=== PATIENT | female | born 1995 | race Caucasian/White ===

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

== ENCOUNTER → 2017-09-26 | Outpatient (CLI) | payer MEDICAID, OTHER ==
[~2017-09-26] MED LIST changes: +ACET-77 PO; +ACHD5005 PO; -FERR-74 PO; +FERR325T18 PO; -HYDR-3812 PO
--- NOTE | 2017-09-26 15:07 | Diagnostic Imaging Report ---
PROCEDURE: US OB SINGLE FETUS <14 WKS. TECHNIQUE: Multiple real-time grayscale images were obtained over the gravid uterus in various projections. INDICATION: evaluation. FINDINGS: Nuñez intrauterine gestational sac is identified. pole is present with crown-rump length of 3.4 cm. Embryonic cardiac activity is present with a rate of 163 beats per minute. There is no evidence of placental abnormality. No maternal adnexal abnormality is seen. Gestational sac demonstrates normal morphology. IMPRESSION: Unremarkable early intrauterine gestation with estimated age of 10 weeks and 3 days. Sonographic EDC is 04/21/2018. Dictated by: Dictated on workstation # [id number]
== END ==
LOC: RAD 11:00
PROVIDERS: ATTEND Family Medicine
DX: Z34.81 Encounter for supervision of other normal pregnancy, first trimester (principal); Z3A.10 10 weeks gestation of pregnancy
CPT/HCPCS: 76801

== ENCOUNTER 2017-10-20 12:17 | Emergency (ER) | payer OTHER, MEDICAID ==
[~2017-10-20] VITALS: Ht 167.6 cm; Wt 68.0 kg
--- OUTSIDE RECORDS SUMMARY | 2017-10-20 12:23 | XMS REPORT ---
Author Author ANDREW REGIS Organization [facility] Address [address] [place] [address] Care Team Providers Care Product Safety Technical Assistant Name Role Phone REGIS MORALES Unavailable PROBLEMS Type Condition ICD9-CM Code [id number] Code Onset Dates Condition Status SNOMED Code Problem Bipolar disorder with moderate depression F31.32 Active 912275608 Problem Social phobia, generalized F40.11 Active 02557046 Problem Attention-deficit hyperactivity disorder, combined type F90.2 Active 14132564 Problem Bipolar disorder, current episode hypomanic F31.0 Active 57427615 Problem Bipolar disorder, in partial remission, most recent episode depressed F31.75 Active 74286402 ALLERGIES No Information SOCIAL HISTORY Never Assessed PLAN OF CARE Activity Details Follow Up 1W, 1 Week Reason: VITAL SIGNS Height 64.3 in 2016-09-20 Weight 222 lbs 2016-09-20 Temperature 97.9 degrees Fahrenheit 2016-09-20 Heart Rate 90 bpm 2016-09-20 Respiratory Rate 20 2016-09-20 BMI 37.751 kg/m2 2016-09-20 Blood pressure systolic 122 mmHg 2016-09-20 Blood pressure diastolic 70 mmHg 2016-09-20 MEDICATIONS Medication Instructions Dosage Frequency Start Date End Date Duration Status Latuda 20 mg Orally Once with evening meal 1 tablets with 350 calories Apr, Active Active RESULTS Name Result Date Reference Range UA OB DIP (IN HOUSE) 2016-09-20 Glucose negative Protein negative PROCEDURES Procedure Date Ordered Result Body Site LAB NOT BILLED BY [facility] Sep 20, 2016 URINE-NO MICRO Sep 20, 2016 IMMUNIZATIONS No Known Immunizations MEDICAL (GENERAL) HISTORY Type Description Date Medical History 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 Has had consisten NEUROLOGY care. Diagnosed with Focal Seizures with EEG Medical History ADHD Medical History Bipolar disorder Medical History Social anxiety disorder Surgical History [place] teeth removed 09/06/15 Hospitalization History psych; anger/aggression 2008
--- OUTSIDE RECORDS SUMMARY | 2017-10-20 12:23 | XMS REPORT ---
Author Author ANDREW REGIS Organization [facility] Address [address] [place] [address] Care Team Providers Care Nuclear Physician Name Role Phone REGIS MORALES Unavailable PROBLEMS Type Condition ICD9-CM Code ABR59-OA Code Onset Dates Condition Status SNOMED Code Problem Bipolar disorder with moderate depression F31.32 Active 827791266 Problem Social phobia, generalized F40.11 Active 09902985 Problem Attention-deficit hyperactivity disorder, combined type F90.2 Active 82613606 Problem Bipolar disorder, current episode hypomanic F31.0 Active 14373815 Problem Bipolar disorder, in partial remission, most recent episode depressed F31.75 Active 15327208 ALLERGIES No Information SOCIAL HISTORY Never Assessed PLAN OF CARE Activity Details Follow Up 1 Week Reason: VITAL SIGNS Height 64.3 in 2016-09-11 Weight 219.0 lbs 2016-09-11 Temperature 98.4 degrees Fahrenheit 2016-09-11 BMI 37.241 kg/m2 2016-09-11 Blood pressure systolic 110 mmHg 2016-09-11 Blood pressure diastolic 68 mmHg 2016-09-11 MEDICATIONS Medication Instructions Dosage Frequency Start Date End Date Duration Status Latuda 20 mg Orally Once with evening meal 1 tablets with 350 calories Apr, Active Active RESULTS Name Result Date Reference Range UA OB DIP (IN HOUSE) 2016-09-11 Glucose negative Protein negative PROCEDURES Procedure Date Ordered Result Body Site URINE-NO MICRO Sep 11, 2016 IMMUNIZATIONS No Known Immunizations MEDICAL (GENERAL) HISTORY Type Description Date Medical History 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 Has had consisten NEUROLOGY care. Diagnosed with Focal Seizures with EEG Medical History ADHD Medical History Bipolar disorder Medical History Social anxiety disorder Surgical History [place] teeth removed 09/06/15 Hospitalization History psych; anger/aggression 2008
--- OUTSIDE RECORDS SUMMARY | 2017-10-20 12:23 | XMS REPORT ---
Author Author ANDREWREIGS KELLER Organization [facility] Address [address] [place] [address] Care Team Providers Care Gasket Supervisor Name Role Phone REGIS MORALES Unavailable PROBLEMS Type Condition ICD9-CM Code [id number] Code Onset Dates Condition Status SNOMED Code Problem Social phobia, generalized F40.11 Active 66745221 Problem Bipolar disorder, current episode hypomanic F31.0 Active 73119208 Problem Bipolar disorder, in partial remission, most recent episode depressed F31.75 Active 57237749 Problem Attention-deficit hyperactivity disorder, combined type F90.2 Active 66992733 ALLERGIES Substance Reaction Event Type Date Status N.K.D.A. Unknown Non Drug Allergy Jul, Unknown SOCIAL HISTORY No smoking Hx information available PLAN OF CARE Activity Details Follow Up 2W, 2 Weeks, 2 Weeks, 2 Weeks Reason: VITAL SIGNS Height 64.3 in 2016-07-31 Weight 198 lbs 2016-07-31 Temperature 98.4 degrees Fahrenheit 2016-07-31 Heart Rate 90 bpm 2016-07-31 Respiratory Rate 20 2016-07-31 BMI 33.67 kg/m2 2016-07-31 Blood pressure systolic 98 mmHg 2016-07-31 Blood pressure diastolic 62 mmHg 2016-07-31 MEDICATIONS Medication Instructions Dosage Frequency Start Date End Date Duration Status Active Latuda 20 mg Orally Once with evening meal 1 tablets with 350 calories Apr, Active RESULTS Name Result Date Reference Range UA OB DIP (IN HOUSE) 2016-07-31 Glucose negative Protein 1+ GLUCOSE BARBARA 1 HOUR 2016-07-31 Gestational Diabetes Screen 84 65-139 CBC 2016-07-31 WBC 12.3 3.4-10.8 RBC 3.55 3.77-5.28 Hemoglobin 11.2 11.1-15.9 Hematocrit 32.7 34.0-46.6 MCV 92 79-97 MCH 31.5 26.6-33.0 MCHC 34.3 31.5-35.7 RDW 13.6 12.3-15.4 Platelets 298 150-379 Neutrophils 68 Lymphs 21 Monocytes 10 Eos 1 Basos 0 Neutrophils (Absolute) 8.2 1.4-7.0 Lymphs (Absolute) 2.6 0.7-3.1 Monocytes(Absolute) 1.3 0.1-0.9 Eos (Absolute) 0.2 0.0-0.4 Baso (Absolute) 0.0 0.0-0.2 Immature Granulocytes 0 Immature Grans (Abs) 0.0 0.0-0.1 CULTURE, GENITAL 2016-07-31 Genital Culture, Routine Final report Result 1 Ultrasound : OB, Limited 2016-07-31 PROCEDURES Procedure Date Ordered Related Diagnosis Body Site COMPLETE CBC W/AUTO DIFF WBC Jul 31, 2016 GLUCOSE TEST Jul 31, 2016 VENIPUNCT, ROUTINE* Jul 31, 2016 Office Visit, Est Pt., Level 3 Jul 31, 2016 CULTURE, BACTERIA, OTHER Jul 31, 2016 URINE-NO MICRO Jul 31, 2016 THER/PROPH/DIAG INJ, SC/IM Jul 31, 2016 RHOGAM 300 MCG Jul 31, 2016 IMMUNIZATIONS Vaccine Route Administration Date Status RHOGAM 300 MCG IM Intramuscular Jul 31, 2016 Administered
--- OUTSIDE RECORDS SUMMARY | 2017-10-20 12:24 | XMS REPORT ---
Author Author ANDREW REGIS Jacky [facility] Address [address] [place] [address] Care Team Providers Care Valve Pipe Irrigator Name Role Phone REGIS MORALES Unavailable PROBLEMS Type Condition ICD9-CM Code [id number] Code Onset Dates Condition Status SNOMED Code Problem Bipolar disorder with moderate depression F31.32 Active 474496089 Problem Social phobia, generalized F40.11 Active 24475032 Problem Attention-deficit hyperactivity disorder, combined type F90.2 Active 48826060 Problem Bipolar disorder, current episode hypomanic F31.0 Active 02617920 Problem Bipolar disorder, in partial remission, most recent episode depressed F31.75 Active 72092601 ALLERGIES No Known Allergies SOCIAL HISTORY Never Assessed PLAN OF CARE Activity Details Follow Up 6wk post Reason: VITAL SIGNS Height 64.3 in 2016-10-12 Weight 200.9 lbs 2016-10-12 Temperature 97.0 degrees Fahrenheit 2016-10-12 Heart Rate 80 bpm 2016-10-12 Respiratory Rate 18 2016-10-12 BMI 34.16 kg/m2 2016-10-12 Blood pressure systolic 120 mmHg 2016-10-12 Blood pressure diastolic 78 mmHg 2016-10-12 MEDICATIONS Medication Instructions Dosage Frequency Start Date End Date Duration Status Ferrous Sulfate 325 (65 Fe) MG Orally Once a day 1 tablet 24h Active Active RESULTS Name Result Date Reference Range TRICHOMONAS (IN HOUSE) 2016-10-12 TRICHOMONAS Negative Control + Lot # [id number] Exp date 09/2017 BACTERIAL VAGINOSIS (IN HOUSE) 2016-10-12 RESULTS negative Control + Lot # [id number] Exp date 04/2017 CULTURE, VIRAL (HSV W/ TYPING) 2016-10-12 HSV Culture/Type CULTURE, GENITAL 2016-10-12 Genital Culture, Routine Final report Result 1 GC/CHLAM PROBE (STATE) 2016-10-12 CHLAMYDIA Pos GC Neg SYPHILIS (STATE) 2016-10-12 HIV (STATE) 2016-10-12 PROCEDURES Procedure Date Ordered Result Body Site No Charge October 12, 2016 TRICHOMONAS ASSAY W/OPTIC October 12, 2016 CULTURE, BACTERIA, OTHER October 12, 2016 GALLOWAY VAG, DNA, DIR PROBE October 12, 2016 VANESSA VIRUS ISOLATE, HSV October 12, 2016 VENIPUNCT, ROUTINE* October 12, 2016 IMMUNIZATIONS No Known Immunizations MEDICAL (GENERAL) HISTORY Type Description Date Medical History 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 Has had consisten NEUROLOGY care. Diagnosed with Focal Seizures with EEG Medical History ADHD Medical History Bipolar disorder Medical History Social anxiety disorder Surgical History [place] teeth removed 09/06/15 Hospitalization History psych; anger/aggression 2008
--- OUTSIDE RECORDS SUMMARY | 2017-10-20 12:24 | XMS REPORT ---
Author Author GLENYS ROBB Organization [facility] Address [address] [place] [address] Care Team Providers Care Air Dispatcher Name Role Phone GLENYS ROBB Unavailable PROBLEMS Type Condition ICD9-CM Code [id number] Code Onset Dates Condition Status SNOMED Code Problem Bipolar disorder with moderate depression F31.32 Active 946803219 Problem Social phobia, generalized F40.11 Active 96869022 Problem Attention-deficit hyperactivity disorder, combined type F90.2 Active 19022519 Problem Bipolar disorder, current episode hypomanic F31.0 Active 39550853 Problem Bipolar disorder, in partial remission, most recent episode depressed F31.75 Active 87993213 ALLERGIES Substance Reaction Event Type Date Status N.K.D.A. Unknown Non Drug Allergy Sep, Unknown SOCIAL HISTORY No smoking Hx information available PLAN OF CARE Activity Details Follow Up 2 weeks after delivery Reason: VITAL SIGNS Height 64.3 in 2016-09-06 Weight 215.5 lbs 2016-09-06 Heart Rate 76 bpm 2016-09-06 Respiratory Rate 20 2016-09-06 BMI 36.64 kg/m2 2016-09-06 Blood pressure systolic 105 mmHg 2016-09-06 Blood pressure diastolic 67 mmHg 2016-09-06 MEDICATIONS Medication Instructions Dosage Frequency Start Date End Date Duration Status Latuda 20 mg Orally Once with evening meal 1 tablets with 350 calories Apr, Active Active RESULTS No Results PROCEDURES Procedure Date Ordered Related Diagnosis Body Site MH Office Visit, Est Pt., Level 4 Sep 06, 2016 IMMUNIZATIONS No Known Immunizations
--- OUTSIDE RECORDS SUMMARY | 2017-10-20 12:24 | XMS REPORT ---
Author Author REGIS MORALES [facility] Address [address] [place] [address] Care Team Providers Care Religious Assistant Name Role Phone REGIS MORALES Unavailable PROBLEMS Type Condition ICD9-CM Code [id number] Code Onset Dates Condition Status SNOMED Code Problem Bipolar disorder with moderate depression F31.32 Active 005151298 Problem Social phobia, generalized F40.11 Active 69459766 Problem Attention-deficit hyperactivity disorder, combined type F90.2 Active 25795113 Problem Bipolar disorder, current episode hypomanic F31.0 Active 14430028 Problem Bipolar disorder, in partial remission, most recent episode depressed F31.75 Active 44536133 ALLERGIES Unknown Allergies SOCIAL HISTORY No smoking Hx information available PLAN OF CARE VITAL SIGNS MEDICATIONS Unknown Medications RESULTS No Results PROCEDURES No Known procedures IMMUNIZATIONS No Known Immunizations
--- OUTSIDE RECORDS SUMMARY | 2017-10-20 12:24 | XMS REPORT ---
Author Author REGIS MORALES Organization [facility] Address [address] [place] [address] Care Team Providers Care Installment Dealer Name Role Phone REGIS MORALES Unavailable PROBLEMS Type Condition ICD9-CM Code [id number]-DT Code Onset Dates Condition Status SNOMED Code Problem Bipolar disorder with moderate depression F31.32 Active 030736720 Problem Social phobia, generalized F40.11 Active 64391444 Problem Attention-deficit hyperactivity disorder, combined type F90.2 Active 51622420 Problem Bipolar disorder, current episode hypomanic F31.0 Active 51095713 Problem Bipolar disorder, in partial remission, most recent episode depressed F31.75 Active 54124153 ALLERGIES No Information SOCIAL HISTORY Never Assessed PLAN OF CARE VITAL SIGNS MEDICATIONS Unknown Medications RESULTS No Results PROCEDURES No Known procedures IMMUNIZATIONS No Known Immunizations MEDICAL (GENERAL) HISTORY Type Description Date Medical History 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 Has had consisten NEUROLOGY care. Diagnosed with Focal Seizures with EEG Medical History ADHD Medical History Bipolar disorder Medical History Social anxiety disorder Surgical History [place] teeth removed 09/06/15 Hospitalization History psych; anger/aggression 2008
--- OUTSIDE RECORDS SUMMARY | 2017-10-20 12:24 | XMS REPORT ---
Author MARIPOSA Salcido Organization [facility] Address [address] [place] [address] Care Team Providers Care Rn Vascular Name Role Phone MARIPOSA BERNARDO Unavailable PROBLEMS Type Condition ICD9-CM Code [id number] Code Onset Dates Condition Status SNOMED Code Problem Bipolar disorder with moderate depression F31.32 Active 715131483 Problem Social phobia, generalized F40.11 Active 68924942 Problem Attention-deficit hyperactivity disorder, combined type F90.2 Active 37974784 Problem Bipolar disorder, current episode hypomanic F31.0 Active 52762171 Problem Bipolar disorder, in partial remission, most recent episode depressed F31.75 Active 74352907 ALLERGIES No Information SOCIAL HISTORY Never Assessed PLAN OF CARE Activity Details Follow Up prn Reason:Depression VITAL SIGNS MEDICATIONS Unknown Medications RESULTS No Results PROCEDURES Procedure Date Ordered Result Body Site Psych diagnostic evaluation, new patient October 11, 2016 IMMUNIZATIONS No Known Immunizations MEDICAL (GENERAL) HISTORY Type Description Date Medical History 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 Has had consisten NEUROLOGY care. Diagnosed with Focal Seizures with EEG Medical History ADHD Medical History Bipolar disorder Medical History Social anxiety disorder Surgical History [place] teeth removed 09/06/15 Hospitalization History psych; anger/aggression 2008
--- OUTSIDE RECORDS SUMMARY | 2017-10-20 12:25 | XMS REPORT ---
Author Author ANDREWREGIS KELLER Organization [facility] Address [address] [place] [address] Care Team Providers Care Millwright Instructor Name Role Phone REGIS MORALES Unavailable PROBLEMS Type Condition ICD9-CM Code RLF40-ES Code Onset Dates Condition Status SNOMED Code Problem Social phobia, generalized F40.11 Active 75379963 Problem Bipolar disorder, current episode hypomanic F31.0 Active 16899175 Problem Bipolar disorder, in partial remission, most recent episode depressed F31.75 Active 05010019 Problem Attention-deficit hyperactivity disorder, combined type F90.2 Active 59103309 ALLERGIES Substance Reaction Event Type Date Status N.K.D.A. Unknown Non Drug Allergy Aug, Unknown SOCIAL HISTORY No smoking Hx information available PLAN OF CARE Activity Details Follow Up 2 Weeks, 2 Weeks Reason: VITAL SIGNS Height 64.3 in 2016-08-29 Weight 213 lbs 2016-08-29 Temperature 97.6 degrees Fahrenheit 2016-08-29 Heart Rate 90 bpm 2016-08-29 Respiratory Rate 20 2016-08-29 BMI 36.221 kg/m2 2016-08-29 Blood pressure systolic 106 mmHg 2016-08-29 Blood pressure diastolic 60 mmHg 2016-08-29 MEDICATIONS Medication Instructions Dosage Frequency Start Date End Date Duration Status Latuda 20 mg Orally Once with evening meal 1 tablets with 350 calories Apr, Active Active RESULTS Name Result Date Reference Range UA OB DIP (IN HOUSE) 2016-08-29 Glucose negative Protein negative PROCEDURES Procedure Date Ordered Related Diagnosis Body Site URINE-NO MICRO Aug 29, 2016 TDAP (BOOSTRIX) Aug 29, 2016 Office Visit, Est Pt., Level 2 Aug 29, 2016 SINGLE IMMUNIZATION ADMIN Aug 29, 2016 IMMUNIZATIONS Vaccine Route Administration Date Status TDAP (BOOSTRIX) IM Intramuscular Aug 29, 2016 Administered
--- OUTSIDE RECORDS SUMMARY | 2017-10-20 12:25 | XMS REPORT ---
Author Author REGIS MORALES [facility] Address [address] [place] [address] Care Team Providers Care Sawyer Cork Slabs Name Role Phone REGIS MORALES Unavailable PROBLEMS Type Condition ICD9-CM Code [id number] Code Onset Dates Condition Status SNOMED Code Problem Bipolar disorder with moderate depression F31.32 Active 312868385 Problem Social phobia, generalized F40.11 Active 52834949 Problem Attention-deficit hyperactivity disorder, combined type F90.2 Active 36770156 Problem Bipolar disorder, current episode hypomanic F31.0 Active 11571723 Problem Bipolar disorder, in partial remission, most recent episode depressed F31.75 Active 14727608 ALLERGIES Unknown Allergies SOCIAL HISTORY No smoking Hx information available PLAN OF CARE VITAL SIGNS MEDICATIONS Unknown Medications RESULTS No Results PROCEDURES No Known procedures IMMUNIZATIONS No Known Immunizations
--- OUTSIDE RECORDS SUMMARY | 2017-10-20 12:25 | XMS REPORT ---
Author Author REGIS MORALES Organization [facility] Address [address] [place] [address] Care Team Providers Care Gas Or Water Meter Installer Name Role Phone REGIS MORALES Unavailable PROBLEMS Type Condition ICD9-CM Code [id number]-HR Code Onset Dates Condition Status SNOMED Code Problem Bipolar disorder with moderate depression F31.32 Active 420898805 Problem Social phobia, generalized F40.11 Active 84788522 Problem Attention-deficit hyperactivity disorder, combined type F90.2 Active 97853800 Problem Bipolar disorder, current episode hypomanic F31.0 Active 84678597 Problem Bipolar disorder, in partial remission, most recent episode depressed F31.75 Active 75762887 ALLERGIES No Information SOCIAL HISTORY Never Assessed [...] Medical History Social anxiety disorder Surgical History [place] teeth removed 09/06/15 Hospitalization History psych; anger/aggression 2008
--- OUTSIDE RECORDS SUMMARY | 2017-10-20 12:25 | XMS REPORT ---
Author Author REGIS MORALES Organization [facility] Address [address] [place] [address] Care Team Providers Care High School English Teacher Name Role Phone REGIS MORALES Unavailable PROBLEMS Type Condition ICD9-CM Code [id number] Code Onset Dates Condition Status SNOMED Code Problem Bipolar disorder with moderate depression F31.32 Active 643976171 Problem Social phobia, generalized F40.11 Active 67305247 Problem Attention-deficit hyperactivity disorder, combined type F90.2 Active 52439109 Problem Bipolar disorder, current episode hypomanic F31.0 Active 16210551 Problem Bipolar disorder, in partial remission, most recent episode depressed F31.75 Active 12685701 ALLERGIES No Information SOCIAL HISTORY Never Assessed PLAN OF CARE VITAL SIGNS MEDICATIONS No Known Medications RESULTS No Results PROCEDURES No Known procedures IMMUNIZATIONS No Known Immunizations MEDICAL (GENERAL) HISTORY Type Description Date Medical History 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 Has had consisten NEUROLOGY care. Diagnosed with Focal Seizures with EEG Medical History ADHD Medical History Bipolar disorder Medical History Social anxiety disorder Surgical History [place] teeth removed 09/06/15 Hospitalization History psych; anger/aggression 2008
--- OUTSIDE RECORDS SUMMARY | 2017-10-20 12:25 | XMS REPORT ---
Author Author REGIS MORALES [facility] Address [address] [place] [address] Care Team Providers Care Dry House Tender Name Role Phone REGIS MORALES Unavailable PROBLEMS Type Condition ICD9-CM Code [id number] Code Onset Dates Condition Status SNOMED Code Problem Social phobia, generalized F40.11 Active 99240026 Problem Bipolar disorder, current episode hypomanic F31.0 Active 54445869 Problem Bipolar disorder, in partial remission, most recent episode depressed F31.75 Active 05499900 Problem Attention-deficit hyperactivity disorder, combined type F90.2 Active 03127366 ALLERGIES Unknown Allergies SOCIAL HISTORY No smoking Hx information available PLAN OF CARE VITAL SIGNS MEDICATIONS Unknown Medications RESULTS No Results PROCEDURES No Known procedures IMMUNIZATIONS No Known Immunizations
--- OUTSIDE RECORDS SUMMARY | 2017-10-20 12:26 | XMS REPORT ---
Author Author GLENYS ROBB Organization [facility] Address [address] [place] [address] Care Team Providers Care Dinkey Operator Name Role Phone GLENYS ROBB Unavailable PROBLEMS Type Condition ICD9-CM Code [id number] Code Onset Dates Condition Status SNOMED Code Problem Bipolar disorder with moderate depression F31.32 Active 141476537 Problem Social phobia, generalized F40.11 Active 79869670 Problem Attention-deficit hyperactivity disorder, combined type F90.2 Active 08537519 Problem Bipolar disorder, current episode hypomanic F31.0 Active 01589100 Problem Bipolar disorder, in partial remission, most recent episode depressed F31.75 Active 24867499 ALLERGIES No Known Allergies SOCIAL HISTORY Never Assessed PLAN OF CARE Activity Details Follow Up 4 Weeks Reason: VITAL SIGNS Height 64.3 in 2016-10-11 Weight 197.0 lbs 2016-10-11 BMI 33.50 kg/m2 2016-10-11 MEDICATIONS Medication Instructions Dosage Frequency Start Date End Date Duration Status Active RESULTS No Results PROCEDURES No Known procedures IMMUNIZATIONS No Known Immunizations MEDICAL (GENERAL) HISTORY Type Description Date Medical History 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 Has had consisten NEUROLOGY care. Diagnosed with Focal Seizures with EEG Medical History ADHD Medical History Bipolar disorder Medical History Social anxiety disorder Surgical History [place] teeth removed 09/06/15 Hospitalization History psych; anger/aggression 2008
--- OUTSIDE RECORDS SUMMARY | 2017-10-20 12:26 | XMS REPORT ---
Author Author REGIS MORALES Organization [facility] Address [address] [place] [address] Care Team Providers Care Electronics Engineer Name Role Phone REGIS MORALES Unavailable PROBLEMS Type Condition ICD9-CM Code [id number]-PP Code Onset Dates Condition Status SNOMED Code Problem Bipolar disorder with moderate depression F31.32 Active 236045147 Problem Social phobia, generalized F40.11 Active 89218451 Problem Attention-deficit hyperactivity disorder, combined type F90.2 Active 51892252 Problem Bipolar disorder, current episode hypomanic F31.0 Active 85669534 Problem Bipolar disorder, in partial remission, most recent episode depressed F31.75 Active 75338915 ALLERGIES No Information SOCIAL HISTORY Never Assessed [...] Medical History Social anxiety disorder Surgical History [place] teeth removed 09/06/15 Hospitalization History psych; anger/aggression 2008
--- OUTSIDE RECORDS SUMMARY | 2017-10-20 12:27 | XMS REPORT | Continuity of Care Document ---
Demographics Preferred Language Unknown Marital Status Unknown Sabianism Affiliation Unknown Race Unknown Ethnic Group Unknown Author Author [facility] Address Unknown Phone Unavailable Allergies There is no data. Medications There is no data. Problems Date Dx Coded Attending Type Code Diagnosis Diagnosed By 12/12/2009 296.80 MO BIPOLAR NOS 12/12/2009 314.01 CD ADHD COMBINED Procedures There is no data. Results There is no data. Encounters ACCT No. Visit Date/Time Discharge Status Pt. Type Provider Facility Loc./Unit Complaint [id number] 01/16/2012 14:40:00 01/16/2012 23:59:59 CLS Outpatient
[2017-10-20 12:54] LABS: BASOPHILS % (AUTO) 0 % (0-10); EOSINOPHILS # (AUTO) 0.1 10^3/uL (0.0-0.3); EOSINOPHILS % (AUTO) 2 % (0-10); HEMATOCRIT 32 % (35-52); HEMOGLOBIN 11.8 G/DL (11.5-16.0); LYMPHOCYTES # (AUTO) 2.1 X 10^3 (1.0-4.0); LYMPHOCYTES % (AUTO) 36 % (12-44); MEAN CORPUSCULAR HEMOGLOBIN 32 PG (25-34); MEAN CORPUSCULAR HGB CONC 37 G/DL (32-36); MEAN CORPUSCULAR VOLUME 87 FL (80-99); MEAN PLATELET VOLUME 9.9 FL (7.4-10.4); MONOCYTES # (AUTO) 0.4 X 10^3 (0.0-1.0); MONOCYTES % (AUTO) 7 % (0-12); NEUTROPHILS # (AUTO) 3.2 X 10^3 (1.8-7.8); NEUTROPHILS % (AUTO) 54 % (42-75); PLATELET COUNT 197 10^3/uL (130-400); RED BLOOD COUNT 3.69 10^6/uL (4.35-5.85); RED CELL DISTRIBUTION WIDTH 12.9 % (10.0-14.5)
[2017-10-20 13:43] LABS: BILIRUBIN,URINE NEGATIVE (NEGATIVE); CLARITY,URINE CLEAR; COLOR,URINE YELLOW; GLUCOSE, URINE (UA) NEGATIVE (NEGATIVE); KETONES,URINE NEGATIVE (NEGATIVE); LEUKOCYTE ESTERASE ,URINE 3+ (NEGATIVE); NITRITE,URINE NEGATIVE (NEGATIVE); PH,URINE 6 (5-9); PROTEIN,URINE 1+ (NEGATIVE); UROBILINOGEN,URINE 1 MG/DL (NORMAL)
[2017-10-20 13:50] LABS: WBC,URINE 25-50 /HPF
[2017-10-20 13:51] LABS: BACTERIA,URINE LARGE /HPF
[2017-10-20] MEDS ORDERED: cefTRIAXone 1 GM (ROCEPHIN) VIAL IM ONE (14:15)
[2017-10-20] MEDS ORDERED: LIDOCAINE 1% INJ 20 ML (XYLOCAINE) VIAL INJ ONE (14:15)
--- NOTE | 2017-10-20 14:21 | Diagnostic Imaging Report ---
INDICATION: Bleeding. TECHNIQUE: Multiple real-time grayscale images were obtained over the gravid uterus. COMPARISON: 09/26/2017. FINDINGS: There is a single live intrauterine gestation measuring 14 weeks 3 days by today's sonogram. This is a limited evaluation with no gross abnormalities of the fetus appreciated on the images provided. However, along the anteriorly located placenta, there is an area of uncertain heterogeneity measuring 3.2 x 2.2 x 4 cm in size. This persists throughout the examination, therefore likely not a focal Cheikh Kinsey contraction. A focal hematoma or hemorrhage is possible. A mass lesion felt to be less likely but short-term interval followup is recommended for reevaluation of this finding. The amniotic fluid index is grossly unremarkable in appearance. There is question placenta previa which could be reevaluated at the time of followup. The heart rate is approximately 146 beats per minute. IMPRESSION: 1. Single live intrauterine gestation as noted above measuring 14 weeks 3 days by today's sonogram. A short-term interval followup is recommended for reevaluation, as noted above. 2. Nonspecific heterogeneous area adjacent to the placenta. See above description. Short-term interval followup for reevaluation of this finding also recommended. Suggested previa could be reevaluated at that time as well. Biometrical measurements are as follows: Biparietal 2.6 cm, age 14 weeks 4 days. Head circumference 10.17 cm, age 14 weeks 6 days. Abdominal circumference 7.76 cm, age 14 weeks 2 days. Femur length 1.31 cm, age 14 weeks 0 days. Sonographic estimate age: 14 weeks 3 days. Sonographic estimated date of delivery: 04/17/2018. Estimated Weight: 90 gm (+/- 13 gm). LMP percentile: 51%. heart rate: 146 beats per minute. number: 1 of 1. Dictated by: Dictated on workstation # [id number]
--- NOTE | 2017-10-20 14:39 | ED GU-Female ---
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 patient states she is approximately 1400. Denies similar symptoms during this . Denies abdominal pain, fever, nausea, vomiting, dysuria, frequency. Denies intercourse last night. Patient was seen by Dr. Morales on Saturday for regular appointment. 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) Severity/Quality: moderate Location: vaginal Activities at Onset: none Prior Genitourinary Problems: none Sexual [place] History: less than 2 months ago, single partner Allergies and Home Medications Allergies Coded Allergies: No Known Drug Allergies (Verified , 04/15/08) Home Medications Nitrofurantoin Monohyd/M-Cryst 100 Mg Capsule, 1 CAP PO BID Prescribed by: LUIS HARRELL on 10/20/17 1502 Patient Home Medication List Home Medication List Reviewed: Yes Constitutional: No chills, No diaphoresis, No dizziness, No fever, No malaise EENTM: no symptoms reported Respiratory: No cough, No dyspnea on exertion, No orthopnea, No short of breath Cardiovascular: No chest pain, No edema, No palpitations Gastrointestinal: No abdominal pain, No constipation, No diarrhea, No loss of appetite, No melena, No nausea, No vomiting Genitourinary: see HPI, denies burning, denies dysuria, denies frequency, denies flank pain, denies pain, other (vaginal bleeding) : Yes Musculoskeletal: No back pain Skin: no symptoms reported Psychiatric/Neurological: No Symptoms Reported All Other Systemes Reviewed Negative Unless Noted: Yes (Negative excepted noted.) Past Nfqctcm-Ojlhso-Ajjkgw Hx Patient Social History Type Used: Cigarettes Former Smoker, Quit: Mar 04, 2016 Recent Foreign Travel: No Contact w/Someone Who Travel: No Recent Hopitalizations: Yes (CHILDBIRTH) Immunizations Up To Date Tetanus Booster (TDap): Less than 5yrs PED Vaccines UTD: Yes Date of Influenza Vaccine: May 03, 2016 Seasonal Allergies Seasonal Allergies: Yes Surgeries History of Surgeries: Yes (wisdom teeth) Respiratory History of Respiratory Disorde: Yes Respiratory Disorders: Asthma, Pneumonia Currently Using CPAP: No Currently Using BIPAP: No Cardiovascular History of Cardiac Disorders: No Neurological History of Neurological Disord: No Reproductive System : Yes Hx : 2 Hx Para: 1 Hx Total # of Abortions (Spona: 0 Hx Reproductive Disorders: No Sexually Transmitted Disease: No HIV/AIDS: No Female Reproductive Disorders: Denies Genitourinary History of Genitourinary Disor: No Gastrointestinal History of Gastrointestinal Di: No Musculoskeletal History of Musculoskeletal Dis: Yes Musculoskeletal Disorders: Scoliosis Endocrine History of Endocrine Disorders: No HEENT History of HEENT Disorders: No Cancer History of Cancer: No Psychosocial History of Psychiatric Problem: No (pt denies) Integumentary History of Skin or Integumenta: No Blood Transfusions History of Blood Disorders: No Adverse Reaction to a Blood Tr: No Reviewed Nursing Assessment Reviewed/Agree w Nursing PMH: Yes Family Medical History Significant Family History: No Pertinent Family Hx Family Medial History: Hypertension 19 FATHER Physical Exam Vital Signs Vital Signs - First Documented 10/20/17 10/20/17 12:20 16:31 Pulse 76 Resp 16 B/P (MAP) 128/70 (89) Pulse Ox 98 O2 Delivery Room Air Capillary Refill : General Appearance: WD/WN, no apparent distress HEENT: PERRL/EOMI, pharynx normal Neck: non-tender, supple, normal inspection Cardiovascular: normal peripheral pulses, regular rate, rhythm, no edema, no murmur Respiratory: lungs clear, normal breath sounds, no respiratory distress, no accessory muscle use Gastrointestinal: normal bowel sounds, non tender, soft, No distended, other ( uterine fundus palpable and consistent with a 14 wk uterus.) Back: normal inspection, no CVA tenderness Extremities: no pedal edema, no calf tenderness, normal capillary refill Neurologic/Psychiatric: alert, normal mood/affect, oriented x 3 Skin: normal color, warm/dry Progress/Results/Core Measures Suspected Sepsis SIRS Temperature: Pulse: Respiratory Rate: Laboratory Tests 10/20/17 12:42: White Blood Count 6.0 Blood Pressure / Mean: Laboratory Tests 10/20/17 12:42: Platelet Count 197 Results/Orders Lab Results Laboratory Tests Test 10/20/17 12:42 10/20/17 13:30 Range/Units White Blood Count 6.0 4.3-11.0 10^3/uL Red Blood Count 3.69 L 4.35-5.85 10^6/uL Hemoglobin 11.8 11.5-16.0 G/DL Hematocrit 32 L 35-52 % Mean Corpuscular Volume 87 80-99 FL Mean Corpuscular Hemoglobin 32 25-34 PG Mean Corpuscular Hemoglobin Concent 37 H 32-36 G/DL Red Cell Distribution Width 12.9 10.0-14.5 % Platelet Count 197 130-400 10^3/uL Mean Platelet Volume 9.9 7.4-10.4 FL Neutrophils (%) (Auto) 54 42-75 % Lymphocytes (%) (Auto) 36 12-44 % Monocytes (%) (Auto) 7 0-12 % Eosinophils (%) (Auto) 2 0-10 % Basophils (%) (Auto) 0 0-10 % Neutrophils # (Auto) 3.2 1.8-7.8 X 10^3 Lymphocytes # (Auto) 2.1 1.0-4.0 X 10^3 Monocytes # (Auto) 0.4 0.0-1.0 X 10^3 Eosinophils # (Auto) 0.1 0.0-0.3 10^3/uL Basophils # (Auto) 0.0 0.0-0.1 10^3/uL Urine Color YELLOW Urine Clarity CLEAR Urine pH 6 5-9 Urine Specific [place] 1.015 L 1.016-1.022 Urine Protein 1+ H NEGATIVE Urine Glucose (UA) NEGATIVE NEGATIVE Urine Ketones NEGATIVE NEGATIVE Urine Nitrite NEGATIVE NEGATIVE Urine Bilirubin NEGATIVE NEGATIVE Urine Urobilinogen 1 NORMAL MG/DL Urine Leukocyte Esterase 3+ H NEGATIVE Urine RBC (Auto) 5+ H NEGATIVE Urine RBC NONE /HPF Urine WBC 25-50 H /HPF Urine Squamous Epithelial Cells 5-10 /HPF Urine Crystals NONE /LPF Urine Bacteria LARGE H /HPF Urine Casts NONE /LPF Urine Mucus LARGE H /LPF Urine Culture Indicated YES My Orders Orders - LUIS HARRELL Us Ob Preg Late(14-40wks)19540 (10/20/17 12:21) Cbc With Automated Diff (10/20/17 12:21) Ua Culture If Indicated (10/20/17 12:21) Urine Culture (10/20/17 13:30) Ceftriaxone Injection (Rocephin Injectio (3/18/18 14:15) Lidocaine 1% Injection (Xylocaine 1% Inj (10/20/17 14:15) Rhogam Administration (10/20/17 15:00) Rh Immune Globulin Rhophylac (10/20/17 15:14) Lidocaine 1% (Xylocaine 1%) (10/20/17 15:17) Medications Given in ED Current Medications Medications Dose Ordered Sig/Minnie Route Start Time Stop Time Status Last Admin Dose Admin Ceftriaxone Sodium 1,000 mg ONCE ONCE IM 10/20/17 14:15 10/20/17 14:16 DC 10/20/17 16:02 1,000 MG Lidocaine HCl 50 ml STK-MED ONCE .ROUTE 10/20/17 15:17 10/20/17 15:20 DC 10/20/17 16:03 50 ML Vital Signs/I&O Vital Sign - Last 12Hours 10/20/17 10/20/17 12:20 16:31 Pulse 76 76 Resp 16 16 B/P (MAP) 128/70 (89) 128/70 (89) Pulse Ox 98 O2 Delivery Room Air Capillary Refill : Diagnostic Imaging Diagonstic Imaging: Ultrasound Plain Films/CT/US/NM/MRI: pelvis Comments FINDINGS: There is a single live intrauterine gestation measuring 14 weeks 3 days by today's sonogram. This is a limited evaluation with no gross abnormalities of the fetus appreciated on the images provided. However, along the anteriorly located placenta, there is an area of uncertain heterogeneity measuring 3.2 x 2.2 x 4 cm in size. This persists throughout the examination, therefore likely not a focal Cheikh Kinsey contraction. A focal hematoma or hemorrhage is possible. A mass lesion felt to be less likely but short-term interval followup is recommended for reevaluation of this finding. The amniotic fluid index is grossly unremarkable in appearance. There is question placenta previa which could be reevaluated at the time of followup. The heart rate is approximately 146 beats per minute. IMPRESSION: 1. Single live intrauterine gestation as noted above measuring 14 weeks 3 days by today's sonogram. A short- term interval followup is recommended for reevaluation, as noted above. 2. Nonspecific heterogeneous area adjacent to the placenta. See above description. Short-term interval followup for reevaluation of this finding also recommended. Suggested previa could be reevaluated at that time as well. Biometrical measurements are as follows: Biparietal 2.6 cm, age 14 weeks 4 days. Head circumference 10.17 cm, age 14 weeks 6 days. Abdominal circumference 7.76 cm, age 14 weeks 2 days. Femur length 1.31 cm, age 14 weeks 0 days. Sonographic estimate age: 14 weeks 3 days. Sonographic estimated date of delivery: 2017. Estimated Weight: 90 gm (+/- 13 gm). LMP percentile: 51%. heart rate: 146 beats per minute. number: 1 of 1. Dictated by: Dictated on workstation # [id number] Reviewed: Reviewed by Me (radiology report reviewed by me) Departure Communication (Admissions) Progress Notes 1440 patient case discussed with Dr. Morales including history, exam findings, laboratory findings, and diagnostic study findings. Dr. Morales recommends discharge to home with modified bedrest and pelvic rest. Request patient follow up in her office this week for recheck. Request patient to contact their office Saturday for appointment time. 1450 all laboratory findings and diagnostic study findings, and recommendations by Dr. Morales discussed with the patient and family. Proceed with discharge to home. Patient is O negative per EMR from her previous ; therefore, patient was given rhogam in the ED. Patient given 1 g Rocephin IM prior to discharge. Patient to call Saturday for scheduling an appointment time with Dr. Morales this week. Return precautions were discussed with the patient as described in the discharge instructions of this report. Patient verbalizes understanding and agrees with the treatment plan. Patient noted to only have a small amount of vaginal spotting discharge to home. Patient case discussed with Dr. Goff, he agrees with the plan of care. Impression Impression: Primary Impression: Threatened miscarriage Additional Impression: Urinary tract infection Qualified Codes: N30.00 - Acute cystitis without hematuria Disposition: HOME, SELF-CARE Condition: Improved Departure-Patient Inst. Decision time for Depature: 14:48 Referrals: REGIS MORALES MD (PCP/Family) Primary Care Physician Patient Instructions: Threatened Miscarriage (DC), Placenta Previa Add. Discharge Instructions: All discharge instructions reviewed with patient and/or family. Voiced understanding. Medications as instructed. Tylenol [id number]-[id number] as directed by the heading and priming operator for pain if needed. Drink plenty of fluids. No intercourse, tampons use, or douching. You need to be on modified bedrest until seen by Dr. Morales this week. This means you may do light activity, but when you are at home you need to have your feet elevated and rest. No laundry, vacuuming, dishes, walking the dog, yard work, etc... Follow-up with Dr. Morales this week for recheck. Call Saturday for appointment time. Return to the emergency department for worsened symptoms, vaginal bleeding with greater than 2 pads (saturated pads) per hour for greater than 2 hours, vaginal discharge, fever, inability to urinate, shortness of air, chest pain, or any other concerns. Scripts Nitrofurantoin Monohyd/M-Cryst (Macrobid 100 mg Capsule) 100 Mg Capsule 1 CAP PO BID, #14 CAP 0 Refills Prov: LUIS HARRELL 10/20/17 LUIS HARRELL Oct 20, 2017 14:39
[2017-10-20] MEDS ORDERED: NITR-65 PO (15:02)
[2017-10-20] MEDS ORDERED: LIDOCAINE 1% INJ 50 ML (XYLOCAINE) VIAL ONE (15:17)
[2017-10-20 16:31] VITALS: BP 128/70
== END 2017-10-20 16:31 | disposition home or self-care (01) ==
LOC: EDUNIT# 12:17 → ER 12:18
DX: O20.0 Threatened abortion (principal); O23.42 Unspecified infection of urinary tract in pregnancy, second trimester; O99.512 Diseases of the respiratory system complicating pregnancy, second trimester; J45.909 Unspecified asthma, uncomplicated; Z87.01 Personal history of pneumonia (recurrent); Z87.891 Personal history of nicotine dependence; Z87.39 Personal history of other diseases of the musculoskeletal system and connective tissue
CPT/HCPCS: 36415; 76805; 81000; 85025; 87088; 96372

== ENCOUNTER → 2017-10-29 | Outpatient (CLI) | payer OTHER, MEDICAID ==
[~2017-10-29] MED LIST changes: +NITR-65 PO
--- NOTE | 2017-10-29 13:33 | Diagnostic Imaging Report ---
INDICATION: Threatened . FINDINGS: A limited obstetrical ultrasound was performed. There is a single live fetus in a variable presentation. The placenta is anterior. The amniotic fluid volume is normal. cardiac activity was measured at 135 beats per minute. There is a probable small subchorionic hemorrhage present in the lower uterine segment measuring 5.8 x 1.5 x 3.3 cm. IMPRESSION: Single live IUP. There is a probable small subchronic hemorrhage. Followup could be performed. Dictated by: Dictated on workstation # [id number]
== END ==
LOC: RAD 12:41
PROVIDERS: ATTEND Family Medicine
DX: O20.0 Threatened abortion (principal); Z3A.14 14 weeks gestation of pregnancy
CPT/HCPCS: 76815

== ENCOUNTER 2018-02-19 13:09 | Outpatient (CLI) | payer OTHER, MEDICAID ==
[~2018-02-19] VITALS: Ht 160 cm; Wt 81.7 kg
[2018-02-19 13:30] VITALS: BP 120/68
[2018-02-19 14:02] LABS: BILIRUBIN,URINE NEGATIVE (NEGATIVE); CLARITY,URINE CLEAR; COLOR,URINE YELLOW; GLUCOSE, URINE (UA) NEGATIVE (NEGATIVE); KETONES,URINE NEGATIVE (NEGATIVE); LEUKOCYTE ESTERASE ,URINE 2+ (NEGATIVE); NITRITE,URINE NEGATIVE (NEGATIVE); PH,URINE 6.5 (5-9); PROTEIN,URINE 1+ (NEGATIVE); UROBILINOGEN,URINE 1 MG/DL (NORMAL)
[2018-02-19 14:42] LABS: BACTERIA,URINE TRACE /HPF; RBC,URINE RARE /HPF
[2018-02-19] MEDS ORDERED: LACTATED RINGERS 1,000 ML IV ONE (16:08)
[2018-02-19] MEDS: LACTATED RINGERS 1,000 ML IV SCH ×2 (16:16→17:30)
--- NOTE | 2018-02-19 16:49 | Diagnostic Imaging Report ---
INDICATION: Pre-term contractions. FINDINGS: Limited OB sonogram performed for cervical length with transabdominal and transvaginal images. Fetus is in vertex presentation. Cervical length is 3.3 cm. IMPRESSION: Limited OB sonogram demonstrates cervical length of 3.3 cm with vertex presentation. Dictated by: Dictated on workstation # [id number]
[2018-02-19] MEDS ORDERED: BETAMETHASONE ACE/NA PHOS 6 MG/ML (CELESTONE SOLUSPAN) ONE (17:42)
[2018-02-19] MEDS ORDERED: NS (IVPB) 50 ML ONE (17:43)
[2018-02-19] MEDS ORDERED: AMPICILLIN 2000 MG INJECTION (IM/IV) ONE (17:43)
[2018-02-19] MEDS ORDERED: AMPICILLIN INJECTION 2,000 MG in NS (IVPB) 50 ML IV ONE (17:45)
[2018-02-19] MEDS ORDERED: INDOMETHACIN 25 MG (INDOCIN) CAP PO ONE ×2 (17:45→17:49)
[2018-02-19] MEDS: BETAMETHASONE ACE/NA PHOS 6 MG/ML (CELESTONE SOLUSPAN) IM SCH (17:48)
[2018-02-19 18:00] VITALS: BP 115/59
[2018-02-19 21:20] VITALS: BP 113/55
[2018-02-19] MEDS ORDERED: INDOMETHACIN 25 MG (INDOCIN) CAP PO SCH (22:00)
[2018-02-19] MEDS: INDOMETHACIN 25 MG (INDOCIN) CAP PO SCH (22:01)
[2018-02-19] MEDS: AMPICILLIN INJECTION 1,000 MG in NS (IVPB) 50 ML IV SCH (22:02)
[2018-02-20] MEDS: LACTATED RINGERS 1,000 ML IV SCH ×2 (00:52→08:52)
[2018-02-20 01:00] VITALS: BP 102/55
[2018-02-20] MEDS: AMPICILLIN INJECTION 1,000 MG in NS (IVPB) 50 ML IV SCH ×4 (02:09→14:18)
[2018-02-20] MEDS: INDOMETHACIN 25 MG (INDOCIN) CAP PO SCH ×4 (02:10→14:17)
[2018-02-20 07:25] VITALS: BP 89/51
--- NOTE | 2018-02-20 12:24 | Discharge Summary ---
Diagnosis/Chief Complaint Date of Admission 02/19/2018 Date of Discharge Admission Diagnosis Admission Diagnosis Pre term contractions 31 weeks gestation Discharge Diagnosis See Above Chief Complaint/HPI Chief Complaint/HPI See Short stay summary Discharge Summary-Simple/Stand Discharge Physical Examination Allergies: Coded Allergies: No Known Drug Allergies (Verified , 04/15/08) Vitals & I&Os Vital Sign - Last 12Hours Date Time Temp Pulse Resp B/P (MAP) Pulse Ox O2 Delivery O2 Flow Rate FiO2 02/20/18 07:25 97.7 70 18 89/51 (64) Room Air Intake and Output 02/20/18 00:00 Intake Total 100 ml Balance 100 ml Hospital Course See final discharge diagnosis. Discharge Instructions to patient/family Please see electronic discharge instructions given to patient. Discharge Medications Reviewed and agree with Discharge Medication list on patient's Discharge Instruction sheet TOÑO ANNE MD Feb 20, 2018 12:24
[2018-02-20 12:25] VITALS: BP 127/53
--- NOTE | 2018-02-20 12:28 | Short Stay Summary ---
History of Present Illness History of Present Illness Reason for visit/HPI contractions that started this afternoon. Denies any LOF or vaginal bleeding. Date of Admission 02/19/2018 Date of Discharge 02/20/2018 Time Seen by Provider: 09:45 Attending Physician Monique Thompson MD Admitting Physician Regis Bustos MD Consult Allergies and Home Medications Allergies Coded Allergies: No Known Drug Allergies (Verified , 04/15/08) Home Medications Nitrofurantoin Monohyd/M-Cryst 100 Mg Capsule, 1 CAP PO BID Prescribed by: LUIS HARRELL on 10/20/17 1502 Patient Home Medication List Home Medication List Reviewed: Yes Past Yxvxfef-Dorggv-Mwkxoc Hx Patient Social History Smoking Status: Current Everyday Smoker Former Smoker, Quit: Mar 04, 2016 Type Used: Cigarettes Physical Abuse Screen: No Sexual Abuse: No Recent Foreign Travel: No Contact w/other who traveled: No Recent Hopitalizations: Yes (CHILDBIRTH) Recent Infectious Disease Expo: No Immunizations Up To Date Tetanus Booster (TDap): Less than 5yrs Pediatric: Yes Date of Influenza Vaccine: May 03, 2016 Seasonal Allergies Seasonal Allergies: Yes Surgeries Yes (wisdom teeth) Respiratory Yes Currently Using CPAP: No Currently Using BIPAP: No Cardiovascular No Neurological No Reproductive System Expected Date of Delivery: Apr 21, 2018 Hx : 2 Hx Para: 1 Hx Reproductive Disorders: No Sexually Transmitted Disease: No HIV/AIDS: No Female Reproductive Disorders: Denies Genitourinary No Gastrointestinal No Musculoskeletal Yes Scoliosis Endocrine History of Endocrine Disorders: No HEENT History of HEENT Disorders: No Cancer No Psychosocial History of Psychiatric Problem: No (pt denies) Integumentary History of Skin or Integumenta: No Blood Transfusions History of Blood Disorders: No Adverse Reaction to a Blood Tr: No Family Medical History Significant Family History: No Pertinent Family Hx Family Hx: Hypertension 19 FATHER Constitutional: no symptoms reported; No chills, No fever, No malaise, No weakness EENTM: no symptoms reported Respiratory: no symptoms reported; No cough, No short of breath Cardiovascular: No chest pain, No edema, No palpitations Gastrointestinal: abdominal pain (contractions); No heartburn Genitourinary: No dysuria; frequency; No hematuria : Yes Musculoskeletal: back pain; No joint pain, No muscle pain Skin: no symptoms reported Psychiatric/Neurological: No Symptoms Reported Physical Exam Vital Signs Vital Signs - First Documented 02/19/18 13:30 Temp 96.3 Pulse 78 Resp 18 B/P (MAP) 120/68 (85) O2 Delivery Room Air Capillary Refill : Height, Weight, BMI Height: 5'3.00" Weight: 180lbs. 0.2oz. 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 Norm as Tested Skin: Normal Color, Warm/Dry Lymphatic: No Adenopathy Short Stay Diagnosis Discharge Diagnosis-Short Stay Admission Diagnosis: contractions Final Discharge Diagnosis: contractions Conclusion Labs Laboratory Tests 02/19/18 13:40: Urine Color YELLOW, Urine Clarity CLEAR, Urine pH 6.5, Urine Specific [place] 1.020, Urine Protein 1+H, Urine Glucose (UA) NEGATIVE, Urine Ketones NEGATIVE, Urine Nitrite NEGATIVE, Urine Bilirubin NEGATIVE, Urine Urobilinogen 1, Urine Leukocyte Esterase 2+H, Urine RBC (Auto) NEGATIVE, Urine RBC RARE, Urine WBC 5- 10H, Urine Squamous Epithelial Cells 2-5, Urine Renal Epithelial Cells NONE, Urine Crystals NONE, Urine Bacteria TRACE, Urine Casts NONE, Urine Mucus SMALLH , Urine Culture Indicated YES Microbiology 02/19/18 Urine Culture - Final, Complete See Comments Conclusion/Plan 23 yo @ 31 weeks gestation Plan - Admitted for observation for contractions - Patient was given terbutaline and Vistaril with cessation of contractions and no cervical change - Patient was sent home with close follow up with Dr Bustos Copy Copies To 1: REGIS BUSTOS MD, HOLLY R MD Feb 20, 2018 12:28
[2018-02-20] MEDS: BETAMETHASONE ACE/NA PHOS 6 MG/ML (CELESTONE SOLUSPAN) IM SCH (15:05)
== END 2018-02-20 15:25 | disposition home or self-care (01) ==
LOC: WSo 13:09 → LDRP 13:09 → WSo 02-20 15:25
PROVIDERS: ATTEND Family Medicine
DX: O60.03 Preterm labor without delivery, third trimester (principal); O99.333 Smoking (tobacco) complicating pregnancy, third trimester; Z3A.31 31 weeks gestation of pregnancy; F17.210 Nicotine dependence, cigarettes, uncomplicated
CPT/HCPCS: 76815; 81000; 87088; 96361; 96372; 96374; 96376

== ENCOUNTER → 2018-03-18 | Outpatient (CLI) | payer MEDICAID, OTHER ==
--- NOTE | 2018-03-18 16:51 | Diagnostic Imaging Report ---
INDICATION: Decreased movement. Biophysical profile was performed. FINDINGS: There is a single live fetus in a cephalic presentation. heart rate was recorded at 134 beats per minute. Placenta is anterior. Amniotic fluid index is 8.0 cm. Overall biophysical profile score is normal at 8/8. IMPRESSION: 03/12 biophysical profile. Dictated by: Dictated on workstation # [id number]
== END ==
LOC: RAD 16:21
PROVIDERS: ATTEND Family Medicine
DX: O36.8130 Decreased fetal movements, third trimester, not applicable or unspecified (principal); Z3A.00 Weeks of gestation of pregnancy not specified
CPT/HCPCS: 76819

== ENCOUNTER 2018-04-03 12:18 | Outpatient (RCR) | payer OTHER, MEDICAID ==
[2018-04-03 14:00] VITALS: BP 110/58
--- NOTE | 2018-04-03 19:10 | Diagnostic Imaging Report ---
INDICATION: bradycardia for the onset of labor. TECHNIQUE: Limited real-time grayscale images were obtained over the gravid uterus in various projections. FINDINGS: There is a single living intrauterine in a cephalic presentation. Amniotic fluid index is 11.2. Heart rate is 136 beats per minute. Placenta is grade 2 and anterior. biophysical profile score 2 out of 8. IMPRESSION: Normal biophysical profile score of 2 out of 8. Dictated by: Dictated on workstation # [id number]
[2018-04-04] MEDS ORDERED: PNV1TABL81 PO (14:20)
[2018-04-04] MEDS ORDERED: FERR325T18 PO (14:20)
[2018-04-05] MEDS ORDERED: IBUP-844 PO (11:31)
== END 2018-04-04 | disposition home or self-care (01) ==
LOC: RAD 12:18
PROVIDERS: ATTEND Family Medicine
DX: O76 Abnormality in fetal heart rate and rhythm complicating labor and delivery (principal); O28.8 Other abnormal findings on antenatal screening of mother; Z3A.00 Weeks of gestation of pregnancy not specified
CPT/HCPCS: 76819

== ENCOUNTER 2018-04-04 10:40 | Inpatient (IN) | payer OTHER, MEDICAID ==
[~2018-04-04] VITALS: Ht 160 cm; Wt 88.0 kg
[2018-04-04] VITALS (37 sets, daily range): BP systolic 84–111; BP diastolic 46–68
--- OUTSIDE RECORDS SUMMARY | 2018-04-04 10:50 | XMS REPORT ---
Author Author ANDREW REGIS [facility] Address [address] [place] [address] Care Team Providers Care Front Desk Agent Name Role Phone ANDREW REGIS Unavailable PROBLEMS Type Condition ICD9-CM Code XTO87-VG Code Onset Dates Condition Status SNOMED Code Problem Bipolar disorder, current episode hypomanic F31.0 Active 83301247 Problem Bipolar disorder with moderate depression F31.32 Active 909890453 Problem Social phobia, generalized F40.11 Active 84037278 Problem Attention-deficit hyperactivity disorder, combined type F90.2 Active 11788962 Problem Bipolar disorder, in partial remission, most recent episode depressed F31.75 Active 83050892 Problem Third trimester Z33.1 Active 78031085 Problem Low lying placenta with hemorrhage, first trimester O44.51 Active 218821719 Problem Supervision of other high risk pregnancies, first trimester O09.891 Active 995355970 Problem Unspecified blood type, Rh negative Z67.91 Active 050756906 Problem History of delivery, currently O09.219 Active 774586921 Problem Abnormal ultrasound R93.8 Active 434918898 ALLERGIES No Information ENCOUNTERS Encounter Location Date Diagnosis [facility] [address], [place] [address] Apr, [facility] [address], [place] [address] 2569 Apr, [facility] [address], [place] [address] 0[address] Apr, [facility] [id number] [place] [address] 63100- 0877 Mar, [facility] [address], [place] [address] 2667 Mar, [facility] [id number] [address] 9056 Mar, [facility] [id number] [place] [address] 34291- 8287 Mar, History of delivery, currently O09.219 [facility] [id number] [place] [address] 96859- 1029 Mar, [facility] [id number] [place] [address] 74454- 8190 Mar, Third trimester Z33.1 ; History of delivery, currently O09.219 ; 35 weeks gestation of Z3A.35 and Decreased movements in third trimester, single or unspecified fetus O36.8130 [facility] [id number] [place] [address] 31102- 8098 Mar, History of delivery, currently O09.219 [facility] [id number] [place] [address] 99590- 1691 Feb, History of delivery, currently O09.219 [facility] [id number] [place] [address] 28681- 0844 Feb, Third trimester Z34.93 ; 32 weeks gestation of Z3A.32 and Encounter for immunization Z23 [facility] [address], [place] [address] 6[address] Feb, History of delivery, currently O09.219 [facility] [id number] [place] [address] 20784- 5313 Feb, [facility] [id number] [place] [address] 27470- 4621 Feb, [facility] [id number] [place] [address] 68095- 5822 Feb, [facility] [address], [place] [address]- 9466 Feb, Third trimester Z34.93 and Unspecified blood type , Rh negative Z67.91 [facility] [address], [place] [address]- 0155 Feb, [facility] [id number] [address]- 5429 Feb, History of delivery, currently O09.219 [facility] [address], [place] [address] 0967 Jan, Unspecified blood type, Rh negative Z67.91 and History of delivery, currently O09.219 [facility] [address], [place] [address] Jan, History of delivery, currently O09.219 [facility] [id number] [place] [address] 14547- 9034 Jan, [facility] [id number] [place] [address] 34496- 2476 Jan, [facility] [address], [place] [address] 2781 Jan, care, subsequent in second trimester Z34.82 ; Diabetes mellitus screening Z13.1 ; Local reaction to immunization, initial encounter T88.1XXA and 26 weeks gestation of Z3A.26 [facility] [address], [place] [address]- 8370 Jan, [facility] [id number] [address]- 5886 Jan, [facility] [address], [place] [address]- 2951 Jan, [facility] [id number] [place] [address] 11011- 0862 Jan, History of delivery, currently O09.219 [facility] [address], [place] [address]- 6236 December, History of delivery, currently O09.219 [facility] [address], [place] [address]- 9190 December, History of delivery, currently O09.219 [facility] [address], [place] [address]- 2561 December, [facility] [address], [place] [address]- 8153 December, [facility] [id number] [place] [address] 19605- 9779 December, Second trimester Z34.92 and 22 weeks gestation of Z3A.22 [facility] [id number], [place] [address]- 5023 December, [facility] [address] [place] [address] 26670- 8263 December, History of delivery, currently O09.219 [facility] [address], [place] [address]- 0689 December, History of delivery, currently O09.219 [facility] [address], [place] [address]- 6954 December, [facility] [address], [place] [address]- 0045 December, History of delivery, currently O09.219 [facility] [address], [place] [address]- 1166 Nov, [facility] [address], [place] [address]- 3287 Nov, History of delivery, currently O09.219 [facility] [address], [place] [address]- 7786 Nov, care, subsequent in second trimester Z34.82 and 18 weeks gestation of Z3A.18 [facility] [address], [place] [address]- 1724 Nov, [facility] [id number] [place] [address] 50984- 6183 Oct, [facility] [id number] [place] [address] 65586- 2317 Oct, Threatened miscarriage O20.0 [facility] [id number] [place] [address] 06503- 7605 Oct, 14 weeks gestation of Z3A.14 ; Threatened miscarriage O20.0 ; Other specified noninflammatory disorders of vagina N89.8 ; Other specified related conditions, second trimester O26.892 ; Vaginal candidiasis B37.3 ; Low lying placenta with hemorrhage, first trimester O44.51 ; Abnormal ultrasound R93.8 ; Second trimester Z34.92 and History of delivery, currently O09.219 [facility] [id number] [place] [address] 00282- 1205 Oct, [facility] [id number] [place] [address] 21633- 3125 16 Oct, 2017 care, subsequent in second trimester Z34.82 and 13 weeks gestation of Z3A.13 [facility] [id number] [place] [address] 53301- 0989 22 Sep, 2017 [facility] [id number] [place] [address] 50231- 5015 14 Sep, 2017 care, subsequent in first trimester Z34.81 and 9 weeks gestation of Z3A.09 [facility] [id number] [place] [address] 87086- 3091 Sep, [facility] [id number] [place] [address] 79570- 0176 Aug, [facility] [id number] [place] [address] 93297- 9837 Aug, [facility] [id number] [place] [address] 72972- 0815 Aug, [facility] [address], [place] [address]- 3412 Aug, Encounter for test Z32.00 [facility] [address] [place] [address] 89937- 3920 Jul, [facility] [id number] [place] [address] 72408- 5836 Jul, [facility] [id number] [place] [address] 67763 -8964 Jun, [facility] [id number] [place] [address] 62485- 7780 Apr, [facility] [id number] [place] [address] 01477- 5242 Apr, Bipolar disorder with moderate depression F31.32 and Attention-deficit hyperactivity disorder, combined type F90.2 [facility] [id number] [place] [address] 67748- 9294 Feb, [facility] [id number] [place] [address] 90208- 0574 Feb, [facility] [id number] [place] [address] 86649- 6454 Jan, [facility] [address], [place] [address] Jan, Vaginal discharge N89.8 and Acute vaginitis N76.0 [facility] [address], [place] [address]- 6404 Nov, [facility] [id number] [place] [address] 01185- 9632 Nov, Encounter for visit Z39.2 ; Tobacco abuse counseling Z71.6 and Drug or alcohol risk assessment or counseling Z71.89 [facility] [id number] [place] [address] 01459- 4391 Nov, [facility] [address], [place] [address]- 6177 Oct, [facility] [address], [place] [address]- 2961 Oct, [facility] [address], [place] [address]- 1010 Oct, [facility] [address] [place] [address] 53467- 8964 Oct, STD exposure Z20.2 [facility] [address] [place] [address] 68731- 2930 Oct, Bipolar disorder, in partial remission, most recent episode depressed F31.75 ; Attention-deficit hyperactivity disorder, combined type F90.2 and Social phobia, generalized F40.11 [facility] [address], [place] [address]- 0908 Oct, Bipolar disorder, in partial remission, most recent episode depressed F31.75 ; Attention-deficit hyperactivity disorder, combined type F90.2 and Social phobia, generalized F40.11 [facility] [address] [place] [address] 58198- 0563 Oct, [facility] [address], [place] [address]- 5420 Sep, [facility] [address], [place] [address]- 1556 Sep, [facility] [address], [place] [address]- 6575 Sep, screening for streptococcus B Z36 ; care , first in third trimester Z34.03 and 35 weeks gestation of Z3A.35 [facility] [address] [place] [address] 15979- 9295 07 Sep, 2016 care, first in third trimester Z34.03 and 34 weeks gestation of Z3A.34 [facility] [address], [place] [address]- 6805 07 Sep, 2016 [facility] [address] [place] [address] 00737- 9243 Sep, [facility] [id number] [place] [address] 67557- 4669 Sep, Bipolar disorder, in partial remission, most recent episode depressed F31.75 ; Attention-deficit hyperactivity disorder, combined type F90.2 and Social phobia, generalized F40.11 [facility] [address], [place] [address]- 7359 Aug, Normal , first Z34.00 ; Encounter for immunization Z23 and 32 weeks gestation of Z3A.32 [facility] [id number] [place] [address] 95698- 5454 Aug, [facility] [id number] [place] [address] 67860- 8100 Aug, Other specified related conditions, third trimester O26.893 and 30 weeks gestation of Z3A.30 [facility] [id number] [place] [address] 10670- 6934 Aug, [facility] [id number] [place] [address] 17355- 1249 27 Jul, 2016 Diabetes mellitus screening Z13.1 ; , first, first trimester Z34.01 ; Other specified noninflammatory disorders of vagina N89.8 ; Other specified related conditions, third trimester O26.893 and 28 weeks gestation of Z3A.28 [facility] [address], [place] [address]- 8573 Jul, [facility] [id number], [place] [address]- 7233 Jun, [facility] [address] [id number] [place] [address] Jun [facility] [id number] [place] [address] 74679- 3763 Jun, Normal , first Z34.00 ; Evaluate anatomy not seen on prior sonogram Z36 and 23 weeks gestation of Z3A.23 [facility] [id number] [place] [address] 49964- 3057 Jun, [facility] [id number] [place] [address] 55394- 0482 Jun, Bipolar disorder, in partial remission, most recent episode depressed F31.75 ; Attention-deficit hyperactivity disorder, combined type F90.2 and Social phobia, generalized F40.11 [facility] [id number] [place] [address] 61105- 4147 May, [facility] [id number] [place] [address] 56427- 1796 May, Normal , first Z34.00 and 19 weeks gestation of Z3A.19 [facility] [id number] [place] [address] 29082 -3697 May, Dysuria R30.0 and Acute cystitis during , second trimester O23.12 [facility] [id number] [place] [address] 87005- 9418 Apr, [facility] [id number] [place] [address] 11365- 2380 Apr, care, first in second trimester Z34.02 [facility] [id number] [place] [address] 10197- 8819 Apr, [facility] [id number] [place] [address] 45552- 6699 Apr, [facility] [id number] [place] [address] 02091- 2862 Apr, [facility] [id number] [place] [address] 15521- 1075 Apr, care, first in second trimester Z34.02 ; Dehydration E86.0 and 14 weeks gestation of Z3A.14 [facility] [id number], [place] [address]- 6295 Apr, Bipolar disorder, in partial remission, most recent episode depressed F31.75 ; Attention-deficit hyperactivity disorder, combined type F90.2 ; Social anxiety disorder F40.10 and 15 weeks gestation of Z3A.15 [facility] [address], [place] [address]- 9711 Mar, [facility] [address], [place] [address]- 7595 Mar, , first, first trimester Z34.01 and 10 weeks gestation of Z3A.10 [facility] [address], [place] [address]- 6738 Mar, [facility] [address], [place] [address]- 1034 Mar, [facility] [address], [place] [address]- 0806 Feb, Normal , first Z34.00 and 6 weeks gestation of Z3A.01 [facility] [address], [place] [address]- 6339 Feb, [facility] [id number], [place] [address]- 2435 Feb, [facility] [place] [address] [place] [id number] [address] Feb [facility] [address] [facility] [id number] [address]- 4085 Feb, [facility] [id number], [place] [address]- 1969 Feb, [facility] [id number], [place] [address]- 1045 Feb, Bipolar disorder, in partial remission, most recent episode depressed F31.75 ; Attention-deficit hyperactivity disorder, combined type F90.2 and Social anxiety disorder F40.10 [facility] [address], [place] [address]- 5484 12 Feb, 2016 Routine adult health maintenance Z00.00 [facility] [id number] [place] [address] 71626- 4966 Feb, [facility] [id number] [place] [address] 30898- 4348 Feb, confirmed by positive urine test Z32.01 [facility] [id number] [place] [address] 00341- 0175 Feb, [facility] [id number] [place] [address] 88522- 2643 Jan, [facility] [id number] [place] [address] 26220- 4559 Jan, Bipolar disorder, in partial remission, most recent episode depressed F31.75 ; Attention-deficit hyperactivity disorder, combined type F90.2 and Social anxiety disorder F40.10 [facility] [address] [place] [address] 80427- 7660 Jan, Seizure disorder G40.909 [facility] [id number] [place] [address] 90455- 5034 Jan, [facility] [id number] [place] [address] 39730- 4581 December, Bipolar disorder, current episode hypomanic F31.0 ; Attention-deficit hyperactivity disorder, combined type F90.2 and Social anxiety disorder F40.10 [facility] [address], [place] [address]- 0689 December, Screening for STD sexually transmitted disease Z11.3 [facility] [address] [place] [address] 07407- 4371 27 Nov, 2015 [facility] [id number] [place] [address] 12167- 7615 Nov, [facility] [address], [place] [address]- 5466 Nov, Screening for STD sexually transmitted disease Z11.3 and Attention-deficit hyperactivity disorder, combined type F90.2 [facility] [address], [place] [address]- 2407 Nov, Attention-deficit hyperactivity disorder, combined type F90.2 ; Social anxiety disorder F40.10 and Bipolar disorder, current episode hypomanic F31.0 [facility] [id number] [place] [address] 00045- 9906 30 Oct, 2015 [facility] [id number] [place] [address] 14714- 3956 Oct, [facility] [id number] [place] [address] 86942- 2085 Sep, [facility] [id number] [place] [address] 50536- 4519 Sep, Bipolar disorder, in partial remission, most recent episode depressed F31.75 ; Attention-deficit hyperactivity disorder, combined type F90.2 and Social anxiety disorder F40.10 [facility] [id number] [place] [address] 17366- 9761 Sep, [facility] [address], [place] [address]- 3935 Aug, [facility] [address], [place] [address]- 1067 Jul, [facility] [address], [place] [address]- 3432 Jul, [facility] [id number] [place] [address] 97099- 9484 Jul, Bipolar disorder, in partial remission, most recent episode depressed F31.75 ; Attention-deficit hyperactivity disorder, combined type F90.2 and Social anxiety disorder F40.10 [facility] [address] [place] [address] 06893- 0252 Jun, [facility] [address], [place] [address]- 4649 Jun, [facility] [id number] [place] [address] 70665- 1606 Jun, [facility] [id number] [place] [address] 15497- 2312 May, [facility] [id number] [place] [address] 55112- 0001 May, [facility] [address] [place] [address] 241629- 1194 May, [facility] [id number] [place] [address] 106763- 6044 May, Bipolar disorder, in partial remission, most recent episode depressed F31.75 ; Attention-deficit hyperactivity disorder, combined type F90.2 and Social anxiety disorder F40.10 [facility] [address] [place] [address] 92255- 1807 Mar, Bipolar I disorder, moderate, current or most recent episode depressed, in partial remission, with mixed features 296.55 ; ADHD ( attention deficit hyperactivity disorder), combined type 314.01 and Social anxiety disorder 300.23 [facility] [address], [place] [address]- 4547 Aug, [facility] [address], [place] [address]- 5316 Aug, [facility] [address], [place] [address]- 0021 Jun, [facility] [id number] [place] [address] 751973- 7731 Jun, [facility] [id number] 5316 Jan, [facility] [id number] [place] [address] 119304- 2674 December, [facility] [address] [facility] [id number] [place] [address]- 2546 Oct, [facility] [address] [facility] [id number] [address]- 2546 Sep, [facility] [address] [facility] [id number] [place] [address]- 2546 Jun, IMMUNIZATIONS No Known Immunizations SOCIAL HISTORY Never Assessed REASON FOR VISIT PLAN OF CARE VITAL SIGNS MEDICATIONS Unknown Medications RESULTS No Results PROCEDURES No Known procedures INSTRUCTIONS MEDICATIONS ADMINISTERED No Known Medications MEDICAL (GENERAL) HISTORY Type Description Date Medical History 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 Has had [facility] NEUROLOGY care. Diagnosed with Focal Seizures with EEG Medical History ADHD Medical History Bipolar disorder Medical History Social anxiety disorder Surgical History Herminie teeth removed 09/06/15 Surgical History Childbirth Surgical History Spider bite Hospitalization History psych; anger/aggression 2008 Hospitalization History ER visit Bleeding while 10/20/17
--- OUTSIDE RECORDS SUMMARY | 2018-04-04 10:51 | XMS REPORT ---
Author Author ANDREW REGIS [facility] Address [address] [place] [address] Care Team Providers Care Data Entry Clerk Name Role Phone ANDREW REGIS Unavailable PROBLEMS Type Condition ICD9-CM Code [id number] Code Onset Dates Condition Status SNOMED Code Problem Bipolar disorder, current episode hypomanic F31.0 Active 65075706 Problem Bipolar disorder with moderate depression F31.32 Active 304528186 Problem Social phobia, generalized F40.11 Active 14904881 Problem Attention-deficit hyperactivity disorder, combined type F90.2 Active 20136499 Problem Bipolar disorder, in partial remission, most recent episode depressed F31.75 Active 93619458 Problem Third trimester Z33.1 Active 72558868 Problem Low lying placenta with hemorrhage, first trimester O44.51 Active 547682250 Problem Supervision of other high risk pregnancies, first trimester O09.891 Active 934005257 Problem Unspecified blood type, Rh negative Z67.91 Active 312020447 Problem History of delivery, currently O09.219 Active 317853453 Problem Abnormal ultrasound R93.8 Active [id number] ALLERGIES No Information ENCOUNTERS Encounter Location Date Diagnosis [facility] [address] [address] Apr, [facility] [address] [address] 2134 Apr, [facility] [address] [address] 3278 Apr, [facility] [id number] [place] [address] 55352- 8907 Mar, [facility] [address] [address] 9386 Mar, [facility] [address] [address] 4987 Mar, [facility] [id number] [place] [address] 32903- 3563 Mar, History of delivery, currently O09.219 [facility] [id number] [place] [address] 35070- 4256 Mar, [facility] [id number] [place] [address] 26467- 7644 Mar, Third trimester Z33.1 ; History of delivery, currently O09.219 ; 35 weeks gestation of Z3A.35 and Decreased movements in third trimester, single or unspecified fetus O36.8130 [facility] [id number] [place] [address] 86841- 7311 Mar, History of delivery, currently O09.219 [facility] [id number] [place] [address] 57614- 9310 Feb, History of delivery, currently O09.219 [facility] [id number] [place] [address] 26954- 8072 Feb, Third trimester Z34.93 ; 32 weeks gestation of Z3A.32 and Encounter for immunization Z23 [facility] [address] [address] 0147 Feb, History of delivery, currently O09.219 [facility] [id number] [place] [address] 86444- 6953 Feb, [facility] [id number] [place] [address] 19203- 7303 Feb, [facility] [id number] [place] [address] 00172- 7086 Feb, [facility] [address] [address] 5666 Feb, Third trimester Z34.93 and Unspecified blood type , Rh negative Z67.91 [facility] [address] [address] 6480 Feb, [facility] [address] [address]- 4014 Feb, History of delivery, currently O09.219 [facility] [address] [address] 9676 Jan, Unspecified blood type, Rh negative Z67.91 and History of delivery, currently O09.219 [facility] [address] [address]- 5188 Jan, History of delivery, currently O09.219 [facility] [id number] [place] [address] 87410- 8930 Jan, [facility] [id number] [place] [address] 10348- 3108 Jan, [facility] [address] [address] 9991 Jan, Diabetes mellitus screening Z13.1 ; care, subsequent in second trimester Z34.82 ; Local reaction to immunization , initial encounter T88.1XXA and 26 weeks gestation of Z3A.26 [facility] [address], [place] [address] 4447 Jan, [facility] [address] [address]- 5031 Jan, [facility] [address] [address]- 7491 Jan, [facility] [id number] [place] [address] 69660- 3826 Jan, History of delivery, currently O09.219 [facility] [address] [address]- 6459 December, History of delivery, currently O09.219 [place] [address], [place] [address]- 8814 December, History of delivery, currently O09.219 [facility] [address], [place] [address]- 1363 December, [facility] [address] [address]- 9473 December, [facility] [id number] [place] [address] 44351- 6865 December, 22 weeks gestation of Z3A.22 and Second trimester Z34.92 [facility] [address], [place] [address] 3988 December, [facility] [id number] [place] [address] 40597- 2586 December, History of delivery, currently O09.219 [facility] [address], [place] [address]- 3308 December, History of delivery, currently O09.219 [facility] [address], [place] [address]- 0320 December, [facility] [address], [place] [address]- 4201 December, History of delivery, currently O09.219 [facility] [address], [place] [address]- 3339 Nov, [facility] [address] [address]- 5035 Nov, History of delivery, currently O09.219 [facility] [address], [place] [address]- 6175 Nov, care, subsequent in second trimester Z34.82 and 18 weeks gestation of Z3A.18 [facility] [address] [address]- 2549 Nov, [place] [id number] [place] [address] 72924- 9489 Oct, [facility] [id number] [place] [address] 62487- 4518 Oct, Threatened miscarriage O20.0 [facility] [id number] [place] [address] 92540- 0647 Oct, 14 weeks gestation of Z3A.14 ; Threatened miscarriage O20.0 ; Other specified noninflammatory disorders of vagina N89.8 ; Other specified related conditions, second trimester O26.892 ; Vaginal candidiasis B37.3 ; Low lying placenta with hemorrhage, first trimester O44.51 ; Abnormal ultrasound R93.8 ; Second trimester Z34.92 and History of delivery, currently O09.219 [facility] [id number] [place] [address] 75699- 3568 Oct, [facility] [id number] [place] [address] 51990- 1600 16 Oct, 2017 care, subsequent in second trimester Z34.82 and 13 weeks gestation of Z3A.13 [facility] [id number] [place] [address] 68799- 1796 22 Sep, 2017 [facility] [id number] [place] [address] 02334- 7737 14 Sep, 2017 care, subsequent in first trimester Z34.81 and 9 weeks gestation of Z3A.09 [facility] [id number] [place] [address] 25863- 3539 Sep, [facility] [id number] [place] [address] 24773- 4995 Aug, [facility] [id number] [place] [address] 52667- 3687 Aug, [facility] [id number] [place] [address] 50033- 8422 Aug, [facility] [address], [place] [address]- 0300 Aug, Encounter for test Z32.00 [facility] [id number] [place] [address] 37133- 2343 Jul, [facility] [id number] [place] [address] 09316- 7641 Jul, [facility] [id number] [place] [address] 39584 -3889 Jun, [facility] [id number] [place] [address] 54577- 6879 Apr, [facility] [id number] [place] [address] 82381- 7012 Apr, Bipolar disorder with moderate depression F31.32 and Attention-deficit hyperactivity disorder, combined type F90.2 [facility] [id number] [place] [address] 90995- 5838 Feb, [facility] [id number] [place] [address] 30051- 7534 Feb, [facility] [id number] [place] [address] 79643- 0009 Jan, [facility] [address] [address] -6759 Jan, Vaginal discharge N89.8 and Acute vaginitis N76.0 [facility] [address] [address]- 3599 Nov, [facility] [id number] [place] [address] 15547- 5940 Nov, Encounter for visit Z39.2 ; Tobacco abuse counseling Z71.6 and Drug or alcohol risk assessment or counseling Z71.89 [facility] [id number] [place] [address] 41844- 8341 Nov, [facility] [address] [address]- 1125 Oct, [facility] [address], [place] [address]- 2900 Oct, [facility] [address], [place] [address]- 3856 Oct, [facility] [id number] [place] [address] 90276- 6006 Oct, STD exposure Z20.2 [facility] [id number] [place] [address] 35454- 8962 Oct, Bipolar disorder, in partial remission, most recent episode depressed F31.75 ; Attention-deficit hyperactivity disorder, combined type F90.2 and Social phobia, generalized F40.11 [facility] [address] [address]- 7624 Oct, Bipolar disorder, in partial remission, most recent episode depressed F31.75 ; Attention-deficit hyperactivity disorder, combined type F90.2 and Social phobia, generalized F40.11 [facility] [id number] [place] [address] 64634- 7781 Oct, [facility] [address] [address]- 9106 Sep, [facility] [address] [address]- 2536 Sep, [facility] [address], [place] [address]- 4352 Sep, screening for streptococcus B Z36 ; care , first in third trimester Z34.03 and 35 weeks gestation of Z3A.35 [facility] [id number] [place] [address] 79975- 3454 07 Sep, 2016 care, first in third trimester Z34.03 and 34 weeks gestation of Z3A.34 [facility] [address] [address]- 6057 07 Sep, 2016 [facility] [id number] [place] [address] 39495- 4489 Sep, [facility] [id number] [place] [address] 42253- 2502 Sep, Bipolar disorder, in partial remission, most recent episode depressed F31.75 ; Attention-deficit hyperactivity disorder, combined type F90.2 and Social phobia, generalized F40.11 [facility] [address] [address]- 7149 Aug, Normal , first Z34.00 ; Encounter for immunization Z23 and 32 weeks gestation of Z3A.32 [facility] [id number] [place] [address] 93228- 9579 Aug, [facility] [id number] [place] [address] 46117- 5358 Aug, Other specified related conditions, third trimester O26.893 and 30 weeks gestation of Z3A.30 [facility] [id number] [place] [address] 16648- 8706 Aug, [facility] [id number] [place] [address] 76208- 9040 27 Jul, 2016 Diabetes mellitus screening Z13.1 ; , first, first trimester Z34.01 ; Other specified noninflammatory disorders of vagina N89.8 ; Other specified related conditions, third trimester O26.893 and 28 weeks gestation of Z3A.28 [facility] [address] [address]- 2613 Jul, [facility] [address] [address]- 8283 Jun, [facility] [id number] [place] [address] Jun [facility] [place] [id number] [place] [address] 12824- 1870 Jun, Normal , first Z34.00 ; Evaluate anatomy not seen on prior sonogram Z36 and 23 weeks gestation of Z3A.23 [facility] [id number] [place] [address] 67922- 2720 Jun, [facility] [id number] [place] [address] 87114- 1091 Jun, Bipolar disorder, in partial remission, most recent episode depressed F31.75 ; Attention-deficit hyperactivity disorder, combined type F90.2 and Social phobia, generalized F40.11 [facility] [id number] [place] [address] 30485- 5328 May, [facility] [id number] [place] [address] 87298- 4199 May, Normal , first Z34.00 and 19 weeks gestation of Z3A.19 [facility] [id number] [place] [address] 42481 -7636 May, Dysuria R30.0 and Acute cystitis during , second trimester O23.12 [facility] [id number] [place] [address] 92102- 6886 Apr, [facility] [id number] [place] [address] 39585- 9933 Apr, care, first in second trimester Z34.02 [facility] [id number] [place] [address] 25888- 6548 Apr, [facility] [id number] [place] [address] 46531- 3597 Apr, [facility] [id number] [place] [address] 74548- 4261 Apr, [facility] [id number] [place] [address] 16719- 9765 Apr, care, first in second trimester Z34.02 ; Dehydration E86.0 and 14 weeks gestation of Z3A.14 [facility] [id number] [address]- 7032 Apr, Bipolar disorder, in partial remission, most recent episode depressed F31.75 ; Attention-deficit hyperactivity disorder, combined type F90.2 ; Social anxiety disorder F40.10 and 15 weeks gestation of Z3A.15 [facility] [address] [address]- 1511 Mar, [facility] [address] [address]- 1156 Mar, , first, first trimester Z34.01 and 10 weeks gestation of Z3A.10 [facility] [address] [address]- 4274 Mar, [facility] [address] [address]- 4330 Mar, [facility] [address], [place] [address]- 6020 Feb, Normal , first Z34.00 and 6 weeks gestation of Z3A.01 [facility] [address] [address]- 2543 Feb, [facility] [id number] [address]- 3576 Feb, [facility] [place] [address] [place] [id number] [place] [address] Feb [facility] [address] [facility] [id number] [address]- 1623 Feb, [facility] [id number] [address]- 2970 Feb, [facility] [id number] [address]- 2058 Feb, Bipolar disorder, in partial remission, most recent episode depressed F31.75 ; Attention-deficit hyperactivity disorder, combined type F90.2 and Social anxiety disorder F40.10 [facility] [address], [place] [address]- 1962 12 Feb, 2016 Routine adult health maintenance Z00.00 [facility] [id number] [place] [address] 93180- 0591 Feb, [facility] [id number] [place] [address] 95691- 9000 Feb, confirmed by positive urine test Z32.01 [facility] [id number] [place] [address] 40900- 5769 Feb, [facility] [id number] [place] [address] 99834- 3756 Jan, [facility] [id number] [place] [address] 48286- 3268 Jan, Bipolar disorder, in partial remission, most recent episode depressed F31.75 ; Attention-deficit hyperactivity disorder, combined type F90.2 and Social anxiety disorder F40.10 [facility] [id number] [place] [address] 24154- 3769 Jan, Seizure disorder G40.909 [facility] [id number] [place] [address] 27879- 2380 Jan, [facility] [id number] [place] [address] 74047- 2830 December, Bipolar disorder, current episode hypomanic F31.0 ; Attention-deficit hyperactivity disorder, combined type F90.2 and Social anxiety disorder F40.10 [facility] [address] [address]- 4718 December, Screening for STD sexually transmitted disease Z11.3 [facility] [id number] [place] [address] 81162- 0118 27 Nov, 2015 [facility] [id number] [place] [address] 36221- 6446 Nov, [facility] [address] [address]- 0041 Nov, Screening for STD sexually transmitted disease Z11.3 and Attention-deficit hyperactivity disorder, combined type F90.2 [facility] [address] [address]- 6442 Nov, Attention-deficit hyperactivity disorder, combined type F90.2 ; Social anxiety disorder F40.10 and Bipolar disorder, current episode hypomanic F31.0 [facility] [id number] [place] [address] 66261- 4810 30 Oct, 2015 [facility] [id number] [place] [address] 69572- 9670 Oct, [facility] [id number] [place] [address] 40082- 9003 Sep, [facility] [id number] [place] [address] 05285- 0301 Sep, Bipolar disorder, in partial remission, most recent episode depressed F31.75 ; Attention-deficit hyperactivity disorder, combined type F90.2 and Social anxiety disorder F40.10 [facility] [id number] [place] [address] 48236- 9058 Sep, [facility] [address] [address]- 6095 Aug, [facility] [address] [address]- 2866 Jul, [facility] [address] [address]- 3441 Jul, [facility] [id number] [place] [address] 14979- 5068 Jul, Bipolar disorder, in partial remission, most recent episode depressed F31.75 ; Attention-deficit hyperactivity disorder, combined type F90.2 and Social anxiety disorder F40.10 [facility] [id number] [place] [address] 69204- 0354 Jun, [facility] [address] [address]- 6725 Jun, [facility] [id number] [place] [address] 74368- 4036 Jun, [facility] [id number] [place] [address] 35104- 0845 May, [facility] [id number] [place] [address] 98049- 4398 May, [facility] [id number] [place] [address] [id number]- [phone] May, [facility] [id number] [place] [address] [id number] May, Bipolar disorder, in partial remission, most recent episode depressed F31.75 ; Attention-deficit hyperactivity disorder, combined type F90.2 and Social anxiety disorder F40.10 [facility] [id number] [place] [address] [phone]- [phone] Mar, Bipolar I disorder, moderate, current or most recent episode depressed, in partial remission, with mixed features 296.55 ; ADHD ( attention deficit hyperactivity disorder), combined type 314.01 and Social anxiety disorder 300.23 [facility] [id number] [address] Aug, [facility] [id number] [address] Aug, [facility] [id number] [address] Jun, [facility] [id number] [place] [address] [id number]- [phone] Jun, [facility] [address] [id number] [address] Jan, [facility] [id number] [place] [address] [id number] December, [facility] [address] [facility] [id number] [place] [address] Oct, [facility] [address] [facility] [id number] [address] Sep, [facility] [address] [facility] [id number] [place] [address] 2546 Jun, IMMUNIZATIONS Vaccine Route Administration Date Status MARY 250 MG/ML (PT'S OWN) IM Intramuscular January 07, 2018 Administered SOCIAL HISTORY Never Assessed REASON FOR VISIT Immunization(s)- CASE Simon PLAN OF CARE VITAL SIGNS MEDICATIONS Unknown Medications RESULTS No Results PROCEDURES Procedure Date Ordered Result Body Site MARY 250 MG/ML (PT'S OWN) January 07, 2018 THER/PROPH/DIAG INJ, SC/IM January 07, 2018 INSTRUCTIONS MEDICATIONS ADMINISTERED No Known Medications MEDICAL (GENERAL) HISTORY Type Description Date Medical History 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 Has had consisten NEUROLOGY care. Diagnosed with Focal Seizures with EEG Medical History ADHD Medical History Bipolar disorder Medical History Social anxiety disorder Surgical History [place] teeth removed 09/06/15 Surgical History Childbirth Surgical History Spider bite Hospitalization History psych; anger/aggression 2008 Hospitalization History ER visit Bleeding while 10/20/17
--- OUTSIDE RECORDS SUMMARY | 2018-04-04 10:51 | XMS REPORT ---
Author Author ANDREW REGIS [facility] Address [address] [place] [address] Care Team Providers Care Coil Assembler Name Role Phone ANDREW REGIS Unavailable PROBLEMS Type Condition ICD9-CM Code FWR63-CH Code Onset Dates Condition Status SNOMED Code Problem Bipolar disorder, current episode hypomanic F31.0 Active 15234064 Problem Bipolar disorder with moderate depression F31.32 Active 006997529 Problem Social phobia, generalized F40.11 Active 29436715 Problem Attention-deficit hyperactivity disorder, combined type F90.2 Active 33158590 Problem Bipolar disorder, in partial remission, most recent episode depressed F31.75 Active 29848054 Problem Third trimester Z33.1 Active 19613052 Problem Low lying placenta with hemorrhage, first trimester O44.51 Active 992360337 Problem Supervision of other high risk pregnancies, first trimester O09.891 Active 906682909 Problem Unspecified blood type, Rh negative Z67.91 Active 714161547 Problem History of delivery, currently O09.219 Active 524980203 Problem Abnormal ultrasound R93.8 Active 449773765 ALLERGIES No Information ENCOUNTERS Encounter Location Date Diagnosis [facility] [id number] [address] Apr, [facility] [id number], [place] [address] 3952 Apr, [facility] [id number], [place] [address] 6887 Apr, [facility] [id number] [place] [address] 68241- 3315 Mar, [facility] [id number], [place] [address] 1021 Mar, [facility] [id number] [address] 7853 Mar, [facility] [id number] [place] [address] 41056- 5478 Mar, History of delivery, currently O09.219 [facility] [id number] [place] [address] 46635- 7943 Mar, [facility] [id number] [place] [address] 47313- 4729 Mar, Third trimester Z33.1 ; History of delivery, currently O09.219 ; 35 weeks gestation of Z3A.35 and Decreased movements in third trimester, single or unspecified fetus O36.8130 [facility] [id number] [place] [address] 82443- 7190 Mar, History of delivery, currently O09.219 [facility] [id number] [place] [address] 90700- 8955 Feb, History of delivery, currently O09.219 [facility] [id number] [place] [address] 46564- 6176 Feb, Third trimester Z34.93 ; 32 weeks gestation of Z3A.32 and Encounter for immunization Z23 [facility] [address], [place] [address] 8092 Feb, History of delivery, currently O09.219 [facility] [id number] [place] [address] 72736- 9245 Feb, [facility] [id number] [place] [address] 85793- 2879 Feb, [facility] [id number] [place] [address] 26078- 5143 Feb, [facility] [address], [place] [address] 4144 Feb, Third trimester Z34.93 and Unspecified blood type , Rh negative Z67.91 [facility] [address], [place] [address] 7679 Feb, [facility] [id number] [address] 7001 Feb, History of delivery, currently O09.219 [facility] [id number], [place] [address] 5336 Jan, Unspecified blood type, Rh negative Z67.91 and History of delivery, currently O09.219 [facility] [address], [place] [address] 1222 Jan, History of delivery, currently O09.219 [facility] [id number] [place] [address] 88640- 6197 Jan, [facility] [id number] [place] [address] 10926- 1569 Jan, [facility] [id number], [place] [address] 1742 Jan, care, subsequent in second trimester Z34.82 ; Diabetes mellitus screening Z13.1 ; Local reaction to immunization, initial encounter T88.1XXA and 26 weeks gestation of Z3A.26 [facility] [id number], [place] [address]- 3442 Jan, [facility] [id number] [address]- 5161 Jan, [facility] [id number], [place] [address]- 9545 Jan, [facility] [id number] [place] [address] 83292- 3014 Jan, History of delivery, currently O09.219 [facility] [id number], [place] [address]- 5486 December, History of delivery, currently O09.219 [facility] [id number], [place] [address]- 2703 December, History of delivery, currently O09.219 [facility] [id number], [place] [address]- 5093 December, [facility] [id number], [place] [address]- 5832 December, [facility] [id number] [place] [address] 48535- 9753 December, Second trimester Z34.92 and 22 weeks gestation of Z3A.22 [facility] [id number] [address]- 7598 December, [facility] [id number] [place] [address] 82361- 8451 December, History of delivery, currently O09.219 [facility] [address], [place] [address]- 0941 December, History of delivery, currently O09.219 [facility] [id number], [place] [address]- 8671 December, [facility] [id number], [place] [address]- 3123 December, History of delivery, currently O09.219 [facility] [id number], [place] [address]- 0132 Nov, [facility] [id number], [place] [address]- 4022 Nov, History of delivery, currently O09.219 [facility] [address], [place] [address]- 5378 Nov, care, subsequent in second trimester Z34.82 and 18 weeks gestation of Z3A.18 [facility] [id number], [place] [address]- 6122 Nov, [facility] [id number] [place] [address] 84947- 6399 Oct, [facility] [id number] [place] [address] 85386- 7855 Oct, Threatened miscarriage O20.0 [facility] [id number] [place] [address] 38075- 7489 Oct, 14 weeks gestation of Z3A.14 ; Threatened miscarriage O20.0 ; Other specified noninflammatory disorders of vagina N89.8 ; Other specified related conditions, second trimester O26.892 ; Vaginal candidiasis B37.3 ; Low lying placenta with hemorrhage, first trimester O44.51 ; Abnormal ultrasound R93.8 ; Second trimester Z34.92 and History of delivery, currently O09.219 [facility] [id number] [place] [address] 04302- 6537 Oct, [facility] [id number] [place] [address] 43840- 2985 16 Oct, 2017 care, subsequent in second trimester Z34.82 and 13 weeks gestation of Z3A.13 [facility] [id number] [place] [address] 87838- 6481 22 Sep, 2017 [facility] [id number] [place] [address] 80149- 1620 14 Sep, 2017 care, subsequent in first trimester Z34.81 and 9 weeks gestation of Z3A.09 [facility] [id number] [place] [address] 72895- 5613 Sep, [facility] [id number] [place] [address] 92494- 2854 Aug, [facility] [id number] [place] [address] 14963- 9733 Aug, [facility] [id number] [place] [address] 70228- 2331 Aug, [facility] [address], [place] [address]- 9705 Aug, Encounter for test Z32.00 [facility] [id number] [place] [address] 43805- 2897 Jul, [facility] [id number] [place] [address] 69631- 4770 Jul, [facility] [id number] [place] [address] 35871 -7813 Jun, [facility] [id number] [place] [address] 72600- 0573 Apr, [facility] [id number] [place] [address] 11372- 8050 Apr, Bipolar disorder with moderate depression F31.32 and Attention-deficit hyperactivity disorder, combined type F90.2 [facility] [id number] [place] [address] 36521- 8014 Feb, [facility] [id number] [place] [address] 96334- 7724 Feb, [facility] [id number] [place] [address] 99604- 3496 Jan, [facility] [id number], [place] [address] -6158 Jan, Vaginal discharge N89.8 and Acute vaginitis N76.0 [facility] [address], [place] [address]- 6182 Nov, [facility] [id number] [place] [address] 83060- 5881 Nov, Encounter for visit Z39.2 ; Tobacco abuse counseling Z71.6 and Drug or alcohol risk assessment or counseling Z71.89 [facility] [id number] [place] [address] 44107- 8300 Nov, [facility] [id number], [place] [address]- 4643 Oct, [facility] [id number], [place] [address]- 7065 Oct, [facility] [id number], [place] [address]- 2765 Oct, [facility] [id number] [place] [address] 20241- 3633 Oct, STD exposure Z20.2 [facility] [id number] [place] [address] 86776- 0049 Oct, Bipolar disorder, in partial remission, most recent episode depressed F31.75 ; Attention-deficit hyperactivity disorder, combined type F90.2 and Social phobia, generalized F40.11 [facility] [id number], [place] [address]- 9585 Oct, Bipolar disorder, in partial remission, most recent episode depressed F31.75 ; Attention-deficit hyperactivity disorder, combined type F90.2 and Social phobia, generalized F40.11 [facility] [id number] [place] [address] 87274- 6888 Oct, [facility] [id number], [place] [address]- 9620 Sep, [facility] [id number], [place] [address]- 0112 Sep, [facility] [id number], [place] [address]- 5486 Sep, screening for streptococcus B Z36 ; care , first in third trimester Z34.03 and 35 weeks gestation of Z3A.35 [facility] [id number] [place] [address] 56937- 7963 07 Sep, 2016 care, first in third trimester Z34.03 and 34 weeks gestation of Z3A.34 [facility] [id number], [place] [address]- 5664 07 Sep, 2016 [facility] [id number] [place] [address] 99683- 5024 Sep, [facility] [id number] [place] [address] 46249- 9304 Sep, Bipolar disorder, in partial remission, most recent episode depressed F31.75 ; Attention-deficit hyperactivity disorder, combined type F90.2 and Social phobia, generalized F40.11 [facility] [id number], [place] [address]- 4743 Aug, Normal , first Z34.00 ; Encounter for immunization Z23 and 32 weeks gestation of Z3A.32 [facility] [id number] [place] [address] 52988- 6839 Aug, [facility] [id number] [place] [address] 20440- 0308 Aug, Other specified related conditions, third trimester O26.893 and 30 weeks gestation of Z3A.30 [facility] [id number] [place] [address] 60805- 1157 Aug, [facility] [id number] [place] [address] 92847- 4990 27 Jul, 2016 Diabetes mellitus screening Z13.1 ; , first, first trimester Z34.01 ; Other specified noninflammatory disorders of vagina N89.8 ; Other specified related conditions, third trimester O26.893 and 28 weeks gestation of Z3A.28 [facility] [id number], [place] [address]- 5988 Jul, [facility] [id number] [address]- 2581 Jun, [facility] [address] [id number] [place] [address] Jun [facility] [id number] [place] [address] 81053- 4774 Jun, Normal , first Z34.00 ; Evaluate anatomy not seen on prior sonogram Z36 and 23 weeks gestation of Z3A.23 [facility] [id number] [place] [address] 49195- 0232 Jun, [facility] [id number] [place] [address] 94797- 2478 Jun, Bipolar disorder, in partial remission, most recent episode depressed F31.75 ; Attention-deficit hyperactivity disorder, combined type F90.2 and Social phobia, generalized F40.11 [facility] [id number] [place] [address] 20538- 9507 May, [facility] [id number] [place] [address] 42573- 4630 May, Normal , first Z34.00 and 19 weeks gestation of Z3A.19 [facility] [id number] [place] [address] 44110 -7049 May, Dysuria R30.0 and Acute cystitis during , second trimester O23.12 [facility] [id number] [place] [address] 70148- 4156 Apr, [facility] [id number] [place] [address] 95932- 8464 Apr, care, first in second trimester Z34.02 [facility] [id number] [place] [address] 93198- 4174 Apr, [facility] [id number] [place] [address] 43973- 5824 Apr, [facility] [id number] [place] [address] 80479- 4192 Apr, [facility] [id number] [place] [address] 08066- 0209 Apr, care, first in second trimester Z34.02 ; Dehydration E86.0 and 14 weeks gestation of Z3A.14 [facility] [id number], [place] [address]- 5493 Apr, Bipolar disorder, in partial remission, most recent episode depressed F31.75 ; Attention-deficit hyperactivity disorder, combined type F90.2 ; Social anxiety disorder F40.10 and 15 weeks gestation of Z3A.15 [facility] [address], [place] [address]- 8030 Mar, [facility] [address], [place] [address]- 1873 Mar, , first, first trimester Z34.01 and 10 weeks gestation of Z3A.10 [facility] [address], [place] [address]- 7569 Mar, [facility] [id number], [place] [address]- 9922 Mar, [facility] [id number], [place] [address]- 6608 Feb, Normal , first Z34.00 and 6 weeks gestation of Z3A.01 [facility] [address], [place] [address]- 8315 Feb, [facility] [id number], [place] [address]- 0727 Feb, [facility] [place] [id number] [place] [address] Feb [facility] [address] [facility] [id number] [address]- 0236 Feb, [facility] [id number], [place] [address]- 4108 Feb, [facility] [id number] [address]- 2687 Feb, Bipolar disorder, in partial remission, most recent episode depressed F31.75 ; Attention-deficit hyperactivity disorder, combined type F90.2 and Social anxiety disorder F40.10 [facility] [address], [place] [address]- 9673 12 Feb, 2016 Routine adult health maintenance Z00.00 [facility] [id number] [place] [address] 53657- 4482 Feb, [facility] [id number] [place] [address] 11828- 4680 Feb, confirmed by positive urine test Z32.01 [facility] [id number] [place] [address] 28055- 9800 Feb, [facility] [id number] [place] [address] 46446- 4826 Jan, [facility] [id number] [place] [address] 62318- 7108 Jan, Bipolar disorder, in partial remission, most recent episode depressed F31.75 ; Attention-deficit hyperactivity disorder, combined type F90.2 and Social anxiety disorder F40.10 [facility] [id number] [place] [address] 60180- 3270 Jan, Seizure disorder G40.909 [facility] [id number] [place] [address] 35947- 1455 Jan, [facility] [id number] [place] [address] 89448- 8633 December, Bipolar disorder, current episode hypomanic F31.0 ; Attention-deficit hyperactivity disorder, combined type F90.2 and Social anxiety disorder F40.10 [facility] [address], [place] [address]- 7584 December, Screening for STD sexually transmitted disease Z11.3 [facility] [id number] [place] [address] 39325- 0392 27 Nov, 2015 [facility] [id number] [place] [address] 81294- 3539 Nov, [facility] [address], [place] [address]- 3426 Nov, Screening for STD sexually transmitted disease Z11.3 and Attention-deficit hyperactivity disorder, combined type F90.2 [facility] [id number], [place] [address]- 6045 Nov, Attention-deficit hyperactivity disorder, combined type F90.2 ; Social anxiety disorder F40.10 and Bipolar disorder, current episode hypomanic F31.0 [facility] [id number] [place] [address] 50737- 3671 30 Oct, 2015 [facility] [id number] [place] [address] 01936- 0993 Oct, [facility] [id number] [place] [address] 29163- 5395 Sep, [facility] [id number] [place] [address] 25596- 5637 Sep, Bipolar disorder, in partial remission, most recent episode depressed F31.75 ; Attention-deficit hyperactivity disorder, combined type F90.2 and Social anxiety disorder F40.10 [facility] [id number] [place] [address] 71617- 1409 Sep, [facility] [id number], [place] [address]- 6855 Aug, [facility] [id number], [place] [address]- 2621 Jul, [facility] [id number], [place] [address]- 6141 Jul, [facility] [id number] [place] [address] 35483- 1918 Jul, Bipolar disorder, in partial remission, most recent episode depressed F31.75 ; Attention-deficit hyperactivity disorder, combined type F90.2 and Social anxiety disorder F40.10 [facility] [id number] [place] [address] 86072- 5354 Jun, [facility] [id number], [place] [address]- 0208 Jun, [facility] [id number] [place] [address] 17261- 4886 Jun, [facility] [id number] [place] [address] 82773- 0647 May, [facility] [id number] [place] [address] 19119- 0028 May, [facility] [id number] [place] [address] 504830- 0859 May, [facility] [id number] [place] [address] 600976- 1093 May, Bipolar disorder, in partial remission, most recent episode depressed F31.75 ; Attention-deficit hyperactivity disorder, combined type F90.2 and Social anxiety disorder F40.10 [facility] [id number] [place] [address] 03003- 6497 Mar, Bipolar I disorder, moderate, current or most recent episode depressed, in partial remission, with mixed features 296.55 ; ADHD ( attention deficit hyperactivity disorder), combined type 314.01 and Social anxiety disorder 300.23 [facility] [address], [place] [address]- 2956 Aug, [facility] [id number], [place] [address]- 1965 Aug, [facility] [id number], [place] [address]- 8242 Jun, [facility] [id number] [place] [id number] Jun, [facility] [id number] [address] Jan, [facility] [id number] [place] [id number] December, [facility] [address] [facility] [id number] [place] [address] Oct, [facility] [address] [facility] [id number] [address] Sep, [facility] [address] [facility] [id number] [place] [address] Jun, IMMUNIZATIONS No Known Immunizations SOCIAL HISTORY Never Assessed REASON FOR VISIT PLAN OF CARE VITAL SIGNS MEDICATIONS Unknown Medications RESULTS No Results PROCEDURES No Known procedures INSTRUCTIONS MEDICATIONS ADMINISTERED No Known Medications MEDICAL (GENERAL) HISTORY Type Description Date Medical History 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 Has had [facility] NEUROLOGY care. Diagnosed with Focal Seizures with EEG Medical History ADHD Medical History Bipolar disorder Medical History Social anxiety disorder Surgical History Suches teeth removed 09/06/15 Surgical History Childbirth Surgical History Spider bite Hospitalization History psych; anger/aggression 2008 Hospitalization History ER visit Bleeding while 10/20/17
--- OUTSIDE RECORDS SUMMARY | 2018-04-04 10:52 | XMS REPORT ---
Author Author ANDREW REGIS [facility] Address [address] [place] [address] Care Team Providers Care Regeneration Operator Name Role Phone ANDREW REGIS Unavailable PROBLEMS Type Condition ICD9-CM Code [id number] Code Onset Dates Condition Status SNOMED Code Problem Bipolar disorder, current episode hypomanic F31.0 Active 06640771 Problem Bipolar disorder with moderate depression F31.32 Active 790447251 Problem Social phobia, generalized F40.11 Active 87230720 Problem Attention-deficit hyperactivity disorder, combined type F90.2 Active 33758700 Problem Bipolar disorder, in partial remission, most recent episode depressed F31.75 Active 77673557 Problem Third trimester Z33.1 Active 08549555 Problem Low lying placenta with hemorrhage, first trimester O44.51 Active 068249781 Problem Supervision of other high risk pregnancies, first trimester O09.891 Active 638729042 Problem Unspecified blood type, Rh negative Z67.91 Active 914564831 Problem History of delivery, currently O09.219 Active 635437569 Problem Abnormal ultrasound R93.8 Active 628924761 ALLERGIES No Information ENCOUNTERS Encounter Location Date Diagnosis [facility] [id number] [address] Apr, [facility] [id number] [address] 2656 Apr, [facility] [id number] [address] Apr, [facility] [id number] [place] [address] 73542- 3409 Mar, [facility] [address] [address] Mar, [facility] [id number] [address] 3[address] Mar, [facility] [id number] [address] 9[address] Mar, Third trimester Z33.1 ; History of delivery, currently O09.219 ; 35 weeks gestation of Z3A.35 and Decreased movements in third trimester, single or unspecified fetus O36.8130 [facility] [id number] [place] [address] 84365- 8271 Mar, History of delivery, currently O09.219 [facility] [id number] [place] [address] 71533- 2567 Feb, History of delivery, currently O09.219 [facility] [id number] [place] [address] 05420- 6329 Feb, Third trimester Z34.93 ; 32 weeks gestation of Z3A.32 and Encounter for immunization Z23 [facility] [id number] [address] Feb, History of delivery, currently O09.219 [facility] [id number] [place] [address] 51768- 0050 Feb, [facility] [id number] [address] 3888 Feb, [facility] [id number] [place] [address] 38022- 9347 Feb, [facility] [id number] [place] [address] 85776- 6595 Feb, Third trimester Z34.93 and Unspecified blood type , Rh negative Z67.91 [facility] [address] [address] 5645 Feb, [facility] [id number] [address] 4641 Feb, History of delivery, currently O09.219 [facility] [address] [address] 2247 Jan, Unspecified blood type, Rh negative Z67.91 and History of delivery, currently O09.219 [facility] [address] [address] 5424 Jan, History of delivery, currently O09.219 [facility] [id number] [place] [address] 28271- 5392 Jan, [facility] [id number] [place] [address] 05665- 6758 Jan, [place] [id number] [place] [address] 08973- 9122 Jan, care, subsequent in second trimester Z34.82 ; Diabetes mellitus screening Z13.1 ; Local reaction to immunization, initial encounter T88.1XXA and 26 weeks gestation of Z3A.26 [facility] [id number] [place] [address] 38415- 8456 12 Jan, 2018 [place] [id number] [place] [address] 94686- 8746 Jan, [place] [id number] [place] [address] 14971- 8666 Jan, [place] [id number] [place] [address] 63158- 6645 Jan, History of delivery, currently O09.219 [facility] [id number] [place] [address] 35219- 1232 December, History of delivery, currently O09.219 [facility] [id number] [place] [address] 45982- 4517 December, History of delivery, currently O09.219 [place] [id number] [place] [address] 93184- 3523 December, [place] [id number] [address] 7748 December, [facility] [id number] [place] [address] 77621- 7305 December, Second trimester Z34.92 and 22 weeks gestation of Z3A.22 [facility] [id number] [place] [address] 25901- 6678 December, [facility] [id number] [place] [address] 18111- 5782 December, History of delivery, currently O09.219 [place] [id number] [place] [address] 64040- 3191 December, History of delivery, currently O09.219 [place] [id number] [place] [address] 27280- 6408 December, [facility] [id number] [place] [address] 87071- 2861 December, History of delivery, currently O09.219 [facility] [id number] [place] [address] 34085- 0043 Nov, [facility] [id number] [place] [address] 54400- 2718 Nov, History of delivery, currently O09.219 [facility] [id number] [place] [address] 15814- 9020 Nov, care, subsequent in second trimester Z34.82 and 18 weeks gestation of Z3A.18 [place] [id number] [place] [address] 19968- 6153 Nov, [facility] [id number] [place] [address] 45072- 4823 Oct, [facility] [id number] [place] [address] 02955- 3597 Oct, Threatened miscarriage O20.0 [place] [id number] [place] [address] 75194- 5152 22 Oct, 2017 14 weeks gestation of Z3A.14 ; Threatened miscarriage O20.0 ; Other specified noninflammatory disorders of vagina N89.8 ; Other specified related conditions, second trimester O26.892 ; Vaginal candidiasis B37.3 ; Low lying placenta with hemorrhage, first trimester O44.51 ; Abnormal ultrasound R93.8 ; Second trimester Z34.92 and History of delivery, currently O09.219 [place] [id number] [place] [address] 15673- 9097 18 Oct, 2017 [place] [address] [address]22- 4606 16 Oct, 2017 care, subsequent in second trimester Z34.82 and 13 weeks gestation of Z3A.13 [place] [address] 43473- 0322 22 Sep, 2017 [place] [id number] [place] [address] 59083- 4300 14 Sep, 2017 care, subsequent in first trimester Z34.81 and 9 weeks gestation of Z3A.09 [place] [id number] [place] [address] 08261- 4492 14 Sep, 2017 [place] [id number] [place] [address] 00753- 2554 Aug, [place] [id number] [place] [address] 04350- 1484 Aug, [place] [id number] [place] [address] 08371- 5596 Aug, [place] [id number] [place] [address] 67509- 6796 Aug, Encounter for test Z32.00 [place] [address] 23474- 6396 Jul, [facility] [address] [address]- 2997 Jul, [facility] [id number] [place] [address] 06527 -4357 Jun, [facility] [id number] [place] [address] 56456- 3217 14 Apr, 2017 [facility] [id number] [place] [address] 45559- 6929 Apr, Bipolar disorder with moderate depression F31.32 and Attention-deficit hyperactivity disorder, combined type F90.2 [facility] [id number] [place] [address] 82564- 4750 Feb, [facility] [id number] [place] [address] 26597- 6932 Feb, [facility] [id number] [place] [address] 73879- 1387 Jan, [facility] [id number] [place] [address] 14578 -4447 Jan, Vaginal discharge N89.8 and Acute vaginitis N76.0 [facility] [id number] [place] [address] 51260- 2204 Nov, [facility] [id number] [place] [address] 42522- 8670 Nov, Encounter for visit Z39.2 ; Tobacco abuse counseling Z71.6 and Drug or alcohol risk assessment or counseling Z71.89 [facility] [id number] [place] [address] 95385- 2419 Nov, [facility] [id number] [place] [address] 14573- 8694 Oct, [facility] [id number] [place] [address] 02915- 1111 Oct, [facility] [id number] [place] [address] 29732- 9385 Oct, [facility] [address] [address]- 8645 Oct, STD exposure Z20.2 [facility] [address] [address]- 2550 Oct, Bipolar disorder, in partial remission, most recent episode depressed F31.75 ; Attention-deficit hyperactivity disorder, combined type F90.2 and Social phobia, generalized F40.11 [facility] [address] [address]- 3471 Oct, Bipolar disorder, in partial remission, most recent episode depressed F31.75 ; Attention-deficit hyperactivity disorder, combined type F90.2 and Social phobia, generalized F40.11 [facility] [id number] [place] [address] 02635- 9871 Oct, [place] [id number] [place] [address] 38657- 7305 Sep, [facility] [id number] [place] [address] 75429- 6339 Sep, [place] [id number] [place] [address] 76123- 5085 Sep, screening for streptococcus B Z36 ; care , first in third trimester Z34.03 and 35 weeks gestation of Z3A.35 [place] [address] [address]- 8571 Sep, care, first in third trimester Z34.03 and 34 weeks gestation of Z3A.34 [place] [id number] [place] [address] 90581- 2724 Sep, [facility] [address] [address]- 7371 Sep, [facility] [id number] [place] [address] 32188- 7432 Sep, Bipolar disorder, in partial remission, most recent episode depressed F31.75 ; Attention-deficit hyperactivity disorder, combined type F90.2 and Social phobia, generalized F40.11 [place] [id number] [place] [address] 70679- 9071 Aug, Normal , first Z34.00 ; Encounter for immunization Z23 and 32 weeks gestation of Z3A.32 [place] [id number] [place] [address] 45882- 7642 10 Aug, 2016 [place] [id number] [place] [address] 51624- 3041 10 Aug, 2016 Other specified related conditions, third trimester O26.893 and 30 weeks gestation of Z3A.30 [place] [id number] [place] [address] 78268- 6170 04 Aug, 2016 [place] [id number] [place] [address] 26860- 5260 27 Jul, 2016 Diabetes mellitus screening Z13.1 ; , first, first trimester Z34.01 ; Other specified noninflammatory disorders of vagina N89.8 ; Other specified related conditions, third trimester O26.893 and 28 weeks gestation of Z3A.[id number] [place] [address] 25484- 2102 14 Jul, [id number] [place] [address] 58394- 8663 Jun, [facility] [address] [id number] [address] Jun [id number] [place] [address] 17865- 5050 Jun, Normal , first Z34.00 ; Evaluate anatomy not seen on prior sonogram Z36 and 23 weeks gestation of Z3A.23 [id number] [place] [address] 71213- 2511 17 Jun, 2016 [place] [address] [address]- 1016 Jun, Bipolar disorder, in partial remission, most recent episode depressed F31.75 ; Attention-deficit hyperactivity disorder, combined type F90.2 and Social phobia, generalized F40.11 [facility] [address] [address]- 8123 May, [facility] [id number] [place] [address] 58573- 3604 May, Normal , first Z34.00 and 19 weeks gestation of Z3A.19 [facility] [id number] [place] [address] 52620 -4728 May, Dysuria R30.0 and Acute cystitis during , second trimester O23.12 [place] [id number] [place] [address] 95928- 8546 Apr, [place] [id number] [place] [address] 05190- 2954 Apr, care, first in second trimester Z34.02 [place] [id number] [place] [address] 69394- 8084 Apr, [facility] [id number] [place] [address] 92014- 1170 Apr, [place] [id number] [place] [address] 00987- 6842 Apr, [place] [id number] [place] [address] 85276- 2572 Apr, 2015 care, first in second trimester Z34.02 ; Dehydration E86.0 and 14 weeks gestation of Z3A.14 [facility] [id number] [place] [address] 55423- 9910 Apr, Bipolar disorder, in partial remission, most recent episode depressed F31.75 ; Attention-deficit hyperactivity disorder, combined type F90.2 ; Social anxiety disorder F40.10 and 15 weeks gestation of Z3A.15 [facility] [address] [address]- 7889 Mar, [facility] [id number] [address]- 7730 Mar, , first, first trimester Z34.01 and 10 weeks gestation of Z3A.10 [facility] [address] [address]- 0101 Mar, [facility] [id number] [address]- 8444 Mar, [place] [id number] [address]- 2008 Feb, Normal , first Z34.00 and 6 weeks gestation of Z3A.01 [place] [address] [address]- 5551 Feb, [facility] [id number] [address]- 4648 Feb, [address] [id number] [place] [address] Feb [facility] [id number] [address]- 1442 Feb, [place] [id number] [address]- 2624 Feb, [place] [address] [address]- 1353 Feb, Bipolar disorder, in partial remission, most recent episode depressed F31.75 ; Attention-deficit hyperactivity disorder, combined type F90.2 and Social anxiety disorder F40.10 [facility] [id number] [address]- 2376 Feb, Routine adult health maintenance Z00.00 [facility] [address] [address]- 9114 Feb, [facility] [id number] [address] 1964 Feb, confirmed by positive urine test Z32.01 [facility] [address] [address]- 3233 Feb, [facility] [id number] [address]- 9856 Jan, [facility] [id number] [place] [address] 87626- 7739 Jan, Bipolar disorder, in partial remission, most recent episode depressed F31.75 ; Attention-deficit hyperactivity disorder, combined type F90.2 and Social anxiety disorder F40.10 [facility] [address] [address]- 3180 Jan, Seizure disorder G40.909 [facility] [id number] [address]- 4858 Jan, [facility] [address] [address]- 5550 December, Bipolar disorder, current episode hypomanic F31.0 ; Attention-deficit hyperactivity disorder, combined type F90.2 and Social anxiety disorder F40.10 [facility] [address] [address]- 9629 December, Screening for STD sexually transmitted disease Z11.3 [facility] [address] [address]- 4603 Nov, [facility] [address] [address]- 2605 Nov, [facility] [address] [address]- 4910 Nov, Screening for STD sexually transmitted disease Z11.3 and Attention-deficit hyperactivity disorder, combined type F90.2 [facility] [address] [address]- 9803 Nov, Attention-deficit hyperactivity disorder, combined type F90.2 ; Social anxiety disorder F40.10 and Bipolar disorder, current episode hypomanic F31.0 [facility] [id number] [place] [address] 55445- 5166 30 Oct, 2015 [facility] [id number] [place] [address] 48960- 5896 Oct, [facility] [id number] [place] [address] 17737- 7936 Sep, [facility] [id number] [place] [address] 14254- 5916 Sep, Bipolar disorder, in partial remission, most recent episode depressed F31.75 ; Attention-deficit hyperactivity disorder, combined type F90.2 and Social anxiety disorder F40.10 [facility] [id number] [place] [address] [id number] Sep, [facility] [id number] [place] [address] [id number] Aug, [facility] [id number] [place] [address] [id number] Jul, [facility] [id number] [place] [address] [phone] Jul, [facility] [id number] [place] [address] [id number]- [phone] Jul, Bipolar disorder, in partial remission, most recent episode depressed F31.75 ; Attention-deficit hyperactivity disorder, combined type F90.2 and Social anxiety disorder F40.10 [facility] [id number] [address] Jun, [facility] [id number] [place] [address] [id number] Jun, [facility] [id number] [address] Jun, [facility] [id number] [address] May, [facility] [id number] [place] [address] [id number] May, [facility] [id number] [place] [address] [id number] May, [facility] [id number] [place] [address] [id number] [id number] May, Bipolar disorder, in partial remission, most recent episode depressed F31.75 ; Attention-deficit hyperactivity disorder, combined type F90.2 and Social anxiety disorder F40.10 [facility] [id number] [place] [address] [phone] Mar, Bipolar I disorder, moderate, current or most recent episode depressed, in partial remission, with mixed features 296.55 ; ADHD ( attention deficit hyperactivity disorder), combined type 314.01 and Social anxiety disorder 300.23 [facility] [id number] [address] Aug, [facility] [id number] [place] [address] [id number]- [phone] Aug, [facility] [id number] [place] [address] [id number] Jun, [facility] [id number] [address] Jun, [facility] [id number] [place] [address] [id number] Jan, [facility] [id number] [place] [address] [phone]- [phone] December, [facility] [facility] [id number] [place] [address]- 7946 Oct, [facility] [address] [address] Sep, [facility] [address] [facility] [id number] [place] [address] Jun, IMMUNIZATIONS Vaccine Route Administration Date Status MARY 250 MG/ML (PT'S OWN) IM Intramuscular December 31, 2017 Administered SOCIAL HISTORY Never Assessed REASON FOR VISIT Injection--tcuppettRN PLAN OF CARE Activity Details Follow Up 1 Week Reason: VITAL SIGNS MEDICATIONS Unknown Medications RESULTS No Results PROCEDURES Procedure Date Ordered Result Body Site MARY 250 MG/ML (PT'S OWN) December 31, 2017 THER/PROPH/DIAG INJ, SC/IM December 31, 2017 INSTRUCTIONS MEDICATIONS ADMINISTERED No Known Medications MEDICAL (GENERAL) HISTORY Type Description Date Medical History 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 Has had consisten NEUROLOGY care. Diagnosed with Focal Seizures with EEG Medical History ADHD Medical History Bipolar disorder Medical History Social anxiety disorder Surgical History [place] teeth removed 09/06/15 Surgical History Childbirth Surgical History Spider bite Hospitalization History psych; anger/aggression 2008 Hospitalization History ER visit Bleeding while 10/20/17
--- OUTSIDE RECORDS SUMMARY | 2018-04-04 10:52 | XMS REPORT ---
Author Author ANDREW REGIS [facility] Address [address] [place] [address] Care Team Providers Care Delivery Aide Name Role Phone ANDREW REGIS Unavailable PROBLEMS Type Condition ICD9-CM Code [id number] Code Onset Dates Condition Status SNOMED Code Problem Bipolar disorder, current episode hypomanic F31.0 Active 37062379 Problem Bipolar disorder with moderate depression F31.32 Active 758454020 Problem Social phobia, generalized F40.11 Active 47246651 Problem Attention-deficit hyperactivity disorder, combined type F90.2 Active 64119042 Problem Bipolar disorder, in partial remission, most recent episode depressed F31.75 Active 49889060 Problem Third trimester Z33.1 Active 33730738 Problem Low lying placenta with hemorrhage, first trimester O44.51 Active 892830137 Problem Supervision of other high risk pregnancies, first trimester O09.891 Active 103385518 Problem Unspecified blood type, Rh negative Z67.91 Active 109621506 Problem History of delivery, currently O09.219 Active 225979973 Problem Abnormal ultrasound R93.8 Active 405821232 ALLERGIES No Information ENCOUNTERS Encounter Location Date Diagnosis [facility] [address] [address] Apr, [facility] [address] [address] 9298 Apr, [facility] [address] [address] 88[address] Apr, [facility] [address] [place] [address] 86754- 3460 Mar, [facility] [address] [address] 3[address] Mar, [facility] [address] [address] Mar, [facility] [address]85[address] [address] Mar, Third trimester Z33.1 ; History of delivery, currently O09.219 ; 35 weeks gestation of Z3A.35 and Decreased movements in third trimester, single or unspecified fetus O36.8130 [facility] [id number] [place] [address] 45632- 7212 Mar, History of delivery, currently O09.219 [facility] [id number] [place] [address] 27469- 0859 Feb, History of delivery, currently O09.219 [facility] [id number] [place] [address] 15063- 1782 Feb, Third trimester Z34.93 ; 32 weeks gestation of Z3A.32 and Encounter for immunization Z23 [facility] [address] [address] Feb, History of delivery, currently O09.219 [facility] [id number] [place] [address] 93777- 0438 Feb, [facility] [address] [address]- 8844 Feb, [facility] [id number] [place] [address] 96373- 2654 Feb, [facility] [id number] [place] [address] 27132- 9761 Feb, Third trimester Z34.93 and Unspecified blood type , Rh negative Z67.91 [facility] [address] [address]- 9[address] Feb, [facility] [address] [address]- 5152 Feb, History of delivery, currently O09.219 [facility] [address] [address]- 7266 Jan, Unspecified blood type, Rh negative Z67.91 and History of delivery, currently O09.219 [facility] [address] [address]- 0716 Jan, History of delivery, currently O09.219 [facility] [id number] [place] [address] 54527- 0046 Jan, [facility] [id number] [place] [address] 42886- 0343 Jan, [facility] [id number] [place] [address] 08140- 9348 Jan, care, subsequent in second trimester Z34.82 ; Diabetes mellitus screening Z13.1 ; Local reaction to immunization, initial encounter T88.1XXA and 26 weeks gestation of Z3A.26 [facility] [address] [place] [address] 65082- 8105 12 Jan, 2018 [address] [id number] [place] [address] 54125- 9813 Jan, [facility] [id number] [place] [address] 59696- 5089 Jan, [facility] [id number] [place] [address] 90220- 1657 Jan, History of delivery, currently O09.219 [facility] [address] [place] [address] 85940- 2247 December, History of delivery, currently O09.219 [facility] [id number] [place] [address] 88517- 1186 December, History of delivery, currently O09.219 [facility] [id number] [place] [address] 84727- 7593 December, [address] [address]- 9796 December, [facility] [id number] [place] [address] 45594- 8064 December, Second trimester Z34.92 and 22 weeks gestation of Z3A.22 [facility] [id number] [place] [address] 55546- 5102 December, [facility] [id number] [place] [address] 08653- 5536 December, History of delivery, currently O09.219 [facility] [id number] [place] [address] 24900- 3698 December, History of delivery, currently O09.219 [facility] [id number] [place] [address] 59167- 3246 December, [facility] [id number] [place] [address] 67700- 0165 December, History of delivery, currently O09.219 [facility] [id number] [place] [address] 67031- 4670 Nov, [facility] [id number] [place] [address] 70614- 8421 Nov, History of delivery, currently O09.219 [facility] [id number] [place] [address] 57653- 3486 Nov, care, subsequent in second trimester Z34.82 and 18 weeks gestation of Z3A.18 [facility] [id number] [place] [address] 03865- 5965 Nov, [facility] [id number] [place] [address] 33772- 9566 Oct, [facility] [address] [place] [address] 84954- 0224 Oct, Threatened miscarriage O20.0 [facility] [id number] [place] [address] 91067- 0679 Oct, 14 weeks gestation of Z3A.14 ; Threatened miscarriage O20.0 ; Other specified noninflammatory disorders of vagina N89.8 ; Other specified related conditions, second trimester O26.892 ; Vaginal candidiasis B37.3 ; Low lying placenta with hemorrhage, first trimester O44.51 ; Abnormal ultrasound R93.8 ; Second trimester Z34.92 and History of delivery, currently O09.219 [facility] [id number] [place] [address] 40868- 6503 18 Oct, 2017 [address] 9[address]90- 3648 16 Oct, 2017 care, subsequent in second trimester Z34.82 and 13 weeks gestation of Z3A.13 [address] [address] 03305- 2918 22 Sep, 2017 [address] [facility] [id number] [place] [address] 72466- 9486 14 Sep, 2017 care, subsequent in first trimester Z34.81 and 9 weeks gestation of Z3A.09 [facility] [id number] [place] [address] 33112- 8703 14 Sep, 2017 [address] [id number] [place] [address] 04980- 0716 Aug, [facility] [id number] [place] [address] 04244- 4344 Aug, [address] [facility] 16254- 6894 Aug, Encounter for test Z32.00 [facility] [id number] [place] [address] 98647- 0260 Aug, [facility] [id number] [place] [address] 94693- 7350 Jul, [facility] [address] [address]- 7104 Jul, [facility] [id number] [place] [address] 54527 -3076 Jun, [facility] [id number] [place] [address] 14885- 2943 14 Apr, 2017 [facility] [id number] [place] [address] 31416- 6468 Apr, Bipolar disorder with moderate depression F31.32 and Attention-deficit hyperactivity disorder, combined type F90.2 [facility] [id number] [place] [address] 54613- 4000 Feb, [facility] [id number] [place] [address] 90345- 4268 Feb, [facility] [id number] [place] [address] 53555- 3722 Jan, [facility] [address] [place] [address] 86788 -2398 Jan, Vaginal discharge N89.8 and Acute vaginitis N76.0 [facility] [address] [place] [address] 85929- 8941 Nov, [facility] [id number] [place] [address] 76416- 5086 Nov, Encounter for visit Z39.2 ; Tobacco abuse counseling Z71.6 and Drug or alcohol risk assessment or counseling Z71.89 [facility] [address] [place] [address] 47558- 5954 Nov, [facility] [id number] [place] [address] 59917- 8655 Oct, [facility] [address] [place] [address] 95368- 6466 Oct, [facility] [id number] [place] [address] 78193- 4403 Oct, [facility] [address] [address]- 3920 Oct, STD exposure Z20.2 [facility] [address] [address]- 3131 Oct, Bipolar disorder, in partial remission, most recent episode depressed F31.75 ; Attention-deficit hyperactivity disorder, combined type F90.2 and Social phobia, generalized F40.11 [facility] [address] [address]- 2710 Oct, Bipolar disorder, in partial remission, most recent episode depressed F31.75 ; Attention-deficit hyperactivity disorder, combined type F90.2 and Social phobia, generalized F40.11 [facility] [address] [place] [address] 30787- 8104 Oct, [address] [place] [address] 53922- 3978 Sep, [facility] [address] [place] [address] 51356- 2774 Sep, [address] [address] [place] [address] 03735- 8111 Sep, screening for streptococcus B Z36 ; care , first in third trimester Z34.03 and 35 weeks gestation of Z3A.35 [address] [address] [address]- 1736 Sep, care, first in third trimester Z34.03 and 34 weeks gestation of Z3A.34 [facility] [address] [place] [address] 78967- 1215 Sep, [facility] [address] [address]- 1330 Sep, [facility] [address] [place] [address] 73468- 9084 Sep, Bipolar disorder, in partial remission, most recent episode depressed F31.75 ; Attention-deficit hyperactivity disorder, combined type F90.2 and Social phobia, generalized F40.11 [address] [address] [place] [address] 83743- 9150 Aug, Normal , first Z34.00 ; Encounter for immunization Z23 and 32 weeks gestation of Z3A.32 [id number] [place] [address] 98188- 1193 10 Aug, 2016 [address] [id number] [place] [address] 80377- 1053 10 Aug, 2016 Other specified related conditions, third trimester O26.893 and 30 weeks gestation of Z3A.30 [address] [id number] [place] [address] 51627- 5714 04 Aug, 2016 [id number] [place] [address] 07639- 6170 27 Jul, 2016 Diabetes mellitus screening Z13.1 ; , first, first trimester Z34.01 ; Other specified noninflammatory disorders of vagina N89.8 ; Other specified related conditions, third trimester O26.893 and 28 weeks gestation of Z3A.[address] [place] [address] 60148- 7330 14 Jul, [address] [place] [address] 39378- 4704 Jun, [facility] [address] [id number] [address] Jun [address] [place] [address] 49095- 5013 Jun, Normal , first Z34.00 ; Evaluate anatomy not seen on prior sonogram Z36 and 23 weeks gestation of Z3A.23 [address] [place] [address] 56422- 0855 17 Jun, 2016 [address] [address]- 0031 Jun, Bipolar disorder, in partial remission, most recent episode depressed F31.75 ; Attention-deficit hyperactivity disorder, combined type F90.2 and Social phobia, generalized F40.11 [facility] [address] [address]- 5675 May, [facility] [id number] [place] [address] 39510- 1771 May, Normal , first Z34.00 and 19 weeks gestation of Z3A.19 [facility] [id number] [place] [address] 04492 -1622 May, Dysuria R30.0 and Acute cystitis during , second trimester O23.12 [facility] [id number] [place] [address] 25870- 1013 Apr, [facility] [id number] [place] [address] 15713- 3635 Apr, care, first in second trimester Z34.02 [facility] [id number] [place] [address] 82579- 9425 Apr, [facility] [id number] [place] [address] 91479- 3187 Apr, [facility] [id number] [place] [address] 90559- 2331 Apr, [facility] [id number] [place] [address] 38051- 3653 Apr, 2015 care, first in second trimester Z34.02 ; Dehydration E86.0 and 14 weeks gestation of Z3A.14 [facility] [id number] [place] [address] 34734- 1319 Apr, Bipolar disorder, in partial remission, most recent episode depressed F31.75 ; Attention-deficit hyperactivity disorder, combined type F90.2 ; Social anxiety disorder F40.10 and 15 weeks gestation of Z3A.15 [facility] [address] [address]- 5399 Mar, [facility] [address] [address]- 5410 Mar, , first, first trimester Z34.01 and 10 weeks gestation of Z3A.10 [facility] [address] [address]- 7579 Mar, [facility] [address] [address]- 4003 Mar, [facility] [place] [address] [address]- 3374 Feb, Normal , first Z34.00 and 6 weeks gestation of Z3A.01 [facility] [address] [address]- 0798 Feb, [facility] [address] [address]- 7262 Feb, [address] [id number] [place] [address] Feb [facility] [id number] [address]- 6773 Feb, [facility] [id number] [address]- 0294 Feb, [facility] [address] [address]- 0006 Feb, Bipolar disorder, in partial remission, most recent episode depressed F31.75 ; Attention-deficit hyperactivity disorder, combined type F90.2 and Social anxiety disorder F40.10 [facility] [id number] [address]- 2157 Feb, Routine adult health maintenance Z00.00 [facility] [address] [address]- 8712 Feb, [facility] [address] [address]- 3832 Feb, confirmed by positive urine test Z32.01 [facility] [address] [address]- 5812 Feb, [facility] [address] [address]- 8455 Jan, [facility] [id number] [place] [address] 02687- 1364 Jan, Bipolar disorder, in partial remission, most recent episode depressed F31.75 ; Attention-deficit hyperactivity disorder, combined type F90.2 and Social anxiety disorder F40.10 [facility] [address] [address]- 4329 Jan, Seizure disorder G40.909 [facility] [address] [address]- 0994 Jan, [facility] [address] [address]- 1463 December, Bipolar disorder, current episode hypomanic F31.0 ; Attention-deficit hyperactivity disorder, combined type F90.2 and Social anxiety disorder F40.10 [facility] [address] [address]- 9986 December, Screening for STD sexually transmitted disease Z11.3 [facility] [address] [address]- 3902 Nov, [facility] [address] [address]- 8143 Nov, [facility] [address] [address]- 0662 Nov, Screening for STD sexually transmitted disease Z11.3 and Attention-deficit hyperactivity disorder, combined type F90.2 [facility] [address] [address]- 6012 Nov, Attention-deficit hyperactivity disorder, combined type F90.2 ; Social anxiety disorder F40.10 and Bipolar disorder, current episode hypomanic F31.0 [facility] [id number] [place] [address] 31045- 3226 30 Oct, 2015 [facility] [address] [place] [address] 01060- 2606 Oct, [facility] [id number] [place] [address] 21317- 2946 Sep, [facility] [id number] [place] [address] 14309- 4916 Sep, Bipolar disorder, in partial remission, most recent episode depressed F31.75 ; Attention-deficit hyperactivity disorder, combined type F90.2 and Social anxiety disorder F40.10 [facility] [id number] [place] [address] 64492- 0636 Sep, [facility] [id number] [place] [address] 54267- 1393 Aug, [facility] [id number] [place] [address] 81446- 0076 Jul, [facility] [id number] [place] [address] 66499- 1896 Jul, [facility] [address] [place] [address] 64794- 6635 Jul, Bipolar disorder, in partial remission, most recent episode depressed F31.75 ; Attention-deficit hyperactivity disorder, combined type F90.2 and Social anxiety disorder F40.10 [facility] [address] 0256 Jun, [facility] [id number] [place] [address] 598377- 7548 Jun, [facility] [address] 8899 Jun, [facility] [address] [address]- 3470 May, [facility] [id number] [place] [address] 115430- 1556 May, [facility] [id number] [place] [address] 995397- 3767 May, [facility] [id number] [place] [address] 896447- 3244 May, Bipolar disorder, in partial remission, most recent episode depressed F31.75 ; Attention-deficit hyperactivity disorder, combined type F90.2 and Social anxiety disorder F40.10 [facility] [id number] [place] [address] 09367- 8800 Mar, Bipolar I disorder, moderate, current or most recent episode depressed, in partial remission, with mixed features 296.55 ; ADHD ( attention deficit hyperactivity disorder), combined type 314.01 and Social anxiety disorder 300.23 [facility] [address] [address]- 6493 Aug, [facility] [id number] [place] [address] 48596- 0891 Aug, [facility] [id number] [place] [address] 41568- 3486 Jun, [facility] [address] [address]- 3590 Jun, [facility] [id number] [place] [address] 326995- 0704 Jan, [facility] [id number] [place] [address] 89452- 5156 December, [facility] [id number] [place] [address] 84582- 0266 Oct, [facility] [address] [address]- 4686 Sep, [facility] [address] [facility] [id number] [place] [address]- 7477 Jun, IMMUNIZATIONS Vaccine Route Administration Date Status MARY 250 MG/ML (PT'S OWN) IM Intramuscular December 24, 2017 Administered SOCIAL HISTORY Never Assessed REASON FOR VISIT injection-----DBennettRN PLAN OF CARE VITAL SIGNS MEDICATIONS Unknown Medications RESULTS No Results PROCEDURES Procedure Date Ordered Result Body Site MARY 250 MG/ML (PT'S OWN) December 24, 2017 THER/PROPH/DIAG INJ, SC/IM December 24, 2017 INSTRUCTIONS MEDICATIONS ADMINISTERED No Known Medications MEDICAL (GENERAL) HISTORY Type Description Date Medical History 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 Has had consisten NEUROLOGY care. Diagnosed with Focal Seizures with EEG Medical History ADHD Medical History Bipolar disorder Medical History Social anxiety disorder Surgical History [place] teeth removed 09/06/15 Surgical History Childbirth Surgical History Spider bite Hospitalization History psych; anger/aggression 2008 Hospitalization History ER visit Bleeding while 10/20/17
--- OUTSIDE RECORDS SUMMARY | 2018-04-04 10:53 | XMS REPORT ---
Author Author REGIS MORALES [facility] Address [address] [place] [address] Care Team Providers Care Warehouseman Name Role Phone ANDREW REGIS Unavailable PROBLEMS Type Condition ICD9-CM Code NNZ42-DM Code Onset Dates Condition Status SNOMED Code Problem Bipolar disorder, in partial remission, most recent episode depressed F31.75 Active 27103687 Problem Social phobia, generalized F40.11 Active 24561040 Problem Bipolar disorder, current episode hypomanic F31.0 Active 83415014 Problem Attention-deficit hyperactivity disorder, combined type F90.2 Active 87464595 Problem Abnormal ultrasound R93.8 Active 198421697 Problem Low lying placenta with hemorrhage, first trimester O44.51 Active 455518518 Problem Unspecified blood type, Rh negative Z67.91 Active 365350051 Problem Bipolar disorder with moderate depression F31.32 Active 465061247 Problem History of delivery, currently O09.219 Active 120390110 Problem Supervision of other high risk pregnancies, first trimester O09.891 Active 802244274 ALLERGIES No Information ENCOUNTERS Encounter Location Date Diagnosis [place] [address] [place] [address] 99408- 5582 Mar, [facility] [address] [id number] [place] [address] 65282- 4017 Mar, [facility] [id number] [place] [address] 37849- 4923 Mar, History of delivery, currently O09.219 [facility] [id number] [place] [address] 11366- 6050 Feb, History of delivery, currently O09.219 [facility] [id number] [place] [address] 08137- 0696 Feb, Third trimester Z34.93 ; 32 weeks gestation of Z3A.32 and Encounter for immunization Z23 [facility] [id number] [place] [address] 73007- 5810 Feb, History of delivery, currently O09.219 [facility] [id number] [place] [address] 17933- 3510 Feb, [facility] [id number] [place] [address] 14540- 8334 Feb, [facility] [id number] [place] [address] 85277- 1998 Feb, [place] [address] [id number] [place] [address] 88621- 5724 Feb, Third trimester Z34.93 and Unspecified blood type , Rh negative Z67.91 [place] [address] [place] [address] [id number] [place] [address] 17060- 0328 Feb, [facility] [address] [place] [address] 07455- 4503 Feb, History of delivery, currently O09.219 [place] [address] [place] [address] [id number] [place] [address] 89102- 4172 Jan, Unspecified blood type, Rh negative Z67.91 and History of delivery, currently O09.219 [place] [address] [address]- 4412 Jan, History of delivery, currently O09.219 [facility] [address] [address]- 3873 Jan, [facility] [id number] [place] [address] 51401- 7629 Jan, [facility] [address] [address]- 7155 Jan, Diabetes mellitus screening Z13.1 ; care, subsequent in second trimester Z34.82 ; Local reaction to immunization , initial encounter T88.1XXA and 26 weeks gestation of Z3A.26 [facility] [id number] [place] [address] 60952- 5481 Jan, [facility] [id number] [place] [address] 02164- 3085 Jan, [facility] [id number] [place] [address] 49116- 3332 Jan, [facility] [id number] [place] [address] 60944- 7393 Jan, History of delivery, currently O09.219 [facility] [id number] [place] [address] 25857- 6356 December, History of delivery, currently O09.219 [facility] [id number] [place] [address] 61028- 8024 December, History of delivery, currently O09.219 [facility] [id number] [place] [address] 17108- 6566 December, [facility] [id number] [place] [address] 33507- 4017 December, [facility] [id number] [place] [address] 59601- 9589 December, 22 weeks gestation of Z3A.22 and Second trimester Z34.92 [facility] [address] [address]- 7466 December, [facility] [address], [place] [address]- 2487 December, History of delivery, currently O09.219 [facility] [address] [address]- 6400 December, History of delivery, currently O09.219 [facility] [id number] [place] [address] 56528- 5968 December, [facility] [address], [place] [address]- 6333 December, History of delivery, currently O09.219 [facility] [address] [address]- 8082 Nov, [facility] [id number] [place] [address] 97029- 3645 Nov, History of delivery, currently O09.219 [facility] [address] [id number] [place] [address] 12486- 5492 Nov, care, subsequent in second trimester Z34.82 and 18 weeks gestation of Z3A.18 [place] [address], [place] [address]- 7914 Nov, [place] [address] [place] [id number] [place] [address] 92217- 7284 Oct, [place] [address] [address] [id number] [place] [address] 82374- 4188 Oct, Threatened miscarriage O20.0 [place] [address] [place] [address] 10370- 0874 Oct, 14 weeks gestation of Z3A.14 ; Threatened miscarriage O20.0 ; Other specified noninflammatory disorders of vagina N89.8 ; Other specified related conditions, second trimester O26.892 ; Vaginal candidiasis B37.3 ; Low lying placenta with hemorrhage, first trimester O44.51 ; Abnormal ultrasound R93.8 ; Second trimester Z34.92 and History of delivery, currently O09.219 [place] [address], [place] [address]- 1859 Oct, [place] [address], [place] [address]- 4394 Oct, care, subsequent in second trimester Z34.82 and 13 weeks gestation of Z3A.13 [place] [address], [place] [address]- 8270 Sep, [facility] [id number] [place] [address] 75415- 1445 Sep, care, subsequent in first trimester Z34.81 and 9 weeks gestation of Z3A.09 [facility] [address], [place] [address]- 0339 Sep, [facility] [id number] [place] [address] 15492- 6312 Aug, [facility] [id number] [place] [address] 95677- 8456 Aug, [facility] [id number] [place] [address] 99799- 7831 Aug, [facility] [id number] [place] [address] 77550- 7042 Aug, Encounter for test Z32.00 [facility] [address] [place] [address] 52637- 9345 Jul, [facility] [address] [address]- 4747 Jul, [facility] [address], [place] [address] -1602 Jun, [facility] [address], [place] [address]- 1353 Apr, [facility] [address], [place] [address]- 8722 Apr, Bipolar disorder with moderate depression F31.32 and Attention-deficit hyperactivity disorder, combined type F90.2 [facility] [address], [place] [address]- 9965 Feb, [facility] [address], [place] [address]- 0639 Feb, [facility] [address], [place] [address]- 6109 Jan, [facility] [id number] [place] [address] 71478 -7900 Jan, Vaginal discharge N89.8 and Acute vaginitis N76.0 [facility] [address] [place] [id number] [place] [address] 21158- 6131 Nov, [facility] [address] [place] [id number] [place] [address] 63884- 4756 Nov, Encounter for visit Z39.2 ; Tobacco abuse counseling Z71.6 and Drug or alcohol risk assessment or counseling Z71.89 [place] [address] [place] [id number] [place] [address] 02027- 5054 Nov, [facility] [address] [id number] [place] [address] 31014- 2435 Oct, [facility] [id number] [place] [address] 13095- 8783 Oct, [facility] [id number] [place] [address] 76578- 7163 Oct, [facility] [address] [id number] [place] [address] 51687- 4871 Oct, STD exposure Z20.2 [place] [address] [place] [id number] [place] [address] 09992- 1048 Oct, Bipolar disorder, in partial remission, most recent episode depressed F31.75 ; Attention-deficit hyperactivity disorder, combined type F90.2 and Social phobia, generalized F40.11 [facility] [address] [place] [id number] [place] [address] 81692- 1986 Oct, Bipolar disorder, in partial remission, most recent episode depressed F31.75 ; Attention-deficit hyperactivity disorder, combined type F90.2 and Social phobia, generalized F40.11 [facility] [address] [place] [address] 23189- 2390 Oct, [place] [address] [address]- 6472 Sep, [place] [address] [place] [id number] [place] [address] 33293- 5565 Sep, [place] [address] [place] [address] 69789- 5699 Sep, screening for streptococcus B Z36 ; care , first in third trimester Z34.03 and 35 weeks gestation of Z3A.35 [place] [address] [place] [id number] [place] [address] 26764- 1546 07 Sep, 2016 care, first in third trimester Z34.03 and 34 weeks gestation of Z3A.34 [place] [address] [place] [id number] [place] [address] 30564- 0902 Sep, [place] [address] [place] [id number] [place] [address] 57668- 8750 Sep, [place] [address] [place] [id number] [place] [address] 70657- 5409 Sep, Bipolar disorder, in partial remission, most recent episode depressed F31.75 ; Attention-deficit hyperactivity disorder, combined type F90.2 and Social phobia, generalized F40.11 [place] [address] [place] [address] 31033- 1558 Aug, Normal , first Z34.00 ; Encounter for immunization Z23 and 32 weeks gestation of Z3A.32 [place] [address] [address]- 5859 Aug, [place] [address] [place] [id number] [place] [address] 00317- 7145 Aug, Other specified related conditions, third trimester O26.893 and 30 weeks gestation of Z3A.30 [place] [address] [place] [id number] [place] [address] 62283- 6558 Aug, [place] [address] [place] [address] 97595- 9864 27 Jul, 2016 Diabetes mellitus screening Z13.1 ; , first, first trimester Z34.01 ; Other specified noninflammatory disorders of vagina N89.8 ; Other specified related conditions, third trimester O26.893 and 28 weeks gestation of Z3A.28 [place] [id number] [place] [address] 52934- 0904 Jul, [place] [address] [place] [address] 80149- 4293 Jun, [place] [id number] [place] [address] 61607-2121 Jun [address] [place] [address] 70964- 1426 Jun, Normal , first Z34.00 ; Evaluate anatomy not seen on prior sonogram Z36 and 23 weeks gestation of Z3A.23 [place] [address] [place] [address] 15759- 3142 17 Jun, 2016 [place] [id number] [place] [address] 40487- 7925 Jun, Bipolar disorder, in partial remission, most recent episode depressed F31.75 ; Attention-deficit hyperactivity disorder, combined type F90.2 and Social phobia, generalized F40.11 [place] [address] [place] [id number] [place] [address] 18389- 9973 May, [place] [address] [place] [id number] [place] [address] 13901- 3462 May, Normal , first Z34.00 and 19 weeks gestation of Z3A.19 [facility] [address] [place] [address] 16352 -1561 May, Dysuria R30.0 and Acute cystitis during , second trimester O23.12 [place] [id number] [place] [address] 13816- 4170 Apr, [facility] [address] [address]- 0944 Apr, care, first in second trimester Z34.02 [facility] [address], [place] [address]- 5235 Apr, [place] [address] [place] [address] 30143- 9247 Apr, [facility] [address] [place] [id number] [place] [address] 20681- 2639 Apr, [place] [address] [place] [id number] [place] [address] 99222- 5005 Apr, care, first in second trimester Z34.02 ; Dehydration E86.0 and 14 weeks gestation of Z3A.14 [place] [address] [place] [address] 41053- 1400 Apr, Bipolar disorder, in partial remission, most recent episode depressed F31.75 ; Attention-deficit hyperactivity disorder, combined type F90.2 ; Social anxiety disorder F40.10 and 15 weeks gestation of Z3A.15 [place] [address] [address]- 0559 Mar, [place] [address], [place] [address]- 8330 Mar, , first, first trimester Z34.01 and 10 weeks gestation of Z3A.10 [place] [address], [place] [address]- 2426 Mar, [place] [address] [place] [id number] [place] [address] 64536- 8252 Mar, [place] [address], [place] [address]- 5193 Feb, Normal , first Z34.00 and 6 weeks gestation of Z3A.01 [place] [address] [address]- 2171 Feb, [facility] [address] [facility] [id number] [address]- 4717 Feb, [facility] [place] [address] [id number] [place] [address] Feb [facility] [address] [id number] [address]- 9217 Feb, [facility] [address], [place] [address]- 1847 Feb, [facility] [id number], [place] [address]- 3585 Feb, Bipolar disorder, in partial remission, most recent episode depressed F31.75 ; Attention-deficit hyperactivity disorder, combined type F90.2 and Social anxiety disorder F40.10 [facility] [address], [place] [address]- 5121 Feb, Routine adult health maintenance Z00.00 [facility] [id number] [address]- 4371 Feb, [facility] [address], [place] [address]- 5608 Feb, confirmed by positive urine test Z32.01 [facility] [id number] [address]- 8651 Feb, [facility] [id number] [address]- 6476 Jan, [facility] [address] [facility] [id number] [address]- 0178 Jan, Bipolar disorder, in partial remission, most recent episode depressed F31.75 ; Attention-deficit hyperactivity disorder, combined type F90.2 and Social anxiety disorder F40.10 [facility] [id number] [address]- 6528 Jan, Seizure disorder G40.909 [facility] [address], [place] [address]- 5650 Jan, [facility] [address] [place] [address] 91342- 5659 December, Bipolar disorder, current episode hypomanic F31.0 ; Attention-deficit hyperactivity disorder, combined type F90.2 and Social anxiety disorder F40.10 [facility] [address], [place] [address]- 9770 December, Screening for STD sexually transmitted disease Z11.3 [facility] [id number] [address]- 3776 Nov, [facility] [address] [place] [address] 60981- 7099 Nov, [facility] [address] [address]- 3358 Nov, Screening for STD sexually transmitted disease Z11.3 and Attention-deficit hyperactivity disorder, combined type F90.2 [facility] [address] [address]- 1071 Nov, Attention-deficit hyperactivity disorder, combined type F90.2 ; Social anxiety disorder F40.10 and Bipolar disorder, current episode hypomanic F31.0 [facility] [address], [place] [address]- 4181 Oct, [facility] [address] [address]- 4791 Oct, [facility] [id number] [address]- 6459 Sep, [facility] [address], [place] [address]- 4449 Sep, Bipolar disorder, in partial remission, most recent episode depressed F31.75 ; Attention-deficit hyperactivity disorder, combined type F90.2 and Social anxiety disorder F40.10 [facility] [address], [place] [address] 2546 Sep, [facility] [address], [place] [address]- 5546 Aug, [facility] [address], [place] [address]- 8986 Jul, [facility] [address] [address]- 3916 Jul, [facility] [address] [address]- 6214 Jul, Bipolar disorder, in partial remission, most recent episode depressed F31.75 ; Attention-deficit hyperactivity disorder, combined type F90.2 and Social anxiety disorder F40.10 [facility] [address] [address]- 6666 Jun, [facility] [address], [place] [address]- 2396 Jun, [facility] [address] [address]- 7746 Jun, [facility] [address] [address]- 0426 May, [facility] [address]- 9776 May, [facility] [address] [address]- 0526 May, [facility] [id number] [address] 2546 May, Bipolar disorder, in partial remission, most recent episode depressed F31.75 ; Attention-deficit hyperactivity disorder, combined type F90.2 and Social anxiety disorder F40.10 [facility] [id number] [address]- 8946 Mar, Bipolar I disorder, moderate, current or most recent episode depressed, in partial remission, with mixed features 296.55 ; ADHD ( attention deficit hyperactivity disorder), combined type 314.01 and Social anxiety disorder 300.23 [facility] [address] [address]- 9666 Aug, [facility] [address] 1310 Aug, [facility] [address] [address]- 6769 Jun, [facility] [address] [address]- 2641 Jun, [facility] [address] [place] [address] 08254- 0599 Jan, [facility] [id number] [place] [address] 21874- 7586 December, [facility] [id number] [place] [address] 29059- 0655 Oct, [facility] [address] [address]- 6464 Sep, [facility] [address] [place] [address] 16730- 3872 Jun, IMMUNIZATIONS No Known Immunizations SOCIAL HISTORY Never Assessed REASON FOR VISIT Phelan PLAN OF CARE VITAL SIGNS MEDICATIONS Unknown Medications RESULTS No Results PROCEDURES No Known procedures INSTRUCTIONS MEDICATIONS ADMINISTERED No Known Medications MEDICAL (GENERAL) HISTORY Type Description Date Medical History 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 Has had [facility] NEUROLOGY care. Diagnosed with Focal Seizures with EEG Medical History ADHD Medical History Bipolar disorder Medical History Social anxiety disorder Surgical History [place] teeth removed 09/06/15 Surgical History Childbirth Surgical History Spider bite Hospitalization History psych; anger/aggression 2008 Hospitalization History ER visit Bleeding while 10/20/17
--- OUTSIDE RECORDS SUMMARY | 2018-04-04 10:53 | XMS REPORT ---
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 Name Role Phone ANDREW REGIS Unavailable PROBLEMS Type Condition ICD9-CM Code TIH64-ZY Code Onset Dates Condition Status SNOMED Code Problem Bipolar disorder, in partial remission, most recent episode depressed F31.75 Active 82530273 Problem Social phobia, generalized F40.11 Active 34401181 Problem Bipolar disorder, current episode hypomanic F31.0 Active 01228397 Problem Attention-deficit hyperactivity disorder, combined type F90.2 Active 05779787 Problem Abnormal ultrasound R93.8 Active 563586222 Problem Low lying placenta with hemorrhage, first trimester O44.51 Active 274670646 Problem Unspecified blood type, Rh negative Z67.91 Active 652840378 Problem Bipolar disorder with moderate depression F31.32 Active 207725150 Problem History of delivery, currently O09.219 Active 942925567 Problem Supervision of other high risk pregnancies, first trimester O09.891 Active 934454960 ALLERGIES No Known Allergies ENCOUNTERS Encounter Location Date Diagnosis [place] [id number] [place] [address] 50088- 0479 Mar, [facility] [id number] [place] [address] 61154- 5172 Mar, [facility] [id number] [place] [address] 12423- 3131 Mar, History of delivery, currently O09.219 [facility] [id number] [place] [address] 23437- 0709 Feb, History of delivery, currently O09.219 [facility] [id number] [place] [address] 81168- 1288 Feb, Third trimester Z34.93 ; 32 weeks gestation of Z3A.32 and Encounter for immunization Z23 [facility] [id number] [place] [address] 40338- 8005 Feb, History of delivery, currently O09.219 [facility] [id number] [place] [address] 57194- 7451 Feb, [facility] [id number] [place] [address] 32141- 6713 Feb, [facility] [id number] [place] [address] 68043- 2536 Feb, [facility] [id number] [place] [address] 38224- 7536 Feb, Third trimester Z34.93 and Unspecified blood type , Rh negative Z67.91 [place] [id number] [place] [address] 63988- 4597 Feb, [facility] [id number] [place] [address] 15382- 1507 Feb, History of delivery, currently O09.219 [place] [id number] [place] [address] 12293- 3529 Jan, Unspecified blood type, Rh negative Z67.91 and History of delivery, currently O09.219 [place] [id number] [place] [address] 10547- 5290 Jan, History of delivery, currently O09.219 [facility] [address] [address] 5570 Jan, [facility] [id number] [place] [address] 80360- 0915 Jan, [facility] [address] [address] 0515 Jan, Diabetes mellitus screening Z13.1 ; care, subsequent in second trimester Z34.82 ; Local reaction to immunization , initial encounter T88.1XXA and 26 weeks gestation of Z3A.26 [facility] [id number] [place] [address] 84839- 2278 Jan, [facility] [id number] [place] [address] 81625- 4680 Jan, [facility] [id number] [place] [address] 43629- 9803 Jan, [facility] [id number] [place] [address] 52581- 4160 Jan, History of delivery, currently O09.219 [facility] [id number] [place] [address] 98463- 9504 December, History of delivery, currently O09.219 [facility] [id number] [place] [address] 98865- 7354 December, History of delivery, currently O09.219 [facility] [id number] [place] [address] 61240- 8072 December, [facility] [id number] [place] [address] 12077- 0924 December, [facility] [id number] [place] [address] 53409- 1649 December, 22 weeks gestation of Z3A.22 and Second trimester Z34.92 [facility] [id number] [place] [address] 29427- 1162 December, [facility] [address] [address]- 3328 December, History of delivery, currently O09.219 [facility] [id number] [address]- 6122 December, History of delivery, currently O09.219 [facility] [id number] [place] [address] 72414- 5185 December, [facility] [address] [address]- 4571 December, History of delivery, currently O09.219 [facility] [address] [address]- 1750 Nov, [facility] [id number] [place] [address] 89755- 3435 Nov, History of delivery, currently O09.219 [facility] [id number] [place] [address] 91271- 3029 Nov, care, subsequent in second trimester Z34.82 and 18 weeks gestation of Z3A.18 [place] [id number] [place] [address] 17990- 2458 Nov, [place] [id number] [place] [address] 58119- 1558 Oct, [place] [id number] [place] [address] 15889- 4706 Oct, Threatened miscarriage O20.0 [place] [id number] [place] [address] 12917- 5746 Oct, 14 weeks gestation of Z3A.14 ; Threatened miscarriage O20.0 ; Other specified noninflammatory disorders of vagina N89.8 ; Other specified related conditions, second trimester O26.892 ; Vaginal candidiasis B37.3 ; Low lying placenta with hemorrhage, first trimester O44.51 ; Abnormal ultrasound R93.8 ; Second trimester Z34.92 and History of delivery, currently O09.219 [place] [id number] [place] [address] 51348- 1315 Oct, [place] [id number] [place] [address] 85861- 6009 Oct, care, subsequent in second trimester Z34.82 and 13 weeks gestation of Z3A.13 [place] [address] [address]- 5901 Sep, [facility] [id number] [place] [address] 58975- 1472 Sep, care, subsequent in first trimester Z34.81 and 9 weeks gestation of Z3A.09 [facility] [address] [address]- 5219 Sep, [facility] [id number] [address]- 2475 Aug, [facility] [id number] [place] [address] 24735- 7329 Aug, [facility] [id number] [place] [address] 73868- 6757 Aug, [facility] [id number] [place] [address] 69828- 9159 Aug, Encounter for test Z32.00 [facility] [address] [address]- 8439 Jul, [facility] [id number] [address]- 0823 Jul, [facility] [id number] [address] -8637 Jun, [facility] [address] [address]- 6466 Apr, [facility] [id number] [address]- 0120 14 Apr, 2017 Bipolar disorder with moderate depression F31.32 and Attention-deficit hyperactivity disorder, combined type F90.2 [facility] [address] [address]- 3847 Feb, [facility] [address] [address]- 1269 Feb, [facility] [id number] [address]- 6680 Jan, [facility] [id number] [place] [address] 11528 -0342 Jan, Vaginal discharge N89.8 and Acute vaginitis N76.0 [facility] [id number] [place] [address] 15843- 3314 Nov, [facility] [address] 02854- 0140 Nov, Encounter for visit Z39.2 ; Tobacco abuse counseling Z71.6 and Drug or alcohol risk assessment or counseling Z71.89 [place] [id number] [place] [address] 86517- 9400 Nov, [facility] [id number] [place] [address] 15385- 9158 Oct, [facility] [id number] [place] [address] 60864- 9347 Oct, [facility] [id number] [place] [address] 50386- 4013 Oct, [facility] [id number] [place] [address] 88446- 3618 Oct, STD exposure Z20.2 [place] [id number] [place] [address] 53761- 2939 Oct, Bipolar disorder, in partial remission, most recent episode depressed F31.75 ; Attention-deficit hyperactivity disorder, combined type F90.2 and Social phobia, generalized F40.11 [place] [id number] [place] [address] 59179- 1109 Oct, Bipolar disorder, in partial remission, most recent episode depressed F31.75 ; Attention-deficit hyperactivity disorder, combined type F90.2 and Social phobia, generalized F40.11 [facility] [id number] [place] [address] 34951- 1517 Oct, [place] [address] [place] [id number] [address]- 1811 Sep, [place] [id number] [place] [address] 48112- 6843 Sep, [place] [address] [address]- 4046 Sep, screening for streptococcus B Z36 ; care , first in third trimester Z34.03 and 35 weeks gestation of Z3A.35 [place] [id number] [place] [address] 77190- 3415 07 Sep, 2016 care, first in third trimester Z34.03 and 34 weeks gestation of Z3A.34 [place] [id number] [place] [address] 45892- 6762 Sep, [place] [address] [id number] [place] [address] 75950- 6286 Sep, [place] [id number] [place] [address] 20271- 1667 Sep, Bipolar disorder, in partial remission, most recent episode depressed F31.75 ; Attention-deficit hyperactivity disorder, combined type F90.2 and Social phobia, generalized F40.11 [place] [id number] [place] [address] 17232- 8496 Aug, Normal , first Z34.00 ; Encounter for immunization Z23 and 32 weeks gestation of Z3A.32 [place] [address] [address]- 0064 Aug, [place] [id number] [place] [address] 11507- 1129 Aug, Other specified related conditions, third trimester O26.893 and 30 weeks gestation of Z3A.30 [place] [id number] [place] [address] 79529- 7942 Aug, [facility] [id number] [place] [address] 39490- 4724 27 Jul, 2016 Diabetes mellitus screening Z13.1 ; , first, first trimester Z34.01 ; Other specified noninflammatory disorders of vagina N89.8 ; Other specified related conditions, third trimester O26.893 and 28 weeks gestation of Z3A.28 [place] [id number] [place] [address] 51616- 2199 14 Jul, 2016 [place] [id number] [place] [address] 66879- 4687 Jun, [place] [address] [id number] [place] [address] Jun [place] [id number] [place] [address] 96790- 4435 Jun, Normal , first Z34.00 ; Evaluate anatomy not seen on prior sonogram Z36 and 23 weeks gestation of Z3A.23 [place] [id number] [place] [address] 97052- 6283 17 Jun, 2016 [place] [id number] [place] [address] 14773- 5305 Jun, Bipolar disorder, in partial remission, most recent episode depressed F31.75 ; Attention-deficit hyperactivity disorder, combined type F90.2 and Social phobia, generalized F40.11 [place] [id number] [place] [address] 25699- 4194 May, [place] [id number] [place] [address] 12621- 7673 May, Normal , first Z34.00 and 19 weeks gestation of Z3A.19 [facility] [id number] [place] [address] 79694 -2812 May, Dysuria R30.0 and Acute cystitis during , second trimester O23.12 [place] [id number] [place] [address] 20241- 2358 Apr, [facility] [address] [address]- 7807 Apr, care, first in second trimester Z34.02 [facility] [address] [address]- 0292 Apr, [place] [address] [address]- 3360 Apr, [facility] [address] [address]- 3656 Apr, [place] [id number] [place] [address] 85290- 5266 Apr, care, first in second trimester Z34.02 ; Dehydration E86.0 and 14 weeks gestation of Z3A.14 [place] [address] [address]- 7648 Apr, Bipolar disorder, in partial remission, most recent episode depressed F31.75 ; Attention-deficit hyperactivity disorder, combined type F90.2 ; Social anxiety disorder F40.10 and 15 weeks gestation of Z3A.15 [place] [address] [address]- 5829 Mar, [place] [address] [address]- 5315 Mar, , first, first trimester Z34.01 and 10 weeks gestation of Z3A.10 [place] [address] [address]- 0068 Mar, [place] [id number] [place] [address] 20768- 2396 Mar, [place] [address] [address]- 9459 Feb, Normal , first Z34.00 and 6 weeks gestation of Z3A.01 [place] [id number] [address]- 7920 Feb, [facility] [address] [facility] [id number] [address]- 2076 Feb, [facility] [employer] [place] [id number] [place] [address] Feb [facility] [id number] [address]- 7840 Feb, [facility] [address] [address]- 3419 Feb, [facility] [id number] [address]- 2853 Feb, Bipolar disorder, in partial remission, most recent episode depressed F31.75 ; Attention-deficit hyperactivity disorder, combined type F90.2 and Social anxiety disorder F40.10 [facility] [address] [address]- 6511 Feb, Routine adult health maintenance Z00.00 [facility] [id number] [address]- 3212 Feb, [facility] [id number] [address]- 5367 Feb, confirmed by positive urine test Z32.01 [facility] [id number] [address]- 2635 Feb, [facility] [id number] [address]- 2780 Jan, [facility] [address] [facility] [id number] [address]- 7006 Jan, Bipolar disorder, in partial remission, most recent episode depressed F31.75 ; Attention-deficit hyperactivity disorder, combined type F90.2 and Social anxiety disorder F40.10 [facility] [id number] [address]- 8257 Jan, Seizure disorder G40.909 [facility] [address] [address]- 2433 Jan, [facility] [id number] [place] [address] 07473- 2028 December, Bipolar disorder, current episode hypomanic F31.0 ; Attention-deficit hyperactivity disorder, combined type F90.2 and Social anxiety disorder F40.10 [facility] [address] [address]- 7558 December, Screening for STD sexually transmitted disease Z11.3 [facility] [address] [address]- 8531 Nov, [facility] [id number] [place] [address] 73113- 2811 Nov, [facility] [address] [address]- 7927 Nov, Screening for STD sexually transmitted disease Z11.3 and Attention-deficit hyperactivity disorder, combined type F90.2 [facility] [address] [address]- 7937 Nov, Attention-deficit hyperactivity disorder, combined type F90.2 ; Social anxiety disorder F40.10 and Bipolar disorder, current episode hypomanic F31.0 [facility] [address] [address]- 3289 Oct, [facility] [id number] [address]- 5696 Oct, [facility] [id number] [address]- 9750 Sep, [facility] [address] [address]- 1216 Sep, Bipolar disorder, in partial remission, most recent episode depressed F31.75 ; Attention-deficit hyperactivity disorder, combined type F90.2 and Social anxiety disorder F40.10 [facility] [id number] [address] 2546 Sep, [facility] [address] [address]- 6896 Aug, [facility] [address] [address]- 9126 Jul, [facility] [address] [address]- 1476 Jul, [facility] [address] [address]- 2586 Jul, Bipolar disorder, in partial remission, most recent episode depressed F31.75 ; Attention-deficit hyperactivity disorder, combined type F90.2 and Social anxiety disorder F40.10 [facility] [address] [address]- 9226 Jun, [facility] [address] [address]- 7216 Jun, [facility] [id number] [address]- 6031 Jun, [facility] [id number] [address]- 0366 May, [facility] [id number] 5119 May, [facility] [id number] [address]- 8816 May, [facility] [id number] [address]- 2986 May, Bipolar disorder, in partial remission, most recent episode depressed F31.75 ; Attention-deficit hyperactivity disorder, combined type F90.2 and Social anxiety disorder F40.10 [facility] [id number] [address]- 3926 Mar, Bipolar I disorder, moderate, current or most recent episode depressed, in partial remission, with mixed features 296.55 ; ADHD ( attention deficit hyperactivity disorder), combined type 314.01 and Social anxiety disorder 300.23 [facility] [address] 1350 Aug, [facility] [id number] [address] 1894 Aug, [facility] [id number] [place] [address] 19588- 2330 Jun, [facility] [id number] [place] [address] 85195- 0849 Jun, [facility] [id number] [place] [address] 358936- 6413 Jan, [facility] [id number] [place] [address] [id number]- 6486 December, [facility] [id number] [place] [address] 220312- 7137 Oct, [facility] [id number] [place] [address] 43617- 4454 Sep, [facility] [id number] [place] [address] 736912- 4710 Jun, IMMUNIZATIONS No Known Immunizations SOCIAL HISTORY Never Assessed REASON FOR VISIT OB 4wk f/u--tcuppettRN PLAN OF CARE Activity Details Follow Up 4 Weeks, 4 Weeks Reason: VITAL SIGNS Height 64.3 in 2017-12-18 Weight 164.0 lbs 2017-12-18 Temperature 98.4 degrees Fahrenheit 2017-12-18 Heart Rate 76 bpm 2017-12-18 Respiratory Rate 20 2017-12-18 BMI 27.888 kg/m2 2017-12-18 Blood pressure systolic 110 mmHg 2017-12-18 Blood pressure diastolic 58 mmHg 2017-12-18 MEDICATIONS Medication Instructions Dosage Frequency Start Date End Date Duration Status Complete 14-0.4 MG Orally Once a day 1 tablet 24h Not- Taking Hydroxyprogesterone Caproate 250 MG/ML Intramuscular once weekly 1 ml Oct, Apr, 30 day(s) Active Latuda 20 mg Orally Once with evening meal 1 tablets with 350 calories Apr, Not-Taking Ferrous Sulfate 325 (65 Fe) MG Orally Once a day 1 tablet 24h Not- Taking Not-Taking RESULTS Name Result Date Reference Range UA OB DIP (IN HOUSE) 2017-12-18 Glucose negative Protein trace PROCEDURES Procedure Date Ordered Result Body Site URINE-NO MICRO December 18, 2017 INSTRUCTIONS MEDICATIONS ADMINISTERED No Known Medications MEDICAL (GENERAL) HISTORY Type Description Date Medical History 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 Has had consisten NEUROLOGY care. Diagnosed with Focal Seizures with EEG Medical History ADHD Medical History Bipolar disorder Medical History Social anxiety disorder Surgical History [place] teeth removed 09/06/15 Surgical History Childbirth Surgical History Spider bite Hospitalization History psych; anger/aggression 2008 Hospitalization History ER visit Bleeding while 10/20/17
--- OUTSIDE RECORDS SUMMARY | 2018-04-04 10:53 | XMS REPORT ---
Author Author REGIS MORALES [facility] [address] Address [address] [place] [address] Care Team Providers [employer] Name Role Phone ANDREW REGIS Unavailable PROBLEMS Type Condition ICD9-CM Code SRB73-[id number] Code Onset Dates Condition Status SNOMED Code Problem Bipolar disorder, in partial remission, most recent episode depressed F31.75 Active 25854312 Problem Social phobia, generalized F40.11 Active 43883771 Problem Bipolar disorder, current episode hypomanic F31.0 Active 87673951 Problem Attention-deficit hyperactivity disorder, combined type F90.2 Active 70035355 Problem Abnormal ultrasound R93.8 Active 065102740 Problem Low lying placenta with hemorrhage, first trimester O44.51 Active 832387089 Problem Unspecified blood type, Rh negative Z67.91 Active 138952142 Problem Bipolar disorder with moderate depression F31.32 Active 833620381 Problem History of delivery, currently O09.219 Active 617176707 Problem Supervision of other high risk pregnancies, first trimester O09.891 Active [id number] ALLERGIES No Information ENCOUNTERS Encounter Location Date Diagnosis [place] [id number] [place] [address] 79514- 4985 Mar, [facility] [id number] [place] [address] 36329- 4289 Mar, [facility] [place] [id number] [place] [address] 01408- 5768 Mar, History of delivery, currently O09.219 [facility] [place] [id number] [place] [address] 41280- 8218 Feb, History of delivery, currently O09.219 [facility] [place] [id number] [place] [address] 16879- 9443 Feb, Third trimester Z34.93 ; 32 weeks gestation of Z3A.32 and Encounter for immunization Z23 [facility] [place] [id number] [place] [address] 51989- 5290 Feb, History of delivery, currently O09.219 [facility] [place] [id number] [place] [address] 72131- 0876 Feb, [facility] [place] [id number] [place] [address] 30380- 6591 Feb, [facility] [place] [id number] [place] [address] 38618- 6134 Feb, [place] [address] [place] [id number] [place] [address] 61148- 1401 Feb, Third trimester Z34.93 and Unspecified blood type , Rh negative Z67.91 [place] [address] [place] [id number] [place] [address] 75699- 7074 Feb, [facility] [place] [address] [place] [address] 11433- 4862 Feb, History of delivery, currently O09.219 [place] [address] [place] [id number] [place] [address] 95873- 1994 Jan, Unspecified blood type, Rh negative Z67.91 and History of delivery, currently O09.219 [place] [address] [address] 1720 Jan, History of delivery, currently O09.219 [facility] [place] [address] [address]- 5458 Jan, [facility] [place] [address] [id number] [place] [address] 68609- 2238 Jan, [facility] [place] [address] [address]- 9574 Jan, Diabetes mellitus screening Z13.1 ; care, subsequent in second trimester Z34.82 ; Local reaction to immunization , initial encounter T88.1XXA and 26 weeks gestation of Z3A.26 [facility] [place] [id number] [place] [address] 96850- 8658 Jan, [facility] [place] [id number] [place] [address] 76825- 5766 Jan, [facility] [place] [id number] [place] [address] 07316- 5017 Jan, [facility] [place] [id number] [place] [address] 78827- 4693 Jan, History of delivery, currently O09.219 [facility] [place] [address] [id number] [place] [address] 46343- 0536 December, History of delivery, currently O09.219 [facility] [place] [address] [place] [id number] [place] [address] 72321- 3426 December, History of delivery, currently O09.219 [facility] [place] [id number] [place] [address] 70255- 5794 December, [facility] [place] [id number] [place] [address] 27207- 7860 December, [facility] [place] [id number] [place] [address] 03156- 0802 December, 22 weeks gestation of Z3A.22 and Second trimester Z34.92 [facility] [place] [address] [address]- 2471 December, [facility] [place] [address] [address]- 4881 December, History of delivery, currently O09.219 [facility] [place] [address] [address]- 8308 December, History of delivery, currently O09.219 [facility] [place] [id number] [place] [address] 14001- 7020 December, [facility] [place] [address] [address]- 3054 December, History of delivery, currently O09.219 [facility] [place] [address] [address]- 0902 Nov, [facility] [place] [address] [id number] [place] [address] 03242- 5421 Nov, History of delivery, currently O09.219 [facility] [place] [address] [place] [id number] [place] [address] 60368- 5544 Nov, care, subsequent in second trimester Z34.82 and 18 weeks gestation of Z3A.18 [place] [address] [address]- 4573 Nov, [place] [address] [place] [id number] [place] [address] 67386- 4452 Oct, [place] [address] [place] [id number] [place] [address] 00343- 7029 Oct, Threatened miscarriage O20.0 [place] [address] [place] [address] 36049- 8846 Oct, 14 weeks gestation of Z3A.14 ; Threatened miscarriage O20.0 ; Other specified noninflammatory disorders of vagina N89.8 ; Other specified related conditions, second trimester O26.892 ; Vaginal candidiasis B37.3 ; Low lying placenta with hemorrhage, first trimester O44.51 ; Abnormal ultrasound R93.8 ; Second trimester Z34.92 and History of delivery, currently O09.219 [place] [address] [address]- 0220 Oct, [place] [address] [address]- 7464 Oct, care, subsequent in second trimester Z34.82 and 13 weeks gestation of Z3A.13 [place] [address] [address]- 3145 Sep, [facility] [place] [id number] [place] [address] 82029- 6979 Sep, care, subsequent in first trimester Z34.81 and 9 weeks gestation of Z3A.09 [facility] [place] [address] [address]- 2139 Sep, [facility] [place] [id number] [place] [address] 97249- 5499 Aug, [facility] [place] [address] [id number] [place] [address] 90561- 2906 Aug, [facility] [place] [address] [id number] [place] [address] 17037- 9672 Aug, [facility] [place] [address] [id number] [place] [address] 38130- 8273 Aug, Encounter for test Z32.00 [facility] [place] [address] [place] [address] 72218- 0508 Jul, [facility] [place] [address] [address]- 1270 Jul, [facility] [address] [address] -1838 Jun, [facility] [place] [address] [address]- 8293 Apr, [facility] [place] [address] [address]- 6140 Apr, Bipolar disorder with moderate depression F31.32 and Attention-deficit hyperactivity disorder, combined type F90.2 [facility] [place] [address] [address]- 2514 Feb, [facility] [place] [address] [address]- 3792 Feb, [facility] [place] [address] [address]- 1186 Jan, [facility] [id number] [place] [address] 77716 -7835 Jan, Vaginal discharge N89.8 and Acute vaginitis N76.0 [facility] [place] [address] [place] [id number] [place] [address] 81104- 9412 Nov, [facility] [place] [address] [place] [id number] [place] [address] 48845- 5189 Nov, Encounter for visit Z39.2 ; Tobacco abuse counseling Z71.6 and Drug or alcohol risk assessment or counseling Z71.89 [place] [address] [place] [id number] [place] [address] 90928- 7386 Nov, [facility] [place] [address] [place] [id number] [place] [address] 35825- 8871 Oct, [facility] [place] [id number] [place] [address] 64455- 7041 Oct, [facility] [place] [address] [place] [id number] [place] [address] 13988- 2530 Oct, [facility] [place] [address] [place] [id number] [place] [address] 04854- 8781 Oct, STD exposure Z20.2 [place] [address] [place] [id number] [place] [address] 74813- 4247 Oct, Bipolar disorder, in partial remission, most recent episode depressed F31.75 ; Attention-deficit hyperactivity disorder, combined type F90.2 and Social phobia, generalized F40.11 [facility] [place] [address] [place] [id number] [place] [address] 91763- 4686 Oct, Bipolar disorder, in partial remission, most recent episode depressed F31.75 ; Attention-deficit hyperactivity disorder, combined type F90.2 and Social phobia, generalized F40.11 [facility] [place] [address] [place] [address] 16554- 1163 Oct, [place] [address] [address]- 0772 Sep, [place] [address] [place] [id number] [place] [address] 48877- 3780 Sep, [place] [address] [place] [address] 34136- 8730 Sep, screening for streptococcus B Z36 ; care , first in third trimester Z34.03 and 35 weeks gestation of Z3A.35 [place] [address] [place] [id number] [place] [address] 75893- 7653 07 Sep, 2016 care, first in third trimester Z34.03 and 34 weeks gestation of Z3A.34 [place] [address] [place] [id number] [place] [address] 13010- 3541 Sep, [place] [address] [place] [id number] [place] [address] 11006- 1962 Sep, [place] [address] [place] [id number] [place] [address] 61658- 5104 Sep, Bipolar disorder, in partial remission, most recent episode depressed F31.75 ; Attention-deficit hyperactivity disorder, combined type F90.2 and Social phobia, generalized F40.11 [place] [address] [place] [address] 81033- 7411 Aug, Normal , first Z34.00 ; Encounter for immunization Z23 and 32 weeks gestation of Z3A.32 [place] [address] [address]- 5606 Aug, [place] [address] [place] [id number] [place] [address] 03895- 9402 Aug, Other specified related conditions, third trimester O26.893 and 30 weeks gestation of Z3A.30 [place] [address] [place] [id number] [place] [address] 88023- 4982 Aug, [place] [address] [place] [address] 79966- 1220 27 Jul, 2016 Diabetes mellitus screening Z13.1 ; , first, first trimester Z34.01 ; Other specified noninflammatory disorders of vagina N89.8 ; Other specified related conditions, third trimester O26.893 and 28 weeks gestation of Z3A.[address] [place] [id number] [place] [address] 61319- 7192 Jul, [place] [address] [place] [address] 09398- 5997 Jun, [place] [id number] [place] [address] Jun [address] [place] [address] 83504- 3961 Jun, Normal , first Z34.00 ; Evaluate anatomy not seen on prior sonogram Z36 and 23 weeks gestation of Z3A.23 [place] [address] [place] [address] 02524- 3539 17 Jun, [address] [place] [id number] [place] [address] 36841- 0437 Jun, Bipolar disorder, in partial remission, most recent episode depressed F31.75 ; Attention-deficit hyperactivity disorder, combined type F90.2 and Social phobia, generalized F40.11 [place] [address] [place] [id number] [place] [address] 46201- 9517 May, [place] [address] [place] [id number] [place] [address] 91817- 4819 May, Normal , first Z34.00 and 19 weeks gestation of Z3A.19 [facility] [address] [place] [address] 66305 -1880 May, Dysuria R30.0 and Acute cystitis during , second trimester O23.[address] [place] [id number] [place] [address] 54894- 9705 Apr, [facility] [place] [address] [address]- 9264 Apr, care, first in second trimester Z34.02 [facility] [place] [address] [address]- 7446 Apr, [place] [address] [place] [address] 76849- 9258 Apr, [facility] [place] [address] [place] [id number] [place] [address] 98753- 4448 Apr, [place] [address] [place] [id number] [place] [address] 06123- 6751 Apr, care, first in second trimester Z34.02 ; Dehydration E86.0 and 14 weeks gestation of Z3A.14 [place] [address] [place] [address] 25214- 9068 Apr, Bipolar disorder, in partial remission, most recent episode depressed F31.75 ; Attention-deficit hyperactivity disorder, combined type F90.2 ; Social anxiety disorder F40.10 and 15 weeks gestation of Z3A.15 [place] [address] [address]- 3915 Mar, [place] [address] [address]- 1537 Mar, , first, first trimester Z34.01 and 10 weeks gestation of Z3A.10 [place] [address] [address]- 3073 Mar, [place] [address] [place] [id number] [place] [address] 56258- 3397 Mar, [place] [address] [address]- 6230 Feb, Normal , first Z34.00 and 6 weeks gestation of Z3A.01 [place] [address] [place] [address] [address]- 5649 Feb, [facility] [place] [address] [facility] [id number] [address]- 3195 Feb, [facility] [place] [id number] [address] Feb [facility] [place] [address] [place] [id number] [address]- 6526 Feb, [facility] [place] [address] [address]- 5622 Feb, [facility] [place] [address] [place] [id number] [address]- 1198 Feb, Bipolar disorder, in partial remission, most recent episode depressed F31.75 ; Attention-deficit hyperactivity disorder, combined type F90.2 and Social anxiety disorder F40.10 [facility] [place] [address] [address]- 8003 Feb, Routine adult health maintenance Z00.00 [facility] [place] [address] [place] [id number] [address]- 4113 Feb, [facility] [place] [address] [address]- 7436 Feb, confirmed by positive urine test Z32.01 [facility] [place] [address] [place] [id number] [address]- 4130 Feb, [facility] [place] [address] [place] [id number] [address]- 8446 Jan, [facility] [place] [address] [facility] [id number] [address]- 1344 Jan, Bipolar disorder, in partial remission, most recent episode depressed F31.75 ; Attention-deficit hyperactivity disorder, combined type F90.2 and Social anxiety disorder F40.10 [facility] [place] [address] [place] [id number] [address]- 8689 Jan, Seizure disorder G40.909 [facility] [place] [address] [address]- 9892 Jan, [facility] [place] [address] [place] [address] 13660- 7995 December, Bipolar disorder, current episode hypomanic F31.0 ; Attention-deficit hyperactivity disorder, combined type F90.2 and Social anxiety disorder F40.10 [facility] [place] [address] [address]- 3203 December, Screening for STD sexually transmitted disease Z11.3 [facility] [place] [address] [place] [id number] [address]- 6653 Nov, [facility] [place] [address] [place] [address] 00951- 8900 Nov, [facility] [place] [address] [address]- 3424 Nov, Screening for STD sexually transmitted disease Z11.3 and Attention-deficit hyperactivity disorder, combined type F90.2 [facility] [place] [address] [address]- 4267 Nov, Attention-deficit hyperactivity disorder, combined type F90.2 ; Social anxiety disorder F40.10 and Bipolar disorder, current episode hypomanic F31.0 [facility] [place] [address] [address]- 1363 Oct, [facility] [place] [address] [address]- 8044 Oct, [facility] [address] [place] [id number] [address]- 0724 Sep, [facility] [place] [address] [address]- 1516 Sep, Bipolar disorder, in partial remission, most recent episode depressed F31.75 ; Attention-deficit hyperactivity disorder, combined type F90.2 and Social anxiety disorder F40.10 [facility] [place] [address] [address] 2546 Sep, [facility] [address] [address]- 1256 Aug, [facility] [address] [address]- 0106 Jul, [facility] [address] [address]- 9966 Jul, [facility] [address] [address]- 1530 Jul, Bipolar disorder, in partial remission, most recent episode depressed F31.75 ; Attention-deficit hyperactivity disorder, combined type F90.2 and Social anxiety disorder F40.10 [facility] [address] [address]- 5696 Jun, [facility] [address] [address]- 1346 Jun, [facility] [address] [address]- 7359 Jun, [facility] [address] [address]- 2576 May, [facility] [place] [address] 2264 May, [facility] [place] [address] [address]- 5916 May, [facility] [id number] [address] 2546 May, Bipolar disorder, in partial remission, most recent episode depressed F31.75 ; Attention-deficit hyperactivity disorder, combined type F90.2 and Social anxiety disorder F40.10 [facility], [place] [id number] [address] Mar, Bipolar I disorder, moderate, current or most recent episode depressed, in partial remission, with mixed features 296.55 ; ADHD ( attention deficit hyperactivity disorder), combined type 314.01 and Social anxiety disorder 300.23 [facility] [place] [address] [address] Aug, [facility], [place] [address] [address] Aug, [facility], [place] [address] [address] Jun, [facility], [place] [address] [address] Jun, [facility], [place] [id number] [place] [address] Jan, [facility], [place] [id number] [place] [address] December, [facility], [place] [id number] [place] [address] Oct, [facility], [place] [address] [address] Sep, [facility], [place] [id number] [place] [address] Jun, IMMUNIZATIONS Vaccine Route Administration Date Status MARY 250 MG/ML (PT'S OWN) IM Intramuscular December 17, 2017 Administered SOCIAL HISTORY Never Assessed REASON FOR VISIT injection, CASE Jeronimo PLAN OF CARE VITAL SIGNS MEDICATIONS Unknown Medications RESULTS No Results PROCEDURES Procedure Date Ordered Result Body Site MARY 250 MG/ML (PT'S OWN) December 17, 2017 THER/PROPH/DIAG INJ, SC/IM December 17, 2017 INSTRUCTIONS MEDICATIONS ADMINISTERED No Known Medications MEDICAL (GENERAL) HISTORY Type Description Date Medical History 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 Has had consisten NEUROLOGY care. Diagnosed with Focal Seizures with EEG Medical History ADHD Medical History Bipolar disorder Medical History Social anxiety disorder Surgical History [place] teeth removed 09/06/15 Surgical History Childbirth Surgical History Spider bite Hospitalization History psych; anger/aggression 2008 Hospitalization History ER visit Bleeding while 10/20/17
--- OUTSIDE RECORDS SUMMARY | 2018-04-04 10:54 | XMS REPORT ---
Author Author REGIS MORALES [facility] Address [address] [place] [address] Care Team Providers Care Talent Management Manager Name Role Phone ANDREW REGIS Unavailable PROBLEMS Type Condition ICD9-CM Code [id number] Code Onset Dates Condition Status SNOMED Code Problem Bipolar disorder, in partial remission, most recent episode depressed F31.75 Active 31865459 Problem Social phobia, generalized F40.11 Active 25320904 Problem Bipolar disorder, current episode hypomanic F31.0 Active 82059486 Problem Attention-deficit hyperactivity disorder, combined type F90.2 Active 06126520 Problem Abnormal ultrasound R93.8 Active 369299794 Problem Low lying placenta with hemorrhage, first trimester O44.51 Active 411563926 Problem Unspecified blood type, Rh negative Z67.91 Active 204070834 Problem Bipolar disorder with moderate depression F31.32 Active 648054644 Problem History of delivery, currently O09.219 Active 151479507 Problem Supervision of other high risk pregnancies, first trimester O09.891 Active 822567893 ALLERGIES No Information ENCOUNTERS Encounter Location Date Diagnosis [place] [id number] [place] [address] 74811- 5219 Mar, [facility] [id number] [place] [address] 28314- 3078 Mar, [facility] [id number] [place] [address] 90396- 0617 Mar, History of delivery, currently O09.219 [facility] [id number] [place] [address] 20011- 4128 Feb, History of delivery, currently O09.219 [facility] [id number] [place] [address] 55577- 0765 Feb, Third trimester Z34.93 ; 32 weeks gestation of Z3A.32 and Encounter for immunization Z23 [facility] [id number] [place] [address] 26368- 0653 Feb, History of delivery, currently O09.219 [facility] [id number] [place] [address] 86733- 1369 Feb, [facility] [id number] [place] [address] 54231- 4459 Feb, [facility] [id number] [place] [address] 46528- 1978 Feb, [place] [id number] [place] [address] 49657- 3204 Feb, Third trimester Z34.93 and Unspecified blood type , Rh negative Z67.91 [place] [id number] [place] [address] 46348- 4322 Feb, [facility] [id number] [place] [address] 95794- 6179 Feb, History of delivery, currently O09.219 [place] [id number] [place] [address] 02943- 7146 Jan, Unspecified blood type, Rh negative Z67.91 and History of delivery, currently O09.219 [place] [address] [address] 2447 Jan, History of delivery, currently O09.219 [facility] [address] [address] 8685 Jan, [facility] [id number] [place] [address] 54862- 9099 Jan, [facility] [address] [place] [address] 3501 Jan, Diabetes mellitus screening Z13.1 ; care, subsequent in second trimester Z34.82 ; Local reaction to immunization , initial encounter T88.1XXA and 26 weeks gestation of Z3A.26 [facility] [id number] [place] [address] 62663- 4797 Jan, [facility] [id number] [place] [address] 53100- 1665 Jan, [facility] [id number] [place] [address] 34652- 2309 Jan, [facility] [id number] [place] [address] 91822- 3791 Jan, History of delivery, currently O09.219 [facility] [id number] [place] [address] 96916- 8909 December, History of delivery, currently O09.219 [facility] [id number] [place] [address] 32709- 2240 December, History of delivery, currently O09.219 [facility] [id number] [place] [address] 07244- 8368 December, [facility] [id number] [place] [address] 14958- 0535 December, [facility] [id number] [place] [address] 63424- 6991 December, 22 weeks gestation of Z3A.22 and Second trimester Z34.92 [facility] [address], [place] [address]- 0843 December, [facility] [address] [address]- 0034 December, History of delivery, currently O09.219 [facility] [id number] [address]- 2086 December, History of delivery, currently O09.219 [facility] [id number] [place] [address] 89472- 4502 December, [facility] [address], [place] [address]- 6183 December, History of delivery, currently O09.219 [facility] [address], [place] [address]- 9164 Nov, [facility] [id number] [place] [address] 64472- 5119 Nov, History of delivery, currently O09.219 [facility] [id number] [place] [address] 76438- 2264 Nov, care, subsequent in second trimester Z34.82 and 18 weeks gestation of Z3A.18 [place] [address], [place] [address]- 6054 Nov, [place] [id number] [place] [address] 50629- 8682 Oct, [place] [id number] [place] [address] 44532- 5023 Oct, Threatened miscarriage O20.0 [place] [id number] [place] [address] 90868- 1970 Oct, 14 weeks gestation of Z3A.14 ; Threatened miscarriage O20.0 ; Other specified noninflammatory disorders of vagina N89.8 ; Other specified related conditions, second trimester O26.892 ; Vaginal candidiasis B37.3 ; Low lying placenta with hemorrhage, first trimester O44.51 ; Abnormal ultrasound R93.8 ; Second trimester Z34.92 and History of delivery, currently O09.219 [place] [address], [place] [address]- 2743 Oct, [place] [address], [place] [address]- 7745 Oct, care, subsequent in second trimester Z34.82 and 13 weeks gestation of Z3A.13 [place] [address], [place] [address]- 1495 Sep, [facility] [id number] [place] [address] 47357- 3935 Sep, care, subsequent in first trimester Z34.81 and 9 weeks gestation of Z3A.09 [facility] [address], [place] [address]- 1283 Sep, [facility] [id number] [place] [address] 53688- 5129 Aug, [facility] [id number] [place] [address] 60943- 5277 Aug, [facility] [id number] [place] [address] 83803- 2112 Aug, [facility] [id number] [place] [address] 79057- 9771 Aug, Encounter for test Z32.00 [facility] [id number] [place] [address] 09264- 7271 Jul, [facility] [id number] [address]- 5145 Jul, [facility] [address], [place] [address] Jun, [facility] [id number] [address]- 6840 Apr, [facility] [address], [place] [address]- 6796 Apr, Bipolar disorder with moderate depression F31.32 and Attention-deficit hyperactivity disorder, combined type F90.2 [facility] [address], [place] [address]- 2885 Feb, [facility] [address], [place] [address]- 3476 Feb, [facility] [address], [place] [address]- 0233 Jan, [facility] [id number] [place] [address] 93111 -7210 Jan, Vaginal discharge N89.8 and Acute vaginitis N76.0 [facility] [id number] [place] [address] 20861- 7058 Nov, [facility] [id number] [place] [address] 94075- 7940 Nov, Encounter for visit Z39.2 ; Tobacco abuse counseling Z71.6 and Drug or alcohol risk assessment or counseling Z71.89 [place] [id number] [place] [address] 89840- 9289 Nov, [facility] [id number] [place] [address] 54673- 5866 Oct, [facility] [id number] [place] [address] 07180- 4760 Oct, [facility] [id number] [place] [address] 93466- 1192 Oct, [facility] [id number] [place] [address] 55728- 2072 Oct, STD exposure Z20.2 [place] [id number] [place] [address] 63101- 5197 Oct, Bipolar disorder, in partial remission, most recent episode depressed F31.75 ; Attention-deficit hyperactivity disorder, combined type F90.2 and Social phobia, generalized F40.11 [facility] [id number] [place] [address] 62851- 0020 Oct, Bipolar disorder, in partial remission, most recent episode depressed F31.75 ; Attention-deficit hyperactivity disorder, combined type F90.2 and Social phobia, generalized F40.11 [facility] [id number] [place] [address] 97124- 6081 Oct, [place] [address], [place] [address]- 2854 Sep, [place] [id number] [place] [address] 34360- 8681 Sep, [place] [id number] [place] [address] 50858- 5462 Sep, screening for streptococcus B Z36 ; care , first in third trimester Z34.03 and 35 weeks gestation of Z3A.35 [place] [id number] [place] [address] 12418- 1516 07 Sep, 2016 care, first in third trimester Z34.03 and 34 weeks gestation of Z3A.34 [place] [id number] [place] [address] 13258- 5927 Sep, [place] [id number] [place] [address] 85247- 5646 Sep, [place] [id number] [place] [address] 89882- 3577 Sep, Bipolar disorder, in partial remission, most recent episode depressed F31.75 ; Attention-deficit hyperactivity disorder, combined type F90.2 and Social phobia, generalized F40.11 [place] [id number] [place] [address] 32381- 5933 Aug, Normal , first Z34.00 ; Encounter for immunization Z23 and 32 weeks gestation of Z3A.32 [place] [address], [place] [address]- 8672 Aug, [place] [id number] [place] [address] 62267- 9307 Aug, Other specified related conditions, third trimester O26.893 and 30 weeks gestation of Z3A.30 [place] [id number] [place] [address] 42934- 9981 Aug, [place] [id number] [place] [address] 88633- 8717 27 Jul, 2016 Diabetes mellitus screening Z13.1 ; , first, first trimester Z34.01 ; Other specified noninflammatory disorders of vagina N89.8 ; Other specified related conditions, third trimester O26.893 and 28 weeks gestation of Z3A.28 [place] [id number] [place] [address] 56464- 3001 Jul, [place] [id number] [place] [address] 93744- 4313 Jun, [place] [id number] [place] [address] [address] [place] [address] 06799- 2379 Jun, Normal , first Z34.00 ; Evaluate anatomy not seen on prior sonogram Z36 and 23 weeks gestation of Z3A.23 [place] [address] [place] [address] 07731- 0294 17 Jun, 2016 [place] [id number] [place] [address] 73090- 8066 Jun, Bipolar disorder, in partial remission, most recent episode depressed F31.75 ; Attention-deficit hyperactivity disorder, combined type F90.2 and Social phobia, generalized F40.11 [place] [id number] [place] [address] 76922- 7074 May, [place] [id number] [place] [address] 69205- 2085 May, Normal , first Z34.00 and 19 weeks gestation of Z3A.19 [facility] [id number] [place] [address] 97761 -8188 May, Dysuria R30.0 and Acute cystitis during , second trimester O23.12 [place] [id number] [place] [address] 80705- 3336 Apr, [facility] [address], [place] [address]- 4000 Apr, care, first in second trimester Z34.02 [facility] [address], [place] [address]- 3295 Apr, [place] [id number] [place] [address] 94118- 8357 Apr, [facility] [id number] [place] [address] 63315- 1904 Apr, [place] [id number] [place] [address] 24610- 3430 Apr, care, first in second trimester Z34.02 ; Dehydration E86.0 and 14 weeks gestation of Z3A.14 [place] [address] [place] [address] 65991- 5746 Apr, Bipolar disorder, in partial remission, most recent episode depressed F31.75 ; Attention-deficit hyperactivity disorder, combined type F90.2 ; Social anxiety disorder F40.10 and 15 weeks gestation of Z3A.15 [place] [address], [place] [address]- 3010 Mar, [place] [address], [place] [address]- 6144 Mar, , first, first trimester Z34.01 and 10 weeks gestation of Z3A.10 [place] [address], [place] [address]- 2055 Mar, [place] [id number] [place] [address] 93359- 2602 Mar, [place] [address], [place] [address]- 8105 Feb, Normal , first Z34.00 and 6 weeks gestation of Z3A.01 [place] [id number] [place] [address]- 7629 Feb, [facility] [address] [id number] [address]- 7118 Feb, [facility] [id number] [place] [address] Feb [facility] [id number], [place] [address]- 5190 Feb, [facility] [address], [place] [address]- 8668 Feb, [facility] [id number], [place] [address]- 0127 Feb, Bipolar disorder, in partial remission, most recent episode depressed F31.75 ; Attention-deficit hyperactivity disorder, combined type F90.2 and Social anxiety disorder F40.10 [facility] [address], [place] [address]- 7316 Feb, Routine adult health maintenance Z00.00 [facility] [id number], [place] [address]- 0743 Feb, [facility] [address], [place] [address]- 2306 Feb, confirmed by positive urine test Z32.01 [facility] [id number], [place] [address]- 5041 Feb, [facility] [id number], [place] [address] 1955 Jan, [facility] [address] [id number] [address]- 8405 Jan, Bipolar disorder, in partial remission, most recent episode depressed F31.75 ; Attention-deficit hyperactivity disorder, combined type F90.2 and Social anxiety disorder F40.10 [facility] [id number], [place] [address]- 1406 Jan, Seizure disorder G40.909 [facility] [address], [place] [address]- 5300 Jan, [facility] [id number] [place] [address] 30142- 2110 December, Bipolar disorder, current episode hypomanic F31.0 ; Attention-deficit hyperactivity disorder, combined type F90.2 and Social anxiety disorder F40.10 [facility] [address], [place] [address]- 4862 December, Screening for STD sexually transmitted disease Z11.3 [facility] [id number], [place] [address]- 3708 Nov, [facility] [id number] [place] [address] 53089- 2161 Nov, [facility] [address], [place] [address]- 9811 Nov, Screening for STD sexually transmitted disease Z11.3 and Attention-deficit hyperactivity disorder, combined type F90.2 [facility] [address], [place] [address]- 4287 Nov, Attention-deficit hyperactivity disorder, combined type F90.2 ; Social anxiety disorder F40.10 and Bipolar disorder, current episode hypomanic F31.0 [facility] [address], [place] [address]- 3300 Oct, [facility] [address], [place] [address]- 8037 Oct, [facility] [id number], [place] [address]- 6378 Sep, [facility] [address], [place] [address]- 9144 Sep, Bipolar disorder, in partial remission, most recent episode depressed F31.75 ; Attention-deficit hyperactivity disorder, combined type F90.2 and Social anxiety disorder F40.10 [facility] [address], [place] [address] 2546 Sep, [facility] [address], [place] [address]- 7826 Aug, [facility] [address], [place] [address]- 7966 Jul, [facility] [address], [place] [address]- 6426 Jul, [facility] [address], [place] [address]- 2542 Jul, Bipolar disorder, in partial remission, most recent episode depressed F31.75 ; Attention-deficit hyperactivity disorder, combined type F90.2 and Social anxiety disorder F40.10 [facility] [address], [place] [address]- 0466 Jun, [facility] [address], [place] [address]- 4906 Jun, [facility] [address], [place] [address]- 8869 Jun, [facility] [address], [place] [address]- 4026 May, [facility] [address] 2086 May, [facility] [address], [place] [address]- 2606 May, [facility] [id number], [place] [address] 2546 May, Bipolar disorder, in partial remission, most recent episode depressed F31.75 ; Attention-deficit hyperactivity disorder, combined type F90.2 and Social anxiety disorder F40.10 [facility] [id number], [place] [address]- 8736 Mar, Bipolar I disorder, moderate, current or most recent episode depressed, in partial remission, with mixed features 296.55 ; ADHD ( attention deficit hyperactivity disorder), combined type 314.01 and Social anxiety disorder 300.23 [facility] [address], [place] [address]- 5946 Aug, [facility] [address], [place] [address]- 6206 Aug, [facility] [address], [place] [address]- 0006 Jun, [facility] [address], [place] [address]- 4076 Jun, [facility] [id number] [place] [address] 18280- 9736 Jan, [facility] [id number] [place] [address] 49501- 2546 December, [facility] [id number] [place] [address] 17870- 5026 Oct, [facility] [address], [place] [address]- 4476 Sep, [facility] [id number] [place] [address] 73582- 0526 Jun, IMMUNIZATIONS Vaccine Route Administration Date Status MARY 250 MG/ML (PT'S OWN) IM Intramuscular December 10, 2017 Administered SOCIAL HISTORY Never Assessed REASON FOR VISIT injection--tcuppettRN PLAN OF CARE VITAL SIGNS MEDICATIONS Unknown Medications RESULTS No Results PROCEDURES Procedure Date Ordered Result Body Site MARY 250 MG/ML (PT'S OWN) December 10, 2017 THER/PROPH/DIAG INJ, SC/IM December 10, 2017 INSTRUCTIONS MEDICATIONS ADMINISTERED No Known Medications MEDICAL (GENERAL) HISTORY Type Description Date Medical History 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 Has had consisten NEUROLOGY care. Diagnosed with Focal Seizures with EEG Medical History ADHD Medical History Bipolar disorder Medical History Social anxiety disorder Surgical History [place] teeth removed 09/06/15 Surgical History Childbirth Surgical History Spider bite Hospitalization History psych; anger/aggression 2008 Hospitalization History ER visit Bleeding while 10/20/17
--- OUTSIDE RECORDS SUMMARY | 2018-04-04 10:54 | XMS REPORT ---
Author Author REGIS MORALES [facility] Address [address] [place] [address] Care Team Providers Care Rf Test Technician Name Role Phone ANDREW REGIS Unavailable PROBLEMS Type Condition ICD9-CM Code ZCW63-GU Code Onset Dates Condition Status SNOMED Code Problem Bipolar disorder, in partial remission, most recent episode depressed F31.75 Active 78593383 Problem Social phobia, generalized F40.11 Active 28393457 Problem Bipolar disorder, current episode hypomanic F31.0 Active 83138999 Problem Attention-deficit hyperactivity disorder, combined type F90.2 Active 58178698 Problem Abnormal ultrasound R93.8 Active 359191440 Problem Low lying placenta with hemorrhage, first trimester O44.51 Active 360585733 Problem Unspecified blood type, Rh negative Z67.91 Active 717230390 Problem Bipolar disorder with moderate depression F31.32 Active 054284857 Problem History of delivery, currently O09.219 Active 623266484 Problem Supervision of other high risk pregnancies, first trimester O09.891 Active 339019475 ALLERGIES No Information ENCOUNTERS Encounter Location Date Diagnosis [place] [id number] [place] [address] 21458- 3764 Mar, [facility] [id number] [place] [address] 41705- 0190 Mar, [facility] [id number] [place] [address] 78534- 1398 Mar, History of delivery, currently O09.219 [facility] [id number] [place] [address] 45573- 0233 Feb, History of delivery, currently O09.219 [facility] [id number] [place] [address] 10534- 4487 Feb, Third trimester Z34.93 ; 32 weeks gestation of Z3A.32 and Encounter for immunization Z23 [facility] [id number] [address] 3752 Feb, History of delivery, currently O09.219 [facility] [id number] [place] [address] 18136- 9065 Feb, [facility] [id number] [place] [address] 66308- 6387 Feb, [facility] [id number] [place] [address] 93922- 5179 Feb, [place] [id number] [place] [address] 73936- 2666 Feb, Third trimester Z34.93 and Unspecified blood type , Rh negative Z67.91 [place] [id number] [place] [address] 30573- 6116 Feb, [facility] [id number] [place] [address] 21863- 0098 Feb, History of delivery, currently O09.219 [place] [id number] [place] [address] 76821- 1779 Jan, Unspecified blood type, Rh negative Z67.91 and History of delivery, currently O09.219 [place] [address] [address]- 0535 Jan, History of delivery, currently O09.219 [facility] [address], [place] [address]- 8771 Jan, [facility] [id number] [place] [address] 82979- 0685 Jan, [facility] [address] [address] 8951 Jan, care, subsequent in second trimester Z34.82 ; Diabetes mellitus screening Z13.1 ; Local reaction to immunization, initial encounter T88.1XXA and 26 weeks gestation of Z3A.26 [facility] [id number] [address]- 3270 Jan, [facility] [id number] [place] [address] 00137- 5194 Jan, [facility] [id number] [place] [address] 90387- 9835 Jan, [facility] [id number] [place] [address] 00561- 9603 Jan, History of delivery, currently O09.219 [facility] [id number] [place] [address] 14346- 7607 December, History of delivery, currently O09.219 [facility] [id number] [place] [address] 73995- 5967 December, History of delivery, currently O09.219 [facility] [id number] [address]- 2259 December, [facility] [id number] [place] [address] 72222- 8946 December, [facility] [id number] [place] [address] 59486- 9800 December, Second trimester Z34.92 and 22 weeks gestation of Z3A.22 [facility] [address], [place] [address]- 9368 December, [facility] [address], [place] [address]- 7258 December, History of delivery, currently O09.219 [facility] [id number] [address]- 7243 December, History of delivery, currently O09.219 [facility] [id number] [place] [address] 36092- 0177 December, [facility] [address], [place] [address]- 0285 December, History of delivery, currently O09.219 [facility] [address], [place] [address]- 6117 Nov, [facility] [id number] [place] [address] 89813- 9757 Nov, History of delivery, currently O09.219 [facility] [id number] [place] [address] 13344- 1419 Nov, care, subsequent in second trimester Z34.82 and 18 weeks gestation of Z3A.18 [place] [address], [place] [address]- 3921 Nov, [place] [id number] [place] [address] 77652- 0327 Oct, [place] [id number] [place] [address] 36667- 5682 Oct, Threatened miscarriage O20.0 [place] [address] [place] [address] 06986- 2460 Oct, 14 weeks gestation of Z3A.14 ; Threatened miscarriage O20.0 ; Other specified noninflammatory disorders of vagina N89.8 ; Other specified related conditions, second trimester O26.892 ; Vaginal candidiasis B37.3 ; Low lying placenta with hemorrhage, first trimester O44.51 ; Abnormal ultrasound R93.8 ; Second trimester Z34.92 and History of delivery, currently O09.219 [place] [address], [place] [address]- 0858 Oct, [place] [address], [place] [address]- 1151 Oct, care, subsequent in second trimester Z34.82 and 13 weeks gestation of Z3A.13 [place] [address], [place] [address]- 8831 Sep, [facility] [id number] [place] [address] 02008- 8129 Sep, care, subsequent in first trimester Z34.81 and 9 weeks gestation of Z3A.09 [facility] [address], [place] [address]- 9793 Sep, [facility] [id number] [place] [address] 05468- 0435 Aug, [facility] [id number] [place] [address] 03928- 5633 Aug, [facility] [id number] [place] [address] 14120- 0848 Aug, [facility] [id number] [place] [address] 32272- 5126 Aug, Encounter for test Z32.00 [facility] [address] [place] [address] 35181- 6984 Jul, [facility] [id number], [place] [address]- 6388 Jul, [facility] [address], [place] [address] -6248 Jun, [facility] [id number], [place] [address]- 8291 Apr, [facility] [address], [place] [address]- 8911 Apr, Bipolar disorder with moderate depression F31.32 and Attention-deficit hyperactivity disorder, combined type F90.2 [facility] [address], [place] [address]- 1161 Feb, [facility] [address], [place] [address]- 8128 Feb, [facility] [address], [place] [address]- 9420 Jan, [facility] [id number] [place] [address] 43766 -1891 Jan, Vaginal discharge N89.8 and Acute vaginitis N76.0 [facility] [id number] [place] [address] 27657- 9058 Nov, [facility] [id number] [place] [address] 18813- 7654 Nov, Encounter for visit Z39.2 ; Tobacco abuse counseling Z71.6 and Drug or alcohol risk assessment or counseling Z71.89 [place] [id number] [place] [address] 15877- 5282 Nov, [facility] [id number] [place] [address] 38347- 1304 Oct, [facility] [id number] [place] [address] 76502- 1220 Oct, [facility] [id number] [place] [address] 53642- 2202 Oct, [facility] [id number] [place] [address] 13421- 0560 Oct, STD exposure Z20.2 [place] [id number] [place] [address] 87859- 8090 Oct, Bipolar disorder, in partial remission, most recent episode depressed F31.75 ; Attention-deficit hyperactivity disorder, combined type F90.2 and Social phobia, generalized F40.11 [facility] [id number] [place] [address] 21354- 2605 Oct, Bipolar disorder, in partial remission, most recent episode depressed F31.75 ; Attention-deficit hyperactivity disorder, combined type F90.2 and Social phobia, generalized F40.11 [facility] [id number] [place] [address] 60730- 0534 Oct, [place] [address], [place] [address]- 9485 Sep, [place] [id number] [place] [address] 49878- 8744 Sep, [place] [id number] [place] [address] 68273- 7517 Sep, screening for streptococcus B Z36 ; care , first in third trimester Z34.03 and 35 weeks gestation of Z3A.35 [place] [id number] [place] [address] 52240- 1440 07 Sep, 2016 care, first in third trimester Z34.03 and 34 weeks gestation of Z3A.34 [place] [id number] [place] [address] 51316- 7770 Sep, [place] [id number] [place] [address] 65894- 5644 Sep, [place] [id number] [place] [address] 55484- 4689 Sep, Bipolar disorder, in partial remission, most recent episode depressed F31.75 ; Attention-deficit hyperactivity disorder, combined type F90.2 and Social phobia, generalized F40.11 [place] [address] [place] [address] 35689- 5369 Aug, Normal , first Z34.00 ; Encounter for immunization Z23 and 32 weeks gestation of Z3A.32 [place] [address], [place] [address]- 9697 Aug, [place] [id number] [place] [address] 43488- 3463 Aug, Other specified related conditions, third trimester O26.893 and 30 weeks gestation of Z3A.30 [place] [id number] [place] [address] 03004- 7801 Aug, [place] [id number] [place] [address] 49449- 2597 27 Jul, 2016 Diabetes mellitus screening Z13.1 ; , first, first trimester Z34.01 ; Other specified noninflammatory disorders of vagina N89.8 ; Other specified related conditions, third trimester O26.893 and 28 weeks gestation of Z3A.28 [place] [id number] [place] [address] 27347- 3250 Jul, [place] [id number] [place] [address] 45240- 1042 Jun, [place] [id number] [place] [address] Jun [address] [place] [address] 65992- 1070 Jun, Normal , first Z34.00 ; Evaluate anatomy not seen on prior sonogram Z36 and 23 weeks gestation of Z3A.23 [place] [address] [place] [address] 65052- 1371 17 Jun, 2016 [place] [id number] [place] [address] 41583- 7304 Jun, Bipolar disorder, in partial remission, most recent episode depressed F31.75 ; Attention-deficit hyperactivity disorder, combined type F90.2 and Social phobia, generalized F40.11 [place] [id number] [place] [address] 49048- 2259 May, [place] [id number] [place] [address] 96673- 6010 May, Normal , first Z34.00 and 19 weeks gestation of Z3A.19 [facility] [id number] [place] [address] 27807 -9296 May, Dysuria R30.0 and Acute cystitis during , second trimester O23.12 [place] [id number] [place] [address] 31890- 7134 Apr, [facility] [address], [place] [address]- 5291 Apr, care, first in second trimester Z34.02 [facility] [address], [place] [address]- 5136 Apr, [place] [id number] [place] [address] 59117- 3403 Apr, [facility] [id number] [place] [address] 59856- 9747 Apr, [place] [id number] [place] [address] 12354- 2151 Apr, care, first in second trimester Z34.02 ; Dehydration E86.0 and 14 weeks gestation of Z3A.14 [place] [address] [place] [address] 14914- 8151 Apr, Bipolar disorder, in partial remission, most recent episode depressed F31.75 ; Attention-deficit hyperactivity disorder, combined type F90.2 ; Social anxiety disorder F40.10 and 15 weeks gestation of Z3A.15 [place] [address], [place] [address]- 3109 Mar, [place] [address], [place] [address]- 1405 Mar, , first, first trimester Z34.01 and 10 weeks gestation of Z3A.10 [place] [address], [place] [address]- 2533 Mar, [place] [id number] [place] [address] 33237- 5252 Mar, [place] [address], [place] [address]- 7683 Feb, Normal , first Z34.00 and 6 weeks gestation of Z3A.01 [place] [id number] [address]- 8153 Feb, [facility] [address] [facility] [id number] [address]- 7031 Feb, [facility] [id number] [place] [address] Feb [facility] [id number] [address]- 7620 Feb, [facility] [address], [place] [address]- 3727 Feb, [facility] [id number], [place] [address]- 9993 Feb, Bipolar disorder, in partial remission, most recent episode depressed F31.75 ; Attention-deficit hyperactivity disorder, combined type F90.2 and Social anxiety disorder F40.10 [facility] [address], [place] [address]- 3924 Feb, Routine adult health maintenance Z00.00 [facility] [id number], [place] [address]- 5966 Feb, [facility] [address], [place] [address]- 6006 Feb, confirmed by positive urine test Z32.01 [facility] [id number], [place] [address]- 4207 Feb, [facility] [id number], [place] [address]- 1586 Jan, [facility] [address] [facility] [id number] [address]- 2382 Jan, Bipolar disorder, in partial remission, most recent episode depressed F31.75 ; Attention-deficit hyperactivity disorder, combined type F90.2 and Social anxiety disorder F40.10 [facility] [id number], [place] [address]- 6910 Jan, Seizure disorder G40.909 [facility] [address], [place] [address]- 8536 Jan, [facility] [address] [place] [address] 05774- 9973 December, Bipolar disorder, current episode hypomanic F31.0 ; Attention-deficit hyperactivity disorder, combined type F90.2 and Social anxiety disorder F40.10 [facility] [address], [place] [address]- 7114 December, Screening for STD sexually transmitted disease Z11.3 [facility] [id number], [place] [address]- 8108 Nov, [facility] [address] [place] [address] 81648- 5270 Nov, [facility] [address], [place] [address]- 2214 Nov, Screening for STD sexually transmitted disease Z11.3 and Attention-deficit hyperactivity disorder, combined type F90.2 [facility] [address], [place] [address]- 3001 Nov, Attention-deficit hyperactivity disorder, combined type F90.2 ; Social anxiety disorder F40.10 and Bipolar disorder, current episode hypomanic F31.0 [facility] [address], [place] [address]- 7100 Oct, [facility] [address], [place] [address]- 5167 Oct, [facility] [id number], [place] [address]- 1125 Sep, [facility] [address], [place] [address]- 3825 Sep, Bipolar disorder, in partial remission, most recent episode depressed F31.75 ; Attention-deficit hyperactivity disorder, combined type F90.2 and Social anxiety disorder F40.10 [facility] [address], [place] [address] 2546 Sep, [facility] [address], [place] [address]- 0216 Aug, [facility] [address], [place] [address]- 5936 Jul, [facility] [address], [place] [address]- 3136 Jul, [facility] [address], [place] [address]- 8948 Jul, Bipolar disorder, in partial remission, most recent episode depressed F31.75 ; Attention-deficit hyperactivity disorder, combined type F90.2 and Social anxiety disorder F40.10 [facility] [address], [place] [address]- 6996 Jun, [facility] [address], [place] [address]- 4476 Jun, [facility] [address], [place] [address]- 9903 Jun, [facility] [address], [place] [address]- 5766 May, [facility] [address] 7505 May, [facility] [address], [place] [address]- 5336 May, [facility] [id number], [place] [address] 2546 May, Bipolar disorder, in partial remission, most recent episode depressed F31.75 ; Attention-deficit hyperactivity disorder, combined type F90.2 and Social anxiety disorder F40.10 [facility] [id number], [place] [address]- 6666 Mar, Bipolar I disorder, moderate, current or most recent episode depressed, in partial remission, with mixed features 296.55 ; ADHD ( attention deficit hyperactivity disorder), combined type 314.01 and Social anxiety disorder 300.23 [facility] [address], [place] [address]- 1985 Aug, [facility] [address] 2881 Aug, [facility] [address] 3410 Jun, [facility] [address], [place] [address]- 5808 Jun, [facility] [id number] [place] [address] 78804- 2340 Jan, [facility] [id number] [place] [address] 20243- 5341 December, [facility] [id number] [place] [address] 61805- 6295 Oct, [facility] [address], [place] [address]- 1728 Sep, [facility] [id number] [place] [address] 32027- 3246 Jun, IMMUNIZATIONS No Known Immunizations SOCIAL HISTORY Never Assessed REASON FOR VISIT PLAN OF CARE VITAL SIGNS MEDICATIONS Unknown Medications RESULTS No Results PROCEDURES No Known procedures INSTRUCTIONS MEDICATIONS ADMINISTERED No Known Medications MEDICAL (GENERAL) HISTORY Type Description Date Medical History 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 Has had [facility] NEUROLOGY care. Diagnosed with Focal Seizures with EEG Medical History ADHD Medical History Bipolar disorder Medical History Social anxiety disorder Surgical History [place] teeth removed 09/06/15 Surgical History Childbirth Surgical History Spider bite Hospitalization History psych; anger/aggression 2008 Hospitalization History ER visit Bleeding while 10/20/17
--- OUTSIDE RECORDS SUMMARY | 2018-04-04 10:55 | XMS REPORT ---
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 Name Role Phone ANDREW REGIS Unavailable PROBLEMS Type Condition ICD9-CM Code JZA36-CU Code Onset Dates Condition Status SNOMED Code Problem Bipolar disorder, in partial remission, most recent episode depressed F31.75 Active 11492817 Problem Social phobia, generalized F40.11 Active 68291633 Problem Bipolar disorder, current episode hypomanic F31.0 Active 50857218 Problem Attention-deficit hyperactivity disorder, combined type F90.2 Active 45939632 Problem Abnormal ultrasound R93.8 Active 973604581 Problem Low lying placenta with hemorrhage, first trimester O44.51 Active 443234997 Problem Unspecified blood type, Rh negative Z67.91 Active 436363731 Problem Bipolar disorder with moderate depression F31.32 Active 647354450 Problem History of delivery, currently O09.219 Active 752583480 Problem Supervision of other high risk pregnancies, first trimester O09.891 Active 023919030 ALLERGIES No Known Allergies ENCOUNTERS Encounter Location Date Diagnosis [place] [id number] [place] [address] 22232- 1062 Mar, [place] [id number] [place] [address] 85870- 0631 Feb, History of delivery, currently O09.219 [place] [id number] [place] [address] 11687- 6255 Feb, Third trimester Z34.93 ; 32 weeks gestation of Z3A.32 and Encounter for immunization Z23 [place] [id number] [place] [address] 77753- 9210 Feb, History of delivery, currently O09.219 [place] [address] [place] [address] 40[address] Feb, [facility] [address], [place] [address] 2039 Feb, [facility] [address], [place] [address] 7993 Feb, [facility] [address] [place] [address] 75101- 4294 Feb, Third trimester Z34.93 and Unspecified blood type , Rh negative Z67.91 [facility] [id number] [place] [address] 53531- 1450 Feb, [facility] [id number] [place] [address] 14344- 4667 Feb, History of delivery, currently O09.219 [facility] [id number] [place] [address] 66242- 1695 Jan, Unspecified blood type, Rh negative Z67.91 and History of delivery, currently O09.219 [facility] [id number] [place] [address] 00763- 0126 Jan, History of delivery, currently O09.219 [facility] [id number] [place] [address] 35150- 4822 Jan, [facility] [address], [place] [address] 2046 Jan, [facility] [address], [place] [address] 5899 Jan, Diabetes mellitus screening Z13.1 ; care, subsequent in second trimester Z34.82 ; Local reaction to immunization , initial encounter T88.1XXA and 26 weeks gestation of Z3A.26 [facility] [address], [place] [address]- 4346 Jan, [facility] [id number] [place] [address] 97620- 5112 Jan, [facility] [address], [place] [address]- 4632 Jan, [facility] [address], [place] [address]- 3483 Jan, History of delivery, currently O09.219 [facility] [address], [place] [address]- 7039 December, History of delivery, currently O09.219 [facility] [address], [place] [address]- 6175 December, History of delivery, currently O09.219 [facility] [id number] [place] [address] 33976- 3483 December, [facility] [id number] [place] [address] 87388- 7719 December, [facility] [id number] [address] 1011 December, 22 weeks gestation of Z3A.22 and Second trimester Z34.92 [facility] [address], [place] [address] 9507 December, [facility] [address], [place] [address]- 9596 December, History of delivery, currently O09.219 [facility] [address], [place] [address]- 1771 December, History of delivery, currently O09.219 [facility] [address], [place] [address]- 9584 December, [facility] [address], [place] [address]- 2584 December, History of delivery, currently O09.219 [facility] [address], [place] [address]- 2756 Nov, [place] [address], [place] [address]- 1865 Nov, History of delivery, currently O09.219 [place] [address] [place] [address] 68366- 2868 Nov, care, subsequent in second trimester Z34.82 and 18 weeks gestation of Z3A.18 [place] [id number] [place] [address] 63811- 6199 Nov, [place] [id number] [place] [address] 60172- 6894 Oct, [place] [id number] [place] [address] 46955- 1362 Oct, Threatened miscarriage O20.0 [place] [id number] [place] [address] 02778- 4432 Oct, 14 weeks gestation of Z3A.14 ; Threatened miscarriage O20.0 ; Other specified noninflammatory disorders of vagina N89.8 ; Other specified related conditions, second trimester O26.892 ; Vaginal candidiasis B37.3 ; Low lying placenta with hemorrhage, first trimester O44.51 ; Abnormal ultrasound R93.8 ; Second trimester Z34.92 and History of delivery, currently O09.219 [place] [address], [place] [address]- 7775 Oct, [place] [id number] [place] [address] 91828- 8013 Oct, care, subsequent in second trimester Z34.82 and 13 weeks gestation of Z3A.13 [place] [id number] [place] [address] 41204- 9281 Sep, [place] [address] [place] [address] 45172- 2767 14 Sep, 2017 care, subsequent in first trimester Z34.81 and 9 weeks gestation of Z3A.09 [facility] [address], [place] [address]- 1126 14 Sep, 2017 [facility] [id number] [place] [address] 70121- 8626 Aug, [facility] [id number] [place] [address] 43595- 4852 Aug, [facility] [id number] [place] [address] 25660- 9672 Aug, [facility] [id number] [place] [address] 95642- 4163 Aug, Encounter for test Z32.00 [facility] [id number] [place] [address] 63581- 2570 Jul, [facility] [id number] [place] [address] 62189- 8177 Jul, [facility] [address], [place] [address] Jun, [facility] [id number] [place] [address] 66988- 7078 Apr, [facility] [address], [place] [address]- 0104 14 Apr, 2017 Bipolar disorder with moderate depression F31.32 and Attention-deficit hyperactivity disorder, combined type F90.2 [facility] [address], [place] [address]- 5940 Feb, [facility] [address], [place] [address]- 3305 Feb, [facility] [address] [id number] [place] [address] 86082- 9441 Jan, [facility] [address], [place] [address] Jan, Vaginal discharge N89.8 and Acute vaginitis N76.0 [facility] [address], [place] [address]- 5323 Nov, [facility] [id number] [place] [address] 52170- 9555 Nov, Encounter for visit Z39.2 ; Tobacco abuse counseling Z71.6 and Drug or alcohol risk assessment or counseling Z71.89 [facility] [id number] [place] [address] 53484- 7511 Nov, [facility] [id number] [place] [address] 49589- 0686 Oct, [facility] [id number] [place] [address] 01967- 5714 Oct, [facility] [id number] [place] [address] 53796- 3940 Oct, [facility] [id number] [place] [address] 51360- 5509 Oct, STD exposure Z20.2 [facility] [id number] [place] [address] 55945- 8659 Oct, Bipolar disorder, in partial remission, most recent episode depressed F31.75 ; Attention-deficit hyperactivity disorder, combined type F90.2 and Social phobia, generalized F40.11 [facility] [id number] [place] [address] 91148- 9638 Oct, Bipolar disorder, in partial remission, most recent episode depressed F31.75 ; Attention-deficit hyperactivity disorder, combined type F90.2 and Social phobia, generalized F40.11 [facility] [id number] [place] [address] 52328- 3967 Oct, [facility] [id number] [place] [address] 51637- 7998 Sep, [facility] [id number] [place] [address] 59118- 4125 Sep, [place] [address], [place] [address]- 1612 16 Sep, 2016 screening for streptococcus B Z36 ; care , first in third trimester Z34.03 and 35 weeks gestation of Z3A.35 [place] [id number] [place] [address] 25474- 4974 07 Sep, 2016 care, first in third trimester Z34.03 and 34 weeks gestation of Z3A.34 [place] [id number] [place] [address] 40992- 3578 07 Sep, 2016 [place] [id number] [place] [address] 98841- 2764 Sep, [place] [id number] [place] [address] 37084- 6170 Sep, Bipolar disorder, in partial remission, most recent episode depressed F31.75 ; Attention-deficit hyperactivity disorder, combined type F90.2 and Social phobia, generalized F40.11 [place] [id number] [place] [address] 05464- 2508 Aug, Normal , first Z34.00 ; Encounter for immunization Z23 and 32 weeks gestation of Z3A.32 [place] [id number] [place] [address] 02833- 5680 Aug, [place] [id number] [place] [address] 09112- 6666 Aug, Other specified related conditions, third trimester O26.893 and 30 weeks gestation of Z3A.30 [place] [id number] [place] [address] 78369- 4464 Aug, [place] [id number] [place] [address] 48945- 9781 Jul, Diabetes mellitus screening Z13.1 ; , first, first trimester Z34.01 ; Other specified noninflammatory disorders of vagina N89.8 ; Other specified related conditions, third trimester O26.893 and 28 weeks gestation of Z3A.28 [facility] [address], [place] [address]- 5073 14 Jul, 2016 [facility] [address] [id number] [place] [address] 92362- 8394 Jun, [facility] [address] [id number] [place] [address] Jun [facility] [address] [place] [id number] [place] [address] 71754- 6245 Jun, Normal , first Z34.00 ; Evaluate anatomy not seen on prior sonogram Z36 and 23 weeks gestation of Z3A.23 [place] [id number] [place] [address] 55480- 4779 17 Jun, 2016 [place] [id number] [place] [address] 39479- 6747 Jun, Bipolar disorder, in partial remission, most recent episode depressed F31.75 ; Attention-deficit hyperactivity disorder, combined type F90.2 and Social phobia, generalized F40.11 [place] [id number] [place] [address] 75910- 3016 May, [place] [id number] [place] [address] 56544- 9033 May, Normal , first Z34.00 and 19 weeks gestation of Z3A.19 [facility] [id number] [place] [address] 28555 -4351 May, Dysuria R30.0 and Acute cystitis during , second trimester O23.12 [facility] [id number] [place] [address] 15538- 2466 Apr, [facility] [address] [id number] [place] [address] 72213- 8132 26 Apr, 2016 care, first in second trimester Z34.02 [facility] [id number] [place] [address] 36104- 5795 Apr, [facility] [address], [place] [address]- 4135 Apr, [facility] [address], [place] [address]- 2713 Apr, [facility] [id number], [place] [address]- 7571 Apr, care, first in second trimester Z34.02 ; Dehydration E86.0 and 14 weeks gestation of Z3A.14 [place] [address], [place] [address]- 0952 Apr, Bipolar disorder, in partial remission, most recent episode depressed F31.75 ; Attention-deficit hyperactivity disorder, combined type F90.2 ; Social anxiety disorder F40.10 and 15 weeks gestation of Z3A.15 [place] [address], [place] [address]- 3264 Mar, [place] [address], [place] [address]- 5493 Mar, , first, first trimester Z34.01 and 10 weeks gestation of Z3A.10 [facility] [id number], [place] [address]- 1207 Mar, [place] [id number], [place] [address]- 2086 Mar, [facility] [id number], [place] [address]- 4525 Feb, Normal , first Z34.00 and 6 weeks gestation of Z3A.01 [facility] [address], [place] [address]- 5794 Feb, [facility] [id number], [place] [address]- 5373 Feb, [facility] [address] [id number] [place] [address] Feb [facility] [address], [place] [address]- 3118 Feb, [facility] [address], [place] [address]- 2160 Feb, [facility] [address], [place] [address]- 6594 Feb, Bipolar disorder, in partial remission, most recent episode depressed F31.75 ; Attention-deficit hyperactivity disorder, combined type F90.2 and Social anxiety disorder F40.10 [facility] [address], [place] [address]- 7247 Feb, Routine adult health maintenance Z00.00 [facility] [address], [place] [address]- 3201 Feb, [facility] [id number] [place] [address] 31621- 1402 Feb, confirmed by positive urine test Z32.01 [facility] [address], [place] [address]- 0952 Feb, [facility] [address], [place] [address]- 1307 Jan, [facility] [address], [place] [address]- 8065 Jan, Bipolar disorder, in partial remission, most recent episode depressed F31.75 ; Attention-deficit hyperactivity disorder, combined type F90.2 and Social anxiety disorder F40.10 [facility] [address], [place] [address]- 6609 Jan, Seizure disorder G40.909 [facility] [address], [place] [address]- 3502 Jan, [facility] [address], [place] [address]- 3368 December, Bipolar disorder, current episode hypomanic F31.0 ; Attention-deficit hyperactivity disorder, combined type F90.2 and Social anxiety disorder F40.10 [facility] [address], [place] [address]- 2829 December, Screening for STD sexually transmitted disease Z11.3 [facility] [address], [place] [address]- 8293 Nov, [facility] [id number] [place] [address] 87515- 0625 Nov, [facility] [address] [place] [address] 55205- 5089 Nov, Screening for STD sexually transmitted disease Z11.3 and Attention-deficit hyperactivity disorder, combined type F90.2 [facility] [address], [place] [address]- 4530 Nov, Attention-deficit hyperactivity disorder, combined type F90.2 ; Social anxiety disorder F40.10 and Bipolar disorder, current episode hypomanic F31.0 [facility] [address], [place] [address]- 0955 Oct, [facility] [id number] [place] [address] 57845- 5107 Oct, [facility] [address], [place] [address]- 1386 Sep, [facility] [id number] [place] [address] 05632- 9909 Sep, Bipolar disorder, in partial remission, most recent episode depressed F31.75 ; Attention-deficit hyperactivity disorder, combined type F90.2 and Social anxiety disorder F40.10 [facility] [address], [place] [address]- 0786 Sep, [facility] [id number], [place] [address]- 3209 Aug, [facility] [id number] [place] [address] 02319- 0317 Jul, [facility] [address], [place] [address]- 1086 Jul, [facility] [address] [place] [address] 182596- 4816 Jul, Bipolar disorder, in partial remission, most recent episode depressed F31.75 ; Attention-deficit hyperactivity disorder, combined type F90.2 and Social anxiety disorder F40.10 [facility] [address], [place] [address]- 2239 Jun, [facility] [id number], [place] [address]- 5816 Jun, [facility] [id number] [place] [address] 33251- 9846 Jun, [facility] [id number] [place] [address] 16753- 4536 May, [facility] [address], [place] [address]- 8766 May, [facility] [address], [place] [address]- 3850 May, [facility] [address], [place] [address]- 4872 May, Bipolar disorder, in partial remission, most recent episode depressed F31.75 ; Attention-deficit hyperactivity disorder, combined type F90.2 and Social anxiety disorder F40.10 [facility] [address], [place] [address]- 6002 Mar, Bipolar I disorder, moderate, current or most recent episode depressed, in partial remission, with mixed features 296.55 ; ADHD ( attention deficit hyperactivity disorder), combined type 314.01 and Social anxiety disorder 300.23 [facility] [id number], [place] [address]- 5016 Aug, [facility] [address], [place] [address]- 0568 Aug, [facility] [address] [facility] [id number] [address]- 2058 Jun, [facility] [address], [place] [address]- 4606 Jun, [facility] [address], [place] [address]- 2892 Jan, [facility] [id number] [address]- 7026 December, [facility] [address], [place] [address]- 6607 Oct, [facility] [address], [place] [address]- 1236 Sep, [facility] [address], [place] [address]- 4916 Jun, IMMUNIZATIONS No Known Immunizations SOCIAL HISTORY Never Assessed REASON FOR VISIT OB 4wk f/u--[place] PLAN OF CARE Activity Details Follow Up 4 Weeks, 4 Weeks Reason: VITAL SIGNS Height 64.3 in 2017-11-21 Weight 159.4 lbs 2017-11-21 Temperature 98.0 degrees Fahrenheit 2017-11-21 Heart Rate 80 bpm 2017-11-21 Respiratory Rate 20 2017-11-21 BMI 27.106 kg/m2 2017-11-21 Blood pressure systolic 104 mmHg 2017-11-21 Blood pressure diastolic 68 mmHg 2017-11-21 MEDICATIONS Medication Instructions Dosage Frequency Start Date End Date Duration Status Ferrous Sulfate 325 (65 Fe) MG Orally Once a day 1 tablet 24h Not- Taking Hydroxyprogesterone Caproate 250 MG/ML Intramuscular once weekly 1 ml Oct, Apr, 30 day(s) Not-Taking Complete 14-0.4 MG Orally Once a day 1 tablet 24h Active Latuda 20 mg Orally Once with evening meal 1 tablets with 350 calories Apr, Not-Taking Not-Taking RESULTS No Results PROCEDURES Procedure Date Ordered Result Body Site CHEMILUMINESCENT ASSAY November 21, 2017 URINE-NO MICRO November 21, 2017 INHIBIN A November 21, 2017 ALPHA-FETOPROTEIN, SERUM November 21, 2017 CHORIONIC GONADOTROPIN TEST November 21, 2017 ASSAY OF ESTRIOL November 21, 2017 INSTRUCTIONS MEDICATIONS ADMINISTERED No Known Medications MEDICAL (GENERAL) HISTORY Type Description Date Medical History 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 Has had consisten NEUROLOGY care. Diagnosed with Focal Seizures with EEG Medical History ADHD Medical History Bipolar disorder Medical History Social anxiety disorder Surgical History [place] teeth removed 09/06/15 Surgical History Childbirth Surgical History Spider bite Hospitalization History psych; anger/aggression 2008 Hospitalization History ER visit Bleeding while 10/20/17
--- OUTSIDE RECORDS SUMMARY | 2018-04-04 10:55 | XMS REPORT ---
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 Name Role Phone REGIS MORALES Unavailable PROBLEMS Type Condition ICD9-CM Code ARD24-XV Code Onset Dates Condition Status SNOMED Code Problem Bipolar disorder, in partial remission, most recent episode depressed F31.75 Active 72770123 Problem Social phobia, generalized F40.11 Active 53315039 Problem Bipolar disorder, current episode hypomanic F31.0 Active 18007950 Problem Attention-deficit hyperactivity disorder, combined type F90.2 Active 13303619 Problem Abnormal ultrasound R93.8 Active 874582627 Problem Low lying placenta with hemorrhage, first trimester O44.51 Active 575376873 Problem Unspecified blood type, Rh negative Z67.91 Active 675094214 Problem Bipolar disorder with moderate depression F31.32 Active 454991059 Problem History of delivery, currently O09.219 Active 070641804 Problem Supervision of other high risk pregnancies, first trimester O09.891 Active 034695355 ALLERGIES No Information ENCOUNTERS Encounter Location Date Diagnosis [facility] [id number] [place] [address] 75906- 6283 Mar, [facility] [id number] [place] [address] 12587- 7515 Feb, History of delivery, currently O09.219 [facility] [id number] [place] [address] 61514- 0086 Feb, Third trimester Z34.93 ; 32 weeks gestation of Z3A.32 and Encounter for immunization Z23 [facility] [id number] [place] [address] 14233- 7469 Feb, History of delivery, currently O09.219 [facility] [address] [place] [address] 55[address] Feb, [facility] [address] [place] [address] 23772- 6448 Feb, [facility] [address] [address] 4281 Feb, [facility] [address] [place] [address] 69133- 1126 Feb, Third trimester Z34.93 and Unspecified blood type , Rh negative Z67.91 [facility] [id number] [place] [address] 64170- 2235 Feb, [facility] [id number] [place] [address] 11478- 9729 Feb, History of delivery, currently O09.219 [facility] [id number] [place] [address] 57979- 8674 Jan, Unspecified blood type, Rh negative Z67.91 and History of delivery, currently O09.219 [facility] [id number] [place] [address] 50221- 1964 Jan, History of delivery, currently O09.219 [facility] [address] [place] [address] 12175- 9023 Jan, [facility] [address] [place] [address] 62084- 3482 Jan, [facility] [address] [place] [address] 89788- 2284 Jan, care, subsequent in second trimester Z34.82 ; Diabetes mellitus screening Z13.1 ; Local reaction to immunization, initial encounter T88.1XXA and 26 weeks gestation of Z3A.26 [facility] [address] [address] 8693 Jan, [facility] [id number] [place] [address] 72226- 7088 Jan, [facility] [id number] [address] 9216 Jan, [facility] [address] [place] [address] 35737- 8257 Jan, History of delivery, currently O09.219 [facility] [address] [place] [address] 77562- 4584 December, History of delivery, currently O09.219 [facility] [address] [address]- 8914 December, History of delivery, currently O09.219 [facility] [address] [place] [address] 06519- 7169 December, [facility] [id number] [place] [address] 55110- 2957 December, [facility] [address] [place] [address] 94593- 9493 December, Second trimester Z34.92 and 22 weeks gestation of Z3A.22 [facility] [id number] [address]- 9016 December, [facility] [id number] [address]- 4498 December, History of delivery, currently O09.219 [facility] [id number] [address]- 8993 December, History of delivery, currently O09.219 [facility] [address] [address]- 7705 December, [facility] [id number] [address]- 5806 December, History of delivery, currently O09.219 [facility] [address] [address]- 4369 Nov, [facility] [address] [address]- 2081 Nov, History of delivery, currently O09.219 [facility] [address] [place] [address] 99150- 5694 Nov, care, subsequent in second trimester Z34.82 and 18 weeks gestation of Z3A.18 [facility] [id number] [place] [address] 62536- 7115 Nov, [facility] [address] [place] [address] 12398- 9452 Oct, [facility] [id number] [place] [address] 29776- 5412 Oct, Threatened miscarriage O20.0 [facility] [id number] [place] [address] 66480- 5449 Oct, 14 weeks gestation of Z3A.14 ; Threatened miscarriage O20.0 ; Other specified noninflammatory disorders of vagina N89.8 ; Other specified related conditions, second trimester O26.892 ; Vaginal candidiasis B37.3 ; Low lying placenta with hemorrhage, first trimester O44.51 ; Abnormal ultrasound R93.8 ; Second trimester Z34.92 and History of delivery, currently O09.219 [facility] [address] [address]- 1135 Oct, [facility] [id number] [place] [address] 88243- 2095 Oct, care, subsequent in second trimester Z34.82 and 13 weeks gestation of Z3A.13 [facility] [id number] [place] [address] 78914- 8468 Sep, [facility] [address] [place] [address] 67981- 0389 14 Sep, 2017 care, subsequent in first trimester Z34.81 and 9 weeks gestation of Z3A.09 [facility] [address] [address]- 0199 14 Sep, 2017 [facility] [id number] [place] [address] 29147- 5335 Aug, [facility] [id number] [place] [address] 76908- 0373 Aug, [facility] [id number] [place] [address] 05536- 1555 Aug, [facility] [id number] [place] [address] 75895- 3567 Aug, Encounter for test Z32.00 [facility] [id number] [place] [address] 09760- 8274 Jul, [facility] [id number] [place] [address] 55326- 8759 Jul, [facility] [id number] [place] [address] 91180 -2556 Jun, [facility] [id number] [place] [address] 55786- 9058 Apr, [facility] [id number] [place] [address] 29975- 8249 14 Apr, 2017 Bipolar disorder with moderate depression F31.32 and Attention-deficit hyperactivity disorder, combined type F90.2 [facility] [id number] [address]- 6419 Feb, [facility] [id number] [place] [address] 42474- 1085 Feb, [facility] [id number] [place] [address] 27704- 3934 Jan, [facility] [id number] [place] [address] 47561 -0534 Jan, Vaginal discharge N89.8 and Acute vaginitis N76.0 [facility] [id number] [address]- 5454 Nov, [facility] [id number] [place] [address] 47190- 1968 Nov, Encounter for visit Z39.2 ; Tobacco abuse counseling Z71.6 and Drug or alcohol risk assessment or counseling Z71.89 [facility] [id number] [place] [address] 78756- 9353 Nov, [facility] [id number] [place] [address] 22090- 0489 Oct, [facility] [id number] [place] [address] 03073- 0364 Oct, [facility] [id number] [place] [address] 79557- 3061 Oct, [facility] [id number] [place] [address] 50870- 1211 Oct, STD exposure Z20.2 [facility] [id number] [place] [address] 14031- 8724 Oct, Bipolar disorder, in partial remission, most recent episode depressed F31.75 ; Attention-deficit hyperactivity disorder, combined type F90.2 and Social phobia, generalized F40.11 [facility] [address] [place] [address] 08788- 5951 Oct, Bipolar disorder, in partial remission, most recent episode depressed F31.75 ; Attention-deficit hyperactivity disorder, combined type F90.2 and Social phobia, generalized F40.11 [facility] [id number] [place] [address] 28831- 1270 Oct, [facility] [id number] [place] [address] 42219- 8165 Sep, [facility] [address] [place] [address] 14614- 4546 Sep, [facility] [id number] [address]- 0687 16 Sep, 2016 screening for streptococcus B Z36 ; care , first in third trimester Z34.03 and 35 weeks gestation of Z3A.35 [facility] [address] [place] [address] 88192- 5029 07 Sep, 2016 care, first in third trimester Z34.03 and 34 weeks gestation of Z3A.34 [facility] [id number] [place] [address] 81639- 2712 07 Sep, 2016 [facility] [id number] [place] [address] 29643- 2982 Sep, [facility] [id number] [place] [address] 27777- 1907 Sep, Bipolar disorder, in partial remission, most recent episode depressed F31.75 ; Attention-deficit hyperactivity disorder, combined type F90.2 and Social phobia, generalized F40.11 [facility] [id number] [place] [address] 98645- 3058 Aug, Normal , first Z34.00 ; Encounter for immunization Z23 and 32 weeks gestation of Z3A.32 [facility] [address] [place] [address] 74345- 7954 Aug, [facility] [id number] [place] [address] 18693- 2379 Aug, Other specified related conditions, third trimester O26.893 and 30 weeks gestation of Z3A.30 [facility] [id number] [place] [address] 18534- 7875 Aug, [facility] [id number] [place] [address] 26507- 7754 Jul, Diabetes mellitus screening Z13.1 ; , first, first trimester Z34.01 ; Other specified noninflammatory disorders of vagina N89.8 ; Other specified related conditions, third trimester O26.893 and 28 weeks gestation of Z3A.28 [facility] [address] [address]- 8209 14 Jul, 2016 [facility] [id number] [place] [address] 55846- 7795 Jun, [facility] [place] [id number] [place] [address] Jun [facility] [id number] [place] [address] 72072- 6051 Jun, Normal , first Z34.00 ; Evaluate anatomy not seen on prior sonogram Z36 and 23 weeks gestation of Z3A.23 [facility] [id number] [place] [address] 98505- 3974 17 Jun, 2016 [facility] [id number] [place] [address] 15622- 7367 Jun, Bipolar disorder, in partial remission, most recent episode depressed F31.75 ; Attention-deficit hyperactivity disorder, combined type F90.2 and Social phobia, generalized F40.11 [facility] [id number] [place] [address] 05649- 9500 May, [facility] [id number] [place] [address] 83885- 2854 May, Normal , first Z34.00 and 19 weeks gestation of Z3A.19 [facility] [address] [place] [address] 97317 -4711 May, Dysuria R30.0 and Acute cystitis during , second trimester O23.12 [facility] [id number] [place] [address] 61106- 4761 Apr, [facility] [id number] [place] [address] 56693- 3003 26 Apr, 2016 care, first in second trimester Z34.02 [facility] [id number] [place] [address] 12253- 1056 Apr, [facility] [id number] [address]- 9943 Apr, [facility] [id number] [address]- 0320 Apr, [facility] [id number] [address]- 1910 Apr, care, first in second trimester Z34.02 ; Dehydration E86.0 and 14 weeks gestation of Z3A.14 [facility] [id number] [address]- 5442 Apr, Bipolar disorder, in partial remission, most recent episode depressed F31.75 ; Attention-deficit hyperactivity disorder, combined type F90.2 ; Social anxiety disorder F40.10 and 15 weeks gestation of Z3A.15 [facility] [id number] [address]- 7730 Mar, [facility] [id number] [address]- 9853 Mar, , first, first trimester Z34.01 and 10 weeks gestation of Z3A.10 [facility] [id number] [address]- 9265 Mar, [facility] [id number] [address]- 2987 Mar, [facility] [place] [id number] [address]- 2824 Feb, Normal , first Z34.00 and 6 weeks gestation of Z3A.01 [facility] [id number] [address]- 2042 Feb, [facility] [id number] [address]- 5103 Feb, [facility] [place] [address] [facility] [id number] [address] Feb [facility] [id number] [address]- 4073 Feb, [facility] [id number] [address]- 0901 Feb, [facility] [id number] [address]- 7619 Feb, Bipolar disorder, in partial remission, most recent episode depressed F31.75 ; Attention-deficit hyperactivity disorder, combined type F90.2 and Social anxiety disorder F40.10 [facility] [id number] [address]- 4894 Feb, Routine adult health maintenance Z00.00 [facility] [id number] [address]- 6326 Feb, [facility] [id number] [place] [address] 59326- 5732 Feb, confirmed by positive urine test Z32.01 [facility] [id number] [address]- 8817 Feb, [facility] [id number] [address]- 4173 Jan, [facility] [id number] [address]- 5224 Jan, Bipolar disorder, in partial remission, most recent episode depressed F31.75 ; Attention-deficit hyperactivity disorder, combined type F90.2 and Social anxiety disorder F40.10 [facility] [id number] [address]- 5231 Jan, Seizure disorder G40.909 [facility] [id number] [address]- 9413 Jan, [facility] [id number] [address]- 3803 December, Bipolar disorder, current episode hypomanic F31.0 ; Attention-deficit hyperactivity disorder, combined type F90.2 and Social anxiety disorder F40.10 [facility] [id number] [address]- 4430 December, Screening for STD sexually transmitted disease Z11.3 [facility] [id number] [address]- 7742 Nov, [facility] [id number] [place] [address] 70564- 8510 Nov, [facility] [address] [place] [address] 48356- 4064 Nov, Screening for STD sexually transmitted disease Z11.3 and Attention-deficit hyperactivity disorder, combined type F90.2 [facility] [id number] [address]- 4644 Nov, Attention-deficit hyperactivity disorder, combined type F90.2 ; Social anxiety disorder F40.10 and Bipolar disorder, current episode hypomanic F31.0 [facility] [id number] [address]- 5084 Oct, [facility] [id number] [address]- 3636 Oct, [facility] [id number] [address]- 4440 Sep, [facility] [id number] [address]- 0162 Sep, Bipolar disorder, in partial remission, most recent episode depressed F31.75 ; Attention-deficit hyperactivity disorder, combined type F90.2 and Social anxiety disorder F40.10 [facility] [id number] [address]- 1014 Sep, [facility] [id number] [address]- 3382 Aug, [facility] [address] [place] [address] 68586- 8736 Jul, [facility] [id number] [address]- 7076 Jul, [facility] [id number] 0996 Jul, Bipolar disorder, in partial remission, most recent episode depressed F31.75 ; Attention-deficit hyperactivity disorder, combined type F90.2 and Social anxiety disorder F40.10 [facility] [id number] [address]- 2713 Jun, [facility] [id number] [address]- 4566 Jun, [facility] [id number] 1049 Jun, [facility] [id number] [address]- 0386 May, [facility] [id number] [address]- 3679 May, [facility] [id number] [address]- 9219 May, [facility] [id number] [address]- 8926 May, Bipolar disorder, in partial remission, most recent episode depressed F31.75 ; Attention-deficit hyperactivity disorder, combined type F90.2 and Social anxiety disorder F40.10 [facility] [id number] [address]- 2876 Mar, Bipolar I disorder, moderate, current or most recent episode depressed, in partial remission, with mixed features 296.55 ; ADHD ( attention deficit hyperactivity disorder), combined type 314.01 and Social anxiety disorder 300.23 [facility] [id number] [address]- 6296 Aug, [facility] [id number] [address]- 7021 Aug, [facility] [id number] [address]- 2546 Jun, [facility] [id number] [address]- 2546 Jun, [facility] [id number] [address]- 2546 Jan, [facility] [id number] [address]- 2546 December, [facility] [id number] [address]- 2546 Oct, [facility] [id number] [address]- 2546 Sep, [facility] [id number] [address]- 2546 Jun, IMMUNIZATIONS Vaccine Route Administration Date Status MARY 250 MG/ML (PT'S OWN) IM Intramuscular December 03, 2017 Administered SOCIAL HISTORY Never Assessed REASON FOR VISIT Injection--tcuppettRN PLAN OF CARE Activity Details Follow Up 1 Week Reason: VITAL SIGNS MEDICATIONS Unknown Medications RESULTS No Results PROCEDURES Procedure Date Ordered Result Body Site MARY 250 MG/ML (PT'S OWN) December 03, 2017 THER/PROPH/DIAG INJ, SC/IM December 03, 2017 INSTRUCTIONS MEDICATIONS ADMINISTERED No Known Medications MEDICAL (GENERAL) HISTORY Type Description Date Medical History 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 Has had [facility] NEUROLOGY care. Diagnosed with Focal Seizures with EEG Medical History ADHD Medical History Bipolar disorder Medical History Social anxiety disorder Surgical History [place] teeth removed 09/06/15 Surgical History Childbirth Surgical History Spider bite Hospitalization History psych; anger/aggression 2008 Hospitalization History ER visit Bleeding while 10/20/17
--- OUTSIDE RECORDS SUMMARY | 2018-04-04 10:56 | XMS REPORT ---
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 Phone REGIS MORALES Unavailable PROBLEMS Type Condition ICD9-CM Code KDR26-TQ Code Onset Dates Condition Status SNOMED Code Problem Bipolar disorder, in partial remission, most recent episode depressed F31.75 Active 25136959 Problem Social phobia, generalized F40.11 Active 53986357 Problem Bipolar disorder, current episode hypomanic F31.0 Active 69863179 Problem Attention-deficit hyperactivity disorder, combined type F90.2 Active 34229730 Problem Abnormal ultrasound R93.8 Active 337595742 Problem Low lying placenta with hemorrhage, first trimester O44.51 Active 355513344 Problem Unspecified blood type, Rh negative Z67.91 Active 778407092 Problem Bipolar disorder with moderate depression F31.32 Active 490949469 Problem History of delivery, currently O09.219 Active 094412281 Problem Supervision of other high risk pregnancies, first trimester O09.891 Active 682774917 ALLERGIES No Information ENCOUNTERS Encounter Location Date Diagnosis [facility] [id number] [place] [address] 72955- 9090 Mar, [facility] [id number] [place] [address] 37740- 3337 Feb, History of delivery, currently O09.219 [facility] [id number] [place] [address] 29769- 6957 Feb, Third trimester Z34.93 ; 32 weeks gestation of Z3A.32 and Encounter for immunization Z23 [facility] [id number] [place] [address] 17053- 7410 Feb, History of delivery, currently O09.219 [facility] [address] [place] [address] 03[address] Feb, [facility] [address] [place] [address] 02472- 1360 Feb, [facility] [address], [place] [address] 1318 Feb, [facility] [address] [place] [address] 36949- 4171 Feb, Third trimester Z34.93 and Unspecified blood type , Rh negative Z67.91 [facility] [id number] [place] [address] 93188- 0870 Feb, [facility] [id number] [place] [address] 93234- 2814 Feb, History of delivery, currently O09.219 [facility] [id number] [place] [address] 73575- 4754 Jan, Unspecified blood type, Rh negative Z67.91 and History of delivery, currently O09.219 [facility] [id number] [place] [address] 46775- 0624 Jan, History of delivery, currently O09.219 [facility] [address] [place] [address] 50416- 3248 Jan, [facility] [address] [place] [address] 01219- 6571 Jan, [facility] [address] [place] [address] 50828- 2208 Jan, care, subsequent in second trimester Z34.82 ; Diabetes mellitus screening Z13.1 ; Local reaction to immunization, initial encounter T88.1XXA and 26 weeks gestation of Z3A.26 [facility] [address], [place] [address] 5024 Jan, [facility] [id number] [place] [address] 40071- 4966 Jan, [facility] [address], [place] [address]- 1679 Jan, [facility] [address] [place] [address] 47033- 4488 Jan, History of delivery, currently O09.219 [facility] [address] [place] [address] 66837- 2985 December, History of delivery, currently O09.219 [facility] [address], [place] [address]- 2191 December, History of delivery, currently O09.219 [facility] [address] [place] [address] 19888- 1757 December, [facility] [id number] [place] [address] 21325- 2809 December, [facility] [address] [place] [address] 00416- 6716 December, Second trimester Z34.92 and 22 weeks gestation of Z3A.22 [facility] [address], [place] [address]- 0767 December, [facility] [address], [place] [address]- 6499 December, History of delivery, currently O09.219 [facility] [address], [place] [address]- 4442 December, History of delivery, currently O09.219 [facility] [address], [place] [address]- 5428 December, [facility] [address] [address]- 6351 December, History of delivery, currently O09.219 [facility] [address], [place] [address]- 6248 Nov, [facility] [address], [place] [address]- 3736 Nov, History of delivery, currently O09.219 [facility] [address] [place] [address] 92098- 8496 Nov, care, subsequent in second trimester Z34.82 and 18 weeks gestation of Z3A.18 [facility] [id number] [place] [address] 09774- 7687 Nov, [facility] [address] [place] [address] 60070- 5456 Oct, [facility] [id number] [place] [address] 51324- 5248 Oct, Threatened miscarriage O20.0 [facility] [id number] [place] [address] 81119- 8935 Oct, 14 weeks gestation of Z3A.14 ; Threatened miscarriage O20.0 ; Other specified noninflammatory disorders of vagina N89.8 ; Other specified related conditions, second trimester O26.892 ; Vaginal candidiasis B37.3 ; Low lying placenta with hemorrhage, first trimester O44.51 ; Abnormal ultrasound R93.8 ; Second trimester Z34.92 and History of delivery, currently O09.219 [facility] [address], [place] [address]- 0663 Oct, [facility] [id number] [place] [address] 44286- 0514 Oct, care, subsequent in second trimester Z34.82 and 13 weeks gestation of Z3A.13 [facility] [id number] [place] [address] 36718- 9387 Sep, [facility] [address] [place] [address] 03325- 8051 14 Sep, 2017 care, subsequent in first trimester Z34.81 and 9 weeks gestation of Z3A.09 [facility] [address], [place] [address]- 7064 14 Sep, 2017 [facility] [id number] [place] [address] 60955- 8057 Aug, [facility] [id number] [place] [address] 23403- 7226 Aug, [facility] [id number] [place] [address] 62023- 8259 Aug, [facility] [id number] [place] [address] 74978- 6597 Aug, Encounter for test Z32.00 [facility] [id number] [place] [address] 77140- 3721 Jul, [facility] [id number] [place] [address] 68573- 9337 Jul, [facility] [id number] [place] [address] 33436 -6603 Jun, [facility] [id number] [place] [address] 06264- 5989 Apr, [facility] [id number] [place] [address] 64443- 6477 14 Apr, 2017 Bipolar disorder with moderate depression F31.32 and Attention-deficit hyperactivity disorder, combined type F90.2 [facility] [address], [place] [address]- 2344 Feb, [facility] [id number] [place] [address] 63437- 3627 Feb, [facility] [id number] [place] [address] 42278- 5323 Jan, [facility] [id number] [place] [address] 58096 -3775 Jan, Vaginal discharge N89.8 and Acute vaginitis N76.0 [facility] [address], [place] [address]- 7527 Nov, [facility] [id number] [place] [address] 31424- 5051 Nov, Encounter for visit Z39.2 ; Tobacco abuse counseling Z71.6 and Drug or alcohol risk assessment or counseling Z71.89 [facility] [id number] [place] [address] 27586- 0493 Nov, [facility] [id number] [place] [address] 35429- 4434 Oct, [facility] [id number] [place] [address] 64556- 8863 Oct, [facility] [id number] [place] [address] 52369- 6825 Oct, [facility] [id number] [place] [address] 44324- 1818 Oct, STD exposure Z20.2 [facility] [id number] [place] [address] 90011- 5511 Oct, Bipolar disorder, in partial remission, most recent episode depressed F31.75 ; Attention-deficit hyperactivity disorder, combined type F90.2 and Social phobia, generalized F40.11 [facility] [address] [place] [address] 63688- 9156 Oct, Bipolar disorder, in partial remission, most recent episode depressed F31.75 ; Attention-deficit hyperactivity disorder, combined type F90.2 and Social phobia, generalized F40.11 [facility] [id number] [place] [address] 95961- 9995 Oct, [facility] [id number] [place] [address] 64684- 2638 Sep, [facility] [address] [place] [address] 53537- 5168 Sep, [facility] [address], [place] [address]- 4463 16 Sep, 2016 screening for streptococcus B Z36 ; care , first in third trimester Z34.03 and 35 weeks gestation of Z3A.35 [facility] [address] [place] [address] 07298- 2982 07 Sep, 2016 care, first in third trimester Z34.03 and 34 weeks gestation of Z3A.34 [facility] [id number] [place] [address] 42962- 8897 07 Sep, 2016 [facility] [id number] [place] [address] 67899- 0933 Sep, [facility] [id number] [place] [address] 80047- 3725 Sep, Bipolar disorder, in partial remission, most recent episode depressed F31.75 ; Attention-deficit hyperactivity disorder, combined type F90.2 and Social phobia, generalized F40.11 [facility] [id number] [place] [address] 56031- 6708 Aug, Normal , first Z34.00 ; Encounter for immunization Z23 and 32 weeks gestation of Z3A.32 [facility] [address] [place] [address] 45848- 7616 Aug, [facility] [id number] [place] [address] 66577- 5082 Aug, Other specified related conditions, third trimester O26.893 and 30 weeks gestation of Z3A.30 [facility] [id number] [place] [address] 03202- 4174 Aug, [facility] [id number] [place] [address] 48272- 4156 Jul, Diabetes mellitus screening Z13.1 ; , first, first trimester Z34.01 ; Other specified noninflammatory disorders of vagina N89.8 ; Other specified related conditions, third trimester O26.893 and 28 weeks gestation of Z3A.28 [facility] [address], [place] [address]- 4795 14 Jul, 2016 [facility] [id number] [place] [address] 69966- 3200 Jun, [facility] [address] [place] [id number] [address] Jun [facility] [id number] [place] [address] 21137- 6832 Jun, Normal , first Z34.00 ; Evaluate anatomy not seen on prior sonogram Z36 and 23 weeks gestation of Z3A.23 [facility] [id number] [place] [address] 27181- 6431 17 Jun, 2016 [facility] [id number] [place] [address] 40945- 2484 Jun, Bipolar disorder, in partial remission, most recent episode depressed F31.75 ; Attention-deficit hyperactivity disorder, combined type F90.2 and Social phobia, generalized F40.11 [facility] [id number] [place] [address] 88137- 0778 May, [facility] [id number] [place] [address] 28663- 4554 May, Normal , first Z34.00 and 19 weeks gestation of Z3A.19 [facility] [address] [place] [address] 65260 -5105 May, Dysuria R30.0 and Acute cystitis during , second trimester O23.12 [facility] [id number] [place] [address] 37605- 1608 Apr, [facility] [id number] [place] [address] 96632- 7284 26 Apr, 2016 care, first in second trimester Z34.02 [facility] [id number] [place] [address] 41343- 5770 Apr, [facility] [address], [place] [address]- 0116 Apr, [facility] [address], [place] [address]- 7488 Apr, [facility] [id number] [address]- 6277 Apr, care, first in second trimester Z34.02 ; Dehydration E86.0 and 14 weeks gestation of Z3A.14 [facility] [id number] [address]- 4988 Apr, Bipolar disorder, in partial remission, most recent episode depressed F31.75 ; Attention-deficit hyperactivity disorder, combined type F90.2 ; Social anxiety disorder F40.10 and 15 weeks gestation of Z3A.15 [facility] [address], [place] [address]- 9953 Mar, [facility] [address], [place] [address]- 1496 Mar, , first, first trimester Z34.01 and 10 weeks gestation of Z3A.10 [facility] [address], [place] [address]- 9663 Mar, [facility] [address], [place] [address]- 8182 Mar, [facility] [address], [place] [address]- 6720 Feb, Normal , first Z34.00 and 6 weeks gestation of Z3A.01 [facility] [address], [place] [address]- 7940 Feb, [facility] [id number] [address]- 9717 Feb, [facility] [address] [facility] [id number] [address] Feb [facility] [address], [place] [address]- 1681 Feb, [facility] [address], [place] [address]- 9830 Feb, [facility] [address], [place] [address]- 3674 Feb, Bipolar disorder, in partial remission, most recent episode depressed F31.75 ; Attention-deficit hyperactivity disorder, combined type F90.2 and Social anxiety disorder F40.10 [facility] [address], [place] [address]- 7438 Feb, Routine adult health maintenance Z00.00 [facility] [address], [place] [address]- 3472 Feb, [facility] [id number] [place] [address] 59752- 8482 Feb, confirmed by positive urine test Z32.01 [facility] [address], [place] [address]- 9765 Feb, [facility] [address], [place] [address]- 7841 Jan, [facility] [address], [place] [address]- 4019 Jan, Bipolar disorder, in partial remission, most recent episode depressed F31.75 ; Attention-deficit hyperactivity disorder, combined type F90.2 and Social anxiety disorder F40.10 [facility] [address], [place] [address]- 3182 Jan, Seizure disorder G40.909 [facility] [address], [place] [address]- 8832 Jan, [facility] [address], [place] [address]- 5128 December, Bipolar disorder, current episode hypomanic F31.0 ; Attention-deficit hyperactivity disorder, combined type F90.2 and Social anxiety disorder F40.10 [facility] [address], [place] [address]- 7054 December, Screening for STD sexually transmitted disease Z11.3 [facility] [address], [place] [address]- 9123 Nov, [facility] [id number] [place] [address] 19928- 4630 Nov, [facility] [address] [place] [address] 98531- 6912 Nov, Screening for STD sexually transmitted disease Z11.3 and Attention-deficit hyperactivity disorder, combined type F90.2 [facility] [address], [place] [address]- 9890 Nov, Attention-deficit hyperactivity disorder, combined type F90.2 ; Social anxiety disorder F40.10 and Bipolar disorder, current episode hypomanic F31.0 [facility] [address], [place] [address]- 8148 Oct, [facility] [address] [place] [address]- 3962 Oct, [facility] [address], [place] [address]- 7262 Sep, [facility] [address], [place] [address]- 8472 Sep, Bipolar disorder, in partial remission, most recent episode depressed F31.75 ; Attention-deficit hyperactivity disorder, combined type F90.2 and Social anxiety disorder F40.10 [facility] [address], [place] [address]- 6934 Sep, [facility] [address], [place] [address]- 5901 Aug, [facility] [address] [place] [address] 35505- 6351 Jul, [facility] [id number] [address]- 3746 Jul, [facility] [address] 1856 Jul, Bipolar disorder, in partial remission, most recent episode depressed F31.75 ; Attention-deficit hyperactivity disorder, combined type F90.2 and Social anxiety disorder F40.10 [facility] [address], [place] [address]- 6867 Jun, [facility] [id number] [address]- 8126 Jun, [facility] [address] 5896 Jun, [facility] [address], [place] [address]- 0306 May, [facility] [address], [place] [address]- 8205 May, [facility] [id number] [address]- 5046 May, [facility] [address], [place] [address]- 6601 May, Bipolar disorder, in partial remission, most recent episode depressed F31.75 ; Attention-deficit hyperactivity disorder, combined type F90.2 and Social anxiety disorder F40.10 [facility] [id number] [address]- 4283 Mar, Bipolar I disorder, moderate, current or most recent episode depressed, in partial remission, with mixed features 296.55 ; ADHD ( attention deficit hyperactivity disorder), combined type 314.01 and Social anxiety disorder 300.23 [facility] [id number] [address]- 3276 Aug, [facility] [id number], [place] [address]- 8476 Aug, [facility] [id number] [address]- 2546 Jun, [facility] [address], [place] [address]- 2546 Jun, [facility] [id number] [address]- 2546 Jan, [facility] [address], [place] [address]- 2546 December, [facility] [address], [place] [address]- 2546 Oct, [facility] [address], [place] [address]- 2546 Sep, [facility] [address], [place] [address]- 2546 Jun, IMMUNIZATIONS Vaccine Route Administration Date Status MARY 250 MG/ML (PT'S OWN) IM Intramuscular November 26, 2017 Administered SOCIAL HISTORY Never Assessed REASON FOR VISIT Injection--tcuppettRN PLAN OF CARE Activity Details Follow Up 1 Week Reason: VITAL SIGNS MEDICATIONS Unknown Medications RESULTS No Results PROCEDURES Procedure Date Ordered Result Body Site MARY 250 MG/ML (PT'S OWN) November 26, 2017 THER/PROPH/DIAG INJ, SC/IM November 26, 2017 INSTRUCTIONS MEDICATIONS ADMINISTERED No Known Medications MEDICAL (GENERAL) HISTORY Type Description Date Medical History 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 Has had [facility]UROLOG[facility] care. Diagnosed with Focal Seizures with EEG Medical History ADHD Medical History Bipolar disorder Medical History Social anxiety disorder Surgical History [place] teeth removed 09/06/15 Surgical History Childbirth Surgical History Spider bite Hospitalization History psych; anger/aggression 2008 Hospitalization History ER visit Bleeding while 10/20/17
--- OUTSIDE RECORDS SUMMARY | 2018-04-04 10:56 | XMS REPORT ---
Author Author REGIS MORALES [facility] Address [address] [place] [address] Care Team Providers Care Vehicle Insurance Agent Name Role Phone REGIS MORALES Unavailable PROBLEMS Type Condition ICD9-CM Code TUX89-LN Code Onset Dates Condition Status SNOMED Code Problem Bipolar disorder, in partial remission, most recent episode depressed F31.75 Active 85657719 Problem Social phobia, generalized F40.11 Active 23701998 Problem Bipolar disorder, current episode hypomanic F31.0 Active 79074712 Problem Attention-deficit hyperactivity disorder, combined type F90.2 Active 98170056 Problem Abnormal ultrasound R93.8 Active 821349449 Problem Low lying placenta with hemorrhage, first trimester O44.51 Active 739708616 Problem Unspecified blood type, Rh negative Z67.91 Active 236237011 Problem Bipolar disorder with moderate depression F31.32 Active 548422683 Problem History of delivery, currently O09.219 Active 641811305 Problem Supervision of other high risk pregnancies, first trimester O09.891 Active [id number] ALLERGIES No Information ENCOUNTERS Encounter Location Date Diagnosis [facility] [id number] [place] [address] 38548- 1577 Mar, [facility] [id number] [place] [address] 32720- 4120 Feb, History of delivery, currently O09.219 [facility] [id number] [place] [address] 18716- 9222 Feb, Third trimester Z34.93 ; 32 weeks gestation of Z3A.32 and Encounter for immunization Z23 [facility] [facility] [id number] [place] [address] 18882- 5864 Feb, History of delivery, currently O09.219 [place] [address] [place] [address]- 3500 Feb, [facility] [id number] [place] [address] 43963- 3266 Feb, [facility] [address], [place] [address] 7742 Feb, [facility] [address] [place] [address] 25512- 4509 Feb, Third trimester Z34.93 and Unspecified blood type , Rh negative Z67.91 [facility] [id number] [place] [address] 98114- 0467 Feb, [facility] [id number] [place] [address] 68486- 0075 Feb, History of delivery, currently O09.219 [facility] [id number] [place] [address] 42282- 4362 Jan, Unspecified blood type, Rh negative Z67.91 and History of delivery, currently O09.219 [facility] [id number] [place] [address] 04416- 5442 Jan, History of delivery, currently O09.219 [facility] [id number] [place] [address] 92844- 4220 Jan, [facility] [id number] [place] [address] 05572- 5229 Jan, [facility] [address] [place] [address] 08176- 9053 Jan, care, subsequent in second trimester Z34.82 ; Diabetes mellitus screening Z13.1 ; Local reaction to immunization, initial encounter T88.1XXA and 26 weeks gestation of Z3A.26 [facility] [address] [address] 0243 Jan, [facility] [id number] [place] [address] 03518- 0319 Jan, [facility] [address], [place] [address] 7839 Jan, [facility] [address] [place] [address] 42445- 9456 Jan, History of delivery, currently O09.219 [facility] [address] [place] [address] 37846- 5491 December, History of delivery, currently O09.219 [facility] [address], [place] [address]- 8560 December, History of delivery, currently O09.219 [facility] [address] [place] [address] 09120- 0303 December, [facility] [id number] [place] [address] 70705- 3945 December, [facility] [address] [place] [address] 36042- 5852 December, Second trimester Z34.92 and 22 weeks gestation of Z3A.22 [facility] [address], [place] [address]- 3214 December, [facility] [address], [place] [address]- 1576 December, History of delivery, currently O09.219 [facility] [address], [place] [address]- 8812 December, History of delivery, currently O09.219 [facility] [address], [place] [address]- 3049 December, [facility] [address], [place] [address]- 9968 December, History of delivery, currently O09.219 [facility] [address], [place] [address]- 4566 Nov, [facility] [address], [place] [address]- 8300 Nov, History of delivery, currently O09.219 [facility] [address] [place] [address] 33515- 5655 Nov, care, subsequent in second trimester Z34.82 and 18 weeks gestation of Z3A.18 [facility] [id number] [place] [address] 73152- 7399 Nov, [facility] [address] [place] [address] 51084- 4124 Oct, [facility] [id number] [place] [address] 29247- 2889 Oct, Threatened miscarriage O20.0 [facility] [id number] [place] [address] 20873- 3873 Oct, 14 weeks gestation of Z3A.14 ; Threatened miscarriage O20.0 ; Other specified noninflammatory disorders of vagina N89.8 ; Other specified related conditions, second trimester O26.892 ; Vaginal candidiasis B37.3 ; Low lying placenta with hemorrhage, first trimester O44.51 ; Abnormal ultrasound R93.8 ; Second trimester Z34.92 and History of delivery, currently O09.219 [facility] [address], [place] [address]- 8043 Oct, [facility] [id number] [place] [address] 30811- 1636 Oct, care, subsequent in second trimester Z34.82 and 13 weeks gestation of Z3A.13 [facility] [id number] [place] [address] 62604- 5522 Sep, [facility] [address] [place] [address] 11860- 2604 14 Sep, 2017 care, subsequent in first trimester Z34.81 and 9 weeks gestation of Z3A.09 [facility] [address], [place] [address]- 9117 14 Sep, 2017 [facility] [id number] [place] [address] 97757- 8704 Aug, [facility] [id number] [place] [address] 01837- 3274 Aug, [facility] [id number] [place] [address] 17266- 5086 Aug, [facility] [id number] [place] [address] 73963- 3409 Aug, Encounter for test Z32.00 [facility] [id number] [place] [address] 56237- 8344 Jul, [facility] [id number] [place] [address] 92108- 2293 Jul, [facility] [id number] [place] [address] 75697 -2994 Jun, [facility] [id number] [place] [address] 14280- 2825 Apr, [facility] [id number] [place] [address] 82535- 8785 14 Apr, 2017 Bipolar disorder with moderate depression F31.32 and Attention-deficit hyperactivity disorder, combined type F90.2 [facility] [address], [place] [address]- 0274 Feb, [facility] [id number] [place] [address] 48278- 1374 Feb, [facility] [id number] [place] [address] 06042- 1665 Jan, [facility] [id number] [place] [address] 71580 -7377 Jan, Vaginal discharge N89.8 and Acute vaginitis N76.0 [facility] [address], [place] [address]- 4029 Nov, [facility] [id number] [place] [address] 18377- 4606 Nov, Encounter for visit Z39.2 ; Tobacco abuse counseling Z71.6 and Drug or alcohol risk assessment or counseling Z71.89 [facility] [id number] [place] [address] 16447- 9542 Nov, [facility] [id number] [place] [address] 28262- 4000 Oct, [facility] [id number] [place] [address] 73837- 9007 Oct, [facility] [id number] [place] [address] 06345- 3536 Oct, [facility] [id number] [place] [address] 21733- 9237 Oct, STD exposure Z20.2 [facility] [id number] [place] [address] 08895- 7553 Oct, Bipolar disorder, in partial remission, most recent episode depressed F31.75 ; Attention-deficit hyperactivity disorder, combined type F90.2 and Social phobia, generalized F40.11 [facility] [address] [place] [address] 13309- 3403 Oct, Bipolar disorder, in partial remission, most recent episode depressed F31.75 ; Attention-deficit hyperactivity disorder, combined type F90.2 and Social phobia, generalized F40.11 [facility] [id number] [place] [address] 93739- 3108 Oct, [facility] [id number] [place] [address] 86769- 0673 Sep, [facility] [address] [place] [address] 28928- 5949 Sep, [facility] [address], [place] [address]- 9258 16 Sep, 2016 screening for streptococcus B Z36 ; care , first in third trimester Z34.03 and 35 weeks gestation of Z3A.35 [facility] [id number] [place] [address] 06710- 2886 07 Sep, 2016 care, first in third trimester Z34.03 and 34 weeks gestation of Z3A.34 [facility] [id number] [place] [address] 75423- 7396 07 Sep, 2016 [place] [id number] [place] [address] 65064- 0987 Sep, [facility] [id number] [place] [address] 15591- 5864 Sep, Bipolar disorder, in partial remission, most recent episode depressed F31.75 ; Attention-deficit hyperactivity disorder, combined type F90.2 and Social phobia, generalized F40.11 [facility] [id number] [place] [address] 92042- 1315 Aug, Normal , first Z34.00 ; Encounter for immunization Z23 and 32 weeks gestation of Z3A.32 [facility] [address] [place] [address] 55987- 0612 Aug, [facility] [id number] [place] [address] 23553- 9955 Aug, Other specified related conditions, third trimester O26.893 and 30 weeks gestation of Z3A.30 [facility] [id number] [place] [address] 44423- 8921 Aug, [facility] [id number] [place] [address] 95996- 5559 Jul, Diabetes mellitus screening Z13.1 ; , first, first trimester Z34.01 ; Other specified noninflammatory disorders of vagina N89.8 ; Other specified related conditions, third trimester O26.893 and 28 weeks gestation of Z3A.28 [facility] [address] [address]- 5234 14 Jul, 2016 [facility] [id number] [place] [address] 98880- 2628 Jun, [facility] [place] [id number] [place] [address] Jun [facility] [id number] [place] [address] 75327- 6847 Jun, Normal , first Z34.00 ; Evaluate anatomy not seen on prior sonogram Z36 and 23 weeks gestation of Z3A.23 [facility] [id number] [place] [address] 39929- 1442 17 Jun, 2016 [place] [id number] [place] [address] 05107- 5701 Jun, Bipolar disorder, in partial remission, most recent episode depressed F31.75 ; Attention-deficit hyperactivity disorder, combined type F90.2 and Social phobia, generalized F40.11 [facility] [id number] [place] [address] 23325- 4275 May, [facility] [id number] [place] [address] 76894- 0295 May, Normal , first Z34.00 and 19 weeks gestation of Z3A.19 [facility] [address] [place] [address] 50835 -4892 May, Dysuria R30.0 and Acute cystitis during , second trimester O23.12 [facility] [id number] [place] [address] 43355- 4710 Apr, [facility] [id number] [place] [address] 82461- 4179 26 Apr, 2016 care, first in second trimester Z34.02 [facility] [id number] [place] [address] 18758- 1535 Apr, [facility] [address], [place] [address]- 7830 Apr, [facility] [address], [place] [address]- 9120 Apr, [facility] [id number], [place] [address]- 2492 Apr, care, first in second trimester Z34.02 ; Dehydration E86.0 and 14 weeks gestation of Z3A.14 [facility] [id number], [place] [address]- 5681 Apr, Bipolar disorder, in partial remission, most recent episode depressed F31.75 ; Attention-deficit hyperactivity disorder, combined type F90.2 ; Social anxiety disorder F40.10 and 15 weeks gestation of Z3A.15 [facility] [address], [place] [address]- 3614 Mar, [facility] [address], [place] [address]- 6607 Mar, , first, first trimester Z34.01 and 10 weeks gestation of Z3A.10 [facility] [address], [place] [address]- 9733 Mar, [place] [facility] [address], [place] [address]- 7332 Mar, [facility] [address], [place] [address]- 9661 Feb, Normal , first Z34.00 and 6 weeks gestation of Z3A.01 [facility] [address], [place] [address]- 3353 Feb, [facility] [id number], [place] [address]- 0768 Feb, [facility] [address] [facility] [id number] [place] [address] Feb [facility] [address], [place] [address]- 7342 Feb, [facility] [address], [place] [address]- 7014 Feb, [facility] [address], [place] [address]- 0784 Feb, Bipolar disorder, in partial remission, most recent episode depressed F31.75 ; Attention-deficit hyperactivity disorder, combined type F90.2 and Social anxiety disorder F40.10 [facility] [address], [place] [address]- 1058 Feb, Routine adult health maintenance Z00.00 [facility] [address], [place] [address]- 5349 Feb, [facility] [id number] [place] [address] 71857- 7306 Feb, confirmed by positive urine test Z32.01 [facility] [address], [place] [address]- 4092 Feb, [facility] [address], [place] [address]- 9091 Jan, [facility] [address], [place] [address]- 4130 Jan, Bipolar disorder, in partial remission, most recent episode depressed F31.75 ; Attention-deficit hyperactivity disorder, combined type F90.2 and Social anxiety disorder F40.10 [facility] [address], [place] [address]- 2426 Jan, Seizure disorder G40.909 [facility] [address], [place] [address]- 8412 Jan, [facility] [address], [place] [address]- 5977 December, Bipolar disorder, current episode hypomanic F31.0 ; Attention-deficit hyperactivity disorder, combined type F90.2 and Social anxiety disorder F40.10 [facility] [address], [place] [address]- 3943 December, Screening for STD sexually transmitted disease Z11.3 [facility] [address], [place] [address]- 7595 Nov, [facility] [id number] [place] [address] 28415- 5056 Nov, [facility] [address] [place] [address] 91873- 8077 Nov, Screening for STD sexually transmitted disease Z11.3 and Attention-deficit hyperactivity disorder, combined type F90.2 [facility] [address], [place] [address]- 3527 Nov, Attention-deficit hyperactivity disorder, combined type F90.2 ; Social anxiety disorder F40.10 and Bipolar disorder, current episode hypomanic F31.0 [facility] [address], [place] [address]- 3357 Oct, [facility] [id number] [place] [address]- 7779 Oct, [facility] [address], [place] [address]- 2940 Sep, [facility] [address], [place] [address]- 0696 Sep, Bipolar disorder, in partial remission, most recent episode depressed F31.75 ; Attention-deficit hyperactivity disorder, combined type F90.2 and Social anxiety disorder F40.10 [facility] [address], [place] [address]- 9864 Sep, [facility] [address], [place] [address]- 7587 Aug, [facility] [address] [place] [address] 11731- 2629 Jul, [facility] [id number] [address]- 3116 Jul, [facility] [address] 4586 Jul, Bipolar disorder, in partial remission, most recent episode depressed F31.75 ; Attention-deficit hyperactivity disorder, combined type F90.2 and Social anxiety disorder F40.10 [facility] [address], [place] [address]- 1980 Jun, [facility] [id number] [address]- 4996 Jun, [facility] [address] 5250 Jun, [facility] [address], [place] [address]- 0086 May, [facility] [address], [place] [address]- 8030 May, [facility] [id number], [place] [address]- 1829 May, [facility] [address], [place] [address]- 8701 May, Bipolar disorder, in partial remission, most recent episode depressed F31.75 ; Attention-deficit hyperactivity disorder, combined type F90.2 and Social anxiety disorder F40.10 [facility] [id number] [address]- 6326 Mar, Bipolar I disorder, moderate, current or most recent episode depressed, in partial remission, with mixed features 296.55 ; ADHD ( attention deficit hyperactivity disorder), combined type 314.01 and Social anxiety disorder 300.23 [facility] [id number] [address]- 0906 Aug, [facility] [id number], [place] [address]- 7051 Aug, [facility] [id number] [address]- 2546 Jun, [facility] [address], [place] [address]- 2546 Jun, [facility] [id number] [address]- 2546 Jan, [facility] [address], [place] [address]- 2546 December, [facility] [address], [place] [address] 2546 Oct, [facility] [address], [place] [address]- 6816 Sep, [facility] [address], [place] [address]- 2546 Jun, IMMUNIZATIONS No Known Immunizations SOCIAL HISTORY Never Assessed REASON FOR VISIT MONIQUE Early PLAN OF CARE VITAL SIGNS MEDICATIONS Unknown Medications RESULTS No Results PROCEDURES No Known procedures INSTRUCTIONS MEDICATIONS ADMINISTERED No Known Medications MEDICAL (GENERAL) HISTORY Type Description Date Medical History 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 Has had [facility] NEUROLOGY care. Diagnosed with Focal Seizures with EEG Medical History ADHD Medical History Bipolar disorder Medical History Social anxiety disorder Surgical History Greer teeth removed 09/06/15 Surgical History Childbirth Surgical History Spider bite Hospitalization History psych; anger/aggression 2008 Hospitalization History ER visit Bleeding while 10/20/17
--- OUTSIDE RECORDS SUMMARY | 2018-04-04 10:57 | XMS REPORT ---
Author Author ANDREW REGIS [facility] Address [address] [place] [address] Care Team Providers Care Manager In Home Name Role Phone ANDREW REGIS Unavailable PROBLEMS Type Condition ICD9-CM Code RNG64-PA Code Onset Dates Condition Status SNOMED Code Problem Bipolar disorder, in partial remission, most recent episode depressed F31.75 Active 01612627 Problem Social phobia, generalized F40.11 Active 28446454 Problem Bipolar disorder, current episode hypomanic F31.0 Active 72787553 Problem Attention-deficit hyperactivity disorder, combined type F90.2 Active 88264384 Problem Abnormal ultrasound R93.8 Active 898877183 Problem Low lying placenta with hemorrhage, first trimester O44.51 Active 238125248 Problem Unspecified blood type, Rh negative Z67.91 Active 560393692 Problem Bipolar disorder with moderate depression F31.32 Active 892320807 Problem History of delivery, currently O09.219 Active 287528858 Problem Supervision of other high risk pregnancies, first trimester O09.891 Active [id number] ALLERGIES No Information ENCOUNTERS Encounter Location Date Diagnosis [facility] [id number] [place] [address] 85580- 1262 Mar, [facility] [id number] [place] [address] 09231- 8045 Feb, Third trimester Z34.93 ; 32 weeks gestation of Z3A.32 and Encounter for immunization Z23 [facility] [facility] [id number] [place] [address] 45049- 8348 Feb, History of delivery, currently O09.219 [facility] [id number] [place] [address] 23693- 9052 Feb, [facility] [address] 65451- 1483 Feb, [facility] [place] [address] [address] 0161 Feb, [facility] [place] [id number] [place] [address] 04081- 0952 Feb, Third trimester Z34.93 and Unspecified blood type , Rh negative Z67.91 [facility] [place] [id number] [place] [address] 81887- 3521 Feb, [facility] [place] [id number] [place] [address] 08861- 1017 Feb, History of delivery, currently O09.219 [facility] [id number] [place] [address] 59916- 9331 Jan, Unspecified blood type, Rh negative Z67.91 and History of delivery, currently O09.219 [facility] [id number] [place] [address] 59861- 4405 Jan, History of delivery, currently O09.219 [facility] [id number] [place] [address] 21602- 2033 Jan, [facility] [id number] [place] [address] 79805- 1115 Jan, [facility] [id number] [place] [address] 81708- 1294 Jan, care, subsequent in second trimester Z34.82 ; Diabetes mellitus screening Z13.1 ; Local reaction to immunization, initial encounter T88.1XXA and 26 weeks gestation of Z3A.26 [facility] [id number] [place] [address] 34662- 9257 Jan, [facility] [place] [id number] [place] [address] 33515- 1502 Jan, [facility] [place] [address] [place] [address] 09614- 1813 Jan, [facility] [place] [id number] [address] 0370 Jan, History of delivery, currently O09.219 [facility] [place] [address] [address] 6396 December, History of delivery, currently O09.219 [facility] [place] [address] [address]- 4681 December, History of delivery, currently O09.219 [facility] [place] [address] [address]- 9075 December, [facility] [place] [address], [place] [address]- 4381 December, [facility] [place] [address] [address] 4800 December, Second trimester Z34.92 and 22 weeks gestation of Z3A.22 [facility] [place] [address] [address]- 7771 December, [facility] [place] [address] [address]- 5875 December, History of delivery, currently O09.219 [facility] [place] [id number] [address]- 3703 December, History of delivery, currently O09.219 [facility] [place] [id number] [address]- 0118 December, [facility] [place] [id number] [address]- 4648 December, History of delivery, currently O09.219 [facility] [place] [id number] [address]- 5848 Nov, [facility] [place] [id number] [address]- 5400 Nov, History of delivery, currently O09.219 [facility] [place] [address], [place] [address]- 4217 Nov, care, subsequent in second trimester Z34.82 and 18 weeks gestation of Z3A.18 [facility] [place] [address] [address]- 6492 Nov, [facility] [id number] [place] [address] 56426- 6482 Oct, [place] [id number] [place] [address] 48998- 1643 Oct, Threatened miscarriage O20.0 [facility] [id number] [place] [address] 64532- 5234 Oct, 14 weeks gestation of Z3A.14 ; Threatened miscarriage O20.0 ; Other specified noninflammatory disorders of vagina N89.8 ; Other specified related conditions, second trimester O26.892 ; Vaginal candidiasis B37.3 ; Low lying placenta with hemorrhage, first trimester O44.51 ; Abnormal ultrasound R93.8 ; Second trimester Z34.92 and History of delivery, currently O09.219 [place] [id number] [place] [address] 89645- 2293 Oct, [place] [id number] [place] [address] 25417- 8810 Oct, care, subsequent in second trimester Z34.82 and 13 weeks gestation of Z3A.13 [place] [address] [address]- 9601 Sep, [facility] [id number] [place] [address] 64396- 9198 14 Sep, 2017 care, subsequent in first trimester Z34.81 and 9 weeks gestation of Z3A.09 [facility] [id number] [place] [address] 64520- 2131 14 Sep, 2017 [place] [address] [address]- 8782 Aug, [facility] [place] [address] [address]- 1285 Aug, [facility] [place] [address] [address]- 2083 Aug, [facility] [place] [id number] [place] [address] 13431- 3450 Aug, Encounter for test Z32.00 [facility] [place] [address], [place] [address]- 9090 Jul, [facility] [place] [id number] [place] [address] 42548- 0202 Jul, [facility] [address], [place] [address] Jun, [facility] [place] [id number] [place] [address] 26798- 2459 14 Apr, 2017 [facility] [place] [id number] [place] [address] 76395- 3842 Apr, Bipolar disorder with moderate depression F31.32 and Attention-deficit hyperactivity disorder, combined type F90.2 [facility] [place] [address], [place] [address]- 2243 Feb, [facility] [place] [address], [place] [address]- 2657 Feb, [facility] [place] [address], [place] [address]- 8817 Jan, [facility] [id number] [place] [address] 12415 -3116 Jan, Vaginal discharge N89.8 and Acute vaginitis N76.0 [facility] [place] [address], [place] [address]- 3310 Nov, [facility] [place] [id number] [address]- 1785 Nov, Encounter for visit Z39.2 ; Tobacco abuse counseling Z71.6 and Drug or alcohol risk assessment or counseling Z71.89 [facility] [place] [address], [place] [address]- 4520 Nov, [facility] [place] [id number] [place] [address] 60615- 8652 Oct, [facility] [place] [id number] [place] [address] 91338- 3721 Oct, [facility] [place] [id number] [place] [address] 51252- 8404 Oct, [facility] [place] [id number] [place] [address] 46808- 2874 Oct, STD exposure Z20.2 [place] [id number] [place] [address] 86372- 0380 Oct, Bipolar disorder, in partial remission, most recent episode depressed F31.75 ; Attention-deficit hyperactivity disorder, combined type F90.2 and Social phobia, generalized F40.11 [place] [id number] [place] [address] 11298- 9177 Oct, Bipolar disorder, in partial remission, most recent episode depressed F31.75 ; Attention-deficit hyperactivity disorder, combined type F90.2 and Social phobia, generalized F40.11 [facility] [place] [address] [address]- 6657 Oct, [facility] [place] [address] [address]- 2139 Sep, [place] [id number] [place] [address] 84671- 1355 Sep, [facility] [place] [address], [place] [address]- 7263 Sep, screening for streptococcus B Z36 ; care , first in third trimester Z34.03 and 35 weeks gestation of Z3A.35 [facility] [id number] [place] [address] 57035- 8211 07 Sep, 2016 care, first in third trimester Z34.03 and 34 weeks gestation of Z3A.34 [place] [id number] [place] [address] 44169- 4075 07 Sep, 2016 [place] [id number] [place] [address] 59890- 4785 02 Sep, 2016 [place] [id number] [place] [address] 79524- 4345 Sep, Bipolar disorder, in partial remission, most recent episode depressed F31.75 ; Attention-deficit hyperactivity disorder, combined type F90.2 and Social phobia, generalized F40.11 [place] [id number] [place] [address] 73704- 9256 Aug, Normal , first Z34.00 ; Encounter for immunization Z23 and 32 weeks gestation of Z3A.32 [place] [id number] [place] [address] 89871- 6667 Aug, [place] [id number] [place] [address] 99316- 7061 Aug, Other specified related conditions, third trimester O26.893 and 30 weeks gestation of Z3A.30 [place] [id number] [place] [address] 87001- 3461 Aug, [place] [id number] [place] [address] 78439- 1304 Jul, Diabetes mellitus screening Z13.1 ; , first, first trimester Z34.01 ; Other specified noninflammatory disorders of vagina N89.8 ; Other specified related conditions, third trimester O26.893 and 28 weeks gestation of Z3A.28 [place] [id number] [place] [address] 93442- 6088 Jul, [facility] [place] [address] [address]- 8978 Jun, [facility] [address] [id number] [place] [address] Jun [facility] [place] [id number] [place] [address] 67359- 1544 Jun, Normal , first Z34.00 ; Evaluate anatomy not seen on prior sonogram Z36 and 23 weeks gestation of Z3A.23 [facility] [place] [id number] [place] [address] 91777- 7728 17 Jun, 2016 [facility] [place] [id number] [place] [address] 37400- 8005 Jun, Bipolar disorder, in partial remission, most recent episode depressed F31.75 ; Attention-deficit hyperactivity disorder, combined type F90.2 and Social phobia, generalized F40.11 [facility] [place] [id number] [place] [address] 04242- 6292 May, [facility] [place] [id number] [place] [address] 75629- 1389 May, Normal , first Z34.00 and 19 weeks gestation of Z3A.19 [facility] [address], [place] [address]3205 May, Dysuria R30.0 and Acute cystitis during , second trimester O23.12 [facility] [place] [id number] [place] [address] 06494- 2397 Apr, [facility] [place] [address] [place] [address] 42023- 2627 Apr, care, first in second trimester Z34.02 [facility] [place] [address] [place] [address] 15193- 4779 Apr, [facility] [place] [id number] [place] [address] 65053- 0354 Apr, [facility] [place] [address], [place] [address]- 8269 Apr, [facility] [place] [address], [place] [address]- 7401 Apr, care, first in second trimester Z34.02 ; Dehydration E86.0 and 14 weeks gestation of Z3A.14 [facility] [place] [id number] [place] [address] 04825- 9952 Apr, Bipolar disorder, in partial remission, most recent episode depressed F31.75 ; Attention-deficit hyperactivity disorder, combined type F90.2 ; Social anxiety disorder F40.10 and 15 weeks gestation of Z3A.15 [facility] [place] [address], [place] [address]- 8058 Mar, [facility] [place] [address], [place] [address]- 7823 Mar, , first, first trimester Z34.01 and 10 weeks gestation of Z3A.10 [facility] [place] [address], [place] [address]- 0922 Mar, [facility] [place] [address], [place] [address]- 1943 Mar, [facility] [place] [address], [place] [address]- 4667 Feb, Normal , first Z34.00 and 6 weeks gestation of Z3A.01 [facility] [place] [id number] [address]- 1489 Feb, [facility] [place] [address], [place] [address]- 1850 Feb, [facility] [address] [id number] [place] [address] Feb [facility] [place] [id number] [address]- 5773 Feb, [facility] [place] [address], [place] [address]- 2834 Feb, [facility] [place] [id number] [place] [address] 59274- 4157 Feb, Bipolar disorder, in partial remission, most recent episode depressed F31.75 ; Attention-deficit hyperactivity disorder, combined type F90.2 and Social anxiety disorder F40.10 [facility] [place] [id number] [place] [address] 32398- 2657 Feb, Routine adult health maintenance Z00.00 [facility] [place] [id number] [place] [address] 45535- 8760 Feb, [facility] [place] [id number] [place] [address] 94374- 1284 Feb, confirmed by positive urine test Z32.01 [facility] [place] [id number] [place] [address] 85688- 6218 Feb, [facility] [place] [id number] [place] [address] 04853- 6564 Jan, [facility] [place] [id number] [place] [address] 26228- 7966 Jan, Bipolar disorder, in partial remission, most recent episode depressed F31.75 ; Attention-deficit hyperactivity disorder, combined type F90.2 and Social anxiety disorder F40.10 [facility] [place] [id number] [place] [address] 78832- 2319 Jan, Seizure disorder G40.909 [facility] [place] [address] [place] [address] 98274- 5021 Jan, [facility] [place] [id number] [place] [address] 42570- 5356 December, Bipolar disorder, current episode hypomanic F31.0 ; Attention-deficit hyperactivity disorder, combined type F90.2 and Social anxiety disorder F40.10 [facility] [place] [id number] [place] [address] 24704- 5860 December, Screening for STD sexually transmitted disease Z11.3 [facility] [place] [address], [place] [address]- 3157 Nov, [facility] [place] [address] 8983 Nov, [facility] [place] [address], [place] [address]- 6003 Nov, Screening for STD sexually transmitted disease Z11.3 and Attention-deficit hyperactivity disorder, combined type F90.2 [facility] [place] [address], [place] [address]- 6240 Nov, Attention-deficit hyperactivity disorder, combined type F90.2 ; Social anxiety disorder F40.10 and Bipolar disorder, current episode hypomanic F31.0 [facility] [place] [address], [place] [address]- 2648 Oct, [facility] [place] [address], [place] [address]- 2350 Oct, [facility] [place] [address], [place] [address]- 7428 Sep, [facility] [place] [address] [place] [address]- 0678 Sep, Bipolar disorder, in partial remission, most recent episode depressed F31.75 ; Attention-deficit hyperactivity disorder, combined type F90.2 and Social anxiety disorder F40.10 [facility] [place] [address] [address]- 2710 Sep, [facility] [place] [address] [address]- 3292 Aug, [facility] [place] [address]- 3676 Jul, [facility] [place] [address], [place] [address]- 6559 Jul, [facility], [place], [facility] [id number] [address] Jul, Bipolar disorder, in partial remission, most recent episode depressed F31.75 ; Attention-deficit hyperactivity disorder, combined type F90.2 and Social anxiety disorder F40.10 [facility], [place], [facility] [id number] [address] Jun, [facility], [place], [facility] [id number] [address] Jun, [facility], [place], [facility] [id number] [address] Jun, [facility], [place], [facility] [id number] [address] May, [facility], [place], [facility] [id number] [address] May, [facility], [place], [facility] [id number] [address] May, [facility], [place], [facility] [id number] [place] [address] May, Bipolar disorder, in partial remission, most recent episode depressed F31.75 ; Attention-deficit hyperactivity disorder, combined type F90.2 and Social anxiety disorder F40.10 [facility], [place], [facility] [id number] [address] Mar, Bipolar I disorder, moderate, current or most recent episode depressed, in partial remission, with mixed features 296.55 ; ADHD ( attention deficit hyperactivity disorder), combined type 314.01 and Social anxiety disorder 300.23 [facility] [place] [address] [address] Aug, [facility] [place] [address] [address] 9448 Aug, [facility] [place] [address], [place] [address] Jun, [facility] [place] [id number] [address] Jun, [facility] [place] [id number] [address] 8896 Jan, [facility] [place] [address] [address] 25[address] December, [facility] [place] [id number] [address] 2546 Oct, [facility] [place] [id number] [address] 1506 Sep, [facility] [place] [address], [place] [address] Jun, IMMUNIZATIONS No Known Immunizations SOCIAL HISTORY Never Assessed REASON FOR VISIT Nneka Injection order PLAN OF CARE VITAL SIGNS MEDICATIONS Unknown Medications RESULTS No Results PROCEDURES No Known procedures INSTRUCTIONS MEDICATIONS ADMINISTERED No Known Medications MEDICAL (GENERAL) HISTORY Type Description Date Medical History 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 Has had [facility] NEUROLOGY care. Diagnosed with Focal Seizures with EEG Medical History ADHD Medical History Bipolar disorder Medical History Social anxiety disorder Surgical History [place] teeth removed 09/06/15 Surgical History Childbirth Surgical History Spider bite Hospitalization History psych; anger/aggression 2008 Hospitalization History ER visit Bleeding while 10/20/17
--- OUTSIDE RECORDS SUMMARY | 2018-04-04 10:57 | XMS REPORT ---
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 Generation Name Role Phone ANDREW REGIS Unavailable PROBLEMS Type Condition ICD9-CM Code WBH47-PV Code Onset Dates Condition Status SNOMED Code Problem Bipolar disorder, in partial remission, most recent episode depressed F31.75 Active 47097419 Problem Social phobia, generalized F40.11 Active 84249898 Problem Bipolar disorder, current episode hypomanic F31.0 Active 86219294 Problem Attention-deficit hyperactivity disorder, combined type F90.2 Active 08453965 Problem Abnormal ultrasound R93.8 Active 899263525 Problem Low lying placenta with hemorrhage, first trimester O44.51 Active 595086879 Problem Unspecified blood type, Rh negative Z67.91 Active 871151286 Problem Bipolar disorder with moderate depression F31.32 Active 455292403 Problem History of delivery, currently O09.219 Active 861469293 Problem Supervision of other high risk pregnancies, first trimester O09.891 Active [id number] ALLERGIES No Information ENCOUNTERS Encounter Location Date Diagnosis [place] [id number] [place] [address] 56561- 1687 Feb, [place] [id number] [place] [address] 33149- 2103 Feb, [place] [id number] [place] [address] 29130- 8269 Feb, [place] [id number] [place] [address] 38994- 2111 Feb, [place] [id number] [place] [address] 76317- 6014 Feb, Third trimester Z34.93 and Unspecified blood type , Rh negative Z67.91 [place] [address], [place] [address] 2420 Feb, [facility] [id number] [place] [address] 52234- 1300 Feb, History of delivery, currently O09.219 [facility] [address], [place] [address] 8930 Jan, Unspecified blood type, Rh negative Z67.91 and History of delivery, currently O09.219 [facility] [id number], [place] [address]- 1178 Jan, History of delivery, currently O09.219 [place] [id number] [place] [address] 49629- 4569 Jan, [place] [id number] [place] [address] 09462- 4691 Jan, [place] [id number] [place] [address] 49036- 1610 Jan, Diabetes mellitus screening Z13.1 ; care, subsequent in second trimester Z34.82 ; Local reaction to immunization , initial encounter T88.1XXA and 26 weeks gestation of Z3A.26 [facility] [address], [place] [address]- 0341 Jan, [place] [address], [place] [address]- 2174 Jan, [facility] [address], [place] [address]- 9875 Jan, [facility] [id number] [place] [address] 92608- 4914 Jan, History of delivery, currently O09.219 [facility] [address], [place] [address]- 8329 December, History of delivery, currently O09.219 [facility] [id number], [place] [address]- 6431 December, History of delivery, currently O09.219 [facility] [address], [place] [address]- 7187 December, [facility] [id number], [place] [address]- 5193 December, [facility] [id number] [place] [address] 09963- 8835 December, 22 weeks gestation of Z3A.22 and Second trimester Z34.92 [facility] [id number] [place] [address] 76962- 4192 December, [facility] [id number] [place] [address] 40570- 2214 December, History of delivery, currently O09.219 [facility] [id number] [place] [address] 92721- 3841 December, History of delivery, currently O09.219 [facility] [address], [place] [address]- 0404 December, [facility] [id number] [place] [address] 94794- 5168 December, History of delivery, currently O09.219 [facility] [address], [place] [address]- 5069 Nov, [facility] [address], [place] [address]- 7978 Nov, History of delivery, currently O09.219 [facility] [id number] [place] [address] 18701- 6392 Nov, care, subsequent in second trimester Z34.82 and 18 weeks gestation of Z3A.18 [facility] [address], [place] [address]- 6582 Nov, [place] [address], [place] [address]- 0436 Oct, [place] [id number] [place] [address] 68275- 0763 Oct, Threatened miscarriage O20.0 [place] [address], [place] [address]- 3878 Oct, 14 weeks gestation of Z3A.14 ; Threatened miscarriage O20.0 ; Other specified noninflammatory disorders of vagina N89.8 ; Other specified related conditions, second trimester O26.892 ; Vaginal candidiasis B37.3 ; Low lying placenta with hemorrhage, first trimester O44.51 ; Abnormal ultrasound R93.8 ; Second trimester Z34.92 and History of delivery, currently O09.219 [place] [id number], [place] [address]- 8447 18 Oct, 2017 [place] [id number] [place] [address] 66261- 7949 16 Oct, 2017 care, subsequent in second trimester Z34.82 and 13 weeks gestation of Z3A.13 [place] [id number] [place] [address] 57150- 6271 22 Sep, 2017 [place] [id number] [place] [address] 95967- 2810 14 Sep, 2017 care, subsequent in first trimester Z34.81 and 9 weeks gestation of Z3A.09 [place] [address], [place] [address]- 4015 Sep, [place] [id number] [place] [address] 40225- 7634 Aug, [place] [id number] [place] [address] 38317- 1687 Aug, [place] [address], [place] [address]- 6320 Aug, [place] [address], [place] [address]- 3781 Aug, Encounter for test Z32.00 [facility] [id number] [place] [address] 48043- 7356 Jul, [facility] [id number] [place] [address] 16162- 9062 Jul, [facility] [id number] [place] [address] 18338 -3233 Jun, [facility] [id number] [place] [address] 57315- 8462 Apr, [facility] [id number] [place] [address] 99154- 1672 14 Apr, 2017 Bipolar disorder with moderate depression F31.32 and Attention-deficit hyperactivity disorder, combined type F90.2 [facility] [id number] [place] [address] 96314- 6686 Feb, [facility] [id number] [place] [address] 54456- 0225 Feb, [facility] [id number] [place] [address] 74511- 6500 Jan, [facility] [id number] [place] [address] 52219 -6216 Jan, Vaginal discharge N89.8 and Acute vaginitis N76.0 [facility] [id number] [place] [address] 21661- 9110 Nov, [facility] [id number] [place] [address] 97556- 8811 Nov, Encounter for visit Z39.2 ; Tobacco abuse counseling Z71.6 and Drug or alcohol risk assessment or counseling Z71.89 [facility] [address] [place] [address] 86366- 2853 Nov, [facility] [id number], [place] [address]- 2014 Oct, [facility] [id number] [place] [address] 35721- 9630 Oct, [facility] [id number] [place] [address] 78731- 0533 Oct, [facility] [id number] [place] [address] 51588- 9349 Oct, STD exposure Z20.2 [facility] [id number] [place] [address] 54384- 5110 Oct, Bipolar disorder, in partial remission, most recent episode depressed F31.75 ; Attention-deficit hyperactivity disorder, combined type F90.2 and Social phobia, generalized F40.11 [place] [id number] [place] [address] 15144- 4789 Oct, Bipolar disorder, in partial remission, most recent episode depressed F31.75 ; Attention-deficit hyperactivity disorder, combined type F90.2 and Social phobia, generalized F40.11 [place] [id number] [place] [address] 53023- 0213 Oct, [place] [id number] [place] [address] 46743- 5371 Sep, [place] [address], [place] [address]- 3794 Sep, [place] [id number] [place] [address] 75448- 7744 Sep, screening for streptococcus B Z36 ; care , first in third trimester Z34.03 and 35 weeks gestation of Z3A.35 [place] [address] [place] [address] 74477- 0546 Sep, care, first in third trimester Z34.03 and 34 weeks gestation of Z3A.34 [place] [id number] [place] [address] 84569- 3685 Sep, [place] [address], [place] [address]- 1852 Sep, [place] [id number] [place] [address] 87373- 4725 Sep, Bipolar disorder, in partial remission, most recent episode depressed F31.75 ; Attention-deficit hyperactivity disorder, combined type F90.2 and Social phobia, generalized F40.11 [place] [address], [place] [address]- 7860 Aug, Normal , first Z34.00 ; Encounter for immunization Z23 and 32 weeks gestation of Z3A.32 [place] [id number] [place] [address] 25407- 7281 Aug, [place] [id number] [place] [address] 12425- 0092 Aug, Other specified related conditions, third trimester O26.893 and 30 weeks gestation of Z3A.30 [place] [address], [place] [address]- 9483 Aug, [place] [id number] [place] [address] 38211- 9806 27 Jul, 2016 Diabetes mellitus screening Z13.1 ; , first, first trimester Z34.01 ; Other specified noninflammatory disorders of vagina N89.8 ; Other specified related conditions, third trimester O26.893 and 28 weeks gestation of Z3A.28 [place] [id number], [place] [address]- 0680 Jul, [place] [address], [place] [address]- 2410 Jun, [facility] [id number] [place] [address] Jun [place] [id number], [place] [address]- 2152 Jun, Normal , first Z34.00 ; Evaluate anatomy not seen on prior sonogram Z36 and 23 weeks gestation of Z3A.23 [facility] [id number] [place] [address] 76241- 0910 Jun, [facility] [id number] [place] [address] 46127- 6915 Jun, Bipolar disorder, in partial remission, most recent episode depressed F31.75 ; Attention-deficit hyperactivity disorder, combined type F90.2 and Social phobia, generalized F40.11 [facility] [id number] [place] [address] 70570- 3105 May, [facility] [id number] [place] [address] 89225- 0875 May, Normal , first Z34.00 and 19 weeks gestation of Z3A.19 [facility] [id number] [place] [address] 29979 -5760 May, Dysuria R30.0 and Acute cystitis during , second trimester O23.12 [facility] [id number] [place] [address] 01321- 1687 Apr, [facility] [id number] [place] [address] 62313- 8259 Apr, care, first in second trimester Z34.02 [facility] [id number] [place] [address] 04034- 1534 Apr, [facility] [id number] [place] [address] 00210- 2408 Apr, [facility] [id number] [place] [address] 37193- 4798 Apr, [facility] [id number] [place] [address] 64168- 0715 Apr, care, first in second trimester Z34.02 ; Dehydration E86.0 and 14 weeks gestation of Z3A.14 [place] [id number], [place] [address]- 7998 Apr, Bipolar disorder, in partial remission, most recent episode depressed F31.75 ; Attention-deficit hyperactivity disorder, combined type F90.2 ; Social anxiety disorder F40.10 and 15 weeks gestation of Z3A.15 [facility] [address], [place] [address]- 1336 Mar, [facility] [address], [place] [address]- 5198 Mar, , first, first trimester Z34.01 and 10 weeks gestation of Z3A.10 [facility] [address], [place] [address]- 5778 Mar, [facility] [address], [place] [address]- 7460 Mar, [facility] [address], [place] [address]- 6630 Feb, Normal , first Z34.00 and 6 weeks gestation of Z3A.01 [facility] [address], [place] [address]- 8348 Feb, [facility] [id number], [place] [address]- 0259 Feb, [address] [id number] [place] [address] Feb [facility] [address] [facility] [id number] [address]- 3895 Feb, [facility] [id number], [place] [address]- 7943 Feb, [facility] [id number], [place] [address]- 0508 Feb, Bipolar disorder, in partial remission, most recent episode depressed F31.75 ; Attention-deficit hyperactivity disorder, combined type F90.2 and Social anxiety disorder F40.10 [place] [address], [place] [address]- 3779 12 Feb, 2016 Routine adult health maintenance Z00.00 [facility] [id number], [place] [address]- 1103 2016 [facility] [id number] [place] [address] 20848- 0778 2016 confirmed by positive urine test Z32.01 [facility] [id number] [place] [address] 95914- 6981 2016 [facility] [id number] [place] [address] 97375- 1480 Jan, [facility] [id number] [place] [address] 33169- 9803 Jan, Bipolar disorder, in partial remission, most recent episode depressed F31.75 ; Attention-deficit hyperactivity disorder, combined type F90.2 and Social anxiety disorder F40.10 [facility] [address], [place] [address]- 0491 Jan, Seizure disorder G40.909 [facility] [id number], [place] [address]- 8338 07 Jan, 2016 [facility] [address] [place] [address] 45180- 8027 December, Bipolar disorder, current episode hypomanic F31.0 ; Attention-deficit hyperactivity disorder, combined type F90.2 and Social anxiety disorder F40.10 [facility] [address], [place] [address]- 3498 December, Screening for STD sexually transmitted disease Z11.3 [facility] [address], [place] [address]- 1267 27 Nov, 2015 [facility] [address], [place] [address]- 0648 14 Nov, 2015 [facility] [id number] [place] [address] 57897- 8335 Nov, Screening for STD sexually transmitted disease Z11.3 and Attention-deficit hyperactivity disorder, combined type F90.2 [facility] [id number] [place] [address] 17251- 9428 Nov, Attention-deficit hyperactivity disorder, combined type F90.2 ; Social anxiety disorder F40.10 and Bipolar disorder, current episode hypomanic F31.0 [facility] [id number] [place] [address] 76868- 0175 Oct, [facility] [id number] [place] [address] 14549- 0371 Oct, [facility] [id number] [place] [address] 19782- 8905 Sep, [facility] [id number] [place] [address] 96182- 3865 Sep, Bipolar disorder, in partial remission, most recent episode depressed F31.75 ; Attention-deficit hyperactivity disorder, combined type F90.2 and Social anxiety disorder F40.10 [facility] [id number] [place] [address] 63687- 0427 Sep, [facility] [address] [place] [address] 11432- 1576 Aug, [facility] [address], [place] [address]- 8135 Jul, [facility] [address], [place] [address]- 3694 Jul, [facility] [id number] [place] [address] 51112- 0017 Jul, Bipolar disorder, in partial remission, most recent episode depressed F31.75 ; Attention-deficit hyperactivity disorder, combined type F90.2 and Social anxiety disorder F40.10 [facility] [address] [place] [address] 64189- 3456 Jun, [facility] [address], [place] [address]- 1035 Jun, [facility] [id number] [place] [address] 465233- 2960 Jun, [facility] [id number] [place] [address] 493564- 8739 May, [facility] [id number] [place] [address] 09147- 9467 May, [facility] [id number] [place] [address] 17150- 1932 May, [facility] [id number] [place] [address] 90363- 8533 May, Bipolar disorder, in partial remission, most recent episode depressed F31.75 ; Attention-deficit hyperactivity disorder, combined type F90.2 and Social anxiety disorder F40.10 [facility] [id number] [place] [address] 16660- 5208 Mar, Bipolar I disorder, moderate, current or most recent episode depressed, in partial remission, with mixed features 296.55 ; ADHD ( attention deficit hyperactivity disorder), combined type 314.01 and Social anxiety disorder 300.23 [facility] [address], [place] [address]- 5178 Aug, [facility] [address] [place] [address] 44490- 6021 Aug, [facility] [id number] [place] [address] 50304- 6328 Jun, [facility] [id number] [place] [address] 97019- 9072 Jun, [facility] [id number] [place] [address] 08778312- 2889 Jan, [facility] [id number] [place] [address] 68442- 6761 December, [facility] [address] [facility] [id number] [place] [address]- 1486 Oct, [facility] [address] [facility] [id number] [place] [address]- 0463 Sep, [facility] [address] [facility] [id number] [place] [address]- 9231 Jun, IMMUNIZATIONS No Known Immunizations SOCIAL HISTORY Never Assessed REASON FOR VISIT Corrected Order PLAN OF CARE VITAL SIGNS MEDICATIONS Unknown Medications RESULTS Name Result Date Reference Range Ultrasound : OB, Limited 2017-10-29 PROCEDURES No Known procedures INSTRUCTIONS MEDICATIONS ADMINISTERED No Known Medications MEDICAL (GENERAL) HISTORY Type Description Date Medical History 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 Has had consisten NEUROLOGY care. Diagnosed with Focal Seizures with EEG Medical History ADHD Medical History Bipolar disorder Medical History Social anxiety disorder Surgical History [place] teeth removed 09/06/15 Surgical History Childbirth Surgical History Spider bite Hospitalization History psych; anger/aggression 2008 Hospitalization History ER visit Bleeding while 10/20/17
--- OUTSIDE RECORDS SUMMARY | 2018-04-04 10:58 | XMS REPORT ---
Author Author REGIS MORALES [facility] Address [address] [place] [address] Care Team Providers Care Shoe Packer Name Role Phone ANDREW REGIS Unavailable PROBLEMS Type Condition ICD9-CM Code BVB36-BO Code Onset Dates Condition Status SNOMED Code Problem Bipolar disorder, in partial remission, most recent episode depressed F31.75 Active 91428710 Problem Social phobia, generalized F40.11 Active 92426394 Problem Bipolar disorder, current episode hypomanic F31.0 Active 80111521 Problem Attention-deficit hyperactivity disorder, combined type F90.2 Active 67250835 Problem Abnormal ultrasound R93.8 Active 933301687 Problem Low lying placenta with hemorrhage, first trimester O44.51 Active 400532853 Problem Unspecified blood type, Rh negative Z67.91 Active 140115891 Problem Bipolar disorder with moderate depression F31.32 Active 899521820 Problem History of delivery, currently O09.219 Active 294078529 Problem Supervision of other high risk pregnancies, first trimester O09.891 Active 729603184 ALLERGIES No Known Allergies ENCOUNTERS Encounter Location Date Diagnosis [place] [id number] [place] [address] 15685- 0790 Feb, [place] [id number] [place] [address] 40219- 5149 Feb, [facility] [place] [id number] [place] [address] 02336- 9974 Feb, [facility] [place] [address] [place] [id number] [place] [address] 85116- 1170 Feb, [place] [id number] [place] [address] 77763- 2955 Feb, Third trimester Z34.93 and Unspecified blood type , Rh negative Z67.91 [place] [id number] [address] 3693 Feb, [facility] [place] [id number] [place] [address] 87257- 5854 Feb, History of delivery, currently O09.219 [facility] [place] [id number] [address] 8748 Jan, Unspecified blood type, Rh negative Z67.91 and History of delivery, currently O09.219 [facility] [place] [address] [address] 7184 Jan, History of delivery, currently O09.219 [place] [address] [place] [id number] [place] [address] 65190- 5462 Jan, [place] [address] [place] [id number] [place] [address] 21178- 1751 Jan, [facility] [place] [id number] [place] [address] 82976- 4382 Jan, care, subsequent in second trimester Z34.82 ; Diabetes mellitus screening Z13.1 ; Local reaction to immunization, initial encounter T88.1XXA and 26 weeks gestation of Z3A.26 [facility] [place] [id number] [address] 7650 Jan, [facility] [place] [id number] [address]- 6648 Jan, [facility] [place] [id number] [address]- 7317 Jan, [facility] [place] [id number] [place] [address] 69986- 0002 Jan, History of delivery, currently O09.219 [facility] [place] [id number] [address] 9391 December, History of delivery, currently O09.219 [facility] [place] [address] [place] [address] [address] [address] 0348 December, History of delivery, currently O09.219 [facility] [place] [id number] [address]- 0159 December, [facility] [place] [id number] [address]- 2773 December, [facility] [place] [id number] [place] [address] 79218- 7640 December, Second trimester Z34.92 and 22 weeks gestation of Z3A.22 [facility] [place] [id number] [place] [address] 00985- 4180 December, [facility] [place] [id number] [place] [address] 56600- 4219 December, History of delivery, currently O09.219 [facility] [place] [address] [address]- 3899 December, History of delivery, currently O09.219 [facility] [place] [address] [address]- 6229 December, [facility] [place] [id number] [place] [address] 38697- 0474 December, History of delivery, currently O09.219 [facility] [place] [address] [address]- 0379 Nov, [facility] [place] [address] [address]- 2730 Nov, History of delivery, currently O09.219 [facility] [place] [id number] [place] [address] 28421- 4696 Nov, care, subsequent in second trimester Z34.82 and 18 weeks gestation of Z3A.18 [facility] [place] [address] [address]- 9857 Nov, [facility] [place] [id number] [place] [address] 72181- 5656 Oct, [place] [address] [place] [id number] [place] [address] 04998- 6924 Oct, Threatened miscarriage O20.0 [place] [address] [place] [id number] [place] [address] 57467- 6524 Oct, 14 weeks gestation of Z3A.14 ; Threatened miscarriage O20.0 ; Other specified noninflammatory disorders of vagina N89.8 ; Other specified related conditions, second trimester O26.892 ; Vaginal candidiasis B37.3 ; Low lying placenta with hemorrhage, first trimester O44.51 ; Abnormal ultrasound R93.8 ; Second trimester Z34.92 and History of delivery, currently O09.219 [place] [address] [place] [id number] [place] [address] 43537- 4080 18 Oct, 2017 [place] [address] [place] [id number] [place] [address] 21912- 5145 16 Oct, 2017 care, subsequent in second trimester Z34.82 and 13 weeks gestation of Z3A.13 [place] [address] [place] [id number] [place] [address] 35567- 9592 22 Sep, 2017 [place] [address] [place] [id number] [place] [address] 33850- 3211 14 Sep, 2017 care, subsequent in first trimester Z34.81 and 9 weeks gestation of Z3A.09 [place] [id number] [place] [address] 69984- 6354 Sep, [place] [address] [place] [id number] [place] [address] 90439- 6533 Aug, [place] [address] [place] [id number] [place] [address] 90528- 1616 Aug, [place] [id number] [place] [address] 10770- 7670 Aug, [place] [id number] [address]- 8417 Aug, Encounter for test Z32.00 [facility] [place] [id number] [place] [address] 26556- 7314 Jul, [facility] [place] [id number] [place] [address] 31820- 0139 Jul, [facility] [id number] [place] [address] 87427 -0206 Jun, [facility] [place] [address] [place] [id number] [place] [address] 90253- 7159 Apr, [facility] [place] [address] [place] [id number] [place] [address] 07434- 4359 14 Apr, 2017 Bipolar disorder with moderate depression F31.32 and Attention-deficit hyperactivity disorder, combined type F90.2 [facility] [place] [address] [place] [id number] [place] [address] 37602- 9980 Feb, [facility] [place] [address] [place] [id number] [place] [address] 41447- 5147 Feb, [facility] [place] [address] [place] [id number] [place] [address] 38345- 0609 Jan, [facility] [id number] [place] [address] 85299 -8532 Jan, Vaginal discharge N89.8 and Acute vaginitis N76.0 [facility] [place] [id number] [place] [address] 58399- 8777 Nov, [facility] [place] [address] [place] [id number] [place] [address] 72348- 2175 Nov, Encounter for visit Z39.2 ; Tobacco abuse counseling Z71.6 and Drug or alcohol risk assessment or counseling Z71.89 [facility] [place] [id number] [place] [address] 52493- 5212 Nov, [facility] [place] [address] [place] [id number] [address]- 3062 Oct, [facility] [place] [address] [id number] [place] [address] 80619- 2062 Oct, [facility] [place] [address] [place] [id number] [place] [address] 28492- 1047 Oct, [facility] [place] [id number] [place] [address] 80340- 5113 Oct, STD exposure Z20.2 [facility] [place] [address] [place] [address] [id number] [place] [address] 15540- 0498 Oct, Bipolar disorder, in partial remission, most recent episode depressed F31.75 ; Attention-deficit hyperactivity disorder, combined type F90.2 and Social phobia, generalized F40.11 [place] [address] [place] [id number] [place] [address] 35134- 9226 Oct, Bipolar disorder, in partial remission, most recent episode depressed F31.75 ; Attention-deficit hyperactivity disorder, combined type F90.2 and Social phobia, generalized F40.11 [facility] [place] [id number] [place] [address] 48343- 2216 Oct, [place] [id number] [place] [address] 17577- 2498 Sep, [place] [id number] [place] [address] 57859- 6336 Sep, [place] [id number] [place] [address] 87995- 3092 Sep, screening for streptococcus B Z36 ; care , first in third trimester Z34.03 and 35 weeks gestation of Z3A.35 [place] [id number] [place] [address] 07080- 6481 Sep, care, first in third trimester Z34.03 and 34 weeks gestation of Z3A.34 [place] [id number] [place] [address] 11696- 1397 07 Sep, 2016 [place] [id number] [address]- 2646 Sep, [place] [id number] [address]- 4808 Sep, Bipolar disorder, in partial remission, most recent episode depressed F31.75 ; Attention-deficit hyperactivity disorder, combined type F90.2 and Social phobia, generalized F40.11 [place] [address] [address]- 0299 Aug, Normal , first Z34.00 ; Encounter for immunization Z23 and 32 weeks gestation of Z3A.32 [place] [id number] [place] [address] 75290- 0388 Aug, [place] [address] [place] [id number] [place] [address] 71428- 0986 Aug, Other specified related conditions, third trimester O26.893 and 30 weeks gestation of Z3A.30 [place] [address] [address]- 1897 Aug, [place] [id number] [place] [address] 28253- 7056 27 Jul, 2016 Diabetes mellitus screening Z13.1 ; , first, first trimester Z34.01 ; Other specified noninflammatory disorders of vagina N89.8 ; Other specified related conditions, third trimester O26.893 and 28 weeks gestation of Z3A.28 [place] [address] [facility] [id number] [address]- 5137 Jul, [place] [id number] [address]- 9854 Jun, [facility] [address] [id number] [address] Jun [place] [address] [facility] [id number] [address]- 9480 Jun, Normal , first Z34.00 ; Evaluate anatomy not seen on prior sonogram Z36 and 23 weeks gestation of Z3A.23 [facility] [place] [address] [place] [id number] [place] [address] 59477- 9365 17 Jun, 2016 [facility] [place] [address] [place] [id number] [place] [address] 05389- 3715 Jun, Bipolar disorder, in partial remission, most recent episode depressed F31.75 ; Attention-deficit hyperactivity disorder, combined type F90.2 and Social phobia, generalized F40.11 [facility] [place] [address] [place] [id number] [place] [address] 34631- 5640 May, [facility] [place] [address] [id number] [place] [address] 65078- 6454 May, Normal , first Z34.00 and 19 weeks gestation of Z3A.19 [facility] [id number] [place] [address] 04976 -4071 May, Dysuria R30.0 and Acute cystitis during , second trimester O23.12 [facility] [place] [address] [id number] [place] [address] 01894- 4447 Apr, [facility] [place] [id number] [place] [address] 67263- 0508 Apr, care, first in second trimester Z34.02 [facility] [place] [id number] [place] [address] 10651- 6810 Apr, [facility] [place] [id number] [place] [address] 37802- 9637 Apr, [facility] [place] [id number] [place] [address] 64686- 5582 Apr, [facility] [place] [address] [id number] [place] [address] 87836- 3755 Apr, care, first in second trimester Z34.02 ; Dehydration E86.0 and 14 weeks gestation of Z3A.14 [place] [address] [address]- 6345 Apr, Bipolar disorder, in partial remission, most recent episode depressed F31.75 ; Attention-deficit hyperactivity disorder, combined type F90.2 ; Social anxiety disorder F40.10 and 15 weeks gestation of Z3A.15 [facility] [place] [address] [address]- 7643 Mar, [facility] [place] [id number] [address]- 8803 Mar, , first, first trimester Z34.01 and 10 weeks gestation of Z3A.10 [facility] [place] [address] [address]- 9159 Mar, [facility] [place] [id number] [address]- 1924 Mar, [facility] [place] [address] [address]- 7255 Feb, Normal , first Z34.00 and 6 weeks gestation of Z3A.01 [facility] [place] [address] [address]- 5814 Feb, [facility] [place] [address] [place] [id number] [address]- 4596 Feb, [address] [id number] [place] [address] Feb [facility] [place] [address] [facility] [id number] [address]- 9462 Feb, [facility] [place] [id number] [address]- 5785 Feb, [facility] [place] [id number] [address]- 3757 Feb, Bipolar disorder, in partial remission, most recent episode depressed F31.75 ; Attention-deficit hyperactivity disorder, combined type F90.2 and Social anxiety disorder F40.10 [facility] [place] [address] [address]- 6097 12 Feb, 2016 Routine adult health maintenance Z00.00 [facility] [place] [id number] [place] [address] 87823- 1871 2016 [facility] [place] [id number] [place] [address] 84323- 6508 Feb, confirmed by positive urine test Z32.01 [facility] [place] [id number] [place] [address] 71478- 3856 Feb, [facility] [place] [address] [place] [id number] [place] [address] 50133- 6779 Jan, [facility] [place] [id number] [place] [address] 46033- 6608 Jan, Bipolar disorder, in partial remission, most recent episode depressed F31.75 ; Attention-deficit hyperactivity disorder, combined type F90.2 and Social anxiety disorder F40.10 [facility] [place] [id number] [place] [address] 74641- 9162 Jan, Seizure disorder G40.909 [facility] [place] [id number] [place] [address] 30926- 7039 Jan, [facility] [place] [id number] [place] [address] 36015- 2240 December, Bipolar disorder, current episode hypomanic F31.0 ; Attention-deficit hyperactivity disorder, combined type F90.2 and Social anxiety disorder F40.10 [facility] [place] [address] [address]- 7765 December, Screening for STD sexually transmitted disease Z11.3 [facility] [place] [id number] [place] [address] 44983- 1715 Nov, [facility] [place] [id number] [place] [address] 88942- 6033 Nov, [facility] [place] [id number] [address]- 9376 Nov, Screening for STD sexually transmitted disease Z11.3 and Attention-deficit hyperactivity disorder, combined type F90.2 [facility] [place] [id number] [place] [address] 76314- 6079 Nov, Attention-deficit hyperactivity disorder, combined type F90.2 ; Social anxiety disorder F40.10 and Bipolar disorder, current episode hypomanic F31.0 [facility] [place] [id number] [place] [address] 93520- 8959 Oct, [facility] [place] [id number] [place] [address] 56586- 0416 Oct, [facility] [place] [id number] [place] [address] 30195- 9939 Sep, [facility] [place] [id number] [place] [address] 61304- 8945 Sep, Bipolar disorder, in partial remission, most recent episode depressed F31.75 ; Attention-deficit hyperactivity disorder, combined type F90.2 and Social anxiety disorder F40.10 [facility] [place] [id number] [place] [address] 93337- 9482 Sep, [facility] [place] [id number] [address]- 6734 Aug, [facility] [place] [id number] [address]- 4561 Jul, [facility] [place] [id number] [address]- 7634 Jul, [facility] [place] [id number] [place] [address] 33604- 8616 Jul, Bipolar disorder, in partial remission, most recent episode depressed F31.75 ; Attention-deficit hyperactivity disorder, combined type F90.2 and Social anxiety disorder F40.10 [facility] [place] [id number] [place] [address] 17435- 5561 Jun, [facility] [place] [id number] [address]- 1553 Jun, [facility] [place] [id number] [place] [address] 05009- 0198 Jun, [facility] [place] [id number] [place] [address] 461544- 2246 May, [facility] [place] [id number] [place] [address] 36612- 5800 May, [facility] [place] [id number] [place] [address] 70234- 6700 May, [facility] [place] [id number] [place] [address] 26960- 0303 May, Bipolar disorder, in partial remission, most recent episode depressed F31.75 ; Attention-deficit hyperactivity disorder, combined type F90.2 and Social anxiety disorder F40.10 [facility] [place] [id number] [place] [address] 89575- 9713 Mar, Bipolar I disorder, moderate, current or most recent episode depressed, in partial remission, with mixed features 296.55 ; ADHD ( attention deficit hyperactivity disorder), combined type 314.01 and Social anxiety disorder 300.23 [facility] [place] [address] [address]- 8994 Aug, [facility] [id number] [place] [phone] Aug, [facility] [place] [id number] [place] [phone] Jun, [facility] [place] [id number] [place] [phone] Jun, [facility] [place] [id number] [place] [phone] Jan, [facility] [place] [id number] [place] [phone] December, [facility] [place] [address] [facility] [id number] [place] [phone] Oct, [facility] [place] [address] [facility] [id number] [address] Sep, [facility] [place] [address] [facility] [id number] [address] Jun, IMMUNIZATIONS No Known Immunizations SOCIAL HISTORY Never Assessed REASON FOR VISIT OB [id number], --she has a yeast infection white discharge, has consist pressure and feels as if she has a bubble in her vagina. , --antibotic since Saturday, on bedrest since leaving the hospital , --when doing ob dip urine is a dark brown and slightly cloudy PLAN OF CARE Activity Details Follow Up as scheduled Reason: VITAL SIGNS Height 64.3 in 2017-10-24 Weight 156 lbs 2017-10-24 Temperature 97.8 degrees Fahrenheit 2017-10-24 Heart Rate 82 bpm 2017-10-24 Respiratory Rate 20 2017-10-24 BMI 26.53 kg/m2 2017-10-24 Blood pressure systolic 106 mmHg 2017-10-24 Blood pressure diastolic 66 mmHg 2017-10-24 MEDICATIONS Medication Instructions Dosage Frequency Start Date End Date Duration Status Complete 14-0.4 MG Orally Once a day 1 tablet 24h Active Hydroxyprogesterone Caproate 250 MG/ML Intramuscular once weekly 1 ml Oct, Apr, 30 day(s) Active Latuda 20 mg Orally Once with evening meal 1 tablets with 350 calories Apr, Not-Taking Ferrous Sulfate 325 (65 Fe) MG Orally Once a day 1 tablet 24h Not- Taking Not-Taking Clotrimazole-7 1 % Vaginal Once a day 1 application at bedtime 24h Oct, Oct, 7 day(s) Active RESULTS No Results PROCEDURES Procedure Date Ordered Result Body Site URINE-NO MICRO October 24, 2017 Bacterial Vaginosis In House October 24, 2017 CULTURE, BACTERIA, OTHER October 24, 2017 TRICHOMONAS ASSAY W/OPTIC October 24, 2017 No Charge October 24, 2017 INSTRUCTIONS MEDICATIONS ADMINISTERED No Known Medications MEDICAL (GENERAL) HISTORY Type Description Date Medical History 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 Has had consisten NEUROLOGY care. Diagnosed with Focal Seizures with EEG Medical History ADHD Medical History Bipolar disorder Medical History Social anxiety disorder Surgical History [place] teeth removed 09/06/15 Surgical History Childbirth Surgical History Spider bite Hospitalization History psych; anger/aggression 2008 Hospitalization History ER visit Bleeding while 10/20/17
--- OUTSIDE RECORDS SUMMARY | 2018-04-04 10:58 | XMS REPORT ---
Author Author REGIS MORALES 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 Name Role Phone ANDREW REGIS Unavailable PROBLEMS Type Condition ICD9-CM Code QDD20-QV Code Onset Dates Condition Status SNOMED Code Problem Bipolar disorder, in partial remission, most recent episode depressed F31.75 Active 31014668 Problem Social phobia, generalized F40.11 Active 63445794 Problem Bipolar disorder, current episode hypomanic F31.0 Active 06572178 Problem Attention-deficit hyperactivity disorder, combined type F90.2 Active 41693585 Problem Abnormal ultrasound R93.8 Active 918607229 Problem Low lying placenta with hemorrhage, first trimester O44.51 Active 799358138 Problem Unspecified blood type, Rh negative Z67.91 Active 039038432 Problem Bipolar disorder with moderate depression F31.32 Active 967077491 Problem History of delivery, currently O09.219 Active 451441423 Problem Supervision of other high risk pregnancies, first trimester O09.891 Active [id number] ALLERGIES No Information ENCOUNTERS Encounter Location Date Diagnosis [place] [id number] [place] [address] 93391- 3680 Feb, [facility] [id number] [place] [address] 30171- 8748 Feb, [facility] [id number] [place] [address] 83800- 8858 Feb, [place] [id number] [place] [address] 81038- 7096 Feb, Third trimester Z34.93 and Unspecified blood type , Rh negative Z67.91 [place] [id number] [place] [address] 24538- 8740 Feb, [place] [address], [place] [address]- 2388 Feb, History of delivery, currently O09.219 [facility] [id number] [place] [address] 90821- 5079 Jan, Unspecified blood type, Rh negative Z67.91 and History of delivery, currently O09.219 [facility] [id number] [place] [address] 23884- 9907 Jan, History of delivery, currently O09.219 [facility] [id number] [place] [address] 74287- 3232 Jan, [place] [id number] [place] [address] 49591- 9398 Jan, [place] [id number] [place] [address] 88989- 5830 Jan, care, subsequent in second trimester Z34.82 ; Diabetes mellitus screening Z13.1 ; Local reaction to immunization, initial encounter T88.1XXA and 26 weeks gestation of Z3A.26 [facility] [id number] [place] [address] 81442- 3517 Jan, [facility] [address], [place] [address]- 5977 Jan, [place] [id number] [address]- 0514 Jan, [facility] [id number], [place] [address]- 6072 Jan, History of delivery, currently O09.219 [facility] [id number] [place] [address] 64572- 8009 December, History of delivery, currently O09.219 [facility] [address], [place] [address]- 2792 December, History of delivery, currently O09.219 [facility] [address], [place] [address]- 1233 December, [facility] [address] [address]- 7372 December, [facility] [address], [place] [address]- 4275 December, Second trimester Z34.92 and 22 weeks gestation of Z3A.22 [facility] [id number] [address]- 6778 December, [facility] [id number] [place] [address] 80202- 6403 December, History of delivery, currently O09.219 [facility] [address], [place] [address]- 0889 December, History of delivery, currently O09.219 [facility] [id number], [place] [address]- 7431 December, [facility] [address], [place] [address]- 6308 December, History of delivery, currently O09.219 [facility] [address], [place] [address]- 6687 Nov, [facility] [address], [place] [address]- 2874 Nov, History of delivery, currently O09.219 [facility] [address], [place] [address]- 6890 Nov, care, subsequent in second trimester Z34.82 and 18 weeks gestation of Z3A.18 [facility] [address], [place] [address]- 5958 Nov, [facility] [address], [place] [address]- 2101 Oct, [place] [id number] [place] [address] 65543- 6679 Oct, Threatened miscarriage O20.0 [place] [id number] [place] [address] 09099- 3504 Oct, 14 weeks gestation of Z3A.14 ; Threatened miscarriage O20.0 ; Other specified noninflammatory disorders of vagina N89.8 ; Other specified related conditions, second trimester O26.892 ; Vaginal candidiasis B37.3 ; Low lying placenta with hemorrhage, first trimester O44.51 ; Abnormal ultrasound R93.8 ; Second trimester Z34.92 and History of delivery, currently O09.219 [place] [id number] [place] [address] 76751- 6994 18 Oct, 2017 [place] [id number] [place] [address] 50852- 0594 16 Oct, 2017 care, subsequent in second trimester Z34.82 and 13 weeks gestation of Z3A.13 [place] [address] [id number] [place] [address] 28235- 4221 22 Sep, 2017 [place] [id number] [place] [address] 92654- 0656 14 Sep, 2017 care, subsequent in first trimester Z34.81 and 9 weeks gestation of Z3A.09 [place] [address] [id number] [place] [address] 10840- 1021 14 Sep, 2017 [place] [id number] [place] [address] 59102- 5209 Aug, [place] [id number] [place] [address] 28183- 4124 Aug, [place] [address] [id number] [place] [address] 13970- 0223 Aug, Encounter for test Z32.00 [place] [address] 76704- 6282 Aug, [facility] [address], [place] [address]- 4479 Jul, [facility] [id number] [place] [address] 72280- 8040 Jul, [facility] [address], [place] [address] -1917 Jun, [facility] [id number] [place] [address] 95907- 8608 14 Apr, 2017 [facility] [id number] [place] [address] 02840- 0606 14 Apr, 2017 Bipolar disorder with moderate depression F31.32 and Attention-deficit hyperactivity disorder, combined type F90.2 [facility] [id number] [place] [address] 39801- 9244 Feb, [facility] [address] [address] [id number] [place] [address] 72296- 1164 Feb, [facility] [id number] [place] [address] 88126- 3109 Jan, [facility] [id number] [place] [address] 46555 -0787 Jan, Vaginal discharge N89.8 and Acute vaginitis N76.0 [facility] [address] [address] [id number] [place] [address] 52450- 8080 Nov, [facility] [id number] [place] [address] 87364- 0908 Nov, Encounter for visit Z39.2 ; Tobacco abuse counseling Z71.6 and Drug or alcohol risk assessment or counseling Z71.89 [facility] [id number] [place] [address] 04243- 6270 Nov, [facility] [id number] [place] [address] 38817- 5025 Oct, [facility] [id number] [place] [address] 18407- 4171 Oct, [facility] [address] [address] [id number] [place] [address] 27813- 3182 Oct, [place] [address] [id number] [place] [address] 41342- 6436 Oct, STD exposure Z20.2 [place] [id number] [place] [address] 49368- 1625 Oct, Bipolar disorder, in partial remission, most recent episode depressed F31.75 ; Attention-deficit hyperactivity disorder, combined type F90.2 and Social phobia, generalized F40.11 [place] [address] [id number] [place] [address] 12800- 8986 Oct, Bipolar disorder, in partial remission, most recent episode depressed F31.75 ; Attention-deficit hyperactivity disorder, combined type F90.2 and Social phobia, generalized F40.11 [place] [id number] [place] [address] 50939- 9471 Oct, [place] [id number] [place] [address] 65826- 0241 Sep, [place] [address] [id number] [place] [address] 75692- 1238 Sep, [place] [address], [place] [address]- 9547 Sep, screening for streptococcus B Z36 ; care , first in third trimester Z34.03 and 35 weeks gestation of Z3A.35 [place] [id number] [place] [address] 34660- 7998 Sep, care, first in third trimester Z34.03 and 34 weeks gestation of Z3A.34 [place] [id number] [place] [address] 88477- 9308 Sep, [facility] [id number] [place] [address] 98179- 1108 Sep, [place] [address] [place] [id number], [place] [address]- 7429 02 Sep, 2016 Bipolar disorder, in partial remission, most recent episode depressed F31.75 ; Attention-deficit hyperactivity disorder, combined type F90.2 and Social phobia, generalized F40.[address], [place] [address]- 9224 Aug, Normal , first Z34.00 ; Encounter for immunization Z23 and 32 weeks gestation of Z3A.32 [place] [id number] [place] [address] 35132- 7444 10 Aug, 2016 [place] [id number] [place] [address] 78894- 4437 Aug, Other specified related conditions, third trimester O26.893 and 30 weeks gestation of Z3A.30 [place] [id number] [place] [address] 77511- 9284 04 Aug, 2016 [place] [address] [id number] [place] [address] 20517- 2064 27 Jul, 2016 Diabetes mellitus screening Z13.1 ; , first, first trimester Z34.01 ; Other specified noninflammatory disorders of vagina N89.8 ; Other specified related conditions, third trimester O26.893 and 28 weeks gestation of Z3A.28 [address], [place] [address]- 0445 Jul, [place] [id number] [address]- 4922 Jun, [facility] [id number] [address] Jun [place] [id number], [place] [address]- 7556 Jun, Normal , first Z34.00 ; Evaluate anatomy not seen on prior sonogram Z36 and 23 weeks gestation of Z3A.23 [place] [address], [place] [address]- 9649 Jun, [facility] [id number] [place] [address] 00776- 9392 Jun, Bipolar disorder, in partial remission, most recent episode depressed F31.75 ; Attention-deficit hyperactivity disorder, combined type F90.2 and Social phobia, generalized F40.11 [facility] [id number] [place] [address] 43097- 8684 May, [facility] [id number] [place] [address] 42857- 4746 May, Normal , first Z34.00 and 19 weeks gestation of Z3A.19 [facility] [id number] [place] [address] 42377 -0463 May, Dysuria R30.0 and Acute cystitis during , second trimester O23.12 [facility] [id number] [place] [address] 13643- 7540 Apr, [facility] [id number] [place] [address] 06586- 8720 Apr, care, first in second trimester Z34.02 [facility] [id number] [place] [address] 97202- 0494 Apr, [facility] [id number] [place] [address] 62774- 4918 Apr, [facility] [id number] [place] [address] 61914- 5296 Apr, [facility] [id number] [place] [address] 06607- 6539 Apr, 2015 care, first in second trimester Z34.02 ; Dehydration E86.0 and 14 weeks gestation of Z3A.14 [facility] [id number] [place] [address] 30642- 0158 22 Sep, 2016 Bipolar disorder, in partial remission, most recent episode depressed F31.75 ; Attention-deficit hyperactivity disorder, combined type F90.2 ; Social anxiety disorder F40.10 and 15 weeks gestation of Z3A.15 [facility] [address] [facility] [id number] [address]- 5315 Mar, [facility] [address] [facility] [id number], [place] [address]- 0249 Mar, , first, first trimester Z34.01 and 10 weeks gestation of Z3A.10 [facility] [address] [facility] [id number], [place] [address]- 1179 Mar, [facility] [id number], [place] [address]- 1725 Mar, [facility] [address] [facility] [id number], [place] [address]- 8995 Feb, Normal , first Z34.00 and 6 weeks gestation of Z3A.01 [facility] [address] [facility] [id number], [place] [address]- 7683 Feb, [facility] [address] [facility] [id number], [place] [address]- 1184 Feb, [address] [id number] [place] [address] Feb [facility] [address] [facility] [id number], [place] [address]- 6065 Feb, [facility] [address] [facility] [id number], [place] [address]- 1653 Feb, [facility] [address] [facility] [id number], [place] [address]- 2662 Feb, Bipolar disorder, in partial remission, most recent episode depressed F31.75 ; Attention-deficit hyperactivity disorder, combined type F90.2 and Social anxiety disorder F40.10 [facility] [address] [facility] [id number], [place] [address]- 7647 Feb, Routine adult health maintenance Z00.00 [facility] [address], [place] [address]- 6165 Feb, [facility] [address], [place] [address]- 8028 Feb, confirmed by positive urine test Z32.01 [facility] [address], [place] [address]- 0979 Feb, [facility] [address], [place] [address]- 5088 Jan, [facility] [address], [place] [address]- 7645 Jan, Bipolar disorder, in partial remission, most recent episode depressed F31.75 ; Attention-deficit hyperactivity disorder, combined type F90.2 and Social anxiety disorder F40.10 [facility] [address], [place] [address]- 4495 Jan, Seizure disorder G40.909 [facility] [address], [place] [address]- 4864 Jan, [facility] [address], [place] [address]- 5615 December, Bipolar disorder, current episode hypomanic F31.0 ; Attention-deficit hyperactivity disorder, combined type F90.2 and Social anxiety disorder F40.10 [facility] [address], [place] [address]- 7880 December, Screening for STD sexually transmitted disease Z11.3 [facility] [address], [place] [address]- 1818 Nov, [facility] [address], [place] [address]- 5908 Nov, [facility] [id number], [place] [address]- 7610 Nov, Screening for STD sexually transmitted disease Z11.3 and Attention-deficit hyperactivity disorder, combined type F90.2 [facility] [address], [place] [address]- 9380 Nov, Attention-deficit hyperactivity disorder, combined type F90.2 ; Social anxiety disorder F40.10 and Bipolar disorder, current episode hypomanic F31.0 [facility] [address] [address]- 4986 Oct, [facility] [id number] [place] [address] 74840- 4016 Oct, [facility] [address] [place] [address]- 4056 Sep, [facility] [id number] [place] [address] 66774- 4236 Sep, Bipolar disorder, in partial remission, most recent episode depressed F31.75 ; Attention-deficit hyperactivity disorder, combined type F90.2 and Social anxiety disorder F40.10 [facility] [address], [place] [address]- 7624 Sep, [facility] [address], [place] [address]- 4374 Aug, [facility] [address], [place] [address]- 8756 Jul, [facility] [address], [place] [address]- 0706 Jul, [facility] [address], [place] [address]- 6937 Jul, Bipolar disorder, in partial remission, most recent episode depressed F31.75 ; Attention-deficit hyperactivity disorder, combined type F90.2 and Social anxiety disorder F40.10 [facility] [address], [place] [address]- 3416 Jun, [facility] [address], [place] [address]- 1002 Jun, [facility] [address], [place] [address]- 3570 Jun, [facility] [id number] [place] [address] 19716- 9608 May, [facility] [id number] [place] [address] 82038- 4979 May, [facility] [id number] [place] [address] 29121- 7658 May, [facility] [id number] [place] [address] 48935- 9177 May, Bipolar disorder, in partial remission, most recent episode depressed F31.75 ; Attention-deficit hyperactivity disorder, combined type F90.2 and Social anxiety disorder F40.10 [facility] [id number] [place] [address] 08342- 3046 Mar, Bipolar I disorder, moderate, current or most recent episode depressed, in partial remission, with mixed features 296.55 ; ADHD ( attention deficit hyperactivity disorder), combined type 314.01 and Social anxiety disorder 300.23 [facility] [id number] [place] [address] 24456- 9141 Aug, [facility] [id number] [place] [address] 67163- 4138 Aug, [facility] [id number] [place] [address] 87208- 5650 Jun, [facility] [id number] [place] [address] 04930- 3673 Jun, [facility] [id number] [place] [address] 67163- 5257 Jan, [facility] [id number] [place] [address] 055684- 5745 December, [facility] [id number] [place] [address] 53583- 7604 Oct, [facility] [address] [facility] [id number] [place] [address]- [address] Sep, [facility] [address] [facility] [id number] [address] Jun, IMMUNIZATIONS No Known Immunizations SOCIAL HISTORY Never Assessed REASON FOR VISIT OB 4wk f/u -- miladys vick PLAN OF CARE Activity Details Follow Up 4 Weeks Reason: VITAL SIGNS Height 64.3 in 2017-10-18 Weight 156.0 lbs 2017-10-18 Temperature 98.0 degrees Fahrenheit 2017-10-18 Heart Rate 78 bpm 2017-10-18 Respiratory Rate 22 2017-10-18 BMI 26.528 kg/m2 2017-10-18 Blood pressure systolic 118 mmHg 2017-10-18 Blood pressure diastolic 70 mmHg 2017-10-18 MEDICATIONS Medication Instructions Dosage Frequency Start Date End Date Duration Status Not-Taking Latuda 20 mg Orally Once with evening meal 1 tablets with 350 calories Apr, Not-Taking Ferrous Sulfate 325 (65 Fe) MG Orally Once a day 1 tablet 24h Not- Taking Complete 14-0.4 MG Orally Once a day 1 tablet 24h Active RESULTS Name Result Date Reference Range UA OB DIP (IN HOUSE) 2017-10-18 Glucose neg Protein trace PROCEDURES Procedure Date Ordered Result Body Site URINE-NO MICRO October 18, 2017 INSTRUCTIONS MEDICATIONS ADMINISTERED No Known Medications MEDICAL (GENERAL) HISTORY Type Description Date Medical History 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 Has had consisten NEUROLOGY care. Diagnosed with Focal Seizures with EEG Medical History ADHD Medical History Bipolar disorder Medical History Social anxiety disorder Surgical History [place] teeth removed 09/06/15 Surgical History Childbirth Surgical History Spider bite Hospitalization History psych; anger/aggression 2008 Hospitalization History ER visit Bleeding while 10/20/17
--- OUTSIDE RECORDS SUMMARY | 2018-04-04 10:59 | XMS REPORT ---
Author Author ANDREW REGIS [facility] Address [address] [place] [address] Care Team Providers Care Institutional Aide Name Role Phone ANDREW REGIS Unavailable PROBLEMS Type Condition ICD9-CM Code NQB21-YO Code Onset Dates Condition Status SNOMED Code Problem Bipolar disorder, in partial remission, most recent episode depressed F31.75 Active 74929058 Problem Social phobia, generalized F40.11 Active 68395235 Problem Bipolar disorder, current episode hypomanic F31.0 Active 65935380 Problem Attention-deficit hyperactivity disorder, combined type F90.2 Active 64705050 Problem Abnormal ultrasound R93.8 Active 119734403 Problem Low lying placenta with hemorrhage, first trimester O44.51 Active 801023212 Problem Unspecified blood type, Rh negative Z67.91 Active 756156082 Problem Bipolar disorder with moderate depression F31.32 Active 329637886 Problem History of delivery, currently O09.219 Active 593869534 Problem Supervision of other high risk pregnancies, first trimester O09.891 Active 773244384 ALLERGIES No Information ENCOUNTERS Encounter Location Date Diagnosis [place] [address] [address] Feb, [place] [address] [place] [id number] [place] [address] 99030- 0594 Feb, [place] [id number] [place] [address] 32397- 7511 Feb, Third trimester Z34.93 and Unspecified blood type , Rh negative Z67.91 [place] [id number] [place] [address] 74753- 9277 Feb, [place] [id number] [place] [address] 18872- 8095 Feb, History of delivery, currently O09.219 [facility] [address] [address] 5099 Jan, Unspecified blood type, Rh negative Z67.91 and History of delivery, currently O09.219 [facility] [address] [address]- 3685 Jan, History of delivery, currently O09.219 [facility] [id number] [place] [address] 46831- 5878 Jan, [facility] [id number] [place] [address] 47440- 7538 Jan, [place] [address] [id number] [place] [address] 84535- 7267 Jan, care, subsequent in second trimester Z34.82 ; Diabetes mellitus screening Z13.1 ; Local reaction to immunization, initial encounter T88.1XXA and 26 weeks gestation of Z3A.26 [facility] [address] [address]- 6352 12 Jan, 2018 [facility] [id number] [place] [address] 28329- 6131 Jan, [facility] [address] [address]- 8738 Jan, [facility] [id number] [address]- 2764 Jan, History of delivery, currently O09.219 [facility] [address] [address]- 1194 December, History of delivery, currently O09.219 [facility] [id number] [place] [address] 09793- 1090 December, History of delivery, currently O09.219 [facility] [id number] [place] [address] 18243- 9683 December, [facility] [address] [address]- 2395 December, [facility] [id number] [place] [address] 14018- 8935 December, Second trimester Z34.92 and 22 weeks gestation of Z3A.22 [facility] [address] [id number] [place] [address] 12006- 4044 December, [facility] [address] [id number] [place] [address] 48874- 5815 December, History of delivery, currently O09.219 [place] [address] [id number] [place] [address] 21708- 6091 December, History of delivery, currently O09.219 [facility] [address] [id number] [place] [address] 26388- 3399 December, [facility] [id number] [place] [address] 63473- 6268 December, History of delivery, currently O09.219 [facility] [address] [id number] [place] [address] 96772- 3906 Nov, [facility] [id number] [address]- 8161 Nov, History of delivery, currently O09.219 [facility] [address] [address]- 6355 Nov, care, subsequent in second trimester Z34.82 and 18 weeks gestation of Z3A.18 [facility] [address] [id number] [place] [address] 91404- 6013 Nov, [facility] [address] [id number] [place] [address] 07036- 9876 Oct, [facility] [address] [address]- 6374 Oct, Threatened miscarriage O20.0 [place] [address] [id number] [place] [address] 92360- 8537 Oct, 14 weeks gestation of Z3A.14 ; Threatened miscarriage O20.0 ; Other specified noninflammatory disorders of vagina N89.8 ; Other specified related conditions, second trimester O26.892 ; Vaginal candidiasis B37.3 ; Low lying placenta with hemorrhage, first trimester O44.51 ; Abnormal ultrasound R93.8 ; Second trimester Z34.92 and History of delivery, currently O09.219 [place] [address] [id number] [place] [address] 93100- 3351 18 Oct, 2017 [place] [address] 14887- 0563 16 Oct, 2017 care, subsequent in second trimester Z34.82 and 13 weeks gestation of Z3A.13 [place] [address] [id number] [place] [address] 89598- 1395 22 Sep, 2017 [place] [address] [address] [id number] [place] [address] 60596- 1169 14 Sep, 2017 care, subsequent in first trimester Z34.81 and 9 weeks gestation of Z3A.09 [place] [address] [place] [address] [id number] [place] [address] 45539- 4509 14 Sep, 2017 [place] [address] [id number] [place] [address] 83751- 8437 Aug, [place] [address] [id number] [place] [address] 19076- 8782 Aug, [place] [address] [address] [id number] [place] [address] 92387- 4903 Aug, Encounter for test Z32.00 [place] [address] [id number] [place] [address] 93965- 4292 Aug, [place] [address] [id number] [place] [address] 76415- 7348 Jul, [facility] [address] [address]- 9752 Jul, [facility] [address] [address]0162 Jun, [facility] [address] [address]- 4641 14 Apr, 2017 [facility] [address] [id number] [place] [address] 33132- 1898 14 Apr, 2017 Bipolar disorder with moderate depression F31.32 and Attention-deficit hyperactivity disorder, combined type F90.2 [facility] [address] [id number] [place] [address] 88939- 5423 Feb, [facility] [id number] [place] [address] 92616- 8365 Feb, [facility] [id number] [place] [address] 84950- 2047 Jan, [facility] [id number] [place] [address] 00558 -4717 Jan, Vaginal discharge N89.8 and Acute vaginitis N76.0 [facility] [address] [address]- 0041 Nov, [facility] [id number] [place] [address] 59413- 8502 Nov, Encounter for visit Z39.2 ; Tobacco abuse counseling Z71.6 and Drug or alcohol risk assessment or counseling Z71.89 [facility] [address] [address]- 7300 Nov, [facility] [id number] [place] [address] 67442- 7965 Oct, [facility] [address] [address]- 0991 Oct, [facility] [id number] [address]- 6913 Oct, [facility] [address] [address]- 4506 Oct, STD exposure Z20.2 [facility] [address] [id number] [place] [address] 11894- 4627 Oct, Bipolar disorder, in partial remission, most recent episode depressed F31.75 ; Attention-deficit hyperactivity disorder, combined type F90.2 and Social phobia, generalized F40.11 [facility] [id number] [place] [address] 73997- 7792 Oct, Bipolar disorder, in partial remission, most recent episode depressed F31.75 ; Attention-deficit hyperactivity disorder, combined type F90.2 and Social phobia, generalized F40.11 [place] [id number] [place] [address] 77598- 4659 Oct, [place] [id number] [place] [address] 85577- 7424 Sep, [facility] [id number] [place] [address] 57237- 3822 Sep, [place] [id number] [place] [address] 31405- 3276 Sep, screening for streptococcus B Z36 ; care , first in third trimester Z34.03 and 35 weeks gestation of Z3A.35 [place] [id number] [place] [address] 28686- 9511 Sep, care, first in third trimester Z34.03 and 34 weeks gestation of Z3A.34 [place] [id number] [place] [address] 81226- 4658 Sep, [place] [id number] [place] [address] 46598- 0142 Sep, [place] [id number] [place] [address] 54933- 9407 Sep, Bipolar disorder, in partial remission, most recent episode depressed F31.75 ; Attention-deficit hyperactivity disorder, combined type F90.2 and Social phobia, generalized F40.11 [place] [id number] [place] [address] 57110- 5961 Aug, Normal , first Z34.00 ; Encounter for immunization Z23 and 32 weeks gestation of Z3A.32 [place] [address] [place] [id number] [place] [address] 76775- 7904 10 Aug, 2016 [place] [address] [place] [address] [id number] [place] [address] 53068- 0142 10 Aug, 2016 Other specified related conditions, third trimester O26.893 and 30 weeks gestation of Z3A.30 [place] [address] [id number] [place] [address] 15790- 7835 04 Aug, 2016 [place] [address] [id number] [place] [address] 95820- 4982 27 Jul, 2016 Diabetes mellitus screening Z13.1 ; , first, first trimester Z34.01 ; Other specified noninflammatory disorders of vagina N89.8 ; Other specified related conditions, third trimester O26.893 and 28 weeks gestation of Z3A.28 [address] [place] [address] 31848- 3462 14 Jul, 2016 [place] [id number] [place] [address] 86946- 5762 Jun, [facility] [place] [id number] [place] [address] Jun [address] [place] [address] 65147- 0972 Jun, Normal , first Z34.00 ; Evaluate anatomy not seen on prior sonogram Z36 and 23 weeks gestation of Z3A.23 [address] [place] [address] 66900- 6987 17 Jun, 2016 [place] [address] [address]- 5331 Jun, Bipolar disorder, in partial remission, most recent episode depressed F31.75 ; Attention-deficit hyperactivity disorder, combined type F90.2 and Social phobia, generalized F40.11 [facility] [address] [address]- 3686 May, [facility] [address] [place] [id number] [place] [address] 18110- 3509 May, Normal , first Z34.00 and 19 weeks gestation of Z3A.19 [facility] [address] [id number] [place] [address] 77715 -0697 May, Dysuria R30.0 and Acute cystitis during , second trimester O23.12 [place] [address] [place] [id number] [place] [address] 55538- 3195 29 Apr, 2016 [place] [address] [address] [id number] [place] [address] 11560- 3525 Apr, care, first in second trimester Z34.02 [place] [address] [place] [address] [id number] [place] [address] 49966- 7673 Apr, 2015 [facility] [address] [place] [address] [id number] [place] [address] 45821- 6760 Apr, [place] [address] [id number] [place] [address] 50480- 8037 Apr, [place] [address] [id number] [place] [address] 05564- 4988 Apr, 2015 care, first in second trimester Z34.02 ; Dehydration E86.0 and 14 weeks gestation of Z3A.14 [facility] [address] [place] [id number] [place] [address] 63687- 5412 Apr, Bipolar disorder, in partial remission, most recent episode depressed F31.75 ; Attention-deficit hyperactivity disorder, combined type F90.2 ; Social anxiety disorder F40.10 and 15 weeks gestation of Z3A.15 [facility] [address] [address]- 3855 Mar, [facility] [address] [address]- 2171 Mar, , first, first trimester Z34.01 and 10 weeks gestation of Z3A.10 [facility] [address] [address]- 3214 Mar, [facility] [address] [address]- 8450 Mar, [place] [address] [address]- 2472 Feb, Normal , first Z34.00 and 6 weeks gestation of Z3A.01 [place] [address] [address]- 0424 Feb, [facility] [address] [address]- 7170 Feb, [address] [id number] [place] [address] Feb [facility] [address] [place] [id number] [address]- 5703 Feb, [place] [address] [place] [id number] [address]- 7664 Feb, [place] [address] [place] [id number] [address]- 1731 Feb, Bipolar disorder, in partial remission, most recent episode depressed F31.75 ; Attention-deficit hyperactivity disorder, combined type F90.2 and Social anxiety disorder F40.10 [facility] [address] [place] [id number] [address]- 9436 Feb, Routine adult health maintenance Z00.00 [facility] [address] [address]- 6453 Feb, [facility] [address] [address]- 8774 Feb, confirmed by positive urine test Z32.01 [facility] [address] [address]- 6136 Feb, [facility] [address] [address]- 3494 Jan, [facility] [id number] [place] [address] 88679- 8422 Jan, Bipolar disorder, in partial remission, most recent episode depressed F31.75 ; Attention-deficit hyperactivity disorder, combined type F90.2 and Social anxiety disorder F40.10 [facility] [address] [address]- 4414 Jan, Seizure disorder G40.909 [facility] [address] [address] [address]- 9092 Jan, [facility] [address] [place] [address] 68816- 3325 December, Bipolar disorder, current episode hypomanic F31.0 ; Attention-deficit hyperactivity disorder, combined type F90.2 and Social anxiety disorder F40.10 [facility] [address] [address]- 0989 December, Screening for STD sexually transmitted disease Z11.3 [facility] [address] [address]- 4362 Nov, [facility] [address] [address]- 5768 Nov, [facility] [address] [address]- 9983 Nov, Screening for STD sexually transmitted disease Z11.3 and Attention-deficit hyperactivity disorder, combined type F90.2 [facility] [address] [address]- 3272 Nov, Attention-deficit hyperactivity disorder, combined type F90.2 ; Social anxiety disorder F40.10 and Bipolar disorder, current episode hypomanic F31.0 [facility] [id number] [place] [address] 482932- 5246 30 Oct, 2015 [facility] [address] [address]- 5756 Oct, [facility] [id number] [place] [address] 53511- 7796 Sep, [facility] [id number] [place] [address] 42501- 4793 Sep, Bipolar disorder, in partial remission, most recent episode depressed F31.75 ; Attention-deficit hyperactivity disorder, combined type F90.2 and Social anxiety disorder F40.10 [facility] [id number] [place] [address] 74245- 0266 Sep, [facility] [id number] [address]- 5761 Aug, [facility] [id number] [place] [address] 04195- 9086 Jul, [facility] [address] [address]- 4356 Jul, [facility] [address] [address]- 7320 Jul, Bipolar disorder, in partial remission, most recent episode depressed F31.75 ; Attention-deficit hyperactivity disorder, combined type F90.2 and Social anxiety disorder F40.10 [facility] [address] 0626 Jun, [facility] [id number] 4666 Jun, [facility] [address] [address]- 7026 Jun, [facility] [address] [address]- 9377 May, [facility] [id number] [place] [address] 526462- 9475 May, [facility] [id number] [place] [address] 450570- 6839 May, [facility] [id number] [place] [address] 509678- 5512 May, Bipolar disorder, in partial remission, most recent episode depressed F31.75 ; Attention-deficit hyperactivity disorder, combined type F90.2 and Social anxiety disorder F40.10 [facility] [id number] [place] [address] 80991- 6223 Mar, Bipolar I disorder, moderate, current or most recent episode depressed, in partial remission, with mixed features 296.55 ; ADHD ( attention deficit hyperactivity disorder), combined type 314.01 and Social anxiety disorder 300.23 [facility] [id number] [place] [address] 98227- 5017 Aug, [facility] [id number] [place] [address] 48568- 6803 Aug, [facility] [id number] [place] [address] 57403- 8885 Jun, [facility] [id number] [place] [address] 63512- 5558 Jun, [facility] [id number] [place] [address] 40465- 0483 Jan, [facility] [id number] [place] [address] 89191- 8609 December, [facility] [id number] [place] [address] 94832- 9956 Oct, [facility] [id number] [place] [address] 547506- 0016 Sep, [facility] [address] [facility] [id number] [place] [address]- 3985 Jun, IMMUNIZATIONS No Known Immunizations SOCIAL HISTORY Never Assessed REASON FOR VISIT PLAN OF CARE VITAL SIGNS MEDICATIONS Unknown Medications RESULTS No Results PROCEDURES No Known procedures INSTRUCTIONS MEDICATIONS ADMINISTERED No Known Medications MEDICAL (GENERAL) HISTORY Type Description Date Medical History 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 Has had [facility] NEUROLOGY care. Diagnosed with Focal Seizures with EEG Medical History ADHD Medical History Bipolar disorder Medical History Social anxiety disorder Surgical History [place] teeth removed 09/06/15 Surgical History Childbirth Surgical History Spider bite Hospitalization History psych; anger/aggression 2008 Hospitalization History ER visit Bleeding while 10/20/17
--- OUTSIDE RECORDS SUMMARY | 2018-04-04 10:59 | XMS REPORT ---
Author Author ANDREW REGIS [facility] Address [address] [place] [address] Care Team Providers Care Retina Subspecialist Name Role Phone ANDREW REGIS Unavailable PROBLEMS Type Condition ICD9-CM Code CZD12-ZM Code Onset Dates Condition Status SNOMED Code Problem Bipolar disorder, in partial remission, most recent episode depressed F31.75 Active 46968531 Problem Social phobia, generalized F40.11 Active 57235369 Problem Bipolar disorder, current episode hypomanic F31.0 Active 69228453 Problem Attention-deficit hyperactivity disorder, combined type F90.2 Active 91473496 Problem Abnormal ultrasound R93.8 Active 896984775 Problem Low lying placenta with hemorrhage, first trimester O44.51 Active 598200044 Problem Unspecified blood type, Rh negative Z67.91 Active 673387998 Problem Bipolar disorder with moderate depression F31.32 Active 477533743 Problem History of delivery, currently O09.219 Active 516189256 Problem Supervision of other high risk pregnancies, first trimester O09.891 Active 425128280 ALLERGIES No Information ENCOUNTERS Encounter Location Date Diagnosis [place] [id number] [place] [address] 16219- 9516 Feb, [place] [address] [place] [id number] [place] [address] 88674- 6725 Jan, Unspecified blood type, Rh negative Z67.91 and History of delivery, currently O09.219 [facility] [address] [place] [id number] [place] [address] 10729- 2921 Jan, History of delivery, currently O09.219 [place] [id number] [place] [address] 94374- 8117 Jan, [place] [address] [place] [id number] [place] [address] 16329- 1432 Jan, [facility] [address] [address] 3820 13 Jan, 2018 care, subsequent in second trimester Z34.82 ; Diabetes mellitus screening Z13.1 ; Local reaction to immunization, initial encounter T88.1XXA and 26 weeks gestation of Z3A.26 [facility] [address] [place] [id number] [address]- 3226 12 Jan, 2018 [facility] [address] [place] [address] [id number] [place] [address] 39678- 6022 Jan, [facility] [address] [place] [address] [id number] [place] [address] 81484- 3973 Jan, [facility] [address] [place] [id number] [place] [address] 54176- 0084 Jan, History of delivery, currently O09.219 [facility] [address] [place] [address] [id number] [place] [address] 86366- 6590 December, History of delivery, currently O09.219 [facility] [address] [place] [address] [id number] [place] [address] 48129- 2190 December, History of delivery, currently O09.219 [facility] [address] [address]- 0085 December, [facility] [address] [address]- 0190 December, [facility] [address] [place] [id number] [address]- 2426 December, Second trimester Z34.92 and 22 weeks gestation of Z3A.22 [facility] [address] [place] [id number] [place] [address] 54514- 2554 December, [facility] [address] [address]- 2070 December, History of delivery, currently O09.219 [facility] [address] [address]- 5160 December, History of delivery, currently O09.219 [facility] [address] [address]- 3100 December, [facility] [address] [address]- 8105 December, History of delivery, currently O09.219 [facility] [address] [address]- 3467 Nov, [place] [address] [place] [id number] [place] [address] 59809- 3172 Nov, History of delivery, currently O09.219 [place] [address] [address]- 5579 Nov, care, subsequent in second trimester Z34.82 and 18 weeks gestation of Z3A.18 [place] [address] [address]- 4903 Nov, [place] [address] [place] [id number] [place] [address] 14908- 5585 Oct, [place] [address] [address]- 1220 Oct, Threatened miscarriage O20.0 [place] [address] [address]- 5285 Oct, 14 weeks gestation of Z3A.14 ; Threatened miscarriage O20.0 ; Other specified noninflammatory disorders of vagina N89.8 ; Other specified related conditions, second trimester O26.892 ; Vaginal candidiasis B37.3 ; Low lying placenta with hemorrhage, first trimester O44.51 ; Abnormal ultrasound R93.8 ; Second trimester Z34.92 and History of delivery, currently O09.219 [place] [address] [address]- 5248 Oct, [facility] [address] [address]- 7334 16 Oct, 2017 care, subsequent in second trimester Z34.82 and 13 weeks gestation of Z3A.13 [facility] [address] [address]- 5673 22 Sep, 2017 [facility] [address] [place] [id number] [place] [address] 09460- 9735 14 Sep, 2017 care, subsequent in first trimester Z34.81 and 9 weeks gestation of Z3A.09 [facility] [id number] [place] [address] 43455- 8081 14 Sep, 2017 [facility] [address] [place] [id number] [address]- 0015 Aug, [facility] [address] [place] [id number] [place] [address] 86446- 6814 Aug, [facility] [address] [address]- 6182 Aug, [facility] [address] [place] [id number] [place] [address] 54450- 0007 Aug, Encounter for test Z32.00 [facility] [address] [address]- 0677 Jul, [facility] [address] [address]- 3540 Jul, [facility] [address] [address]1266 Jun, [facility] [address] [place] [id number] [place] [address] 71251- 5260 14 Apr, 2017 [facility] [address] [address]- 3540 14 Apr, 2017 Bipolar disorder with moderate depression F31.32 and Attention-deficit hyperactivity disorder, combined type F90.2 [facility] [address] [address]- 1224 Feb, [facility] [address] [place] [id number] [place] [address] 87704- 4698 Feb, [facility] [address] [address]- 1334 Jan, [facility] [id number] [place] [address] 45642 -1414 Jan, Vaginal discharge N89.8 and Acute vaginitis N76.0 [facility] [address] [place] [id number] [place] [address] 12832- 0781 Nov, [facility] [address] [place] [id number] [place] [address] 15934- 0194 Nov, Encounter for visit Z39.2 ; Tobacco abuse counseling Z71.6 and Drug or alcohol risk assessment or counseling Z71.89 [facility] [address] [place] [id number] [place] [address] 35105- 1682 Nov, [facility] [address] [place] [id number] [place] [address] 94901- 4357 Oct, [facility] [address] [place] [id number] [place] [address] 87625- 5949 Oct, [facility] [id number] [place] [address] 68034- 2653 Oct, [facility] [id number] [place] [address] 03449- 3974 Oct, STD exposure Z20.2 [facility] [address] [place] [address] 77037- 5459 Oct, Bipolar disorder, in partial remission, most recent episode depressed F31.75 ; Attention-deficit hyperactivity disorder, combined type F90.2 and Social phobia, generalized F40.11 [facility] [address] [place] [address] 62538- 3400 Oct, Bipolar disorder, in partial remission, most recent episode depressed F31.75 ; Attention-deficit hyperactivity disorder, combined type F90.2 and Social phobia, generalized F40.11 [place] [address] [place] [id number] [place] [address] 73221- 6932 Oct, [place] [address] [place] [id number] [place] [address] 61691- 5282 Sep, [place] [address] 07126- 5700 Sep, [place] [address] [place] [id number] [place] [address] 85572- 2062 Sep, screening for streptococcus B Z36 ; care , first in third trimester Z34.03 and 35 weeks gestation of Z3A.35 [place] [address] [place] [id number] [place] [address] 71710- 7093 Sep, care, first in third trimester Z34.03 and 34 weeks gestation of Z3A.34 [place] [address] [place] [id number] [place] [address] 07791- 1208 Sep, [place] [address] [place] [id number] [place] [address] 09604- 8107 Sep, [place] [address] [place] [id number] [place] [address] 16506- 2576 Sep, Bipolar disorder, in partial remission, most recent episode depressed F31.75 ; Attention-deficit hyperactivity disorder, combined type F90.2 and Social phobia, generalized F40.11 [place] [id number] [place] [address] 34025- 1383 Aug, Normal , first Z34.00 ; Encounter for immunization Z23 and 32 weeks gestation of Z3A.32 [place] [address] [place] [id number] [place] [address] 33401- 3546 Aug, [place] [address] 50824- 3931 Aug, Other specified related conditions, third trimester O26.893 and 30 weeks gestation of Z3A.30 [place] [address] [address]- 6188 Aug, [place] [address] [address]- 4286 27 Jul, 2016 Diabetes mellitus screening Z13.1 ; , first, first trimester Z34.01 ; Other specified noninflammatory disorders of vagina N89.8 ; Other specified related conditions, third trimester O26.893 and 28 weeks gestation of Z3A.28 [place] [id number] [place] [address] 76513- 2897 14 Jul, 2016 [place] [id number] [place] [address] 41486- 1089 23 Jun, [address] [id number] [place] [address] Jun [place] [id number] [place] [address] 10876- 3629 18 Jun, 2016 Normal , first Z34.00 ; Evaluate anatomy not seen on prior sonogram Z36 and 23 weeks gestation of Z3A.23 [facility] [address] [address]- 3227 17 Jun, 2016 [place] [id number] [place] [address] 42418- 1462 Jun, Bipolar disorder, in partial remission, most recent episode depressed F31.75 ; Attention-deficit hyperactivity disorder, combined type F90.2 and Social phobia, generalized F40.11 [place] [address] [address]- 0573 May, [place] [address] [address]- 4701 May, Normal , first Z34.00 and 19 weeks gestation of Z3A.19 [facility] [address] [address] -8394 May, Dysuria R30.0 and Acute cystitis during , second trimester O23.12 [facility] [address] [address]- 2594 Apr, [facility] [address] [address]- 9811 Apr, care, first in second trimester Z34.02 [facility] [address] [place] [id number] [place] [address] 14811- 0935 Apr, [facility] [address] [place] [id number] [place] [address] 74300- 9866 Apr, [facility] [address] [place] [id number] [place] [address] 89709- 9303 Apr, [place] [address] [place] [id number] [place] [address] 18158- 3305 Apr, care, first in second trimester Z34.02 ; Dehydration E86.0 and 14 weeks gestation of Z3A.14 [place] [id number] [place] [address] 51094- 8415 Apr, Bipolar disorder, in partial remission, most recent episode depressed F31.75 ; Attention-deficit hyperactivity disorder, combined type F90.2 ; Social anxiety disorder F40.10 and 15 weeks gestation of Z3A.15 [place] [address] [address]- 4678 Mar, [facility] [address] [address]- 2704 Mar, , first, first trimester Z34.01 and 10 weeks gestation of Z3A.10 [facility] [address] [address]- 8398 Mar, [facility] [id number] [place] [address] 97580- 7335 Mar, [facility] [address] [facility] [id number] [address]- 9819 Feb, Normal , first Z34.00 and 6 weeks gestation of Z3A.01 [facility] [address] [place] [id number] [address]- 4210 Feb, [facility] [address] [address]- 1085 Feb, [address] [id number] [place] [address] Feb [facility] [address] [facility] [id number] [address]- 1680 Feb, [facility] [address] [address]- 2963 Feb, [facility] [address] [address]- 4078 Feb, Bipolar disorder, in partial remission, most recent episode depressed F31.75 ; Attention-deficit hyperactivity disorder, combined type F90.2 and Social anxiety disorder F40.10 [facility] [address] [address]- 9881 Feb, Routine adult health maintenance Z00.00 [facility] [address] [place] [id number] [address]- 8361 Feb, [facility] [address] [place] [address] [id number] [address]- 7244 Feb, confirmed by positive urine test Z32.01 [facility] [address] [facility] [id number] [address]- 6358 Feb, [facility] [address] [place] [id number] [address]- 4484 Jan, [facility] [address] [facility] [id number] [place] [address]- 8476 Jan, Bipolar disorder, in partial remission, most recent episode depressed F31.75 ; Attention-deficit hyperactivity disorder, combined type F90.2 and Social anxiety disorder F40.10 [facility] [address] [address]- 2928 Jan, Seizure disorder G40.909 [facility] [address] 9756 Jan, [facility] [address] [place] [id number] [place] [address] 61044- 0085 December, Bipolar disorder, current episode hypomanic F31.0 ; Attention-deficit hyperactivity disorder, combined type F90.2 and Social anxiety disorder F40.10 [facility] [address] [place] [id number] [place] [address] 76185- 8911 December, Screening for STD sexually transmitted disease Z11.3 [facility] [address] [address]- 7786 Nov, [facility] [address] [place] [id number] [place] [address] 39347- 1005 Nov, [facility] [id number] [place] [address] 73510- 7164 Nov, Screening for STD sexually transmitted disease Z11.3 and Attention-deficit hyperactivity disorder, combined type F90.2 [facility] [address] [address]- 0211 Nov, Attention-deficit hyperactivity disorder, combined type F90.2 ; Social anxiety disorder F40.10 and Bipolar disorder, current episode hypomanic F31.0 [facility] [address] [address]- 3432 Oct, [facility] [address] [place] [id number] [place] [address] 47743121- 8616 Oct, [facility] [address] [place] [id number] [address]- 0289 Sep, [facility] [address] [place] [id number] [place] [address] 79040- 3620 Sep, Bipolar disorder, in partial remission, most recent episode depressed F31.75 ; Attention-deficit hyperactivity disorder, combined type F90.2 and Social anxiety disorder F40.10 [facility] [address] [facility] [id number] [place] [address] 2546 Sep, [facility] [address] [place] [id number] [address]- 9216 Aug, [facility] [address] [place] [id number] [address]- 2076 Jul, [facility] [address] [place] [id number] [address]- 3106 Jul, [facility] [address] [place] [address] [id number] [address]- 0666 Jul, Bipolar disorder, in partial remission, most recent episode depressed F31.75 ; Attention-deficit hyperactivity disorder, combined type F90.2 and Social anxiety disorder F40.10 [facility] [address] [place] [id number] [address]- 3306 Jun, [facility] [address] [place] [id number] [address]- 3586 Jun, [facility] [address] [place] [address] [id number] [address] 2546 Jun, [facility] [address] [place] [id number] [address]- 6396 May, [facility] [address] [place] [address] [id number] [address] 2546 May, [facility] [address] [facility] [id number] [place] [address]- 9186 May, [facility] [address] [place] [id number] [address] 2546 May, Bipolar disorder, in partial remission, most recent episode depressed F31.75 ; Attention-deficit hyperactivity disorder, combined type F90.2 and Social anxiety disorder F40.10 [facility] [address] [address]- 5689 Mar, Bipolar I disorder, moderate, current or most recent episode depressed, in partial remission, with mixed features 296.55 ; ADHD ( attention deficit hyperactivity disorder), combined type 314.01 and Social anxiety disorder 300.23 [facility] [address] [address]- 5516 Aug, [facility] [address] [place] [address] [id number] [address]- 9946 Aug, [facility] [address] [place] [id number] [place] [address] 26118- 9118 Jun, [facility] [address] [place] [id number] [place] [address] [id number]- 4506 Jun, [facility] [address] [place] [id number] [place] [address] 14448- 8356 Jan, [facility] [address] [place] [address] [id number] [place] [address] 46635- 0937 December, [facility] [address] [place] [address] [id number] [place] [address] 26449- 8337 Oct, [facility] [address] [address]- 5286 Sep, [facility] [address] [address]- 0966 Jun, IMMUNIZATIONS No Known Immunizations SOCIAL HISTORY [...] Medical History Social anxiety disorder Surgical History [place] teeth removed 09/06/15 Surgical History Childbirth Surgical History Spider bite Hospitalization History psych; anger/aggression 2008 Hospitalization History ER visit Bleeding while 10/20/17
--- OUTSIDE RECORDS SUMMARY | 2018-04-04 11:00 | XMS REPORT ---
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 Name Role Phone REGIS MORALES Unavailable PROBLEMS Type Condition ICD9-CM Code TWX90-MD Code Onset Dates Condition Status SNOMED Code Problem Bipolar disorder, in partial remission, most recent episode depressed F31.75 Active 59809983 Problem Social phobia, generalized F40.11 Active 97134284 Problem Bipolar disorder, current episode hypomanic F31.0 Active 57991568 Problem Attention-deficit hyperactivity disorder, combined type F90.2 Active 30368651 Problem Abnormal ultrasound R93.8 Active 352499194 Problem Low lying placenta with hemorrhage, first trimester O44.51 Active 233138602 Problem Unspecified blood type, Rh negative Z67.91 Active 055768414 Problem Bipolar disorder with moderate depression F31.32 Active 524383790 Problem History of delivery, currently O09.219 Active 193184537 Problem Supervision of other high risk pregnancies, first trimester O09.891 Active 771412848 ALLERGIES No Information ENCOUNTERS Encounter Location Date Diagnosis [place] [id number] [place] [address] 93195- 2222 Feb, [place] [address] [place] [id number] [place] [address] 11950- 6046 Jan, [place] [address] [place] [address] [id number] [place] [address] 96282- 8355 Jan, care, subsequent in second trimester Z34.82 ; Diabetes mellitus screening Z13.1 ; Local reaction to immunization, initial encounter T88.1XXA and 26 weeks gestation of Z3A.26 [place] [address] [place] [id number] [place] [address] 81253- 1515 Jan, [place] [address] [place] [address]- 8093 Jan, [facility] [address] [place] [address] 9089 Jan, [facility] [address] [address] 0516 Jan, History of delivery, currently O09.219 [facility] [address], [place] [address] 9797 December, History of delivery, currently O09.219 [facility] [address], [place] [address] 1394 December, History of delivery, currently O09.219 [facility] [address], [place] [address] 5855 December, [facility] [id number] [address] 1657 December, [facility] [address], [place] [address] 5720 December, Second trimester Z34.92 and 22 weeks gestation of Z3A.22 [facility] [address], [place] [address] 1653 December, [facility] [address], [place] [address]- 0316 December, History of delivery, currently O09.219 [facility] [address], [place] [address]- 9946 December, History of delivery, currently O09.219 [facility] [address], [place] [address]- 2240 December, [facility] [address], [place] [address]- 5885 December, History of delivery, currently O09.219 [facility] [address], [place] [address] 2589 Nov, [place] [id number] [place] [address] 46370- 1709 Nov, History of delivery, currently O09.219 [place] [id number] [place] [address] 37101- 5489 Nov, care, subsequent in second trimester Z34.82 and 18 weeks gestation of Z3A.18 [place] [address] [place] [address] [id number] [place] [address] 69012- 7665 Nov, [place] [address] [place] [address] [id number] [place] [address] 32573- 4383 Oct, [place] [address] [place] [address] [id number] [place] [address] 14596- 6026 Oct, Threatened miscarriage O20.0 [place] [address] [address] [id number] [place] [address] 85319- 8233 Oct, 14 weeks gestation of Z3A.14 ; Threatened miscarriage O20.0 ; Other specified noninflammatory disorders of vagina N89.8 ; Other specified related conditions, second trimester O26.892 ; Vaginal candidiasis B37.3 ; Low lying placenta with hemorrhage, first trimester O44.51 ; Abnormal ultrasound R93.8 ; Second trimester Z34.92 and History of delivery, currently O09.219 [place] [address], [place] [address]- 7702 Oct, [place] [address] [place] [id number] [place] [address] 80178- 9106 Oct, care, subsequent in second trimester Z34.82 and 13 weeks gestation of Z3A.13 [place] [address] [place] [id number] [place] [address] 98681- 7263 22 Sep, 2017 [place] [address], [place] [address]- 9116 14 Sep, 2017 care, subsequent in first trimester Z34.81 and 9 weeks gestation of Z3A.09 [facility] [address], [place] [address]- 9295 14 Sep, 2017 [facility] [id number] [place] [address] 67285- 1276 Aug, [facility] [address] [id number] [place] [address] 52131- 6635 Aug, [facility] [address] [place] [id number] [place] [address] 93004- 7282 Aug, [facility] [address] [place] [address] [id number] [place] [address] 18226- 6751 Aug, Encounter for test Z32.00 [facility] [address] [place] [address] [id number] [place] [address] 93927- 8307 Jul, [facility] [address] [place] [address] [id number] [place] [address] 17846- 4871 Jul, [facility] [address] [id number] [place] [address] 05829 -9602 Jun, [facility] [address] [place] [id number] [place] [address] 08779- 5878 Apr, [facility] [id number] [place] [address] 52934- 5108 14 Apr, 2017 Bipolar disorder with moderate depression F31.32 and Attention-deficit hyperactivity disorder, combined type F90.2 [facility] [address], [place] [address]- 7908 Feb, [facility] [address] [place] [id number] [place] [address] 53848- 7627 Feb, [facility] [address] [place] [id number] [place] [address] 16197- 0369 Jan, [facility] [address], [place] [address] Jan, Vaginal discharge N89.8 and Acute vaginitis N76.0 [facility] [address] [place] [address] [id number] [place] [address] 66636- 2670 Nov, [facility] [address] [place] [address] [id number] [place] [address] 89071- 4712 Nov, Encounter for visit Z39.2 ; Tobacco abuse counseling Z71.6 and Drug or alcohol risk assessment or counseling Z71.89 [facility] [address] [place] [id number] [place] [address] 53269- 9671 Nov, [facility] [address] [place] [address] [id number] [place] [address] 62868- 3377 Oct, [facility] [address] [place] [address] [id number] [place] [address] 05689- 4188 Oct, [facility] [address] [place] [address] [id number] [place] [address] 83489- 6814 Oct, [facility] [address] [address] [id number] [place] [address] 19418- 9221 Oct, STD exposure Z20.2 [facility] [address] [place] [address] [id number] [place] [address] 65149- 2647 Oct, Bipolar disorder, in partial remission, most recent episode depressed F31.75 ; Attention-deficit hyperactivity disorder, combined type F90.2 and Social phobia, generalized F40.11 [facility] [address] [place] [id number] [place] [address] 17361- 6261 Oct, Bipolar disorder, in partial remission, most recent episode depressed F31.75 ; Attention-deficit hyperactivity disorder, combined type F90.2 and Social phobia, generalized F40.11 [facility] [address] [place] [id number] [place] [address] 86286- 1865 Oct, [facility] [address] [place] [id number] [place] [address] 73300- 8986 Sep, [facility] [address] [place] [id number] [place] [address] 80091- 6714 Sep, [place] [address], [place] [address]- 7187 16 Sep, 2016 screening for streptococcus B Z36 ; care , first in third trimester Z34.03 and 35 weeks gestation of Z3A.35 [place] [address], [place] [address]- 4426 07 Sep, 2016 care, first in third trimester Z34.03 and 34 weeks gestation of Z3A.34 [place] [address] [place] [id number] [place] [address] 60217- 6765 07 Sep, 2016 [place] [address] [place] [id number] [place] [address] 37881- 2042 Sep, [place] [address] [place] [id number] [place] [address] 23044- 8879 Sep, Bipolar disorder, in partial remission, most recent episode depressed F31.75 ; Attention-deficit hyperactivity disorder, combined type F90.2 and Social phobia, generalized F40.11 [place] [id number] [place] [address] 57304- 5125 Aug, Normal , first Z34.00 ; Encounter for immunization Z23 and 32 weeks gestation of Z3A.32 [place] [address], [place] [address]- 5676 Aug, [place] [address] [place] [id number] [place] [address] 94787- 2144 Aug, Other specified related conditions, third trimester O26.893 and 30 weeks gestation of Z3A.30 [place] [address] [place] [id number] [place] [address] 38616- 6132 Aug, [place] [address] [place] [address] [id number] [place] [address] 64949- 5850 Jul, Diabetes mellitus screening Z13.1 ; , first, first trimester Z34.01 ; Other specified noninflammatory disorders of vagina N89.8 ; Other specified related conditions, third trimester O26.893 and 28 weeks gestation of Z3A.28 [facility] [id number] [place] [address] 59758- 4936 14 Jul, 2016 [facility] [address] [place] [id number] [place] [address] 81087- 0728 Jun, [facility] [id number] [place] [address] Jun [facility] [address] [place] [id number] [place] [address] 40601- 4042 Jun, Normal , first Z34.00 ; Evaluate anatomy not seen on prior sonogram Z36 and 23 weeks gestation of Z3A.23 [place] [address] [place] [address] [id number] [place] [address] 82353- 1182 17 Jun, 2016 [place] [address] [place] [address] [id number] [place] [address] 24540- 9077 Jun, Bipolar disorder, in partial remission, most recent episode depressed F31.75 ; Attention-deficit hyperactivity disorder, combined type F90.2 and Social phobia, generalized F40.11 [place] [address] [place] [id number] [place] [address] 11783- 0541 May, [place] [address] [place] [id number] [place] [address] 87912- 7141 May, Normal , first Z34.00 and 19 weeks gestation of Z3A.19 [facility] [id number] [place] [address] 15443 -6481 May, Dysuria R30.0 and Acute cystitis during , second trimester O23.12 [facility] [address] [place] [id number] [place] [address] 87090- 0212 Apr, [facility] [address] [place] [id number] [place] [address] 69541- 2214 Apr, care, first in second trimester Z34.02 [place] [address] [place] [address]- 9619 Apr, [facility] [address], [place] [address]- 3153 Apr, [facility] [address], [place] [address]- 0789 Apr, [facility] [address] [id number], [place] [address]- 9762 Apr, care, first in second trimester Z34.02 ; Dehydration E86.0 and 14 weeks gestation of Z3A.14 [facility] [address], [place] [address]- 2012 Apr, Bipolar disorder, in partial remission, most recent episode depressed F31.75 ; Attention-deficit hyperactivity disorder, combined type F90.2 ; Social anxiety disorder F40.10 and 15 weeks gestation of Z3A.15 [facility] [address], [place] [address]- 5414 Mar, [facility] [address], [place] [address]- 8670 Mar, , first, first trimester Z34.01 and 10 weeks gestation of Z3A.10 [facility] [address] [place] [id number], [place] [address]- 6310 Mar, [facility] [address] [place] [id number] [address]- 2208 Mar, [facility] [address] [id number], [place] [address]- 7533 Feb, Normal , first Z34.00 and 6 weeks gestation of Z3A.01 [facility] [address] [place] [id number], [place] [address]- 4542 Feb, [facility] [id number], [place] [address]- 6865 Feb, [facility] [address] [id number] [place] [address] Feb [facility] [address], [place] [address]- 9994 Feb, [facility] [address], [place] [address]- 7378 Feb, [facility] [address], [place] [address]- 1812 Feb, Bipolar disorder, in partial remission, most recent episode depressed F31.75 ; Attention-deficit hyperactivity disorder, combined type F90.2 and Social anxiety disorder F40.10 [facility] [address], [place] [address]- 8157 Feb, Routine adult health maintenance Z00.00 [facility] [address], [place] [address]- 0583 Feb, [facility] [id number] [place] [address] 37773- 7822 Feb, confirmed by positive urine test Z32.01 [facility] [address], [place] [address]- 8816 Feb, [facility] [id number] [place] [address] 12326- 7205 Jan, [facility] [address], [place] [address]- 9195 Jan, Bipolar disorder, in partial remission, most recent episode depressed F31.75 ; Attention-deficit hyperactivity disorder, combined type F90.2 and Social anxiety disorder F40.10 [facility] [address], [place] [address]- 0761 Jan, Seizure disorder G40.909 [facility] [address], [place] [address]- 5287 Jan, [facility] [address], [place] [address]- 3236 December, Bipolar disorder, current episode hypomanic F31.0 ; Attention-deficit hyperactivity disorder, combined type F90.2 and Social anxiety disorder F40.10 [facility] [address], [place] [address]- 4898 December, Screening for STD sexually transmitted disease Z11.3 [facility] [address], [place] [address]- 1774 Nov, [facility] [address] [id number] [place] [address] 90210- 5717 Nov, [facility] [id number] [place] [address] 15466- 5545 Nov, Screening for STD sexually transmitted disease Z11.3 and Attention-deficit hyperactivity disorder, combined type F90.2 [facility] [id number] [place] [address] 43961- 9997 Nov, Attention-deficit hyperactivity disorder, combined type F90.2 ; Social anxiety disorder F40.10 and Bipolar disorder, current episode hypomanic F31.0 [facility] [id number] [place] [address] 85950- 3994 Oct, [facility] [address] [place] [id number] [place] [address] 09585- 6339 Oct, [facility] [address], [place] [address]- 7563 Sep, [facility] [id number] [place] [address] 36432- 0222 Sep, Bipolar disorder, in partial remission, most recent episode depressed F31.75 ; Attention-deficit hyperactivity disorder, combined type F90.2 and Social anxiety disorder F40.10 [facility] [address], [place] [address]- 6417 Sep, [facility] [address], [place] [address]- 3053 Aug, [facility] [id number] [place] [address] 07891- 3799 Jul, [facility] [id number], [place] [address]- 5226 Jul, [facility] [id number] [address]- 4386 Jul, Bipolar disorder, in partial remission, most recent episode depressed F31.75 ; Attention-deficit hyperactivity disorder, combined type F90.2 and Social anxiety disorder F40.10 [facility] [id number] [address]- 4161 Jun, [facility] [id number], [place] [address]- 7484 Jun, [facility] [id number] [address]- 6294 Jun, [facility] [id number], [place] [address]- 9426 May, [facility] [id number], [place] [address]- 3760 May, [facility] [id number], [place] [address]- 3997 May, [facility] [id number] [address]- 8279 May, Bipolar disorder, in partial remission, most recent episode depressed F31.75 ; Attention-deficit hyperactivity disorder, combined type F90.2 and Social anxiety disorder F40.10 [facility] [id number], [place] [address]- 2851 Mar, Bipolar I disorder, moderate, current or most recent episode depressed, in partial remission, with mixed features 296.55 ; ADHD ( attention deficit hyperactivity disorder), combined type 314.01 and Social anxiety disorder 300.23 [facility] [id number], [place] [address]- 5547 Aug, [facility] [id number], [place] [address]- 2546 Aug, [facility] [id number], [place] [address]- 6136 Jun, [facility] [address], [place] [address]- 2546 Jun, [facility] [id number] [address]- 2546 Jan, [facility] [id number] [place] [address] 50377- 2546 December, [facility] [id number], [place] [address] 2546 Oct, [facility] [id number], [place] [address]- 5956 Sep, [facility] [id number], [place] [address]- 6246 Jun, IMMUNIZATIONS No Known Immunizations SOCIAL HISTORY Never Assessed REASON FOR VISIT PLAN OF CARE VITAL SIGNS MEDICATIONS Unknown Medications RESULTS No Results PROCEDURES No Known procedures INSTRUCTIONS MEDICATIONS ADMINISTERED No Known Medications MEDICAL (GENERAL) HISTORY Type Description Date Medical History 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 Has had [facility] NEUROLOGY care. Diagnosed with Focal Seizures with EEG Medical History ADHD Medical History Bipolar disorder Medical History Social anxiety disorder Surgical History Fromberg teeth removed 09/06/15 Surgical History Childbirth Surgical History Spider bite Hospitalization History psych; anger/aggression 2008 Hospitalization History ER visit Bleeding while 10/20/17
--- OUTSIDE RECORDS SUMMARY | 2018-04-04 11:00 | XMS REPORT ---
Author Author ANDREW REGIS [facility] Address [address] [place] [address] Care Team Providers Care Cadd Operator Name Role Phone ANDREW REGIS Unavailable PROBLEMS Type Condition ICD9-CM Code NJQ78-AS Code Onset Dates Condition Status SNOMED Code Problem Bipolar disorder, in partial remission, most recent episode depressed F31.75 Active 35127672 Problem Social phobia, generalized F40.11 Active 51740170 Problem Bipolar disorder, current episode hypomanic F31.0 Active 92075975 Problem Attention-deficit hyperactivity disorder, combined type F90.2 Active 90062021 Problem Abnormal ultrasound R93.8 Active 284387898 Problem Low lying placenta with hemorrhage, first trimester O44.51 Active 389143364 Problem Unspecified blood type, Rh negative Z67.91 Active 802279566 Problem Bipolar disorder with moderate depression F31.32 Active 971325815 Problem History of delivery, currently O09.219 Active 149796434 Problem Supervision of other high risk pregnancies, first trimester O09.891 Active 601563977 ALLERGIES No Known Allergies ENCOUNTERS Encounter Location Date Diagnosis [place] [id number] [place] [address] 62721- 3255 Feb, [place] [address] [place] [id number] [place] [address] 77525- 0990 Feb, History of delivery, currently O09.219 [facility] [id number] [place] [address] 50876- 2684 Jan, Unspecified blood type, Rh negative Z67.91 and History of delivery, currently O09.219 [place] [address] [address] 5377 Jan, History of delivery, currently O09.219 [place] [address] [address] 3701 Jan, [facility] [id number] [place] [address] 30150- 4636 Jan, [facility] [address] [address] 3966 Jan, care, subsequent in second trimester Z34.82 ; Diabetes mellitus screening Z13.1 ; Local reaction to immunization, initial encounter T88.1XXA and 26 weeks gestation of Z3A.26 [facility] [address] [address]- 2786 12 Jan, 2018 [facility] [id number] [place] [address] 35068- 5378 Jan, [facility] [id number] [place] [address] 61415- 1724 Jan, [facility] [id number] [place] [address] 79630- 1673 Jan, History of delivery, currently O09.219 [facility] [address] [place] [address] 79341- 3421 December, History of delivery, currently O09.219 [facility] [address] [address]- 8100 December, History of delivery, currently O09.219 [facility] [address] [address]- 4907 December, [facility] [address] [address]- 0700 December, [facility] [id number] [address]- 3097 December, Second trimester Z34.92 and 22 weeks gestation of Z3A.22 [facility] [id number] [place] [address] 73091- 9726 December, [place] [address] [address]- 3082 December, History of delivery, currently O09.219 [place] [address] [address]- 5910 December, History of delivery, currently O09.219 [place] [address] [id number] [place] [address] 85615- 7342 December, [place] [id number] [place] [address] 18953- 7348 December, History of delivery, currently O09.219 [place] [id number] [place] [address] 66732- 4264 Nov, [place] [id number] [place] [address] 91160- 6170 Nov, History of delivery, currently O09.219 [place] [address] [place] [address] 16372- 1270 Nov, care, subsequent in second trimester Z34.82 and 18 weeks gestation of Z3A.18 [place] [address] [id number] [place] [address] 20089- 6948 Nov, [place] [address] [address]- 9908 Oct, [place] [address] [place] [address] 85954- 1224 Oct, Threatened miscarriage O20.0 [place] [address] [place] [address] 95755- 3049 Oct, 14 weeks gestation of Z3A.14 ; Threatened miscarriage O20.0 ; Other specified noninflammatory disorders of vagina N89.8 ; Other specified related conditions, second trimester O26.892 ; Vaginal candidiasis B37.3 ; Low lying placenta with hemorrhage, first trimester O44.51 ; Abnormal ultrasound R93.8 ; Second trimester Z34.92 and History of delivery, currently O09.219 [facility] [address] [address]- 2019 18 Oct, 2017 [facility] [address] [address] 16 Oct, 2017 care, subsequent in second trimester Z34.82 and 13 weeks gestation of Z3A.13 [facility] [address] [address]- 4011 22 Sep, 2017 [facility] [address] [address]- 9886 14 Sep, 2017 care, subsequent in first trimester Z34.81 and 9 weeks gestation of Z3A.09 [facility] [address] [address]- 1824 14 Sep, 2017 [facility] [address] [address]- 6882 Aug, [facility] [address] [address]- 0987 Aug, [facility] [address] [address]- 5479 Aug, Encounter for test Z32.00 [facility] [address] [address]- 7387 Aug, [facility] [address] [address]- 7803 Jul, [facility] [address] [address]- 0968 Jul, [facility] [address] [address]79 Jun, [facility] [address] [address]- 0071 Apr, [facility] [address] [place] [address] 57483- 3064 14 Apr, 2017 Bipolar disorder with moderate depression F31.32 and Attention-deficit hyperactivity disorder, combined type F90.2 [facility] [address] [place] [id number] [place] [address] 72538- 5520 Feb, [facility] [address] [id number] [place] [address] 10778- 9852 Feb, [facility] [id number] [place] [address] 71588- 9951 Jan, [facility] [id number] [place] [address] 93698 -0815 Jan, Vaginal discharge N89.8 and Acute vaginitis N76.0 [facility] [id number] [place] [address] 41008- 8588 Nov, [place] [address] 87993- 1492 Nov, Encounter for visit Z39.2 ; Tobacco abuse counseling Z71.6 and Drug or alcohol risk assessment or counseling Z71.89 [place] [address] [id number] [place] [address] 09469- 4653 Nov, [facility] [address] [id number] [place] [address] 48766- 9885 Oct, [place] [id number] [place] [address] 20852- 5265 Oct, [facility] [address] [id number] [place] [address] 75876- 2020 Oct, [place] [address] [id number] [place] [address] 39449- 2287 Oct, STD exposure Z20.2 [facility] [address] [place] [address] [id number] [place] [address] 87353- 7671 Oct, Bipolar disorder, in partial remission, most recent episode depressed F31.75 ; Attention-deficit hyperactivity disorder, combined type F90.2 and Social phobia, generalized F40.11 [facility] [address] [address]- 7089 Oct, Bipolar disorder, in partial remission, most recent episode depressed F31.75 ; Attention-deficit hyperactivity disorder, combined type F90.2 and Social phobia, generalized F40.11 [facility] [address] [address]- 7313 Oct, [facility] [address] [id number] [address]- 7877 Sep, [place] [id number] [place] [address] 50339- 0949 Sep, [place] [address] [place] [address] 35632- 4516 Sep, screening for streptococcus B Z36 ; care , first in third trimester Z34.03 and 35 weeks gestation of Z3A.35 [place] [address] [address]- 5694 Sep, care, first in third trimester Z34.03 and 34 weeks gestation of Z3A.34 [place] [address] [address]- 4785 Sep, [place] [address] [address]- 6564 Sep, [facility] [address] [address]- 5505 Sep, Bipolar disorder, in partial remission, most recent episode depressed F31.75 ; Attention-deficit hyperactivity disorder, combined type F90.2 and Social phobia, generalized F40.11 [place] [address] [address]- 9943 Aug, Normal , first Z34.00 ; Encounter for immunization Z23 and 32 weeks gestation of Z3A.32 [place] [address] [address]- 3841 10 Aug, 2016 [place] [address] [place] [address] 34645- 3508 10 Aug, 2016 Other specified related conditions, third trimester O26.893 and 30 weeks gestation of Z3A.30 [place] [address] [address]- 8757 Aug, [place] [address] [id number] [place] [address] 70854- 7085 27 Jul, 2016 Diabetes mellitus screening Z13.1 ; , first, first trimester Z34.01 ; Other specified noninflammatory disorders of vagina N89.8 ; Other specified related conditions, third trimester O26.893 and 28 weeks gestation of Z3A.28 [place] [address] [address]- 3802 14 Jul, 2016 [place] [address] [id number] [place] [address] 54666- 3720 23 Jun, [address] [place] [id number] [place] [address] [address] [place] [address] 12331- 0706 18 Jun, 2016 Normal , first Z34.00 ; Evaluate anatomy not seen on prior sonogram Z36 and 23 weeks gestation of Z3A.23 [place] [address] [place] [address] 86776- 8847 Jun, [place] [address] [address]- 4290 Jun, Bipolar disorder, in partial remission, most recent episode depressed F31.75 ; Attention-deficit hyperactivity disorder, combined type F90.2 and Social phobia, generalized F40.11 [place] [address] [address]- 7222 May, [place] [address] [place] [id number] [place] [address] 24932- 7834 May, Normal , first Z34.00 and 19 weeks gestation of Z3A.19 [facility] [id number] [place] [address] 93800 -4500 May, Dysuria R30.0 and Acute cystitis during , second trimester O23.12 [facility] [address] [place] [id number] [place] [address] 04424- 0830 Apr, [facility] [address] [place] [id number] [place] [address] 04358- 9580 Apr, care, first in second trimester Z34.02 [place] [address] [id number] [place] [address] 54496- 2031 Apr, [facility] [address] [place] [id number] [place] [address] 12308- 2508 Apr, [facility] [address] [id number] [place] [address] 64320- 9030 Apr, [facility] [address] [place] [id number] [place] [address] 11550- 6430 Apr, care, first in second trimester Z34.02 ; Dehydration E86.0 and 14 weeks gestation of Z3A.14 [place] [address] [id number] [place] [address] 62110- 2724 Apr, Bipolar disorder, in partial remission, most recent episode depressed F31.75 ; Attention-deficit hyperactivity disorder, combined type F90.2 ; Social anxiety disorder F40.10 and 15 weeks gestation of Z3A.15 [place] [address] [id number] [place] [address] 65360- 9992 Mar, [place] [address] [id number] [place] [address] 78002- 5752 Mar, , first, first trimester Z34.01 and 10 weeks gestation of Z3A.10 [place] [address] [id number] [place] [address] 04766- 2269 Mar, [facility] [address] [id number] [address]- 2025 Mar, [facility] [address] [address]- 8465 Feb, Normal , first Z34.00 and 6 weeks gestation of Z3A.01 [facility] [address] [address]- 4522 Feb, [facility] [address] [id number] [address]- 3032 Feb, [address] [id number] [address] Feb [facility] [address] [address]- 1100 Feb, [facility] [address] [address]- 9156 Feb, [facility] [address] [address]- 9419 Feb, Bipolar disorder, in partial remission, most recent episode depressed F31.75 ; Attention-deficit hyperactivity disorder, combined type F90.2 and Social anxiety disorder F40.10 [facility] [address] [place] [id number] [address]- 6263 Feb, Routine adult health maintenance Z00.00 [facility] [id number] [address]- 4736 Feb, [facility] [id number] [address]- 8206 Feb, confirmed by positive urine test Z32.01 [facility] [address] [address]- 3713 Feb, [facility] [address] [id number] [address]- 7105 Jan, [place] [address] [address]- 1536 Jan, Bipolar disorder, in partial remission, most recent episode depressed F31.75 ; Attention-deficit hyperactivity disorder, combined type F90.2 and Social anxiety disorder F40.10 [facility] [address] [address]- 0236 Jan, Seizure disorder G40.909 [facility] [id number] [place] [address] 49695- 6286 Jan, [facility] [address] [place] [id number] [place] [address] 96689- 6528 December, Bipolar disorder, current episode hypomanic F31.0 ; Attention-deficit hyperactivity disorder, combined type F90.2 and Social anxiety disorder F40.10 [facility] [address] [address]- 5914 December, Screening for STD sexually transmitted disease Z11.3 [facility] [address] [address]- 4123 Nov, [facility] [address] [address]- 4652 Nov, [facility] [address] [address]- 5538 Nov, Screening for STD sexually transmitted disease Z11.3 and Attention-deficit hyperactivity disorder, combined type F90.2 [facility] [address] [address]- 6234 Nov, Attention-deficit hyperactivity disorder, combined type F90.2 ; Social anxiety disorder F40.10 and Bipolar disorder, current episode hypomanic F31.0 [facility] [id number] [address]- 9969 Oct, [facility] [id number] [address]- 2656 Oct, [facility] [id number] [address]- 8472 Sep, [facility] [address] [place] [address] 353897- 6978 Sep, Bipolar disorder, in partial remission, most recent episode depressed F31.75 ; Attention-deficit hyperactivity disorder, combined type F90.2 and Social anxiety disorder F40.10 [facility] [address] [place] [address] 62838- 9516 Sep, [facility] [address] [place] [id number] [place] [address] 88670- 2194 Aug, [facility] [id number] [place] [address] 23319- 2896 Jul, [facility] [id number] [place] [address] 135067- 3456 Jul, [facility] [id number] [place] [address] 69025- 4228 Jul, Bipolar disorder, in partial remission, most recent episode depressed F31.75 ; Attention-deficit hyperactivity disorder, combined type F90.2 and Social anxiety disorder F40.10 [facility] [address] [address]- 0051 Jun, [facility] [address] [address]- 1512 Jun, [facility] [address] [address]- 2588 Jun, [facility] [address] [address]- 4556 May, [facility] [id number] [place] [address] 04215- 1376 May, [facility] [address] 5692 May, [facility] [id number] [place] [address] 74974631- 3350 May, Bipolar disorder, in partial remission, most recent episode depressed F31.75 ; Attention-deficit hyperactivity disorder, combined type F90.2 and Social anxiety disorder F40.10 [facility] [address] [place] [address] 718947- 9584 Mar, Bipolar I disorder, moderate, current or most recent episode depressed, in partial remission, with mixed features 296.55 ; ADHD ( attention deficit hyperactivity disorder), combined type 314.01 and Social anxiety disorder 300.23 [facility] [address] [place] [address] 194339- 5905 Aug, [facility] [id number] [place] [address] [id number]- 0717 Aug, [facility] [id number] [place] [address] 288471- 6597 Jun, [facility] [id number] [place] [address] 55461- 0769 Jun, [facility] [id number] [place] [address] 30621- 7232 Jan, [facility] [id number] [place] [address] 31903788- 2690 December, [facility] [address] [address]- 7031 Oct, [facility] [address] [address]- 9025 Sep, [facility] [address] [address]- 4429 Jun, IMMUNIZATIONS No Known Immunizations SOCIAL HISTORY Never Assessed REASON FOR VISIT OB-intake-- miladys vick PLAN OF CARE Activity Details Follow Up 4 Weeks Reason: VITAL SIGNS Height 64.3 in 2017-09-18 Weight 158.0 lbs 2017-09-18 Temperature 98.0 degrees Fahrenheit 2017-09-18 Heart Rate 70 bpm 2017-09-18 Respiratory Rate 18 2017-09-18 BMI 26.868 kg/m2 2017-09-18 Blood pressure systolic 112 mmHg 2017-09-18 Blood pressure diastolic 70 mmHg 2017-09-18 MEDICATIONS Medication Instructions Dosage Frequency Start Date End Date Duration Status Not-Taking Ferrous Sulfate 325 (65 Fe) MG Orally Once a day 1 tablet 24h Not- Taking Latuda 20 mg Orally Once with evening meal 1 tablets with 350 calories 22 Apr, 2016 Not-Taking Complete 14-0.4 MG Orally Once a day 1 tablet 24h Active RESULTS No Results PROCEDURES Procedure Date Ordered Result Body Site BLOOD TYPING, ABO Sep 18, 2017 BLOOD TYPING, RH (D) Sep 18, 2017 COMPLETE CBC W/AUTO DIFF WBC Sep 18, 2017 No Charge Sep 18, 2017 URINALYSIS, AUTO, W/O SCOPE Sep 18, 2017 RBC ANTIBODY SCREEN Sep 18, 2017 TRICHOMONAS ASSAY W/OPTIC Sep 18, 2017 CULTURE, BACTERIA, OTHER Sep 18, 2017 ASSAY THYROID STIM HORMONE Sep 18, 2017 URINE CULTURE/COLONY COUNT Sep 18, 2017 RUBELLA ANTIBODY Sep 18, 2017 VENIPUNCT, ROUTINE* Sep 18, 2017 DRUG TEST PRSMV DIR OPT OBS Sep 18, 2017 INSTRUCTIONS MEDICATIONS ADMINISTERED No Known Medications MEDICAL (GENERAL) HISTORY Type Description Date Medical History 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 Has had consisten NEUROLOGY care. Diagnosed with Focal Seizures with EEG Medical History ADHD Medical History Bipolar disorder Medical History Social anxiety disorder Surgical History Goltry teeth removed 09/06/15 Surgical History Childbirth Surgical History Spider bite Hospitalization History psych; anger/aggression 2008 Hospitalization History ER visit Bleeding while 10/20/17
--- OUTSIDE RECORDS SUMMARY | 2018-04-04 11:01 | XMS REPORT ---
Author Author ANDREW REGIS [facility] Address [address] [place] [address] Care Team Providers Care Spd Manager Name Role Phone ANDREWMIRIANREGIS Unavailable PROBLEMS Type Condition ICD9-CM Code [id number] Code Onset Dates Condition Status SNOMED Code Problem Bipolar disorder, in partial remission, most recent episode depressed F31.75 Active 48531784 Problem Social phobia, generalized F40.11 Active 58746916 Problem Bipolar disorder, current episode hypomanic F31.0 Active 71721976 Problem Attention-deficit hyperactivity disorder, combined type F90.2 Active 16409686 Problem Abnormal ultrasound R93.8 Active 686237082 Problem Low lying placenta with hemorrhage, first trimester O44.51 Active 091648776 Problem Unspecified blood type, Rh negative Z67.91 Active 702518106 Problem Bipolar disorder with moderate depression F31.32 Active 632875452 Problem History of delivery, currently O09.219 Active 682333784 Problem Supervision of other high risk pregnancies, first trimester O09.891 Active [id number] ALLERGIES No Information ENCOUNTERS Encounter Location Date Diagnosis [place] [id number] [place] [address] 77929- 2786 Jan, [facility] [address] [place] [id number] [place] [address] 66676- 1719 December, History of delivery, currently O09.219 [facility] [id number] [place] [address] 80774- 4181 December, History of delivery, currently O09.219 [facility] [id number] [place] [address] 24386- 0977 December, [facility] [id number] [place] [address] 80659- 1482 December, [place] [address], [place] [address] 39[address] December, 22 weeks gestation of Z3A.22 and Second trimester Z34.92 [facility] [address], [place] [address] 4[address] December, [facility] [id number] [address] 5[address] December, History of delivery, currently O09.219 [facility] [address], [place] [address] 6891 December, History of delivery, currently O09.219 [facility] [id number] [address] 6[address] December, [facility] [id number] [address] 9048 December, History of delivery, currently O09.219 [facility] [address], [place] [address] 8522 Nov, [facility] [id number] [address] 5062 Nov, History of delivery, currently O09.219 [facility] [address], [place] [address] 1704 Nov, care, subsequent in second trimester Z34.82 and 18 weeks gestation of Z3A.18 [facility] [address], [place] [address] 2483 Nov, [facility] [id number] [address] 6633 Oct, [facility] [address], [place] [address] 2141 Oct, Threatened miscarriage O20.0 [facility] [address], [place] [address] 7937 Oct, 14 weeks gestation of Z3A.14 ; Threatened miscarriage O20.0 ; Other specified noninflammatory disorders of vagina N89.8 ; Other specified related conditions, second trimester O26.892 ; Vaginal candidiasis B37.3 ; Low lying placenta with hemorrhage, first trimester O44.51 ; Abnormal ultrasound R93.8 ; Second trimester Z34.92 and History of delivery, currently O09.219 [place] [address] 57[address]- 3775 18 Oct, 2017 [place] [address] [place] [id number] [place] [address] 79648- 3753 16 Oct, 2017 care, subsequent in second trimester Z34.82 and 13 weeks gestation of Z3A.13 [place] [id number] [place] [address] 18875- 3025 22 Sep, 2017 [place] [address] 68191- 5325 14 Sep, 2017 care, subsequent in first trimester Z34.81 and 9 weeks gestation of Z3A.09 [place] [id number] [place] [address] 03885- 8100 14 Sep, 2017 [place] [id number] [place] [address] 34289- 2299 Aug, [place] [id number] [place] [address] 75574- 3717 Aug, [place] [id number] [place] [address] 27266- 6319 Aug, [place] [id number] [place] [address] 81136- 6533 Aug, Encounter for test Z32.00 [place] [id number] [place] [address] 95639- 1324 Jul, [place] [id number] [place] [address] 42205- 4560 Jul, [facility] [address], [place] [address] Jun, [facility] [id number] [place] [address] 04395- 9805 14 Apr, 2017 [facility] [id number] [place] [address] 43926- 9370 14 Apr, 2017 Bipolar disorder with moderate depression F31.32 and Attention-deficit hyperactivity disorder, combined type F90.2 [facility] [id number] [place] [address] 39350- 2462 Feb, [facility] [id number] [place] [address] 19592- 8678 Feb, [facility] [id number] [place] [address] 40697- 3262 Jan, [facility] [id number] [place] [address] 31613 -2649 Jan, Vaginal discharge N89.8 and Acute vaginitis N76.0 [facility] [id number] [place] [address] 05624- 4337 Nov, [facility] [id number] [place] [address] 65801- 9853 Nov, Encounter for visit Z39.2 ; Tobacco abuse counseling Z71.6 and Drug or alcohol risk assessment or counseling Z71.89 [facility] [id number] [place] [address] 30246- 1927 Nov, [facility] [id number] [place] [address] 62045- 9477 Oct, [facility] [id number] [place] [address] 68576- 2216 Oct, [facility] [address] [place] [address] 64848- 8696 Oct, [facility] [id number] [place] [address] 49440- 7135 Oct, STD exposure Z20.2 [place] [address] [place] [address] 99824- 3614 Oct, Bipolar disorder, in partial remission, most recent episode depressed F31.75 ; Attention-deficit hyperactivity disorder, combined type F90.2 and Social phobia, generalized F40.11 [place] [address] [place] [address] 40020- 1599 Oct, Bipolar disorder, in partial remission, most recent episode depressed F31.75 ; Attention-deficit hyperactivity disorder, combined type F90.2 and Social phobia, generalized F40.11 [place] [address] [place] [address] 31877- 3439 Oct, [place] [address], [place] [address]- 1148 Sep, [place] [id number] [place] [address] 73497- 7635 Sep, [place] [address] [place] [address] 74392- 1252 Sep, screening for streptococcus B Z36 ; care , first in third trimester Z34.03 and 35 weeks gestation of Z3A.35 [place] [address], [place] [address]- 9305 Sep, care, first in third trimester Z34.03 and 34 weeks gestation of Z3A.34 [place] [address], [place] [address]- 5063 Sep, [place] [address] [place] [id number] [place] [address] 78335- 0559 Sep, [place] [address], [place] [address]- 4460 Sep, Bipolar disorder, in partial remission, most recent episode depressed F31.75 ; Attention-deficit hyperactivity disorder, combined type F90.2 and Social phobia, generalized F40.11 [place] [address] [place] [address] 37881- 3929 25 Aug, 2016 Normal , first Z34.00 ; Encounter for immunization Z23 and 32 weeks gestation of Z3A.32 [place] [address] [place] [id number] [place] [address] 31246- 7932 10 Aug, 2016 [place] [address] 09775- 3381 Aug, Other specified related conditions, third trimester O26.893 and 30 weeks gestation of Z3A.30 [place] [address] [id number] [place] [address] 24416- 5776 04 Aug, 2016 [place] [address] [place] [id number] [place] [address] 43338- 5232 27 Jul, 2016 Diabetes mellitus screening Z13.1 ; , first, first trimester Z34.01 ; Other specified noninflammatory disorders of vagina N89.8 ; Other specified related conditions, third trimester O26.893 and 28 weeks gestation of Z3A.28 [place] [address] [id number] [place] [address] 70021- 8717 14 Jul, 2016 [place] [address] [place] [address] 21933- 6451 Jun, [facility] [address] [id number] [address] Jun [place] [address] [place] [address] 03873- 0142 18 Jun, 2016 Normal , first Z34.00 ; Evaluate anatomy not seen on prior sonogram Z36 and 23 weeks gestation of Z3A.23 [place] [address] [place] [address] 16341- 9054 17 Jun, 2016 [place] [address] [place] [id number] [place] [address] 88879- 5461 Jun, Bipolar disorder, in partial remission, most recent episode depressed F31.75 ; Attention-deficit hyperactivity disorder, combined type F90.2 and Social phobia, generalized F40.11 [facility] [id number] [place] [address] 84320- 8211 May, [facility] [id number] [place] [address] 28765- 1688 May, Normal , first Z34.00 and 19 weeks gestation of Z3A.19 [facility] [id number] [place] [address] 52870 -1480 May, Dysuria R30.0 and Acute cystitis during , second trimester O23.12 [facility] [address] [place] [id number] [place] [address] 59020- 8408 Apr, [facility] [address] [id number] [place] [address] 63986- 6773 Apr, care, first in second trimester Z34.02 [facility] [id number] [place] [address] 26236- 6551 26 Apr, 2016 [facility] [id number] [place] [address] 81547- 0859 Apr, [facility] [id number] [place] [address] 51885- 4582 Apr, [facility] [id number] [place] [address] 43597- 2406 Apr, 2015 care, first in second trimester Z34.02 ; Dehydration E86.0 and 14 weeks gestation of Z3A.14 [facility] [id number] [place] [address] 68531- 3589 22 Apr, 2016 Bipolar disorder, in partial remission, most recent episode depressed F31.75 ; Attention-deficit hyperactivity disorder, combined type F90.2 ; Social anxiety disorder F40.10 and 15 weeks gestation of Z3A.15 [facility] [address] [place] [place] [id number] [place] [address] 93673- 1216 Mar, [facility] [address] [facility] [id number] [address]- 8857 Mar, , first, first trimester Z34.01 and 10 weeks gestation of Z3A.10 [facility] [address] [id number] [address]- 3146 Mar, [facility] [address], [place] [address]- 7720 Mar, [facility] [id number] [address]- 3459 Feb, Normal , first Z34.00 and 6 weeks gestation of Z3A.01 [facility] [id number], [place] [address]- 0905 Feb, [facility] [address], [place] [address]- 5269 Feb, [address] [id number] [place] [address] Feb [facility] [address] [facility] [id number], [place] [address]- 5084 Feb, [facility] [id number], [place] [address]- 3307 Feb, [facility] [address] [facility] [id number], [place] [address]- 1944 Feb, Bipolar disorder, in partial remission, most recent episode depressed F31.75 ; Attention-deficit hyperactivity disorder, combined type F90.2 and Social anxiety disorder F40.10 [facility] [address] [facility] [id number], [place] [address]- 1224 Feb, Routine adult health maintenance Z00.00 [facility] [id number], [place] [address]- 3803 Feb, [facility] [id number], [place] [address]- 9637 Feb, confirmed by positive urine test Z32.01 [facility] [address], [place] [address]- 4589 Feb, [facility] [id number], [place] [address]- 8684 Jan, [facility] [address], [place] [address]- 9730 Jan, Bipolar disorder, in partial remission, most recent episode depressed F31.75 ; Attention-deficit hyperactivity disorder, combined type F90.2 and Social anxiety disorder F40.10 [facility] [address], [place] [address]- 5469 Jan, Seizure disorder G40.909 [facility] [address], [place] [address]- 5414 Jan, [facility] [address] [place] [address] 59533- 5747 December, Bipolar disorder, current episode hypomanic F31.0 ; Attention-deficit hyperactivity disorder, combined type F90.2 and Social anxiety disorder F40.10 [facility] [address], [place] [address]- 3333 December, Screening for STD sexually transmitted disease Z11.3 [facility] [id number], [place] [address]- 8463 Nov, [facility] [id number], [place] [address]- 0533 Nov, [facility] [id number], [place] [address]- 2360 Nov, Screening for STD sexually transmitted disease Z11.3 and Attention-deficit hyperactivity disorder, combined type F90.2 [facility] [id number] [address]- 0388 Nov, Attention-deficit hyperactivity disorder, combined type F90.2 ; Social anxiety disorder F40.10 and Bipolar disorder, current episode hypomanic F31.0 [facility] [id number], [place] [address]- 3206 Oct, [facility] [address], [place] [address] 2546 Oct, [facility] [id number], [place] [address]- 0826 Sep, [facility] [id number] [place] [address] 24588 2546 Sep, Bipolar disorder, in partial remission, most recent episode depressed F31.75 ; Attention-deficit hyperactivity disorder, combined type F90.2 and Social anxiety disorder F40.10 [facility] [address], [place] [address]- 3446 Sep, [facility] [id number] [place] [address] 12233- 2136 Aug, [facility] [address], [place] [address]- 8926 Jul, [facility] [address], [place] [address]- 5686 Jul, [facility] [address], [place] [address]- 9160 Jul, Bipolar disorder, in partial remission, most recent episode depressed F31.75 ; Attention-deficit hyperactivity disorder, combined type F90.2 and Social anxiety disorder F40.10 [facility] [address], [place] [address] 2546 Jun, [facility] [address], [place] [address]- 6406 Jun, [facility] [id number] 7386 Jun, [facility] [address], [place] [address]- 8466 May, [facility] [address], [place] [address]- 4886 May, [facility] [id number] [place] [address] 81064- 2886 May, [facility] [id number] [address]- 2546 May, Bipolar disorder, in partial remission, most recent episode depressed F31.75 ; Attention-deficit hyperactivity disorder, combined type F90.2 and Social anxiety disorder F40.10 [facility] [address], [place] [address]- 3470 Mar, Bipolar I disorder, moderate, current or most recent episode depressed, in partial remission, with mixed features 296.55 ; ADHD ( attention deficit hyperactivity disorder), combined type 314.01 and Social anxiety disorder 300.23 [facility] [id number] [address]- 0386 Aug, [facility] [id number] [address]- 0983 Aug, [facility] [address], [place] [address]- 9922 Jun, [facility] [address], [place] [address]- 5926 Jun, [facility] [address], [place] [address]- 9506 Jan, [facility] [id number] [address] 2546 December, [facility] [address], [place] [address] 2546 Oct, [facility] [address], [place] [address]- 2386 Sep, [facility] [address], [place] [address]- 2546 Jun, IMMUNIZATIONS No Known Immunizations SOCIAL [...] Medical History Social anxiety disorder Surgical History Carson teeth removed 09/06/15 Surgical History Childbirth Surgical History Spider bite Hospitalization History psych; anger/aggression 2008 Hospitalization History ER visit Bleeding while 10/20/17
--- OUTSIDE RECORDS SUMMARY | 2018-04-04 11:02 | XMS REPORT ---
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 Name Role Phone ANDREWMIRIANREGIS Unavailable PROBLEMS Type Condition ICD9-CM Code [id number] Code Onset Dates Condition Status SNOMED Code Problem Bipolar disorder, in partial remission, most recent episode depressed F31.75 Active 54512550 Problem Social phobia, generalized F40.11 Active 51393602 Problem Bipolar disorder, current episode hypomanic F31.0 Active 61544792 Problem Attention-deficit hyperactivity disorder, combined type F90.2 Active 13114877 Problem Abnormal ultrasound R93.8 Active 046328546 Problem Low lying placenta with hemorrhage, first trimester O44.51 Active 239973709 Problem Unspecified blood type, Rh negative Z67.91 Active 740536176 Problem Bipolar disorder with moderate depression F31.32 Active 873619386 Problem History of delivery, currently O09.219 Active 408211353 Problem Supervision of other high risk pregnancies, first trimester O09.891 Active [id number] ALLERGIES No Information ENCOUNTERS Encounter Location Date Diagnosis [place] [id number] [place] [address] 21495- 4592 Jan, [facility] [id number] [place] [address] 57793- 0125 December, History of delivery, currently O09.219 [facility] [id number] [place] [address] 53982- 1163 December, History of delivery, currently O09.219 [facility] [id number] [place] [address] 68132- 0215 December, [facility] [id number] [place] [address] 81204- 3713 December, [place] [address], [place] [address] December, 22 weeks gestation of Z3A.22 and Second trimester Z34.92 [facility] [address] [address] 0[address] December, [facility] [id number] [address] 7438 December, History of delivery, currently O09.219 [facility] [address] [address] 6092 December, History of delivery, currently O09.219 [facility] [id number] [address] 5035 December, [facility] [id number] [address] 1042 December, History of delivery, currently O09.219 [facility] [address], [place] [address] 0115 Nov, [facility] [id number] [address] 9234 Nov, History of delivery, currently O09.219 [facility] [address], [place] [address] 1759 Nov, care, subsequent in second trimester Z34.82 and 18 weeks gestation of Z3A.18 [facility] [address], [place] [address] 0359 Nov, [facility] [id number] [address] 1455 Oct, [facility] [address], [place] [address] 6327 Oct, Threatened miscarriage O20.0 [facility] [address], [place] [address] 2186 Oct, 14 weeks gestation of Z3A.14 ; Threatened miscarriage O20.0 ; Other specified noninflammatory disorders of vagina N89.8 ; Other specified related conditions, second trimester O26.892 ; Vaginal candidiasis B37.3 ; Low lying placenta with hemorrhage, first trimester O44.51 ; Abnormal ultrasound R93.8 ; Second trimester Z34.92 and History of delivery, currently O09.219 [place] [address] [address]47- 0189 18 Oct, 2017 [place] [id number] [place] [address] 86716- 0622 16 Oct, 2017 care, subsequent in second trimester Z34.82 and 13 weeks gestation of Z3A.13 [place] [id number] [place] [address] 21786- 1537 22 Sep, 2017 [place] [address] 02226- 9982 14 Sep, 2017 care, subsequent in first trimester Z34.81 and 9 weeks gestation of Z3A.09 [place] [id number] [place] [address] 09264- 4473 14 Sep, 2017 [place] [id number] [place] [address] 09004- 4979 Aug, [place] [id number] [place] [address] 78369- 9373 Aug, [place] [id number] [place] [address] 54659- 1525 Aug, [place] [id number] [place] [address] 35634- 3093 Aug, Encounter for test Z32.00 [place] [id number] [place] [address] 51710- 0510 Jul, [place] [id number] [place] [address] 94544- 9160 Jul, [facility] [address], [place] [address] Jun, [facility] [id number] [place] [address] 29623- 8533 14 Apr, 2017 [facility] [id number] [place] [address] 58156- 1007 14 Apr, 2017 Bipolar disorder with moderate depression F31.32 and Attention-deficit hyperactivity disorder, combined type F90.2 [facility] [id number] [place] [address] 09401- 1078 Feb, [facility] [id number] [place] [address] 06605- 0864 Feb, [facility] [id number] [place] [address] 11282- 7891 Jan, [facility] [id number] [place] [address] 08172 -6773 Jan, Vaginal discharge N89.8 and Acute vaginitis N76.0 [facility] [id number] [place] [address] 20262- 3029 Nov, [facility] [id number] [place] [address] 74283- 4613 Nov, Encounter for visit Z39.2 ; Tobacco abuse counseling Z71.6 and Drug or alcohol risk assessment or counseling Z71.89 [facility] [id number] [place] [address] 75571- 6240 Nov, [facility] [id number] [place] [address] 85322- 3480 Oct, [facility] [id number] [place] [address] 19709- 5940 Oct, [facility] [address] [place] [address] 10862- 7462 Oct, [facility] [id number] [place] [address] 96248- 2656 Oct, STD exposure Z20.2 [place] [address] [place] [address] 17360- 8399 Oct, Bipolar disorder, in partial remission, most recent episode depressed F31.75 ; Attention-deficit hyperactivity disorder, combined type F90.2 and Social phobia, generalized F40.11 [place] [address] [place] [address] 98864- 0500 Oct, Bipolar disorder, in partial remission, most recent episode depressed F31.75 ; Attention-deficit hyperactivity disorder, combined type F90.2 and Social phobia, generalized F40.11 [place] [address] [place] [address] 61184- 6172 Oct, [place] [address], [place] [address]- 9133 Sep, [place] [id number] [place] [address] 87639- 9544 Sep, [place] [address] [place] [address] 36231- 5372 Sep, screening for streptococcus B Z36 ; care , first in third trimester Z34.03 and 35 weeks gestation of Z3A.35 [place] [address], [place] [address]- 2945 Sep, care, first in third trimester Z34.03 and 34 weeks gestation of Z3A.34 [place] [address], [place] [address]- 0961 Sep, [place] [address] [id number] [place] [address] 29586- 9529 Sep, [place] [address], [place] [address]- 9795 Sep, Bipolar disorder, in partial remission, most recent episode depressed F31.75 ; Attention-deficit hyperactivity disorder, combined type F90.2 and Social phobia, generalized F40.11 [place] [address] [place] [address] 64504- 5149 25 Aug, 2016 Normal , first Z34.00 ; Encounter for immunization Z23 and 32 weeks gestation of Z3A.32 [place] [address] [id number] [place] [address] 78891- 6952 10 Aug, 2016 [place] [address] 64725- 9835 Aug, Other specified related conditions, third trimester O26.893 and 30 weeks gestation of Z3A.30 [place] [id number] [place] [address] 34730- 8569 04 Aug, 2016 [place] [id number] [place] [address] 52460- 0506 27 Jul, 2016 Diabetes mellitus screening Z13.1 ; , first, first trimester Z34.01 ; Other specified noninflammatory disorders of vagina N89.8 ; Other specified related conditions, third trimester O26.893 and 28 weeks gestation of Z3A.28 [place] [address] [id number] [place] [address] 15487- 5516 14 Jul, 2016 [place] [address] [place] [address] 98788- 3378 Jun, [facility] [address] [id number] [place] [address] Jun [place] [address] [place] [address] 18411- 5417 18 Jun, 2016 Normal , first Z34.00 ; Evaluate anatomy not seen on prior sonogram Z36 and 23 weeks gestation of Z3A.23 [place] [address] [place] [address] 61483- 5940 17 Jun, 2016 [place] [id number] [place] [address] 05829- 9324 Jun, Bipolar disorder, in partial remission, most recent episode depressed F31.75 ; Attention-deficit hyperactivity disorder, combined type F90.2 and Social phobia, generalized F40.11 [facility] [id number] [place] [address] 96690- 4309 May, [facility] [id number] [place] [address] 31008- 0551 May, Normal , first Z34.00 and [address]A.19 [facility] [id number] [place] [address] 12082 -1531 May, Dysuria R30.0 and Acute cystitis during , second trimester O23.12 [facility] [id number] [place] [address] 64551- 8048 Apr, [facility] [id number] [place] [address] 20852- 1459 Apr, care, first in second trimester Z34.02 [facility] [id number] [place] [address] 81145- 9527 26 Apr, 2016 [facility] [id number] [place] [address] 22510- 4164 Apr, [facility] [id number] [place] [address] 47219- 2861 Apr, [facility] [id number] [place] [address] 85155- 0095 Apr, 2015 care, first in second trimester Z34.02 ; Dehydration E86.0 and 14 weeks gestation of Z3A.14 [facility] [id number] [place] [address] 08048- 6259 22 Apr, 2016 Bipolar disorder, in partial remission, most recent episode depressed F31.75 ; Attention-deficit hyperactivity disorder, combined type F90.2 ; Social anxiety disorder F40.10 and 15 weeks gestation of Z3A.15 [facility] [id number] [place] [address] 80971- 2075 Mar, [facility] [address] [facility] [id number] [address]- 3813 Mar, , first, first trimester Z34.01 and 10 weeks gestation of Z3A.10 [facility] [id number] [address]- 3561 Mar, [facility] [address], [place] [address]- 1921 Mar, [facility] [id number] [address]- 0166 Feb, Normal , first Z34.00 and 6 weeks gestation of Z3A.01 [facility] [id number] [address]- 7600 Feb, [facility] [address], [place] [address]- 1874 Feb, [address] [id number] [place] [address] Feb [facility] [address] [facility] [id number], [place] [address]- 3083 Feb, [facility] [id number] [address]- 0076 Feb, [facility] [address] [facility] [id number], [place] [address]- 9602 Feb, Bipolar disorder, in partial remission, most recent episode depressed F31.75 ; Attention-deficit hyperactivity disorder, combined type F90.2 and Social anxiety disorder F40.10 [facility] [address] [facility] [id number], [place] [address]- 4298 Feb, Routine adult health maintenance Z00.00 [facility] [id number] [address]- 8075 Feb, [facility] [id number] [address]- 9317 Feb, confirmed by positive urine test Z32.01 [facility] [address], [place] [address]- 0186 Feb, [facility] [id number] [address]- 1764 Jan, [facility] [address], [place] [address]- 2243 Jan, Bipolar disorder, in partial remission, most recent episode depressed F31.75 ; Attention-deficit hyperactivity disorder, combined type F90.2 and Social anxiety disorder F40.10 [facility] [address], [place] [address]- 9611 Jan, Seizure disorder G40.909 [facility] [address], [place] [address]- 7964 Jan, [facility] [address] [place] [address] 92796- 1989 December, Bipolar disorder, current episode hypomanic F31.0 ; Attention-deficit hyperactivity disorder, combined type F90.2 and Social anxiety disorder F40.10 [facility] [address], [place] [address]- 7583 December, Screening for STD sexually transmitted disease Z11.3 [facility] [id number] [address]- 9038 Nov, [facility] [id number], [place] [address]- 4430 Nov, [facility] [id number], [place] [address]- 0100 Nov, Screening for STD sexually transmitted disease Z11.3 and Attention-deficit hyperactivity disorder, combined type F90.2 [facility] [id number] [address]- 8290 Nov, Attention-deficit hyperactivity disorder, combined type F90.2 ; Social anxiety disorder F40.10 and Bipolar disorder, current episode hypomanic F31.0 [facility] [id number], [place] [address]- 4096 Oct, [facility] [address], [place] [address] 2546 Oct, [facility] [id number], [place] [address]- 3516 Sep, [facility] [id number] [place] [address] 83636 2546 Sep, Bipolar disorder, in partial remission, most recent episode depressed F31.75 ; Attention-deficit hyperactivity disorder, combined type F90.2 and Social anxiety disorder F40.10 [facility] [address], [place] [address]- 5376 Sep, [facility] [address] [place] [address] 18088- 6356 Aug, [facility] [address], [place] [address]- 9396 Jul, [facility] [address], [place] [address]- 2116 Jul, [facility] [address], [place] [address]- 4088 Jul, Bipolar disorder, in partial remission, most recent episode depressed F31.75 ; Attention-deficit hyperactivity disorder, combined type F90.2 and Social anxiety disorder F40.10 [facility] [address], [place] [address] 2546 Jun, [facility] [address], [place] [address]- 3676 Jun, [facility] [id number] 0576 Jun, [facility] [address], [place] [address]- 8246 May, [facility] [address], [place] [address]- 8706 May, [facility] [id number] [place] [address] 80872- 4796 May, [facility] [id number] [address]- 2546 May, Bipolar disorder, in partial remission, most recent episode depressed F31.75 ; Attention-deficit hyperactivity disorder, combined type F90.2 and Social anxiety disorder F40.10 [facility] [address], [place] [address]- 7840 Mar, Bipolar I disorder, moderate, current or most recent episode depressed, in partial remission, with mixed features 296.55 ; ADHD ( attention deficit hyperactivity disorder), combined type 314.01 and Social anxiety disorder 300.23 [facility] [id number] [address]- 5546 Aug, [facility] [id number] [address]- 1837 Aug, [facility] [address], [place] [address]- 0805 Jun, [facility] [address], [place] [address]- 1046 Jun, [facility] [address], [place] [address]- 5196 Jan, [facility] [id number] [address] 2546 December, [facility] [address], [place] [address] 2546 Oct, [facility] [address], [place] [address]- 4356 Sep, [facility] [address], [place] [address]- 2546 Jun, IMMUNIZATIONS No Known Immunizations SOCIAL [...] Medical History Social anxiety disorder Surgical History [place] teeth removed 09/06/15 Surgical History Childbirth Surgical History Spider bite Hospitalization History psych; anger/aggression 2008 Hospitalization History ER visit Bleeding while 10/20/17
--- OUTSIDE RECORDS SUMMARY | 2018-04-04 11:03 | XMS REPORT ---
Author Author ANDREW REGIS [facility] Address [address] [place] [address] Care Team Providers Care Drier Feeder Name Role Phone ANDREWMIRIAN KELLERHANY Unavailable PROBLEMS Type Condition ICD9-CM Code [id number] Code Onset Dates Condition Status SNOMED Code Problem Bipolar disorder, in partial remission, most recent episode depressed F31.75 Active 40106149 Problem Social phobia, generalized F40.11 Active 23245078 Problem Bipolar disorder, current episode hypomanic F31.0 Active 40891387 Problem Attention-deficit hyperactivity disorder, combined type F90.2 Active 73586887 Problem Abnormal ultrasound R93.8 Active 386557956 Problem Low lying placenta with hemorrhage, first trimester O44.51 Active 592404245 Problem Unspecified blood type, Rh negative Z67.91 Active 352497287 Problem Bipolar disorder with moderate depression F31.32 Active 392400821 Problem History of delivery, currently O09.219 Active 813285736 Problem Supervision of other high risk pregnancies, first trimester O09.891 Active 370890934 ALLERGIES No Information ENCOUNTERS Encounter Location Date Diagnosis [place] [id number] [place] [address] 75389- 9071 Nov, [place] [address] [place] [id number] [place] [address] 18452- 4965 Oct, [place] [address] [place] [id number] [place] [address] 90457- 4395 Oct, Threatened miscarriage O20.0 [place] [address] [place] [id number] [place] [address] 90395- 6235 Oct, 14 weeks gestation of Z3A.14 ; Threatened miscarriage O20.0 ; Other specified noninflammatory disorders of vagina N89.8 ; Other specified related conditions, second trimester O26.892 ; Vaginal candidiasis B37.3 ; Low lying placenta with hemorrhage, first trimester O44.51 ; Abnormal ultrasound R93.8 ; Second trimester Z34.92 and History of delivery, currently O09.219 [place] [address] [place] [id number] [place] [address] 18282- 1929 18 Oct, 2017 [facility] [address] [place] [address] [id number] [place] [address] 40513- 7623 16 Oct, 2017 care, subsequent in second trimester Z34.82 and 13 weeks gestation of Z3A.13 [place] [address] [place] [address] [id number] [place] [address] 47020- 9718 22 Sep, 2017 [place] [address] [place] [id number] [place] [address] 43513- 9439 14 Sep, 2017 care, subsequent in first trimester Z34.81 and 9 weeks gestation of Z3A.09 [place] [address] [place] [id number] [place] [address] 30762- 3918 14 Sep, 2017 [facility] [address] [place] [id number] [place] [address] 50497- 1468 Aug, [facility] [address] [place] [address] [id number] [place] [address] 64882- 6012 Aug, [facility] [address] [place] [address] [id number] [place] [address] 66242- 7661 Aug, [facility] [address] [place] [address] [id number] [place] [address] 85145- 3406 Aug, Encounter for test Z32.00 [facility] [id number] [place] [address] 33544- 7288 Jul, [place] [address] [place] [address] [id number] [place] [address] 05325- 3036 Jul, [facility] [address] [address] Jun, [facility] [address] [place] [id number] [place] [address] 50823- 0786 14 Apr, 2017 [facility] [id number] [place] [address] 88360- 3494 Apr, Bipolar disorder with moderate depression F31.32 and Attention-deficit hyperactivity disorder, combined type F90.2 [facility] [address] [address] 2749 Feb, [facility] [address] [place] [address] [id number] [place] [address] 10357- 1157 Feb, [facility] [id number] [place] [address] 12482- 2776 Jan, [facility] [address] [place] [address] [id number] [place] [address] 14604 -5648 Jan, Vaginal discharge N89.8 and Acute vaginitis N76.0 [facility] [address] [place] [id number] [place] [address] 53369- 0205 Nov, [facility] [address] [place] [address] [id number] [place] [address] 02925- 2196 Nov, Encounter for visit Z39.2 ; Tobacco abuse counseling Z71.6 and Drug or alcohol risk assessment or counseling Z71.89 [facility] [address] [address] 0139 Nov, [facility] [address] [address]- 7631 Oct, [facility] [address] [address]- 9787 Oct, [facility] [address] [place] [id number] [place] [address] 21454- 0695 Oct, [facility] [address] [place] [id number] [place] [address] 27830- 8653 Oct, STD exposure Z20.2 [facility] [address] [place] [id number] [place] [address] 93954- 5342 Oct, Bipolar disorder, in partial remission, most recent episode depressed F31.75 ; Attention-deficit hyperactivity disorder, combined type F90.2 and Social phobia, generalized F40.11 [place] [id number] [place] [address] 25228- 6583 Oct, Bipolar disorder, in partial remission, most recent episode depressed F31.75 ; Attention-deficit hyperactivity disorder, combined type F90.2 and Social phobia, generalized F40.11 [place] [address] [place] [id number] [place] [address] 19125- 7028 Oct, [place] [address] [place] [id number] [place] [address] 69774- 8346 Sep, [place] [address] [place] [id number] [place] [address] 14893- 8063 Sep, [place] [address] [place] [id number] [place] [address] 94622- 7058 Sep, screening for streptococcus B Z36 ; care , first in third trimester Z34.03 and 35 weeks gestation of Z3A.35 [place] [address] [place] [id number] [place] [address] 82402- 0091 Sep, care, first in third trimester Z34.03 and 34 weeks gestation of Z3A.34 [place] [id number] [place] [address] 62133- 9106 Sep, [place] [address] [place] [id number] [place] [address] 06023- 3541 Sep, [place] [id number] [place] [address] 84136- 4739 Sep, Bipolar disorder, in partial remission, most recent episode depressed F31.75 ; Attention-deficit hyperactivity disorder, combined type F90.2 and Social phobia, generalized F40.11 [place] [address] [address] 4529 Aug, Normal , first Z34.00 ; Encounter for immunization Z23 and 32 weeks gestation of Z3A.32 [place] [address] [address]- 3500 10 Aug, 2016 [place] [id number] [place] [address] 37206- 4054 10 Aug, 2016 Other specified related conditions, third trimester O26.893 and 30 weeks gestation of Z3A.30 [place] [id number] [place] [address] 24456- 8467 04 Aug, 2016 [place] [id number] [place] [address] 03548- 5188 27 Jul, 2016 Diabetes mellitus screening Z13.1 ; , first, first trimester Z34.01 ; Other specified noninflammatory disorders of vagina N89.8 ; Other specified related conditions, third trimester O26.893 and 28 weeks gestation of Z3A.28 [place] [id number] [place] [address] 08739- 4823 14 Jul, 2016 [place] [address] [address]- 9184 Jun, [facility] [address] [id number] [place] [address] [id number] [place] [address] 01775- 8593 18 Jun, 2016 Normal , first Z34.00 ; Evaluate anatomy not seen on prior sonogram Z36 and 23 weeks gestation of Z3A.23 [place] [address] [address]- 8403 17 Jun, 2016 [place] [address] [place] [id number] [place] [address] 18219- 4399 Jun, Bipolar disorder, in partial remission, most recent episode depressed F31.75 ; Attention-deficit hyperactivity disorder, combined type F90.2 and Social phobia, generalized F40.11 [id number] [place] [address] 40757- 5751 May, [facility] [address] [address]- 8351 May, Normal , first Z34.00 and 19 weeks gestation [facility] Z3A.19 [facility] [address] [place] [id number] [address] 11 May, 2016 Dysuria R30.0 and Acute cystitis during , second trimester O23.12 [facility] [address] [address]- 4793 29 Apr, 2016 [facility] [address] [place] [id number] [place] [address] 24460- 9031 Apr, care, first in second trimester Z34.02 [facility] [address] [address]- 7315 Apr, [facility] [id number] [place] [address] 75008- 6769 Apr, [facility] [address] [address]- 0235 Apr, [facility] [address] [place] [id number] [address]- 3808 Apr, care, first in second trimester Z34.02 ; Dehydration E86.0 and 14 weeks gestation of Z3A.14 [facility] [address] [address]- 6433 Apr, Bipolar disorder, in partial remission, most recent episode depressed F31.75 ; Attention-deficit hyperactivity disorder, combined type F90.2 ; Social anxiety disorder F40.10 and 15 weeks gestation of Z3A.15 [place] [address] [address]- 4624 Mar, [facility] [address] [address]- 9267 Mar, , first, first trimester Z34.01 and 10 weeks gestation of Z3A.10 [facility] [address] [facility] [id number] [address]- 5677 Mar, [facility] [address] [place] [id number] [address]- 1796 Mar, [facility] [address] [place] [id number] [address]- 9986 Feb, Normal , first Z34.00 and 6 weeks gestation of Z3A.01 [facility] [address] [facility] [id number] [address]- 0072 Feb, [facility] [address] [address]- [address] Feb, [address] [id number] [place] [address] Feb [facility] [address] [address]- 4730 Feb, [facility] [address] [address]- 6610 Feb, [facility] [address] [address]- 0662 Feb, Bipolar disorder, in partial remission, most recent episode depressed F31.75 ; Attention-deficit hyperactivity disorder, combined type F90.2 and Social anxiety disorder F40.10 [facility] [address] [place] [id number] [address]- 2169 Feb, Routine adult health maintenance Z00.00 [facility] [address] [place] [address] [id number] [address]- 1909 Feb, [facility] [address] [address]- 6592 Feb, confirmed by positive urine test Z32.01 [facility] [address] [address]- 4572 Feb, [facility] [address] [address]- 4480 Jan, [facility] [address] [place] [id number] [place] [address] 96089- 1705 Jan, Bipolar disorder, in partial remission, most recent episode depressed F31.75 ; Attention-deficit hyperactivity disorder, combined type F90.2 and Social anxiety disorder F40.10 [facility] [address] [place] [id number] [place] [address] 47054- 1444 Jan, Seizure disorder G40.909 [facility] [address] [place] [id number] [place] [address] 41827- 0347 Jan, [facility] [address] [place] [address] [id number] [place] [address] 34657- 6509 December, Bipolar disorder, current episode hypomanic F31.0 ; Attention-deficit hyperactivity disorder, combined type F90.2 and Social anxiety disorder F40.10 [facility] [address] [address]- 1509 December, Screening for STD (sexually transmitted disease) Z11.3 [facility] [address] [address]- 8872 Nov, [facility] [address] [address]- 7778 Nov, [facility] [address] [address]- 5953 Nov, Screening for STD (sexually transmitted disease) Z11.3 and Attention-deficit hyperactivity disorder, combined type F90.2 [facility] [address] [address]- 8968 Nov, Attention-deficit hyperactivity disorder, combined type F90.2 ; Social anxiety disorder F40.10 and Bipolar disorder, current episode hypomanic F31.0 [facility] [address] [address]- 1356 Oct, [facility] [address] [address]- 8522 Oct, [facility] [address] [address]- 8006 Sep, [facility] [address] [address] 2546 Sep, Bipolar disorder, in partial remission, most recent episode depressed F31.75 ; Attention-deficit hyperactivity disorder, combined type F90.2 and Social anxiety disorder F40.10 [facility] [address] [address]- 6786 Sep, [facility] [address] [place] [id number] [place] [address] 894596- 0106 Aug, [facility] [id number] [address]- 9066 Jul, [facility] [address] [id number] [address]- 3746 Jul, [facility] [address] [address]- 9568 Jul, Bipolar disorder, in partial remission, most recent episode depressed F31.75 ; Attention-deficit hyperactivity disorder, combined type F90.2 and Social anxiety disorder F40.10 [facility] [address] [address]- 7416 Jun, [facility] [address] [address]- 3514 Jun, [facility] [address] [address]- 6215 Jun, [facility] [address] 5186 May, [facility] [address] [address] 1101 May, [facility] [address] [place] [id number] [place] [address] 04784- 3236 May, [facility] [id number] [place] [address] 46271- 0836 May, Bipolar disorder, in partial remission, most recent episode depressed F31.75 ; Attention-deficit hyperactivity disorder, combined type F90.2 and Social anxiety disorder F40.10 [facility] [address] [place] [id number] [place] [address] 75001- 5146 Mar, Bipolar I disorder, moderate, current or most recent episode depressed, in partial remission, with mixed features 296.55 ; ADHD ( attention deficit hyperactivity disorder), combined type 314.01 and Social anxiety disorder 300.23 [facility] [address] [place] [id number] [place] [address] 21150- 8806 Aug, [facility] [address] [place] [id number] [place] [address] 80496- 6076 Aug, [facility] [address] [place] [id number] [place] [address] 29968- 6586 Jun, [facility] [address] [place] [id number] [place] [address] 74069- 0759 Jun, [facility] [address] [place] [id number] [place] [address] 25120- 9146 Jan, [facility] [address] [place] [id number] [place] [address] 71444- 9336 December, [facility] [address] [place] [address] [id number] [place] [address] 14242- 9786 Oct, [facility] [id number] [place] [address] 64401- 4238 Sep, [facility] [address] [place] [id number] [place] [address] 88530- 6646 Jun, IMMUNIZATIONS No Known Immunizations SOCIAL HISTORY [...] Medical History Social anxiety disorder Surgical History Fowler teeth removed 09/06/15 Surgical History Childbirth Surgical History Spider bite Hospitalization History psych; anger/aggression 2008 Hospitalization History ER visit Bleeding while 10/20/17
--- OUTSIDE RECORDS SUMMARY | 2018-04-04 11:03 | XMS REPORT ---
Author Author ANDREW REGIS [facility] Address [address] [place] [address] Care Team Providers Care Circle Shear Operator Name Role Phone ANDREWMIRIANREGIS Unavailable PROBLEMS Type Condition ICD9-CM Code NEG28-LV Code Onset Dates Condition Status SNOMED Code Problem Bipolar disorder, in partial remission, most recent episode depressed F31.75 Active 27911769 Problem Social phobia, generalized F40.11 Active 98589203 Problem Bipolar disorder, current episode hypomanic F31.0 Active 79314505 Problem Attention-deficit hyperactivity disorder, combined type F90.2 Active 37332087 Problem Abnormal ultrasound R93.8 Active 655788483 Problem Low lying placenta with hemorrhage, first trimester O44.51 Active 817630452 Problem Unspecified blood type, Rh negative Z67.91 Active 582297585 Problem Bipolar disorder with moderate depression F31.32 Active 277757182 Problem History of delivery, currently O09.219 Active 583889351 Problem Supervision of other high risk pregnancies, first trimester O09.891 Active 357265930 ALLERGIES No Information ENCOUNTERS Encounter Location Date Diagnosis [place] [id number] [place] [address] 36050- 3736 Feb, [place] [address] [place] [id number] [place] [address] 52162- 7966 Jan, History of delivery, currently O09.219 [facility] [id number] [place] [address] 71241- 3393 Jan, [place] [address] [id number] [place] [address] 04971- 5561 Jan, [place] [address] [id number] [place] [address] 49482- 0894 Jan, care, subsequent in second trimester Z34.82 ; Diabetes mellitus screening Z13.1 ; Local reaction to immunization, initial encounter T88.1XXA and 26 weeks gestation [address] Z3A.26 [facility] [id number] [address] 95[address] Jan, [facility] [id number] [place] [address] 18363- 8869 Jan, [facility] [id number] [place] [address] 59253- 9950 Jan, History of delivery, currently O09.219 [facility] [address] [place] [id number] [place] [address] 24888- 8030 December, History of delivery, currently O09.219 [facility] [address] [address] [id number] [place] [address] 33635- 7995 December, History of delivery, currently O09.219 [facility] [id number] [place] [address] 23428- 4497 December, [facility] [id number] [place] [address] 67092- 0086 December, [facility] [address] [address] [id number] [place] [address] 56692- 4678 December, Second trimester Z34.92 and 22 weeks gestation [address]A.22 [facility] [id number] [address]- 1765 December, [facility] [id number] [address]- 9277 December, History of delivery, currently O09.219 [facility] [id number] [address]- 8953 December, History of delivery, currently O09.219 [facility] [address] [address]- 4542 December, [facility] [address] [address] [id number] [place] [address] 90834- 1033 December, History of delivery, currently O09.219 [place] [address] [id number] [place] [address] 18064- 1664 Nov, [facility] [id number] [place] [address] 23439- 8712 Nov, History of delivery, currently O09.219 [place] [address] [address] [id number] [place] [address] 39200- 9837 Nov, care, subsequent in second trimester Z34.82 and 18 weeks gestation of Z3A.18 [place] [address] [address] [id number] [place] [address] 09841- 8570 Nov, [place] [address] [address] [id number] [place] [address] 75983- 2660 Oct, [place] [address] [id number] [place] [address] 46034- 5366 Oct, Threatened miscarriage O20.0 [place] [id number] [place] [address] 54255- 6935 Oct, 14 weeks gestation of Z3A.14 ; Threatened miscarriage O20.0 ; Other specified noninflammatory disorders of vagina N89.8 ; Other specified related conditions, second trimester O26.892 ; Vaginal candidiasis B37.3 ; Low lying placenta with hemorrhage, first trimester O44.51 ; Abnormal ultrasound R93.8 ; Second trimester Z34.92 and History of delivery, currently O09.219 [place] [address] [address]- 8410 Oct, [place] [address] [id number] [place] [address] 85321- 7650 Oct, care, subsequent in second trimester Z34.82 and 13 weeks gestation of Z3A.13 [place] [address] [address] [id number] [place] [address] 28879- 7612 Sep, [facility] [address] [address]- 5668 Sep, care, subsequent in first trimester Z34.81 and 9 weeks gestation [address]3A.09 [facility] [address] [address]- 4610 14 Sep, 2017 [facility] [id number] [place] [address] 63327- 1835 Aug, [facility] [id number] [address] 5315 Aug, [facility] [address] [id number] [place] [address] 169046- 7405 Aug, [facility] [id number] [address]- 5355 Aug, Encounter for test Z32.00 [facility] [id number] [place] [address] 36015- 7297 Jul, [facility] [address] [address]- 9680 Jul, [facility] [address] [address] Jun, [facility] [address] [address]- 4849 Apr, [facility] [id number] [place] [address] 19783- 8696 Apr, Bipolar disorder with moderate depression F31.32 and Attention-deficit hyperactivity disorder, combined type F90.2 [facility] [id number] [address]- 8710 Feb, [facility] [address] [address]- 4571 Feb, [facility] [id number] [place] [address] 27122- 3222 Jan, [facility] [id number] [address]7169 Jan, Vaginal discharge N89.8 and Acute vaginitis N76.0 [facility] [id number] [place] [address] 38582- 8491 Nov, [facility] [id number] [place] [address] 61846- 1814 Nov, Encounter for visit Z39.2 ; Tobacco abuse counseling Z71.6 and Drug or alcohol risk assessment or counseling Z71.89 [facility] [address] [address] [id number] [place] [address] 31091- 5469 Nov, [facility] [id number] [place] [address] 22704- 0085 Oct, [facility] [id number] [place] [address] 42528- 3519 Oct, [facility] [id number] [place] [address] 04909- 5911 Oct, [facility] [address] [address] [id number] [place] [address] 15603- 9046 Oct, STD exposure Z20.2 [facility] [address] [place] [id number] [place] [address] 43362- 8611 Oct, Bipolar disorder, in partial remission, most recent episode depressed F31.75 ; Attention-deficit hyperactivity disorder, combined type F90.2 and Social phobia, generalized F40.11 [facility] [id number] [place] [address] 59450- 8828 Oct, Bipolar disorder, in partial remission, most recent episode depressed F31.75 ; Attention-deficit hyperactivity disorder, combined type F90.2 and Social phobia, generalized F40.11 [facility] [id number] [place] [address] 49103- 9756 Oct, [facility] [id number] [place] [address] 75298- 1564 Sep, [place] [id number] [place] [address] 13403- 9638 Sep, [place] [address] [address] [id number] [place] [address] 82970- 2674 Sep, screening for streptococcus B Z36 ; care , first in third trimester Z34.03 and 35 weeks gestation of Z3A.35 [place] [address] [id number] [place] [address] 06652- 2312 07 Sep, 2016 care, first in third trimester Z34.03 and 34 weeks gestation of Z3A.34 [place] [address] [place] [id number] [place] [address] 90420- 4802 Sep, [place] [address] [id number] [place] [address] 67233- 8770 Sep, [place] [address] [id number] [place] [address] 81549- 1505 Sep, Bipolar disorder, in partial remission, most recent episode depressed F31.75 ; Attention-deficit hyperactivity disorder, combined type F90.2 and Social phobia, generalized F40.[address] [place] [address] 24086- 1364 Aug, Normal , first Z34.00 ; Encounter for immunization Z23 and 32 weeks gestation of Z3A.32 [place] [address] [id number] [place] [address] 15819- 7292 Aug, [place] [address] [id number] [place] [address] 27244- 9471 Aug, Other specified related conditions, third trimester O26.893 and 30 weeks gestation of Z3A.30 [place] [address] [id number] [place] [address] 08872- 8387 Aug, [place] [address] 94280- 8578 27 Jul, 2016 Diabetes mellitus screening Z13.1 ; , first, first trimester Z34.01 ; Other specified noninflammatory disorders of vagina N89.8 ; Other specified related conditions, third trimester O26.893 and 28 weeks gestation of Z3A.28 [place] [address] [address]- 9572 14 Jul, 2016 [place] [address] [id number] [place] [address] 83813- 6296 Jun, [facility] [place] [address] [id number] [place] [address] [address] [place] [id number] [place] [address] 71534- 1877 18 Jun, 2016 Normal , first Z34.00 ; Evaluate anatomy not seen on prior sonogram Z36 and 23 weeks gestation of Z3A.23 [place] [address] [id number] [place] [address] 40277- 2584 17 Jun, 2016 [place] [address] [address] [id number] [place] [address] 14776- 6839 Jun, Bipolar disorder, in partial remission, most recent episode depressed F31.75 ; Attention-deficit hyperactivity disorder, combined type F90.2 and Social phobia, generalized F40.11 [place] [address] [id number] [place] [address] 65410- 3682 May, [place] [address] [id number] [place] [address] 19363- 1593 May, Normal , first Z34.00 and 19 weeks gestation of Z3A.[address] [facility] [address] [place] [address] [id number] [place] [address] 80113 -8187 May, Dysuria R30.0 and Acute cystitis during , second trimester O23.12 [place] [address] [place] [id number] [place] [address] 56761- 8797 Apr, [place] [address] [id number] [address]- 6662 Apr, care, first in second trimester Z34.02 [place] [address] [place] [id number] [place] [address] 92351- 5210 Apr, [facility] [address] [place] [id number] [place] [address] 56552- 8508 Apr, [facility] [address] [place] [id number] [place] [address] 81189- 8875 Apr, [facility] [address] [place] [id number] [place] [address] 71864- 6887 Apr, care, first in second trimester Z34.02 ; Dehydration E86.0 and 14 weeks gestation of Z3A.14 [place] [address] [address] [id number] [place] [address] 39752- 4590 Apr, Bipolar disorder, in partial remission, most recent episode depressed F31.75 ; Attention-deficit hyperactivity disorder, combined type F90.2 ; Social anxiety disorder F40.10 and 15 weeks gestation of Z3A.15 [place] [id number] [place] [address] 13702- 8641 Mar, [place] [address] [place] [id number] [place] [address] 71540- 8028 Mar, , first, first trimester Z34.01 and 10 weeks gestation of Z3A.10 [place] [address] [address]- 0585 Mar, [place] [address] [address]- 9144 Mar, [place] [address] [id number] [place] [address] 62742- 1203 Feb, Normal , first Z34.00 and 6 weeks gestation of Z3A.01 [place] [id number] [place] [address] 39319- 8633 Feb, [place] [address] [address]- 3985 Feb, [facility] [place] [address] [place] [id number] [address] [facility] [address] [address]- 6541 Feb, [facility] [address] [address]- 5098 Feb, [facility] [address] [address]- 2271 Feb, Bipolar disorder, in partial remission, most recent episode depressed F31.75 ; Attention-deficit hyperactivity disorder, combined type F90.2 and Social anxiety disorder F40.10 [facility] [address] [address]- 0605 12 Feb, 2016 Routine adult health maintenance Z00.00 [facility] [id number] [address]- 0120 Feb, [facility] [id number] [address]- 3111 Feb, confirmed by positive urine test Z32.01 [facility] [id number] [address]- 2470 Feb, [facility] [id number] [address]- 9576 Jan, [facility] [address] [place] [id number] [address]- 8912 Jan, Bipolar disorder, in partial remission, most recent episode depressed F31.75 ; Attention-deficit hyperactivity disorder, combined type F90.2 and Social anxiety disorder F40.10 [facility] [address] [id number] [address]- 4020 Jan, Seizure disorder G40.909 [facility] [address] [address]- 6047 Jan, [facility] [address] [address]- 6181 December, Bipolar disorder, current episode hypomanic F31.0 ; Attention-deficit hyperactivity disorder, combined type F90.2 and Social anxiety disorder F40.10 [facility] [address] [address]- 4088 December, Screening for STD sexually transmitted disease Z11.3 [facility] [id number] [place] [address] 18992- 3345 Nov, [facility] [id number] [place] [address] 59599- 5279 Nov, [facility] [id number] [place] [address] 71707- 3598 Nov, Screening for STD sexually transmitted disease Z11.3 and Attention-deficit hyperactivity disorder, combined type F90.2 [facility] [address] [address]- 7717 Nov, Attention-deficit hyperactivity disorder, combined type F90.2 ; Social anxiety disorder F40.10 and Bipolar disorder, current episode hypomanic F31.0 [facility] [address] [address]- 1227 Oct, [facility] [address] [address]- 6778 Oct, [facility] [address] [address]- 4809 Sep, [facility] [address] [address]- 0104 Sep, Bipolar disorder, in partial remission, most recent episode depressed F31.75 ; Attention-deficit hyperactivity disorder, combined type F90.2 and Social anxiety disorder F40.10 [facility] [address] [address]- 2642 Sep, [facility] [id number] [address] Aug, [facility] [address]- 9210 Jul, [facility] [id number] 1816 Jul, [facility] [address] [place] [address] 393171- 8474 Jul, Bipolar disorder, in partial remission, most recent episode depressed F31.75 ; Attention-deficit hyperactivity disorder, combined type F90.2 and Social anxiety disorder F40.10 [facility] [address] [place] [address] 74122- 0658 Jun, [facility] [address] [address]- 6517 Jun, [facility] [id number] [place] [address] 72128- 8639 Jun, [facility] [address] [address]- 5089 May, [facility] [id number] [place] [address] 38542- 8411 May, [facility] [address] [address]- 8232 May, [facility] [id number] [address]- 4164 May, Bipolar disorder, in partial remission, most recent episode depressed F31.75 ; Attention-deficit hyperactivity disorder, combined type F90.2 and Social anxiety disorder F40.10 [facility] [address] 9810 Mar, Bipolar I disorder, moderate, current or most recent episode depressed, in partial remission, with mixed features 296.55 ; ADHD ( attention deficit hyperactivity disorder), combined type 314.01 and Social anxiety disorder 300.23 [facility] [id number] [address]- 7556 Aug, [facility] [id number] [address]- 3725 Aug, [facility] [id number] [address]- 7826 Jun, [facility] [address] [address]- 6326 Jun, [facility] [id number] [address]- 3756 Jan, [facility] [id number] [address]- 6077 December, [facility] [id number] [address]- 3826 Oct, [facility] [id number] [address]- 4752 Sep, [facility] [id number] [address]- 0366 Jun, IMMUNIZATIONS No Known Immunizations SOCIAL HISTORY Never Assessed REASON FOR VISIT OB phone call PLAN OF CARE VITAL SIGNS MEDICATIONS Unknown Medications RESULTS No Results PROCEDURES No Known procedures INSTRUCTIONS MEDICATIONS ADMINISTERED No Known Medications MEDICAL (GENERAL) HISTORY Type Description Date Medical History 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 Has had [facility] NEUROLOGY care. Diagnosed with Focal Seizures with EEG Medical History ADHD Medical History Bipolar disorder Medical History Social anxiety disorder Surgical History [place] teeth removed 09/06/15 Surgical History Childbirth Surgical History Spider bite Hospitalization History psych; anger/aggression 2008 Hospitalization History ER visit Bleeding while 10/20/17
--- OUTSIDE RECORDS SUMMARY | 2018-04-04 11:04 | XMS REPORT ---
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 Register Mechanic Name Role Phone ANDREWMIRIAN KELLERHANY Unavailable PROBLEMS Type Condition ICD9-CM Code ECT41-SW Code Onset Dates Condition Status SNOMED Code Problem Bipolar disorder, in partial remission, most recent episode depressed F31.75 Active 31045740 Problem Social phobia, generalized F40.11 Active 77949056 Problem Bipolar disorder, current episode hypomanic F31.0 Active 88404169 Problem Attention-deficit hyperactivity disorder, combined type F90.2 Active 42668302 Problem Abnormal ultrasound R93.8 Active 329737392 Problem Low lying placenta with hemorrhage, first trimester O44.51 Active 474244927 Problem Unspecified blood type, Rh negative Z67.91 Active 407547194 Problem Bipolar disorder with moderate depression F31.32 Active 000322742 Problem History of delivery, currently O09.219 Active 417152806 Problem Supervision of other high risk pregnancies, first trimester O09.891 Active [id number] ALLERGIES No Information ENCOUNTERS Encounter Location Date Diagnosis [place] [id number] [place] [address] 52304- 1087 Nov, [place] [id number] [place] [address] 08185- 8668 Oct, [place] [id number] [place] [address] 64927- 6873 Oct, Threatened miscarriage O20.0 [place] [id number] [place] [address] 34602- 0932 Oct, 14 weeks gestation of Z3A.14 ; Threatened miscarriage O20.0 ; Other specified noninflammatory disorders of vagina N89.8 ; Other specified related conditions, second trimester O26.892 ; Vaginal candidiasis B37.3 ; Low lying placenta with hemorrhage, first trimester O44.51 ; Abnormal ultrasound R93.8 ; Second trimester Z34.92 and History of delivery, currently O09.219 [place] [id number] [place] [address] 07382- 1162 18 Oct, 2017 [facility] [id number] [place] [address] 80634- 4326 16 Oct, 2017 care, subsequent in second trimester Z34.82 and 13 weeks gestation of Z3A.13 [place] [id number] [place] [address] 94259- 8899 22 Sep, 2017 [place] [id number] [place] [address] 34590- 4517 14 Sep, 2017 care, subsequent in first trimester Z34.81 and 9 weeks gestation of Z3A.09 [place] [id number] [place] [address] 42920- 3536 14 Sep, 2017 [facility] [id number] [place] [address] 96927- 2065 Aug, [facility] [id number] [place] [address] 47351- 8888 Aug, [facility] [id number] [place] [address] 73188- 8695 Aug, [facility] [id number] [place] [address] 81734- 0870 Aug, Encounter for test Z32.00 [facility] [id number] [place] [address] 42491- 6376 Jul, [place] [id number] [place] [address] 64315- 1094 Jul, [facility] [id number] [address] Jun, [facility] [id number] [place] [address] 49171- 3782 14 Apr, 2017 [facility] [id number] [place] [address] 61376- 1835 Apr, Bipolar disorder with moderate depression F31.32 and Attention-deficit hyperactivity disorder, combined type F90.2 [facility] [address] [address]- 0240 Feb, [facility] [id number] [place] [address] 78173- 3814 Feb, [facility] [id number] [place] [address] 63851- 4152 Jan, [facility] [id number] [place] [address] 83901 -8277 Jan, Vaginal discharge N89.8 and Acute vaginitis N76.0 [facility] [id number] [place] [address] 95975- 6863 Nov, [facility] [id number] [place] [address] 82770- 6394 Nov, Encounter for visit Z39.2 ; Tobacco abuse counseling Z71.6 and Drug or alcohol risk assessment or counseling Z71.89 [facility] [address] [address] 8313 Nov, [facility] [id number] [address]- 0130 Oct, [facility] [id number] [address]- 2359 Oct, [facility] [id number] [place] [address] 97878- 0907 Oct, [facility] [id number] [place] [address] 19247- 6700 Oct, STD exposure Z20.2 [facility] [id number] [place] [address] 50814- 1905 Oct, Bipolar disorder, in partial remission, most recent episode depressed F31.75 ; Attention-deficit hyperactivity disorder, combined type F90.2 and Social phobia, generalized F40.11 [place] [id number] [place] [address] 54706- 3674 Oct, Bipolar disorder, in partial remission, most recent episode depressed F31.75 ; Attention-deficit hyperactivity disorder, combined type F90.2 and Social phobia, generalized F40.11 [place] [id number] [place] [address] 07328- 3827 Oct, [place] [id number] [place] [address] 21199- 2321 Sep, [place] [id number] [place] [address] 30227- 7560 Sep, [place] [id number] [place] [address] 34227- 1635 Sep, screening for streptococcus B Z36 ; care , first in third trimester Z34.03 and 35 weeks gestation of Z3A.35 [place] [address] [id number] [place] [address] 23164- 1813 Sep, care, first in third trimester Z34.03 and 34 weeks gestation of Z3A.34 [place] [id number] [place] [address] 51024- 7501 Sep, [place] [id number] [place] [address] 42643- 2752 Sep, [place] [id number] [place] [address] 10349- 8875 Sep, Bipolar disorder, in partial remission, most recent episode depressed F31.75 ; Attention-deficit hyperactivity disorder, combined type F90.2 and Social phobia, generalized F40.11 [place] [address] [address]- 6101 Aug, Normal , first Z34.00 ; Encounter for immunization Z23 and 32 weeks gestation of Z3A.32 [place] [address] [address]- 7648 10 Aug, 2016 [place] [id number] [place] [address] 76119- 0688 10 Aug, 2016 Other specified related conditions, third trimester O26.893 and 30 weeks gestation of Z3A.30 [place] [id number] [place] [address] 15069- 1397 04 Aug, 2016 [place] [id number] [place] [address] 60303- 4098 27 Jul, 2016 Diabetes mellitus screening Z13.1 ; , first, first trimester Z34.01 ; Other specified noninflammatory disorders of vagina N89.8 ; Other specified related conditions, third trimester O26.893 and 28 weeks gestation of Z3A.28 [place] [id number] [place] [address] 38099- 1132 14 Jul, 2016 [place] [address] [address]- 7828 Jun, [facility] [address] [id number] [place] [address] [address] [place] [address] 22495- 9177 18 Jun, 2016 Normal , first Z34.00 ; Evaluate anatomy not seen on prior sonogram Z36 and 23 weeks gestation of Z3A.23 [place] [address] [address]- 6688 17 Jun, 2016 [place] [id number] [place] [address] 92787- 5296 Jun, Bipolar disorder, in partial remission, most recent episode depressed F31.75 ; Attention-deficit hyperactivity disorder, combined type F90.2 and Social phobia, generalized F40.[id number] [place] [address] 71031- 6133 May, [facility] [address] [address]- 9054 May, Normal , first Z34.00 and 19 weeks gestation of Z3A.19 [facility] [id number] [address] 11 May, 2016 Dysuria R30.0 and Acute cystitis during , second trimester O23.12 [facility] [address] [address]- 2590 29 Apr, 2016 [facility] [id number] [place] [address] 61599- 6735 Apr, care, first in second trimester Z34.02 [facility] [address] [address]- 9345 Apr, [facility] [id number] [place] [address] 08435- 4695 Apr, [facility] [id number] [address]- 0554 Apr, [facility] [id number] [address]- 7060 Apr, care, first in second trimester Z34.02 ; Dehydration E86.0 and 14 weeks gestation of Z3A.14 [facility] [address] [address]- 1500 Apr, Bipolar disorder, in partial remission, most recent episode depressed F31.75 ; Attention-deficit hyperactivity disorder, combined type F90.2 ; Social anxiety disorder F40.10 and 15 weeks gestation of Z3A.15 [place] [address] [address]- 6102 Mar, [facility] [id number] [address]- 3917 Mar, , first, first trimester Z34.01 and 10 weeks gestation of Z3A.10 [facility] [address] [facility] [id number] [address] 3[address] Mar, [facility] [id number] [address]- 3956 Mar, [facility] [id number] [address]- 4343 Feb, Normal , first Z34.00 and 6 weeks gestation of Z3A.01 [facility] [address] [facility] [id number] [address]- 4485 Feb, [facility] [id number] [address]- 3755 Feb, [address] [id number] [place] [address] Feb [facility] [id number] [address]- 5517 Feb, [facility] [id number] [address]- 8980 Feb, [facility] [address] [address]- 5405 Feb, Bipolar disorder, in partial remission, most recent episode depressed F31.75 ; Attention-deficit hyperactivity disorder, combined type F90.2 and Social anxiety disorder F40.10 [facility] [id number] [address]- 9824 Feb, Routine adult health maintenance Z00.00 [facility] [id number] [address]- 4096 Feb, [facility] [id number] [address]- 8457 Feb, confirmed by positive urine test Z32.01 [facility] [id number] [address]- 5188 Feb, [facility] [id number] [address]- 2842 Jan, [facility] [id number] [place] [address] 44033- 0044 Jan, Bipolar disorder, in partial remission, most recent episode depressed F31.75 ; Attention-deficit hyperactivity disorder, combined type F90.2 and Social anxiety disorder F40.10 [facility] [id number] [place] [address] 77330- 2593 Jan, Seizure disorder G40.909 [facility] [id number] [place] [address] 37764- 3792 Jan, [facility] [id number] [place] [address] 95514- 3984 December, Bipolar disorder, current episode hypomanic F31.0 ; Attention-deficit hyperactivity disorder, combined type F90.2 and Social anxiety disorder F40.10 [facility] [address] [address]- 2489 December, Screening for STD (sexually transmitted disease) Z11.3 [facility] [id number] [address]- 2662 Nov, [facility] [id number] [address]- 1167 Nov, [facility] [id number] [address]- 8463 Nov, Screening for STD (sexually transmitted disease) Z11.3 and Attention-deficit hyperactivity disorder, combined type F90.2 [facility] [address] [address]- 4744 Nov, Attention-deficit hyperactivity disorder, combined type F90.2 ; Social anxiety disorder F40.10 and Bipolar disorder, current episode hypomanic F31.0 [facility] [id number] [address]- 7495 Oct, [facility] [id number] [address]- 9968 Oct, [facility] [id number] [address]- 9896 Sep, [facility] [id number] [address] 2546 Sep, Bipolar disorder, in partial remission, most recent episode depressed F31.75 ; Attention-deficit hyperactivity disorder, combined type F90.2 and Social anxiety disorder F40.10 [facility] [address] [address]- 7016 Sep, [facility] [id number] [place] [address] 607266- 7816 Aug, [facility] [id number] [address]- 9476 Jul, [facility] [id number] [address]- 1236 Jul, [facility] [address] [address]- 7168 Jul, Bipolar disorder, in partial remission, most recent episode depressed F31.75 ; Attention-deficit hyperactivity disorder, combined type F90.2 and Social anxiety disorder F40.10 [facility] [address] [address]- 9176 Jun, [facility] [id number] [address]- 8193 Jun, [facility] [id number] [address]- 5297 Jun, [facility] [id number] 4136 May, [facility] [id number] [address] 0323 May, [facility] [id number] [place] [address] 56334- 6456 May, [facility] [id number] [place] [address] 65821- 7376 May, Bipolar disorder, in partial remission, most recent episode depressed F31.75 ; Attention-deficit hyperactivity disorder, combined type F90.2 and Social anxiety disorder F40.10 [facility] [id number] [place] [address] 25113- 3056 Mar, Bipolar I disorder, moderate, current or most recent episode depressed, in partial remission, with mixed features 296.55 ; ADHD ( attention deficit hyperactivity disorder), combined type 314.01 and Social anxiety disorder 300.23 [facility] [id number] [place] [address] 63562- 8986 Aug, [facility] [id number] [place] [address] 93351- 0516 Aug, [facility] [id number] [place] [address] 48082- 6866 Jun, [facility] [id number] [place] [address] 40056- 9741 Jun, [facility] [id number] [place] [address] 21606- 0376 Jan, [facility] [id number] [place] [address] 80546- 8306 December, [facility] [id number] [place] [address] 70577- 6706 Oct, [facility] [id number] [place] [address] 68078- 0059 Sep, [facility] [id number] [place] [address] 56500- 3576 Jun, IMMUNIZATIONS No Known Immunizations SOCIAL HISTORY [...] Medical History Social anxiety disorder Surgical History [place] teeth removed 09/06/15 Surgical History Childbirth Surgical History Spider bite Hospitalization History psych; anger/aggression 2008 Hospitalization History ER visit Bleeding while 10/20/17
--- OUTSIDE RECORDS SUMMARY | 2018-04-04 11:05 | XMS REPORT ---
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 Name Role Phone ANDREWMIRIANREGIS Unavailable PROBLEMS Type Condition ICD9-CM Code DVU31-BI Code Onset Dates Condition Status SNOMED Code Problem Bipolar disorder, current episode hypomanic F31.0 Active 00723642 Problem Bipolar disorder with moderate depression F31.32 Active 554354858 Problem Social phobia, generalized F40.11 Active 81376052 Problem Attention-deficit hyperactivity disorder, combined type F90.2 Active 74163686 Problem Bipolar disorder, in partial remission, most recent episode depressed F31.75 Active 07762005 Problem Third trimester Z33.1 Active 87856750 Problem Low lying placenta with hemorrhage, first trimester O44.51 Active 787976082 Problem Supervision of other high risk pregnancies, first trimester O09.891 Active 025371814 Problem Unspecified blood type, Rh negative Z67.91 Active 684831510 Problem History of delivery, currently O09.219 Active 408840403 Problem Abnormal ultrasound R93.8 Active 930760737 ALLERGIES No Information ENCOUNTERS Encounter Location Date Diagnosis [facility] [address] [address] Apr, [facility] [id number] [place] [address] 84323- 9257 Apr, [facility] [id number] [place] [address] 91471- 8655 Apr, [facility] [id number] [place] [address] 18275- 4125 Mar, [place] [address] [address] 4588 Mar, History of delivery, currently O09.219 [place] [address] [id number] [place] [address] 28048- 8933 Mar, bradycardia before the onset of labor P03.810 ; Third trimester Z33.1 and ANGÉLICA (amniotic fluid index) borderline low O28.8 [place] [id number] [place] [address] 43346- 5509 Mar, Third trimester Z33.1 ; STD exposure Z20.2 and bradycardia before the onset of labor P03.810 [place] [id number] [place] [address] 69590- 2429 Mar, History of delivery, currently O09.219 [place] [address] [address]- 8033 Mar, [place] [id number] [place] [address] 72852- 8053 Mar, Third trimester Z33.1 ; History of delivery, currently O09.219 ; 35 weeks gestation of Z3A.35 and Decreased movements in third trimester, single or unspecified fetus O36.8130 [place] [id number] [place] [address] 22302- 2064 Mar, History of delivery, currently O09.219 [place] [id number] [place] [address] 96118- 5530 Feb, History of delivery, currently O09.219 [place] [id number] [place] [address] 08197- 4659 Feb, Third trimester Z34.93 ; 32 weeks gestation of Z3A.32 and Encounter for immunization Z23 [place] [id number] [place] [address] 65876- 2187 Feb, History of delivery, currently O09.219 [place] [id number] [place] [address] 37719- 2070 Feb, [place] [address] [address] 1646 Feb, [facility] [id number] [place] [address] 28235- 3990 Feb, [facility] [id number] [place] [address] 94286- 7771 Feb, Third trimester Z34.93 and Unspecified blood type , Rh negative Z67.91 [place] [id number] [place] [address] 74798- 7816 Feb, [place] [id number] [place] [address] 26906- 4737 Feb, History of delivery, currently O09.219 [place] [id number] [place] [address] 88806- 3499 Jan, Unspecified blood type, Rh negative Z67.91 and History of delivery, currently O09.219 [place] [id number] [place] [address] 34903- 9238 Jan, History of delivery, currently O09.219 [place] [id number] [place] [address] 66891- 5114 Jan, [place] [id number] [place] [address] 67888- 8078 Jan, [place] [id number] [place] [address] 54876- 5977 Jan, care, subsequent in second trimester Z34.82 ; Diabetes mellitus screening Z13.1 ; Local reaction to immunization, initial encounter T88.1XXA and 26 weeks gestation of Z3A.26 [place] [address] [address] [id number] [place] [address] 41966- 7654 Jan, [place] [id number] [place] [address] 70976- 9189 Jan, [place] [address] [address] [id number] [place] [address] 69747- 4188 Jan, [facility] [address], [place] [address]- 2311 Jan, History of delivery, currently O09.219 [facility] [address], [place] [address]- 0421 December, History of delivery, currently O09.219 [facility] [address], [place] [address]- 9571 December, History of delivery, currently O09.219 [facility] [address], [place] [address]- 6959 December, [facility] [address], [place] [address]- 5920 December, [facility] [address] [place] [address] 84367- 2270 December, Second trimester Z34.92 and 22 weeks gestation of Z3A.22 [facility] [address], [place] [address]- 1387 December, [facility] [address] [address]- 7979 December, History of delivery, currently O09.219 [facility] [address], [place] [address]- 6188 December, History of delivery, currently O09.219 [facility] [address], [place] [address]- 1223 December, [facility] [address] [address]- 8714 December, History of delivery, currently O09.219 [facility] [address], [place] [address]- 1865 Nov, [facility] [address] [place] [address] 55799- 8661 Nov, History of delivery, currently O09.219 [facility] [id number] [place] [address] 48761- 1871 Nov, care, subsequent in second trimester Z34.82 and 18 weeks gestation of Z3A.18 [facility] [id number] [place] [address] 31980- 2283 Nov, [facility] [id number] [place] [address] 78151- 4731 Oct, [facility] [id number] [place] [address] 43414- 1756 Oct, Threatened miscarriage O20.0 [place] [id number] [place] [address] 00085- 5959 Oct, 14 weeks gestation of Z3A.14 ; Threatened miscarriage O20.0 ; Other specified noninflammatory disorders of vagina N89.8 ; Other specified related conditions, second trimester O26.892 ; Vaginal candidiasis B37.3 ; Low lying placenta with hemorrhage, first trimester O44.51 ; Abnormal ultrasound R93.8 ; Second trimester Z34.92 and History of delivery, currently O09.219 [facility] [address] [place] [address] 93744- 3591 Oct, [facility] [id number] [place] [address] 71103- 7180 Oct, care, subsequent in second trimester Z34.82 and 13 weeks gestation of Z3A.13 [place] [id number] [place] [address] 96935- 6551 Sep, [place] [address] [id number] [place] [address] 56771- 2813 14 Sep, 2017 care, subsequent in first trimester Z34.81 and 9 weeks gestation of Z3A.09 [facility] [id number] [place] [address] 15333- 4034 14 Sep, 2017 [facility] [address], [place] [address]- 9961 Aug, [facility] [id number] [place] [address] 04508- 9161 Aug, [facility] [id number] [place] [address] 13817- 0776 Aug, [facility] [id number] [place] [address] 06452- 9742 Aug, Encounter for test Z32.00 [facility] [address] [address] [id number] [place] [address] 01516- 8205 Jul, [facility] [id number] [place] [address] 03351- 4969 Jul, [facility] [id number] [place] [address] 24633 -0067 Jun, [facility] [id number] [place] [address] 92151- 9018 Apr, [facility] [id number] [place] [address] 19948- 0267 Apr, Bipolar disorder with moderate depression F31.32 and Attention-deficit hyperactivity disorder, combined type F90.2 [facility] [id number] [place] [address] 08363- 7489 Feb, [facility] [id number] [place] [address] 92803- 1386 Feb, [facility] [id number] [place] [address] 51361- 1491 Jan, [facility] [id number] [place] [address] 27282 -7966 Jan, Vaginal discharge N89.8 and Acute vaginitis N76.0 [facility] [address] [address] [id number] [place] [address] 99276- 5917 Nov, [facility] [address] [address]- 2618 Nov, Encounter for visit Z39.2 ; Tobacco abuse counseling Z71.6 and Drug or alcohol risk assessment or counseling Z71.89 [facility] [address], [place] [address]- 3095 Nov, [facility] [id number] [place] [address] 80967- 8911 Oct, [facility] [id number] [place] [address] 79666- 0164 Oct, [facility] [id number] [place] [address] 48303- 7998 Oct, [facility] [address] [id number] [place] [address] 51685- 1905 Oct, STD exposure Z20.2 [facility] [id number] [place] [address] 54656- 0712 Oct, Bipolar disorder, in partial remission, most recent episode depressed F31.75 ; Attention-deficit hyperactivity disorder, combined type F90.2 and Social phobia, generalized F40.11 [facility] [address] [address]- 5184 Oct, Bipolar disorder, in partial remission, most recent episode depressed F31.75 ; Attention-deficit hyperactivity disorder, combined type F90.2 and Social phobia, generalized F40.11 [facility] [address] [address]- 0030 Oct, [facility] [id number] [place] [address] 83150- 9610 Sep, [facility] [address], [place] [address]- 3842 Sep, [facility] [id number] [place] [address] 89341- 5059 Sep, screening for streptococcus B Z36 ; care , first in third trimester Z34.03 and 35 weeks gestation of Z3A.35 [place] [id number] [place] [address] 22803- 4022 07 Sep, 2016 care, first in third trimester Z34.03 and 34 weeks gestation of Z3A.34 [place] [id number] [place] [address] 58381- 0378 07 Sep, 2016 [place] [id number] [place] [address] 80286- 3172 Sep, [address] 63617- 3481 Sep, Bipolar disorder, in partial remission, most recent episode depressed F31.75 ; Attention-deficit hyperactivity disorder, combined type F90.2 and Social phobia, generalized F40.11 [place] [id number] [place] [address] 02636- 5912 Aug, Normal , first Z34.00 ; Encounter for immunization Z23 and 32 weeks gestation of Z3A.32 [place] [id number] [place] [address] 09538- 3494 Aug, [place] [id number] [place] [address] 68463- 8280 Aug, Other specified related conditions, third trimester O26.893 and 30 weeks gestation of Z3A.30 [id number] [place] [address] 63949- 7695 Aug, [place] [id number] [place] [address] 24678- 0457 Jul, Diabetes mellitus screening Z13.1 ; , first, first trimester Z34.01 ; Other specified noninflammatory disorders of vagina N89.8 ; Other specified related conditions, third trimester O26.893 and 28 weeks gestation of Z3A.28 [place] [address] [address]- 2757 14 Jul, 2016 [facility] [id number] [place] [address] 85111- 3397 Jun, [facility] [address] [id number] [place] [address] Jun [facility] [id number] [place] [address] 14177- 0727 Jun, Normal , first Z34.00 ; Evaluate anatomy not seen on prior sonogram Z36 and 23 weeks gestation of Z3A.23 [facility] [id number] [place] [address] 04268- 9419 17 Jun, 2016 [facility] [id number] [place] [address] 27934- 6880 Jun, Bipolar disorder, in partial remission, most recent episode depressed F31.75 ; Attention-deficit hyperactivity disorder, combined type F90.2 and Social phobia, generalized F40.11 [facility] [address] [place] [address] 26405- 1903 May, [facility] [address] [address] [id number] [place] [address] 34148- 3341 May, Normal , first Z34.00 and 19 weeks gestation of Z3A.19 [facility] [address] [place] [address] 43574 -5035 May, Dysuria R30.0 and Acute cystitis during , second trimester O23.12 [facility] [address] [place] [address] 45763- 1557 Apr, [facility] [id number] [place] [address] 43128- 8422 Apr, care, first in second trimester Z34.02 [facility] [id number] [place] [address] 78344- 2860 Apr, [facility] [id number] [address]- 8914 Apr, [facility] [address] [address]- 5188 Apr, [facility] [address] [address]- 7660 Apr, care, first in second trimester Z34.02 ; Dehydration E86.0 and 14 weeks gestation of Z3A.14 [facility] [address] [place] [address] 94411- 1927 Apr, Bipolar disorder, in partial remission, most recent episode depressed F31.75 ; Attention-deficit hyperactivity disorder, combined type F90.2 ; Social anxiety disorder F40.10 and 15 weeks gestation of Z3A.15 [place] [address] [address]- 5068 Mar, [facility] [id number] [address]- 8530 Mar, , first, first trimester Z34.01 and 10 weeks gestation of Z3A.10 [facility] [address], [place] [address]- 3099 Mar, [facility] [address] [address]- 0940 Mar, [facility] [address], [place] [address]- 7037 Feb, Normal , first Z34.00 and 6 weeks gestation of Z3A.01 [facility] [address], [place] [address]- 3294 Feb, [facility] [address] [address]- 8105 Feb, [facility] [address] [id number] [place] [address] Feb [facility] [address] [place] [address] 14845- 8007 Feb, [facility] [address] [address]- 3744 Feb, [facility] [address] [place] [address] 40494- 2720 Feb, Bipolar disorder, in partial remission, most recent episode depressed F31.75 ; Attention-deficit hyperactivity disorder, combined type F90.2 and Social anxiety disorder F40.10 [facility] [address] [place] [address] 68377- 3006 12 Feb, 2016 Routine adult health maintenance Z00.00 [facility] [id number] [place] [address] 37441- 3928 Feb, [facility] [id number] [place] [address] 58142- 1495 Feb, confirmed by positive urine test Z32.01 [facility] [id number] [place] [address] 02593- 6095 Feb, [facility] [address] [address]- 5071 Jan, [facility] [address] [place] [address] 09028- 1606 Jan, Bipolar disorder, in partial remission, most recent episode depressed F31.75 ; Attention-deficit hyperactivity disorder, combined type F90.2 and Social anxiety disorder F40.10 [facility] [address] [address]- 6378 Jan, Seizure disorder G40.909 [facility] [address] [place] [address] 13239- 1186 Jan, [facility] [address] [place] [address] 01865- 4548 December, Bipolar disorder, current episode hypomanic F31.0 ; Attention-deficit hyperactivity disorder, combined type F90.2 and Social anxiety disorder F40.10 [facility] [address] [address]- 8693 December, Screening for STD sexually transmitted disease Z11.3 [facility] [address], [place] [address]- 5983 Nov, [facility] [address], [place] [address]- 6356 Nov, [facility] [id number] [place] [address] 27774- 3088 Nov, Screening for STD sexually transmitted disease Z11.3 and Attention-deficit hyperactivity disorder, combined type F90.2 [facility] [address] [place] [address] 79639- 4912 Nov, Attention-deficit hyperactivity disorder, combined type F90.2 ; Social anxiety disorder F40.10 and Bipolar disorder, current episode hypomanic F31.0 [facility] [address] [place] [address] 19540- 9445 Oct, [facility] [address] [address]- 5058 Oct, [facility] [address] [address]- 0113 Sep, [facility] [address] [address]- 1605 Sep, Bipolar disorder, in partial remission, most recent episode depressed F31.75 ; Attention-deficit hyperactivity disorder, combined type F90.2 and Social anxiety disorder F40.10 [facility] [address] [address]- 0474 Sep, [facility] [address] [address]- 9056 Aug, [facility] [address] [address]- 1212 Jul, [facility] [address] [place] [address] 68810- 0363 Jul, [facility] [address] [address]- 6530 Jul, Bipolar disorder, in partial remission, most recent episode depressed F31.75 ; Attention-deficit hyperactivity disorder, combined type F90.2 and Social anxiety disorder F40.10 [facility] [address] [address]- 9338 Jun, [facility] [id number] [address]- 7197 Jun, [facility] [id number] [place] [address] 951070- 9060 Jun, [facility] [address] [address]- 0035 May, [facility] [id number] [place] [address] 95965- 8464 May, [facility] [address] [address]- 1318 May, [facility] [address] [address]- 8086 May, Bipolar disorder, in partial remission, most recent episode depressed F31.75 ; Attention-deficit hyperactivity disorder, combined type F90.2 and Social anxiety disorder F40.10 [facility] [address] [address]- 9502 Mar, Bipolar I disorder, moderate, current or most recent episode depressed, in partial remission, with mixed features 296.55 ; ADHD ( attention deficit hyperactivity disorder), combined type 314.01 and Social anxiety disorder 300.23 [facility] [address] [address]- 5598 Aug, [facility] [address] [address]- 7882 Aug, [facility] [id number] [address]- 2546 Jun, [facility] [address] [facility] [id number] [address]- 2546 Jun, [facility] [address] [address]- 2546 Jan, [facility] [id number] [address]- 2546 December, [facility] [id number] [address]- 2546 Oct, [facility] [address] [facility] [id number] [address]- 2546 Sep, [facility] [id number] [address]- 2546 Jun, IMMUNIZATIONS No Known Immunizations SOCIAL [...] Medical History Social anxiety disorder Surgical History [place] teeth removed 09/06/15 Surgical History Childbirth Surgical History Spider bite Hospitalization History psych; anger/aggression 2008 Hospitalization History ER visit Bleeding while 10/20/17
--- OUTSIDE RECORDS SUMMARY | 2018-04-04 11:05 | XMS REPORT ---
Author Author EUGENE TRINIDAD Organization [facility] Address [address] [place] [address] Care Team Providers Care Jde Developer Name Role Phone EUGENE TRINIDAD Unavailable PROBLEMS Type Condition ICD9-CM Code JXT28-AV Code Onset Dates Condition Status SNOMED Code Problem Bipolar disorder, in partial remission, most recent episode depressed F31.75 Active 29845933 Problem Social phobia, generalized F40.11 Active 12584294 Problem Bipolar disorder, current episode hypomanic F31.0 Active 94199401 Problem Attention-deficit hyperactivity disorder, combined type F90.2 Active 85715601 Problem Abnormal ultrasound R93.8 Active 289429255 Problem Low lying placenta with hemorrhage, first trimester O44.51 Active 844248060 Problem Unspecified blood type, Rh negative Z67.91 Active 100815562 Problem Bipolar disorder with moderate depression F31.32 Active 819058443 Problem History of delivery, currently O09.219 Active 020754671 Problem Supervision of other high risk pregnancies, first trimester O09.891 Active 184694001 ALLERGIES No Information ENCOUNTERS Encounter Location Date Diagnosis [facility] [address] [place] [address] 33897- 4866 Jan, [facility] [id number] [place] [address] 93341- 0744 December, History of delivery, currently O09.219 [facility] [id number] [place] [address] 81622- 8089 December, History of delivery, currently O09.219 [facility] [id number] [place] [address] 66132- 3043 December, [facility] [id number] [place] [address] 60907- 5633 December, [facility] [address], [place] [address] 5[address] December, Second trimester Z34.92 and 22 weeks gestation of Z3A.22 [facility] [id number], [place] [address] 7[address] December, [facility] [address], [place] [address] 5397 December, History of delivery, currently O09.219 [facility] [address], [place] [address] 40[address] December, History of delivery, currently O09.219 [facility] [id number] [place] [address] 10548- 0019 December, [facility] [id number], [place] [address] 6854 December, History of delivery, currently O09.219 [facility] [address], [place] [address] 2208 Nov, [facility] [id number] [place] [address] 39541- 6268 Nov, History of delivery, currently O09.219 [facility] [address], [place] [address] 8349 Nov, care, subsequent in second trimester Z34.82 and 18 weeks gestation of Z3A.18 [facility] [address], [place] [address] 0582 Nov, [facility] [id number], [place] [address] 3620 Oct, [facility] [address] [place] [address] 14585- 6351 Oct, Threatened miscarriage O20.0 [facility] [address], [place] [address] 78[address] Oct, 14 weeks gestation of Z3A.14 ; Threatened miscarriage O20.0 ; Other specified noninflammatory disorders of vagina N89.8 ; Other specified related conditions, second trimester O26.892 ; Vaginal candidiasis B37.3 ; Low lying placenta with hemorrhage, first trimester O44.51 ; Abnormal ultrasound R93.8 ; Second trimester Z34.92 and History of delivery, currently O09.219 [facility] [id number] [place] [address] 04824- 5593 18 Oct, 2017 [facility] [id number] [place] [address] 51265- 6943 16 Oct, 2017 care, subsequent in second trimester Z34.82 and 13 weeks gestation of Z3A.13 [facility] [id number] [place] [address] 12873- 8417 22 Sep, 2017 [facility] [id number] [place] [address] 67482- 1515 14 Sep, 2017 care, subsequent in first trimester Z34.81 and 9 weeks gestation of Z3A.09 [facility] [id number] [place] [address] 34739- 9890 14 Sep, 2017 [facility] [id number] [place] [address] 36217- 2546 Aug, [facility] [id number] [place] [address] 63008- 7279 Aug, [facility] [id number] [place] [address] 20651- 8493 Aug, [facility] [id number] [place] [address] 18943- 4179 Aug, Encounter for test Z32.00 [facility] [id number] [place] [address] 48551- 0627 Jul, [facility] [id number] [place] [address] 03494- 5166 Jul, [facility] [address], [place] [address] 13 Jun, 2017 [facility] [address] [place] [address] 80090- 0791 14 Apr, 2017 [facility] [address] [place] [address] 85215- 8507 14 Apr, 2017 Bipolar disorder with moderate depression F31.32 and Attention-deficit hyperactivity disorder, combined type F90.2 [facility] [address], [place] [address]- 9250 Feb, [facility] [id number] [place] [address] 43271- 9596 Feb, [facility] [id number] [place] [address] 45915- 3174 Jan, [facility] [id number] [place] [address] 56232 -6289 Jan, Vaginal discharge N89.8 and Acute vaginitis N76.0 [facility] [address] [place] [address] 16191- 7510 Nov, [facility] [id number] [place] [address] 25596- 8628 Nov, Encounter for visit Z39.2 ; Tobacco abuse counseling Z71.6 and Drug or alcohol risk assessment or counseling Z71.89 [facility] [address], [place] [address]- 0845 Nov, [facility] [address], [place] [address]- 8251 Oct, [facility] [id number] [place] [address] 54862- 3222 Oct, [facility] [address] [place] [address] 51626- 6499 Oct, [facility] [id number] [place] [address] 09663- 6973 Oct, STD exposure Z20.2 [facility] [id number] [place] [address] 62659- 9910 Oct, Bipolar disorder, in partial remission, most recent episode depressed F31.75 ; Attention-deficit hyperactivity disorder, combined type F90.2 and Social phobia, generalized F40.11 [facility] [id number] [place] [address] 17721- 9092 Oct, Bipolar disorder, in partial remission, most recent episode depressed F31.75 ; Attention-deficit hyperactivity disorder, combined type F90.2 and Social phobia, generalized F40.11 [facility] [id number] [place] [address] 48509- 6425 Oct, [facility] [id number] [place] [address] 00830- 9501 Sep, [facility] [id number] [place] [address] 18016- 2774 Sep, [facility] [id number] [place] [address] 49412- 3182 Sep, screening for streptococcus B Z36 ; care , first in third trimester Z34.03 and 35 weeks gestation of Z3A.35 [facility] [id number] [place] [address] 47181- 8794 Sep, care, first in third trimester Z34.03 and 34 weeks gestation of Z3A.34 [facility] [id number] [place] [address] 51943- 0796 Sep, [facility] [id number] [place] [address] 42511- 4028 Sep, [facility] [address] [place] [address] 69900- 1471 Sep, Bipolar disorder, in partial remission, most recent episode depressed F31.75 ; Attention-deficit hyperactivity disorder, combined type F90.2 and Social phobia, generalized F40.11 [facility] [address], [place] [address]- 3640 25 Aug, 2016 Normal , first Z34.00 ; Encounter for immunization Z23 and 32 weeks gestation of Z3A.32 [facility] [address] [place] [address] 16254- 9843 Aug, [facility] [id number] [place] [address] 26694- 9676 Aug, Other specified related conditions, third trimester O26.893 and 30 weeks gestation of Z3A.30 [facility] [id number] [place] [address] 87111- 3560 04 Aug, 2016 [facility] [id number] [place] [address] 64205- 9960 27 Jul, 2016 Diabetes mellitus screening Z13.1 ; , first, first trimester Z34.01 ; Other specified noninflammatory disorders of vagina N89.8 ; Other specified related conditions, third trimester O26.893 and 28 weeks gestation of Z3A.28 [facility] [address] [place] [address] 55393- 7381 14 Jul, 2016 [facility] [address], [place] [address]- 4273 Jun, [facility] [address] [id number] [place] [address] Jun [facility] [address] [place] [address] 15912- 8590 18 Jun, 2016 Normal , first Z34.00 ; Evaluate anatomy not seen on prior sonogram Z36 and 23 weeks gestation of Z3A.23 [facility] [address], [place] [address]- 1577 17 Jun, 2016 [facility] [address] [place] [address] 69708- 4628 Jun, Bipolar disorder, in partial remission, most recent episode depressed F31.75 ; Attention-deficit hyperactivity disorder, combined type F90.2 and Social phobia, generalized F40.11 [facility] [id number] [place] [address] 48899- 3854 May, [facility] [id number] [place] [address] 98497- 0710 May, Normal , first Z34.00 and 19 weeks gestation of Z3A.19 [facility] [id number] [place] [address] 99898 -4764 May, Dysuria R30.0 and Acute cystitis during , second trimester O23.12 [facility] [id number] [place] [address] 22548- 7747 Apr, [facility] [id number] [place] [address] 53256- 0790 Apr, care, first in second trimester Z34.02 [facility] [id number] [place] [address] 12395- 7177 Apr, [facility] [id number] [place] [address] 28391- 7280 Apr, [facility] [id number] [place] [address] 96017- 1502 Apr, [facility] [id number] [place] [address] 31896- 3830 Apr, care, first in second trimester Z34.02 ; Dehydration E86.0 and 14 weeks gestation of Z3A.14 [facility] [id number] [place] [address] 52812- 6838 Apr, Bipolar disorder, in partial remission, most recent episode depressed F31.75 ; Attention-deficit hyperactivity disorder, combined type F90.2 ; Social anxiety disorder F40.10 and 15 weeks gestation of Z3A.15 [facility] [id number] [place] [address] 21417- 2656 Mar, [facility] [address] [facility] [id number] [address]- 2458 Mar, , first, first trimester Z34.01 and 10 weeks gestation of Z3A.10 [facility] [address] [facility] [id number], [place] [address]- 3333 Mar, [facility] [address] [facility] [id number], [place] [address]- 7285 Mar, [facility] [id number], [place] [address]- 6735 Feb, Normal , first Z34.00 and 6 weeks gestation of Z3A.01 [facility] [address] [facility] [id number], [place] [address]- 3435 Feb, [facility] [address] [facility] [id number], [place] [address]- 1036 Feb, [address] [id number] [place] [address] Feb [facility] [address] [facility] [id number], [place] [address]- 1117 Feb, [facility] [id number], [place] [address]- 4924 Feb, [facility] [address] [facility] [id number], [place] [address]- 8713 Feb, Bipolar disorder, in partial remission, most recent episode depressed F31.75 ; Attention-deficit hyperactivity disorder, combined type F90.2 and Social anxiety disorder F40.10 [facility] [address] [facility] [id number], [place] [address]- 4648 Feb, Routine adult health maintenance Z00.00 [facility] [id number], [place] [address]- 0024 Feb, [facility] [address] [facility] [id number], [place] [address]- 0679 Feb, confirmed by positive urine test Z32.01 [facility] [id number], [place] [address]- 5480 Feb, [facility] [id number], [place] [address]- 0446 Jan, [facility] [address], [place] [address]- 5883 Jan, Bipolar disorder, in partial remission, most recent episode depressed F31.75 ; Attention-deficit hyperactivity disorder, combined type F90.2 and Social anxiety disorder F40.10 [facility] [address], [place] [address]- 3259 Jan, Seizure disorder G40.909 [facility] [id number], [place] [address]- 8067 Jan, [facility] [id number] [place] [address] 25700- 6353 December, Bipolar disorder, current episode hypomanic F31.0 ; Attention-deficit hyperactivity disorder, combined type F90.2 and Social anxiety disorder F40.10 [facility] [id number], [place] [address]- 7636 December, Screening for STD sexually transmitted disease Z11.3 [facility] [id number], [place] [address]- 0216 Nov, [facility] [id number], [place] [address]- 6622 Nov, [facility] [id number], [place] [address]- 1546 Nov, Screening for STD sexually transmitted disease Z11.3 and Attention-deficit hyperactivity disorder, combined type F90.2 [facility] [id number], [place] [address]- 2324 Nov, Attention-deficit hyperactivity disorder, combined type F90.2 ; Social anxiety disorder F40.10 and Bipolar disorder, current episode hypomanic F31.0 [facility] [id number] [place] [address]- 9596 30 Oct, 2015 [facility] [address], [place] [address] 2546 Oct, [facility] [id number], [place] [address] 2546 Sep, [facility] [address], [place] [address] 2546 Sep, Bipolar disorder, in partial remission, most recent episode depressed F31.75 ; Attention-deficit hyperactivity disorder, combined type F90.2 and Social anxiety disorder F40.10 [facility] [address], [place] [address]- 7466 Sep, [facility] [address], [place] [address]- 8856 Aug, [facility] [address], [place] [address] 2546 Jul, [facility] [address], [place] [address]- 4116 Jul, [facility] [address], [place] [address]- 6156 Jul, Bipolar disorder, in partial remission, most recent episode depressed F31.75 ; Attention-deficit hyperactivity disorder, combined type F90.2 and Social anxiety disorder F40.10 [facility] [address], [place] [address]- 2576 Jun, [facility] [address], [place] [address] 2546 Jun, [facility] [id number], [place] [address] 2546 Jun, [facility] [address], [place] [address]- 1276 May, [facility] [address], [place] [address]- 6506 May, [facility] [id number] [place] [address] 65554- 5836 May, [facility] [id number], [place] [address]- 2546 May, Bipolar disorder, in partial remission, most recent episode depressed F31.75 ; Attention-deficit hyperactivity disorder, combined type F90.2 and Social anxiety disorder F40.10 [facility] [address], [place] [address]- 1496 Mar, Bipolar I disorder, moderate, current or most recent episode depressed, in partial remission, with mixed features 296.55 ; ADHD ( attention deficit hyperactivity disorder), combined type 314.01 and Social anxiety disorder 300.23 [facility] [address], [place] [address]- 6476 Aug, [facility] [address], [place] [address]- 5582 Aug, [facility] [address], [place] [address]- 1876 Jun, [facility] [id number], [place] [address]- 7846 Jun, [facility] [address], [place] [address]- 0746 Jan, [facility] [address], [place] [address] 2546 December, [facility] [address], [place] [address] 2546 Oct, [facility] [id number], [place] [address] 2546 Sep, [facility] [address], [place] [address]- 2546 Jun, IMMUNIZATIONS No Known Immunizations SOCIAL [...] Medical History Social anxiety disorder Surgical History [place] teeth removed 09/06/15 Surgical History Childbirth Surgical History Spider bite Hospitalization History psych; anger/aggression 2008 Hospitalization History ER visit Bleeding while 10/20/17
--- OUTSIDE RECORDS SUMMARY | 2018-04-04 11:06 | XMS REPORT ---
Author Author ANDREW REGIS [facility] Address [address] [place] [address] Care Team Providers Care Environmental Sampling Technician Name Role Phone ANDREWMIRIAN KELLERHANY Unavailable PROBLEMS Type Condition ICD9-CM Code DBU25-OP Code Onset Dates Condition Status SNOMED Code Problem Bipolar disorder, current episode hypomanic F31.0 Active 33308398 Problem Bipolar disorder with moderate depression F31.32 Active 268460741 Problem Social phobia, generalized F40.11 Active 49706601 Problem Attention-deficit hyperactivity disorder, combined type F90.2 Active 31058698 Problem Bipolar disorder, in partial remission, most recent episode depressed F31.75 Active 07178445 Problem Third trimester Z33.1 Active 56020807 Problem Low lying placenta with hemorrhage, first trimester O44.51 Active 467940769 Problem Supervision of other high risk pregnancies, first trimester O09.891 Active 781501823 Problem Unspecified blood type, Rh negative Z67.91 Active 934769967 Problem History of delivery, currently O09.219 Active 958255294 Problem Abnormal ultrasound R93.8 Active [id number] ALLERGIES No Information ENCOUNTERS Encounter Location Date Diagnosis [place] [id number] [place] [address] 06822- 0371 Apr, [place] [address] [place] [address] 38057- 9085 Apr, [facility] [id number] [place] [address] 05201- 1266 Apr, [place] [id number] [place] [address] 75353- 1604 Mar, [place] [address] [place] [address] 81211- 6967 Mar, bradycardia before the onset of labor P03.810 ; Third trimester Z33.1 and ANGÉLICA (amniotic fluid index) borderline low O28.8 [place] [id number] [place] [address] 31445- 3246 Mar, Third trimester Z33.1 ; STD exposure Z20.2 and bradycardia before the onset of labor P03.810 [place] [address] 23507- 1481 Mar, History of delivery, currently O09.219 [place] [address] 87359- 9140 Mar, [place] [address] 97466- 1236 Mar, Third trimester Z33.1 ; History of delivery, currently O09.219 ; 35 weeks gestation of Z3A.35 and Decreased movements in third trimester, single or unspecified fetus O36.8130 [place] [address] 27693- 2079 Mar, History of delivery, currently O09.219 [place] [address] 55913- 8952 Feb, History of delivery, currently O09.219 [place] [id number] [place] [address] 54809- 7838 Feb, Third trimester Z34.93 ; 32 weeks gestation of Z3A.32 and Encounter for immunization Z23 [place] [id number] [place] [address] 07910- 0154 Feb, History of delivery, currently O09.219 [place] [address] 00572- 0733 Feb, [place] [id number] [place] [address] 96607- 9109 Feb, [place] [address] 82133- 2059 Feb, [facility] [address] [address] 6785 Feb, Third trimester Z34.93 and Unspecified blood type , Rh negative Z67.91 [facility] [address] [address]- 8390 Feb, [facility] [id number] [place] [address] 59406- 8534 Feb, History of delivery, currently O09.219 [facility] [address] [place] [address] 74653- 6375 Jan, Unspecified blood type, Rh negative Z67.91 and History of delivery, currently O09.219 [place] [address] [address]- 8620 Jan, History of delivery, currently O09.219 [place] [address] [address]- 5683 Jan, [place] [address] [place] [address] 76968- 1875 Jan, [facility] [address] [address]- 0478 Jan, Diabetes mellitus screening Z13.1 ; care, subsequent in second trimester Z34.82 ; Local reaction to immunization , initial encounter T88.1XXA and 26 weeks gestation of Z3A.26 [place] [address] [address]- 7886 Jan, [place] [address] [address]- 1295 Jan, [facility] [address] [address]- 0124 Jan, [facility] [address] [address]- 7086 Jan, History of delivery, currently O09.219 [facility] [address] [address]- 8411 December, History of delivery, currently O09.219 [facility] [address] [address]- 1253 December, History of delivery, currently O09.219 [facility] [address] [address]- 5863 December, [facility] [address] [place] [address] 85864- 3052 December, [facility] [id number] [place] [address] 92209- 8135 December, 22 weeks gestation of Z3A.22 and Second trimester Z34.92 [facility] [id number] [place] [address] 52531- 4937 December, [facility] [address] [address]- 4823 December, History of delivery, currently O09.219 [facility] [address] [address]- 4703 December, History of delivery, currently O09.219 [facility] [address] [address]- 9712 December, [facility] [address] [address]- 4240 December, History of delivery, currently O09.219 [facility] [address] [address]- 5297 Nov, [facility] [address] [address]- 5518 Nov, History of delivery, currently O09.219 [facility] [address] [address]- 8146 Nov, care, subsequent in second trimester Z34.82 and 18 weeks gestation of Z3A.18 [place] [address] [id number] [place] [address] 43715- 0120 Nov, [place] [id number] [place] [address] 52181- 7997 Oct, [place] [id number] [place] [address] 80112- 1919 Oct, Threatened miscarriage O20.0 [place] [id number] [place] [address] 19987- 5957 Oct, 14 weeks gestation of Z3A.14 ; Threatened miscarriage O20.0 ; Other specified noninflammatory disorders of vagina N89.8 ; Other specified related conditions, second trimester O26.892 ; Vaginal candidiasis B37.3 ; Low lying placenta with hemorrhage, first trimester O44.51 ; Abnormal ultrasound R93.8 ; Second trimester Z34.92 and History of delivery, currently O09.219 [place] [id number] [place] [address] 69115- 5124 Oct, [place] [id number] [place] [address] 47730- 8072 16 Oct, 2017 care, subsequent in second trimester Z34.82 and 13 weeks gestation of Z3A.13 [place] [address] [address]- 9685 22 Sep, 2017 [place] [id number] [place] [address] 67157- 8631 14 Sep, 2017 care, subsequent in first trimester Z34.81 and 9 weeks gestation of Z3A.09 [place] [id number] [place] [address] 21155- 5648 Sep, [place] [address] [id number] [place] [address] 01420- 0995 Aug, [facility] [address] [address]- 0152 Aug, [facility] [id number] [place] [address] 23087- 3197 Aug, [facility] [id number] [place] [address] 57163- 4866 Aug, Encounter for test Z32.00 [facility] [address] [id number] [place] [address] 98559- 8012 Jul, [facility] [address] [place] [id number] [place] [address] 88715- 8020 Jul, [facility] [id number] [place] [address] 60333 -3673 Jun, [facility] [address] [place] [id number] [place] [address] 00714- 9049 Apr, [facility] [address] [id number] [place] [address] 32383- 8948 Apr, Bipolar disorder with moderate depression F31.32 and Attention-deficit hyperactivity disorder, combined type F90.2 [facility] [address] [place] [id number] [place] [address] 84871- 6751 Feb, [facility] [address] [id number] [place] [address] 32510- 1655 Feb, [facility] [address] [id number] [place] [address] 93324- 1770 Jan, [facility] [address] [place] [address] 43436 -8827 Jan, Vaginal discharge N89.8 and Acute vaginitis N76.0 [facility] [address] [id number] [place] [address] 96240- 8041 Nov, [facility] [address] [id number] [place] [address] 86299- 7439 Nov, Encounter for visit Z39.2 ; Tobacco abuse counseling Z71.6 and Drug or alcohol risk assessment or counseling Z71.89 [place] [address] [address]- 1455 Nov, [facility] [address] [address]- 7731 Oct, [facility] [address] [place] [address] 39467- 4692 Oct, [facility] [address] [id number] [place] [address] 68441- 2263 Oct, [facility] [address] [place] [address] 12971- 1438 Oct, STD exposure Z20.2 [place] [address] [place] [address] 16798- 5546 Oct, Bipolar disorder, in partial remission, most recent episode depressed F31.75 ; Attention-deficit hyperactivity disorder, combined type F90.2 and Social phobia, generalized F40.11 [place] [address] [address]- 7398 Oct, Bipolar disorder, in partial remission, most recent episode depressed F31.75 ; Attention-deficit hyperactivity disorder, combined type F90.2 and Social phobia, generalized F40.11 [place] [address] [address]- 8943 Oct, [facility] [address] [place] [address] 42980- 0674 Sep, [facility] [address] [address]- 9998 Sep, [place] [address] [place] [address] 55061- 8949 Sep, screening for streptococcus B Z36 ; care , first in third trimester Z34.03 and 35 weeks gestation of Z3A.35 [place] [address] [address]- 1026 07 Sep, 2016 care, first in third trimester Z34.03 and 34 weeks gestation of Z3A.34 [place] [id number] [place] [address] 49916- 9169 07 Sep, 2016 [place] [id number] [place] [address] 16659- 7770 Sep, [place] [address] [id number] [place] [address] 18036- 5821 Sep, Bipolar disorder, in partial remission, most recent episode depressed F31.75 ; Attention-deficit hyperactivity disorder, combined type F90.2 and Social phobia, generalized F40.11 [place] [id number] [place] [address] 67744- 4761 25 Aug, 2016 Normal , first Z34.00 ; Encounter for immunization Z23 and 32 weeks gestation of Z3A.32 [place] [id number] [place] [address] 47641- 2975 10 Aug, 2016 [place] [id number] [place] [address] 47973- 8895 10 Aug, 2016 Other specified related conditions, third trimester O26.893 and 30 weeks gestation of Z3A.30 [place] [id number] [place] [address] 41979- 3855 Aug, [place] [id number] [place] [address] 59966- 9316 27 Jul, 2016 Diabetes mellitus screening Z13.1 ; , first, first trimester Z34.01 ; Other specified noninflammatory disorders of vagina N89.8 ; Other specified related conditions, third trimester O26.893 and 28 weeks gestation of Z3A.28 [place] [id number] [place] [address] 44487- 9386 14 Jul, 2016 [place] [address] 48738- 3269 Jun, [facility] [id number] [address] Jun [place] [id number] [place] [address] 96319- 3941 Jun, Normal , first Z34.00 ; Evaluate anatomy not seen on prior sonogram Z36 and 23 weeks gestation of Z3A.23 [facility] [id number] [place] [address] 59112- 3589 Jun, [facility] [id number] [place] [address] 73972- 7995 Jun, Bipolar disorder, in partial remission, most recent episode depressed F31.75 ; Attention-deficit hyperactivity disorder, combined type F90.2 and Social phobia, generalized F40.11 [place] [id number] [place] [address] 79389- 1187 May, [place] [id number] [place] [address] 64630- 1119 May, Normal , first Z34.00 and 19 weeks gestation of Z3A.19 [facility] [address] [place] [address] 78158 -6814 May, Dysuria R30.0 and Acute cystitis during , second trimester O23.12 [place] [address] [place] [address] 93100- 5876 Apr, [facility] [id number] [place] [address] 16679- 6982 Apr, care, first in second trimester Z34.02 [place] [id number] [place] [address] 93657- 0096 Apr, [facility] [address] [place] [address] 14793- 6774 Apr, [facility] [id number] [place] [address] 89949- 1952 Apr, [facility] [address] [place] [id number] [address]- 6624 Apr, care, first in second trimester Z34.02 ; Dehydration E86.0 and 14 weeks gestation of Z3A.14 [facility] [address] [address]- 8664 Apr, Bipolar disorder, in partial remission, most recent episode depressed F31.75 ; Attention-deficit hyperactivity disorder, combined type F90.2 ; Social anxiety disorder F40.10 and 15 weeks gestation of Z3A.15 [place] [address] [address]- 0400 Mar, [place] [address] [address]- 1084 Mar, , first, first trimester Z34.01 and 10 weeks gestation of Z3A.10 [facility] [address] [address]- 4072 Mar, [facility] [address] [address]- 3733 Mar, [facility] [address] [address]- 7969 Feb, Normal , first Z34.00 and 6 weeks gestation of Z3A.01 [facility] [address] [address]- 6264 Feb, [facility] [address] [place] [id number] [address]- 9644 Feb, [facility] [address] [id number] [place] [address] Feb [facility] [id number] [address]- 3464 Feb, [facility] [address] [place] [id number] [address]- 2243 Feb, [facility] [address] [address]- 5565 12 Feb, 2016 Bipolar disorder, in partial remission, most recent episode depressed F31.75 ; Attention-deficit hyperactivity disorder, combined type F90.2 and Social anxiety disorder F40.10 [facility] [address] [address]- 3574 12 Feb, 2016 Routine adult health maintenance Z00.00 [facility] [id number] [place] [address] 16446- 5126 2016 [facility] [id number] [place] [address] 44756- 0028 2016 confirmed by positive urine test Z32.01 [place] [id number] [place] [address] 68380- 2177 Feb, [place] [id number] [place] [address] 76480- 9081 Jan, [facility] [address] [address]- 2192 28 Jan, 2016 Bipolar disorder, in partial remission, most recent episode depressed F31.75 ; Attention-deficit hyperactivity disorder, combined type F90.2 and Social anxiety disorder F40.10 [place] [address] [address]- 6108 Jan, Seizure disorder G40.909 [facility] [address] [place] [address] 33231- 7311 Jan, [facility] [address] [address]- 6717 December, Bipolar disorder, current episode hypomanic F31.0 ; Attention-deficit hyperactivity disorder, combined type F90.2 and Social anxiety disorder F40.10 [facility] [address] [address]- 4267 December, Screening for STD sexually transmitted disease Z11.3 [facility] [address] [address]- 0402 27 Nov, 2015 [facility] [id number] [place] [address] 83840- 2949 Nov, [facility] [id number] [place] [address] 68260- 3483 Nov, Screening for STD sexually transmitted disease Z11.3 and Attention-deficit hyperactivity disorder, combined type F90.2 [facility] [id number] [place] [address] 72911- 2839 Nov, Attention-deficit hyperactivity disorder, combined type F90.2 ; Social anxiety disorder F40.10 and Bipolar disorder, current episode hypomanic F31.0 [facility] [id number] [place] [address] 28055- 8867 Oct, [place] [id number] [place] [address] 11537- 1340 Oct, [facility] [id number] [place] [address] 24931- 0110 Sep, [facility] [id number] [place] [address] 80520- 8480 Sep, Bipolar disorder, in partial remission, most recent episode depressed F31.75 ; Attention-deficit hyperactivity disorder, combined type F90.2 and Social anxiety disorder F40.10 [facility] [address] [place] [address] 29223- 5500 Sep, [facility] [address] [address]- 6876 Aug, [facility] [id number] [place] [address] 26608- 6951 Jul, [facility] [address] 9057 Jul, [facility] [id number] [place] [address] 79556- 8677 Jul, Bipolar disorder, in partial remission, most recent episode depressed F31.75 ; Attention-deficit hyperactivity disorder, combined type F90.2 and Social anxiety disorder F40.10 [facility] [address] [address]- 8843 Jun, [facility] [address] [address]- 8350 Jun, [facility] [id number] [place] [address] 25006- 5893 Jun, [facility] [address] [place] [address] 96649- 5781 May, [facility] [id number] [place] [address] 05281- 4966 May, [facility] [id number] [place] [address] 10638- 1753 May, [facility] [id number] [place] [address] 75724- 2333 May, Bipolar disorder, in partial remission, most recent episode depressed F31.75 ; Attention-deficit hyperactivity disorder, combined type F90.2 and Social anxiety disorder F40.10 [facility] [address] [address]- 8911 Mar, Bipolar I disorder, moderate, current or most recent episode depressed, in partial remission, with mixed features 296.55 ; ADHD ( attention deficit hyperactivity disorder), combined type 314.01 and Social anxiety disorder 300.23 [facility] [address] [address]- 9460 Aug, [facility] [address] [place] [address] 74521- 3838 Aug, [facility] [address] [address]- 5143 Jun, [facility] [address] [place] [address] 91777- 5192 Jun, [facility] [address] [facility] [id number] [address]- 2546 Jan, [facility] [id number] [address]- 2546 December, [facility] [address] [facility] [id number] [address]- 2546 Oct, [facility] [address] [facility] [id number] [address]- 2546 Sep, [facility] [address] [facility] [id number] [place] [address]- 2546 Jun, IMMUNIZATIONS Vaccine Route Administration Date Status MARY 250 MG/ML (PT'S OWN) IM Intramuscular January 22, 2018 Administered SOCIAL HISTORY Never Assessed REASON FOR VISIT Injection, CASE Jeronimo PLAN OF CARE VITAL SIGNS MEDICATIONS Unknown Medications RESULTS No Results PROCEDURES Procedure Date Ordered Result Body Site AMRY 250 MG/ML (PT'S OWN) January 22, 2018 THER/PROPH/DIAG INJ, SC/IM January 22, 2018 INSTRUCTIONS MEDICATIONS ADMINISTERED No Known Medications MEDICAL (GENERAL) HISTORY Type Description Date Medical History 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 Has had consisten NEUROLOGY care. Diagnosed with Focal Seizures with EEG Medical History ADHD Medical History Bipolar disorder Medical History Social anxiety disorder Surgical History [place] teeth removed 09/06/15 Surgical History Childbirth Surgical History Spider bite Hospitalization History psych; anger/aggression 2008 Hospitalization History ER visit Bleeding while 10/20/17
--- OUTSIDE RECORDS SUMMARY | 2018-04-04 11:06 | XMS REPORT ---
Author Author ANDREW REGIS [facility] Address [address] [place] [address] Care Team Providers Care Security Site Supervisor Name Role Phone ANDREWMIRIANREGIS Unavailable PROBLEMS Type Condition ICD9-CM Code [id number] Code Onset Dates Condition Status SNOMED Code Problem Bipolar disorder, current episode hypomanic F31.0 Active 59391969 Problem Bipolar disorder with moderate depression F31.32 Active 753096043 Problem Social phobia, generalized F40.11 Active 62754183 Problem Attention-deficit hyperactivity disorder, combined type F90.2 Active 43621636 Problem Bipolar disorder, in partial remission, most recent episode depressed F31.75 Active 29142294 Problem Third trimester Z33.1 Active 47839345 Problem Low lying placenta with hemorrhage, first trimester O44.51 Active 467096775 Problem Supervision of other high risk pregnancies, first trimester O09.891 Active 985196924 Problem Unspecified blood type, Rh negative Z67.91 Active 979860979 Problem History of delivery, currently O09.219 Active 419528067 Problem Abnormal ultrasound R93.8 Active [id number] ALLERGIES No Information ENCOUNTERS Encounter Location Date Diagnosis [place] [id number], [place] [address] Apr, [facility] [place] [id number] [place] [address] 13378- 2630 Apr, [facility] [place] [id number] [place] [address] 72988- 2298 Apr, [facility] [place] [id number] [place] [address] 74145- 5720 Mar, [place] [address] [address] Mar, History of delivery, currently O09.219 [place] [id number] [place] [address] 39073- 1986 Mar, bradycardia before the onset of labor P03.810 ; Third trimester Z33.1 and ANGÉLICA (amniotic fluid index) borderline low O28.8 [place] [id number] [place] [address] 56367- 5103 Mar, Third trimester Z33.1 ; STD exposure Z20.2 and bradycardia before the onset of labor P03.810 [place] [id number] [place] [address] 99761- 0043 Mar, History of delivery, currently O09.219 [place] [address] [address]- 3597 Mar, [place] [id number] [place] [address] 08531- 1711 Mar, Third trimester Z33.1 ; History of delivery, currently O09.219 ; 35 weeks gestation of Z3A.35 and Decreased movements in third trimester, single or unspecified fetus O36.8130 [place] [id number] [place] [address] 96491- 1824 Mar, History of delivery, currently O09.219 [place] [id number] [place] [address] 99837- 6891 Feb, History of delivery, currently O09.219 [place] [id number] [place] [address] 65567- 7784 Feb, Third trimester Z34.93 ; 32 weeks gestation of Z3A.32 and Encounter for immunization Z23 [place] [id number] [place] [address] 04614- 5105 Feb, History of delivery, currently O09.219 [place] [id number] [place] [address] 20251- 9345 Feb, [place] [address] [address] 7[address] Feb, [facility] [place] [id number] [place] [address] 27017- 1434 Feb, [facility] [place] [id number] [place] [address] 67504- 7969 Feb, Third trimester Z34.93 and Unspecified blood type , Rh negative Z67.91 [place] [id number] [place] [address] 06774- 1190 Feb, [place] [id number] [place] [address] 26932- 1340 Feb, History of delivery, currently O09.219 [place] [id number] [place] [address] 27703- 0176 Jan, Unspecified blood type, Rh negative Z67.91 and History of delivery, currently O09.219 [place] [address] [id number] [place] [address] 69240- 4641 Jan, History of delivery, currently O09.219 [place] [address] [id number] [place] [address] 12033- 4784 Jan, [place] [address] [id number] [place] [address] 71699- 7807 Jan, [place] [id number] [place] [address] 01638- 7938 Jan, care, subsequent in second trimester Z34.82 ; Diabetes mellitus screening Z13.1 ; Local reaction to immunization, initial encounter T88.1XXA and 26 weeks gestation of Z3A.26 [place] [id number] [place] [address] 39605- 6844 Jan, [place] [id number] [place] [address] 41527- 5011 Jan, [place] [address] [id number] [place] [address] 16021- 9514 Jan, [facility] [place] [address], [place] [address] 2136 Jan, History of delivery, currently O09.219 [facility] [place] [address], [place] [address] 3206 December, History of delivery, currently O09.219 [facility] [place] [address], [place] [address] 6[address] December, History of delivery, currently O09.219 [facility] [place] [address] [address]- 7145 December, [facility] [place] [address], [place] [address] 4548 December, [facility] [place] [id number] [place] [address] 60325- 8350 December, Second trimester Z34.92 and 22 weeks gestation of Z3A.22 [facility] [place] [address], [place] [address]- 8734 December, [facility] [place] [address], [place] [address]- 5032 December, History of delivery, currently O09.219 [facility] [place] [address], [place] [address]- 9339 December, History of delivery, currently O09.219 [facility] [place] [address], [place] [address]- 1286 December, [facility] [place] [address], [place] [address]- 4054 December, History of delivery, currently O09.219 [facility] [place] [address], [place] [address]- 5544 Nov, [facility] [place] [address] [place] [address] 23236- 8894 Nov, History of delivery, currently O09.219 [facility] [place] [id number] [place] [address] 43053- 2729 Nov, care, subsequent in second trimester Z34.82 and 18 weeks gestation of Z3A.18 [facility] [place] [id number] [place] [address] 30362- 7411 Nov, [facility] [place] [id number] [place] [address] 78917- 1680 Oct, [facility] [place] [id number] [place] [address] 14422- 4675 Oct, Threatened miscarriage O20.0 [place] [id number] [place] [address] 60741- 5964 Oct, 14 weeks gestation of Z3A.14 ; Threatened miscarriage O20.0 ; Other specified noninflammatory disorders of vagina N89.8 ; Other specified related conditions, second trimester O26.892 ; Vaginal candidiasis B37.3 ; Low lying placenta with hemorrhage, first trimester O44.51 ; Abnormal ultrasound R93.8 ; Second trimester Z34.92 and History of delivery, currently O09.219 [facility] [place] [address] [place] [address] 21309- 1101 Oct, [facility] [place] [id number] [place] [address] 07741- 4664 Oct, care, subsequent in second trimester Z34.82 and 13 weeks gestation of Z3A.13 [place] [id number] [place] [address] 01108- 7162 Sep, [place] [address] [id number] [place] [address] 19025- 9496 14 Sep, 2017 care, subsequent in first trimester Z34.81 and 9 weeks gestation of Z3A.09 [facility] [place] [address] [place] [id number] [place] [address] 35164- 8886 14 Sep, 2017 [facility] [place] [address], [place] [address]- 1065 Aug, [facility] [place] [id number] [place] [address] 47812- 9904 Aug, [facility] [place] [id number] [place] [address] 22517- 6531 Aug, [facility] [place] [id number] [place] [address] 82466- 3885 Aug, Encounter for test Z32.00 [facility] [place] [address] [id number] [place] [address] 59675- 0320 Jul, [facility] [place] [id number] [place] [address] 75181- 0490 Jul, [facility] [id number] [place] [address] 20939 -2630 Jun, [facility] [place] [id number] [place] [address] 30724- 1560 Apr, [facility] [place] [address] [id number] [place] [address] 39081- 9590 Apr, Bipolar disorder with moderate depression F31.32 and Attention-deficit hyperactivity disorder, combined type F90.2 [facility] [place] [address] [place] [address] 07550- 9724 Feb, [facility] [place] [id number] [place] [address] 83842- 0012 Feb, [facility] [place] [id number] [place] [address] 39303- 4565 Jan, [facility] [id number] [place] [address] 95962 -3885 Jan, Vaginal discharge N89.8 and Acute vaginitis N76.0 [facility] [place] [id number] [place] [address] 27822- 2082 Nov, [facility] [place] [address], [place] [address]- 0497 Nov, Encounter for visit Z39.2 ; Tobacco abuse counseling Z71.6 and Drug or alcohol risk assessment or counseling Z71.89 [facility] [place] [address], [place] [address]- 3359 Nov, [facility] [place] [id number] [place] [address] 79689- 9433 Oct, [facility] [place] [address] [place] [address] 61289- 7567 Oct, [facility] [place] [id number] [place] [address] 17372- 4858 Oct, [facility] [place] [id number] [place] [address] 00890- 3892 Oct, STD exposure Z20.2 [facility] [place] [address] [place] [address] 03396- 6481 Oct, Bipolar disorder, in partial remission, most recent episode depressed F31.75 ; Attention-deficit hyperactivity disorder, combined type F90.2 and Social phobia, generalized F40.11 [facility] [place] [address], [place] [address]- 0851 Oct, Bipolar disorder, in partial remission, most recent episode depressed F31.75 ; Attention-deficit hyperactivity disorder, combined type F90.2 and Social phobia, generalized F40.11 [facility] [place] [address], [place] [address]- 7477 Oct, [facility] [place] [id number] [place] [address] 18108- 5447 Sep, [facility] [place] [address], [place] [address]- 5943 Sep, [facility] [place] [id number] [place] [address] 29920- 2066 Sep, screening for streptococcus B Z36 ; care , first in third trimester Z34.03 and 35 weeks gestation of Z3A.35 [place] [id number] [place] [address] 40928- 6630 07 Sep, 2016 care, first in third trimester Z34.03 and 34 weeks gestation of Z3A.34 [place] [id number] [place] [address] 46457- 6796 07 Sep, 2016 [place] [id number] [place] [address] 18267- 4346 Sep, [address] 94221- 1501 Sep, Bipolar disorder, in partial remission, most recent episode depressed F31.75 ; Attention-deficit hyperactivity disorder, combined type F90.2 and Social phobia, generalized F40.11 [place] [id number] [place] [address] 76642- 7362 Aug, Normal , first Z34.00 ; Encounter for immunization Z23 and 32 weeks gestation of Z3A.32 [place] [id number] [place] [address] 02119- 0242 Aug, [place] [id number] [place] [address] 61228- 3668 Aug, Other specified related conditions, third trimester O26.893 and 30 weeks gestation of Z3A.30 [address] [place] [address] 98727- 8165 Aug, [place] [id number] [place] [address] 39676- 7410 Jul, Diabetes mellitus screening Z13.1 ; , first, first trimester Z34.01 ; Other specified noninflammatory disorders of vagina N89.8 ; Other specified related conditions, third trimester O26.893 and 28 weeks gestation of Z3A.28 [place] [address] [address]- 7572 14 Jul, 2016 [facility] [place] [id number] [place] [address] 99118- 8217 Jun, [facility] [id number] [place] [address] Jun [facility] [place] [id number] [place] [address] 54866- 5480 Jun, Normal , first Z34.00 ; Evaluate anatomy not seen on prior sonogram Z36 and 23 weeks gestation of Z3A.23 [facility] [place] [id number] [place] [address] 17847- 8006 17 Jun, 2016 [facility] [place] [id number] [place] [address] 04655- 1554 Jun, Bipolar disorder, in partial remission, most recent episode depressed F31.75 ; Attention-deficit hyperactivity disorder, combined type F90.2 and Social phobia, generalized F40.11 [facility] [place] [address] [place] [address] 07847- 7343 May, [facility] [place] [id number] [place] [address] 22829- 6790 May, Normal , first Z34.00 and 19 weeks gestation of Z3A.19 [facility] [id number] [place] [address] 01443 -7820 May, Dysuria R30.0 and Acute cystitis during , second trimester O23.12 [facility] [place] [address] [place] [address] 30393- 8601 Apr, [facility] [place] [id number] [place] [address] 22864- 8251 Apr, care, first in second trimester Z34.02 [facility] [place] [id number] [place] [address] 56594- 7618 Apr, [facility] [place] [id number] [address]- 5552 Apr, [facility] [place] [address], [place] [address]- 2263 Apr, [facility] [place] [address], [place] [address]- 8078 Apr, care, first in second trimester Z34.02 ; Dehydration E86.0 and 14 weeks gestation of Z3A.14 [facility] [place] [address] [place] [address] 47769- 9880 Apr, Bipolar disorder, in partial remission, most recent episode depressed F31.75 ; Attention-deficit hyperactivity disorder, combined type F90.2 ; Social anxiety disorder F40.10 and 15 weeks gestation of Z3A.15 [place] [address], [place] [address]- 6068 Mar, [facility] [place] [id number] [address]- 9268 Mar, , first, first trimester Z34.01 and 10 weeks gestation of Z3A.10 [facility] [place] [address], [place] [address]- 5934 Mar, [facility] [place] [address], [place] [address]- 0612 Mar, [facility] [place] [address], [place] [address]- 7058 Feb, Normal , first Z34.00 and 6 weeks gestation of Z3A.01 [facility] [place] [address], [place] [address]- 8062 Feb, [facility] [place] [address], [place] [address]- 0270 Feb, [facility] [id number] [place] [address] Feb [facility] [place] [id number] [place] [address] 03629- 0873 Feb, [facility] [place] [address] [address]- 9289 Feb, [facility] [place] [id number] [place] [address] 86507- 2498 Feb, Bipolar disorder, in partial remission, most recent episode depressed F31.75 ; Attention-deficit hyperactivity disorder, combined type F90.2 and Social anxiety disorder F40.10 [facility] [place] [id number] [place] [address] 52865- 1669 12 Feb, 2016 Routine adult health maintenance Z00.00 [facility] [place] [id number] [place] [address] 13658- 9871 Feb, [facility] [place] [id number] [place] [address] 82536- 7908 Feb, confirmed by positive urine test Z32.01 [facility] [place] [id number] [place] [address] 06148- 5154 Feb, [facility] [place] [address], [place] [address]- 9589 Jan, [facility] [place] [id number] [place] [address] 32059- 8231 Jan, Bipolar disorder, in partial remission, most recent episode depressed F31.75 ; Attention-deficit hyperactivity disorder, combined type F90.2 and Social anxiety disorder F40.10 [facility] [place] [address], [place] [address]- 4485 Jan, Seizure disorder G40.909 [facility] [place] [id number] [place] [address] 94779- 4952 Jan, [facility] [place] [id number] [place] [address] December, Bipolar disorder, current episode hypomanic F31.0 ; Attention-deficit hyperactivity disorder, combined type F90.2 and Social anxiety disorder F40.10 [facility] [place] [id number], [place] [address] December, Screening for STD sexually transmitted disease Z11.3 [facility] [place] [id number], [place] [address] Nov, [facility] [place] [id number], [place] [address] Nov, [facility] [place] [address] [place] [place] [id number] [place] [phone] Nov, Screening for STD sexually transmitted disease Z11.3 and Attention-deficit hyperactivity disorder, combined type F90.2 [facility] [place] [id number] [place] [address] Nov, Attention-deficit hyperactivity disorder, combined type F90.2 ; Social anxiety disorder F40.10 and Bipolar disorder, current episode hypomanic F31.0 [facility] [place] [id number] [place] [address] Oct, [facility] [place] [id number], [place] [address] Oct, [facility] [place] [id number], [place] [address] Sep, [facility] [place] [id number], [place] [address] Sep, Bipolar disorder, in partial remission, most recent episode depressed F31.75 ; Attention-deficit hyperactivity disorder, combined type F90.2 and Social anxiety disorder F40.10 [facility] [place] [id number], [place] [address] Sep, [facility] [place] [id number], [place] [address] Aug, [facility] [place] [id number], [place] [address] Jul, [facility] [place] [id number] [place] [address] Jul, [facility] [place] [id number], [place] [address] Jul, Bipolar disorder, in partial remission, most recent episode depressed F31.75 ; Attention-deficit hyperactivity disorder, combined type F90.2 and Social anxiety disorder F40.10 [facility] [place] [id number] [address] Jun, [facility] [place] [id number] [address] Jun, [facility] [place] [id number] [place] [id number] Jun, [facility] [place] [id number] [address] May, [facility] [place] [id number] [place] [address] May, [facility] [place] [id number] [address] May, [facility] [place] [id number] [address] May, Bipolar disorder, in partial remission, most recent episode depressed F31.75 ; Attention-deficit hyperactivity disorder, combined type F90.2 and Social anxiety disorder F40.10 [facility] [place] [id number] [address] Mar, Bipolar I disorder, moderate, current or most recent episode depressed, in partial remission, with mixed features 296.55 ; ADHD ( attention deficit hyperactivity disorder), combined type 314.01 and Social anxiety disorder 300.23 [facility] [place] [id number], [place] [address] Aug, [facility] [place] [id number], [place] [address] Aug, [facility] [place] [id number] [address] Jun, [facility] [place] [address] [facility] [id number], [place] [address] Jun, [facility] [place] [id number] [address] Jan, [facility] [place] [address] [facility] [id number], [place] [address] December, [facility] [place] [address] [facility] [id number], [place] [address] Oct, [facility] [place] [address] [facility] [id number], [place] [address] Sep, [facility] [place] [address] [facility] [id number], [place] [address] Jun, IMMUNIZATIONS Vaccine Route Administration Date Status MARY 250 MG/ML (PT'S OWN) Unknown January 15, 2018 Administered SOCIAL HISTORY Never Assessed REASON FOR VISIT OB 4wk f/u -- miladys vick PLAN OF CARE Activity Details Follow Up 4 Weeks, 4 Weeks, 4 Weeks Reason: VITAL SIGNS Height 64.3 in 2018-01-15 Weight 171.0 lbs 2018-01-15 Temperature 98.0 degrees Fahrenheit 2018-01-15 Heart Rate 68 bpm 2018-01-15 Respiratory Rate 18 2018-01-15 BMI 29.079 kg/m2 2018-01-15 Blood pressure systolic 110 mmHg 2018-01-15 Blood pressure diastolic 68 mmHg 2018-01-15 MEDICATIONS Medication Instructions Dosage Frequency Start Date End Date Duration Status Ferrous Sulfate 325 (65 Fe) MG Orally Once a day 1 tablet 24h Not- Taking Triamcinolone Acetonide 0.025 % Externally Twice a day 1 application to affected area 12h Active Active Complete 14-0.4 MG Orally Once a day 1 tablet 24h Not- Taking Hydroxyprogesterone Caproate 250 MG/ML Intramuscular once weekly 1 ml Oct, Apr, 30 day(s) Not-Taking Latuda 20 mg Orally Once with evening meal 1 tablets with 350 calories Apr, Not-Taking RESULTS No Results PROCEDURES Procedure Date Ordered Result Body Site URINE-NO MICRO January 15, 2018 COMPLETE CBC W/AUTO DIFF WBC January 15, 2018 VENIPUNCT, ROUTINE* January 15, 2018 GLUCOSE TEST January 15, 2018 THER/PROPH/DIAG INJ, SC/IM January 15, 2018 MARY 250 MG/ML (PT'S OWN) January 15, 2018 INSTRUCTIONS MEDICATIONS ADMINISTERED No Known Medications MEDICAL (GENERAL) HISTORY Type Description Date Medical History 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 Has had consisten NEUROLOGY care. Diagnosed with Focal Seizures with EEG Medical History ADHD Medical History Bipolar disorder Medical History Social anxiety disorder Surgical History [place] teeth removed 09/06/15 Surgical History Childbirth Surgical History Spider bite Hospitalization History psych; anger/aggression 2008 Hospitalization History ER visit Bleeding while 10/20/17
--- OUTSIDE RECORDS SUMMARY | 2018-04-04 11:07 | XMS REPORT ---
Author Author ANDREW REGIS [facility] Address [address] [place] [address] Care Team Providers Care Adult Psychiatrist Name Role Phone ANDREWMIRIAN KELLERHANY Unavailable PROBLEMS Type Condition ICD9-CM Code TLS47-QI Code Onset Dates Condition Status SNOMED Code Problem Bipolar disorder, current episode hypomanic F31.0 Active 11352415 Problem Bipolar disorder with moderate depression F31.32 Active 173602182 Problem Social phobia, generalized F40.11 Active 44446316 Problem Attention-deficit hyperactivity disorder, combined type F90.2 Active 32008832 Problem Bipolar disorder, in partial remission, most recent episode depressed F31.75 Active 51624323 Problem Third trimester Z33.1 Active 70723807 Problem Low lying placenta with hemorrhage, first trimester O44.51 Active 935924559 Problem Supervision of other high risk pregnancies, first trimester O09.891 Active 093424009 Problem Unspecified blood type, Rh negative Z67.91 Active 794190112 Problem History of delivery, currently O09.219 Active 121496636 Problem Abnormal ultrasound R93.8 Active [id number] ALLERGIES No Information ENCOUNTERS Encounter Location Date Diagnosis [place] [id number] [place] [address] 05247- 6810 Apr, [place] [id number] [place] [address] 17468- 0663 Apr, [facility] [id number] [place] [address] 56445- 1568 Apr, [place] [id number] [place] [address] 66945- 4985 Mar, [place] [id number] [place] [address] 95358- 3073 Mar, bradycardia before the onset of labor P03.810 ; Third trimester Z33.1 and ANGÉLICA (amniotic fluid index) borderline low O28.8 [place] [facility] [id number] [place] [address] 73388- 8735 Mar, Third trimester Z33.1 ; STD exposure Z20.2 and bradycardia before the onset of labor P03.810 [place] [address] 96553- 4373 Mar, History of delivery, currently O09.219 [place] [address] [address]1628- 1949 Mar, [place] [address] 74121- 4825 Mar, Third trimester Z33.1 ; History of delivery, currently O09.219 ; 35 weeks gestation of Z3A.35 and Decreased movements in third trimester, single or unspecified fetus O36.8130 [place] [address] 39589- 4453 Mar, History of delivery, currently O09.219 [place] [address] 97308- 3809 Feb, History of delivery, currently O09.219 [place] [id number] [place] [address] 86005- 4072 Feb, Third trimester Z34.93 ; 32 weeks gestation of Z3A.32 and Encounter for immunization Z23 [place] [id number] [place] [address] 51420- 8082 Feb, History of delivery, currently O09.219 [place] [address] 44126- 0361 Feb, [place] [id number] [place] [address] 33529- 9838 Feb, [place] [address] 11561- 2219 Feb, [facility] [address], [place] [address] 8183 Feb, Third trimester Z34.93 and Unspecified blood type , Rh negative Z67.91 [facility] [address], [place] [address] 3244 Feb, [facility] [id number] [place] [address] 26385- 8580 Feb, History of delivery, currently O09.219 [facility] [id number] [place] [address] 63583- 5783 Jan, Unspecified blood type, Rh negative Z67.91 and History of delivery, currently O09.219 [place] [id number] [address] Jan, History of delivery, currently O09.219 [place] [id number] [address] 5136 Jan, [place] [id number] [place] [address] 92941- 8972 Jan, [facility] [address], [place] [address] 2176 Jan, Diabetes mellitus screening Z13.1 ; care, subsequent in second trimester Z34.82 ; Local reaction to immunization , initial encounter T88.1XXA and 26 weeks gestation of Z3A.26 [place] [facility] [address], [place] [address]- 9103 Jan, [place] [id number] [address]- 4135 Jan, [facility] [address], [place] [address]- 3567 Jan, [facility] [address], [place] [address]- 9698 Jan, History of delivery, currently O09.219 [facility] [address], [place] [address]- 9206 December, History of delivery, currently O09.219 [facility] [address], [place] [address]- 2408 December, History of delivery, currently O09.219 [facility] [id number] [address]- 3799 December, [facility] [id number] [place] [address] 82905- 5838 December, [facility] [id number] [place] [address] 46247- 2723 December, 22 weeks gestation of Z3A.22 and Second trimester Z34.92 [facility] [id number] [place] [address] 58153- 3847 December, [facility] [address], [place] [address]- 0866 December, History of delivery, currently O09.219 [facility] [address], [place] [address]- 7747 December, History of delivery, currently O09.219 [facility] [address], [place] [address]- 3538 December, [facility] [address], [place] [address]- 0479 December, History of delivery, currently O09.219 [facility] [id number] [address]- 8312 Nov, [facility] [address], [place] [address]- 5762 Nov, History of delivery, currently O09.219 [facility] [address], [place] [address]- 6644 Nov, care, subsequent in second trimester Z34.82 and 18 weeks gestation of Z3A.18 [place] [id number] [place] [address] 23430- 7159 Nov, [place] [id number] [place] [address] 84292- 3859 Oct, [place] [address] [id number] [place] [address] 07347- 4819 Oct, Threatened miscarriage O20.0 [place] [id number] [place] [address] 02219- 3887 Oct, 14 weeks gestation of Z3A.14 ; Threatened miscarriage O20.0 ; Other specified noninflammatory disorders of vagina N89.8 ; Other specified related conditions, second trimester O26.892 ; Vaginal candidiasis B37.3 ; Low lying placenta with hemorrhage, first trimester O44.51 ; Abnormal ultrasound R93.8 ; Second trimester Z34.92 and History of delivery, currently O09.219 [place] [id number] [place] [address] 00368- 2928 Oct, [place] [id number] [place] [address] 31954- 5546 16 Oct, 2017 care, subsequent in second trimester Z34.82 and 13 weeks gestation of Z3A.13 [place] [id number] [address]- 1878 22 Sep, 2017 [place] [id number] [place] [address] 14471- 6112 14 Sep, 2017 care, subsequent in first trimester Z34.81 and 9 weeks gestation of Z3A.09 [place] [id number] [place] [address] 11587- 7917 Sep, [place] [id number] [place] [address] 53906- 7236 Aug, [facility] [address], [place] [address]- 3872 Aug, [facility] [id number] [place] [address] 60249- 3868 Aug, [facility] [id number] [place] [address] 15345- 3931 Aug, Encounter for test Z32.00 [facility] [address] [id number] [place] [address] 83489- 5729 Jul, [facility] [address] [id number] [place] [address] 81754- 9199 Jul, [facility] [id number] [place] [address] 27744 -1087 Jun, [facility] [address] [id number] [place] [address] 04456- 1382 Apr, [facility] [address] [id number] [place] [address] 81551- 2955 Apr, Bipolar disorder with moderate depression F31.32 and Attention-deficit hyperactivity disorder, combined type F90.2 [facility] [address] [id number] [place] [address] 32076- 3067 Feb, [facility] [address] [id number] [place] [address] 01953- 6874 Feb, [facility] [address] [id number] [place] [address] 88946- 1596 Jan, [facility] [id number] [place] [address] 36764 -4554 Jan, Vaginal discharge N89.8 and Acute vaginitis N76.0 [facility] [address] [id number] [place] [address] 56188- 7817 Nov, [facility] [address] [id number] [place] [address] 43959- 0675 Nov, Encounter for visit Z39.2 ; Tobacco abuse counseling Z71.6 and Drug or alcohol risk assessment or counseling Z71.89 [place] [address], [place] [address]- 9541 Nov, [facility] [address], [place] [address]- 9156 Oct, [facility] [id number] [place] [address] 80302- 9459 Oct, [facility] [address] [id number] [place] [address] 67514- 9469 Oct, [facility] [id number] [place] [address] 58524- 7094 Oct, STD exposure Z20.2 [place] [id number] [place] [address] 92390- 7349 Oct, Bipolar disorder, in partial remission, most recent episode depressed F31.75 ; Attention-deficit hyperactivity disorder, combined type F90.2 and Social phobia, generalized F40.11 [place] [address], [place] [address]- 9446 Oct, Bipolar disorder, in partial remission, most recent episode depressed F31.75 ; Attention-deficit hyperactivity disorder, combined type F90.2 and Social phobia, generalized F40.11 [place] [address], [place] [address]- 5139 Oct, [facility] [id number] [place] [address] 28536- 8185 Sep, [facility] [address], [place] [address]- 1057 Sep, [place] [id number] [place] [address] 66445- 2392 Sep, screening for streptococcus B Z36 ; care , first in third trimester Z34.03 and 35 weeks gestation of Z3A.35 [place] [facility] [id number] [address]- 9564 07 Sep, 2016 care, first in third trimester Z34.03 and 34 weeks gestation of Z3A.34 [place] [address] [id number] [place] [address] 63695- 6906 07 Sep, 2016 [place] [address] [id number] [place] [address] 55872- 9247 Sep, [place] [address] [id number] [place] [address] 91471- 2256 Sep, Bipolar disorder, in partial remission, most recent episode depressed F31.75 ; Attention-deficit hyperactivity disorder, combined type F90.2 and Social phobia, generalized F40.11 [place] [id number] [place] [address] 65220- 3544 25 Aug, 2016 Normal , first Z34.00 ; Encounter for immunization Z23 and 32 weeks gestation of Z3A.32 [place] [facility] [id number] [place] [address] 32187- 0726 10 Aug, 2016 [place] [id number] [place] [address] 66981- 8603 10 Aug, 2016 Other specified related conditions, third trimester O26.893 and 30 weeks gestation of Z3A.30 [place] [id number] [place] [address] 86573- 3126 Aug, [place] [id number] [place] [address] 35117- 2014 27 Jul, 2016 Diabetes mellitus screening Z13.1 ; , first, first trimester Z34.01 ; Other specified noninflammatory disorders of vagina N89.8 ; Other specified related conditions, third trimester O26.893 and 28 weeks gestation of Z3A.28 [place] [id number] [place] [address] 46000- 1392 14 Jul, 2016 [place] [address] 92812- 1294 Jun, [facility] [address] [id number] [address] Jun [place] [id number] [place] [address] 56267- 6112 Jun, Normal , first Z34.00 ; Evaluate anatomy not seen on prior sonogram Z36 and 23 weeks gestation of Z3A.23 [facility] [id number] [place] [address] 37472- 9557 Jun, [facility] [id number] [place] [address] 32269- 2883 Jun, Bipolar disorder, in partial remission, most recent episode depressed F31.75 ; Attention-deficit hyperactivity disorder, combined type F90.2 and Social phobia, generalized F40.11 [place] [id number] [place] [address] 57612- 3718 May, [place] [id number] [place] [address] 02258- 2597 May, Normal , first Z34.00 and 19 weeks gestation of Z3A.19 [facility] [id number] [place] [address] 53133 -6833 May, Dysuria R30.0 and Acute cystitis during , second trimester O23.12 [place] [id number] [place] [address] 58087- 4301 Apr, [facility] [id number] [place] [address] 27368- 5854 Apr, care, first in second trimester Z34.02 [place] [id number] [place] [address] 37169- 0578 Apr, [facility] [id number] [place] [address] 79987- 2410 Apr, [facility] [id number] [place] [address] 39279- 2710 Apr, [facility] [id number], [place] [address]- 8945 Apr, care, first in second trimester Z34.02 ; Dehydration E86.0 and 14 weeks gestation of Z3A.14 [facility] [address], [place] [address]- 2576 Apr, Bipolar disorder, in partial remission, most recent episode depressed F31.75 ; Attention-deficit hyperactivity disorder, combined type F90.2 ; Social anxiety disorder F40.10 and 15 weeks gestation of Z3A.15 [place] [address], [place] [address]- 4351 Mar, [place] [address], [place] [address]- 0983 Mar, , first, first trimester Z34.01 and 10 weeks gestation of Z3A.10 [facility] [address], [place] [address]- 9495 Mar, [facility] [address], [place] [address]- 2814 Mar, [facility] [address], [place] [address]- 3297 Feb, Normal , first Z34.00 and 6 weeks gestation of Z3A.01 [facility] [address], [place] [address]- 0466 Feb, [facility] [address] [place] [id number], [place] [address]- 9926 Feb, [facility] [address] [id number] [place] [address] Feb [facility] [id number], [place] [address]- 6206 Feb, [facility] [address] [id number] [address]- 2719 Feb, [facility] [address], [place] [address]- 5132 12 Feb, 2016 Bipolar disorder, in partial remission, most recent episode depressed F31.75 ; Attention-deficit hyperactivity disorder, combined type F90.2 and Social anxiety disorder F40.10 [facility] [address], [place] [address]- 5365 12 Feb, 2016 Routine adult health maintenance Z00.00 [facility] [id number] [place] [address] 97594- 5964 2016 [facility] [id number] [place] [address] 25885- 0913 2016 confirmed by positive urine test Z32.01 [place] [id number] [place] [address] 70594- 6139 Feb, [place] [id number] [place] [address] 16561- 7786 Jan, [facility] [address], [place] [address]- 4180 28 Jan, 2016 Bipolar disorder, in partial remission, most recent episode depressed F31.75 ; Attention-deficit hyperactivity disorder, combined type F90.2 and Social anxiety disorder F40.10 [place] [address], [place] [address]- 6974 Jan, Seizure disorder G40.909 [facility] [id number] [place] [address] 48583- 6970 Jan, [facility] [address], [place] [address]- 9753 December, Bipolar disorder, current episode hypomanic F31.0 ; Attention-deficit hyperactivity disorder, combined type F90.2 and Social anxiety disorder F40.10 [facility] [address], [place] [address]- 4771 December, Screening for STD sexually transmitted disease Z11.3 [facility] [address], [place] [address]- 0991 27 Nov, 2015 [facility] [id number] [place] [address] 62576- 9757 Nov, [facility] [id number] [place] [address] 51361- 2940 Nov, Screening for STD sexually transmitted disease Z11.3 and Attention-deficit hyperactivity disorder, combined type F90.2 [facility] [id number] [place] [address] 64041- 4328 Nov, Attention-deficit hyperactivity disorder, combined type F90.2 ; Social anxiety disorder F40.10 and Bipolar disorder, current episode hypomanic F31.0 [facility] [id number] [place] [address] 22550- 3434 Oct, [place] [id number] [place] [address] 74049- 2187 Oct, [facility] [id number] [place] [address] 51509- 7476 Sep, [facility] [id number] [place] [address] 59566- 0725 Sep, Bipolar disorder, in partial remission, most recent episode depressed F31.75 ; Attention-deficit hyperactivity disorder, combined type F90.2 and Social anxiety disorder F40.10 [facility] [id number] [place] [address] 79117- 7622 Sep, [facility] [address], [place] [address]- 6420 Aug, [facility] [id number] [place] [address] 28286- 6382 Jul, [facility] [id number] 0336 Jul, [facility] [id number] [place] [address] 79017- 7594 Jul, Bipolar disorder, in partial remission, most recent episode depressed F31.75 ; Attention-deficit hyperactivity disorder, combined type F90.2 and Social anxiety disorder F40.10 [facility] [address], [place] [address]- 2082 Jun, [facility] [address], [place] [address]- 7084 Jun, [facility] [id number] [place] [address] 64578- 4183 Jun, [facility] [id number] [place] [address] 31802- 7167 May, [facility] [id number] [place] [address] 24348- 6302 May, [facility] [id number] [place] [address] 85081- 6635 May, [facility] [id number] [place] [address] 33106- 0411 May, Bipolar disorder, in partial remission, most recent episode depressed F31.75 ; Attention-deficit hyperactivity disorder, combined type F90.2 and Social anxiety disorder F40.10 [facility] [address], [place] [address]- 0529 Mar, Bipolar I disorder, moderate, current or most recent episode depressed, in partial remission, with mixed features 296.55 ; ADHD ( attention deficit hyperactivity disorder), combined type 314.01 and Social anxiety disorder 300.23 [facility] [address], [place] [address]- 9910 Aug, [facility] [id number] [place] [address] 98626- 6186 Aug, [facility] [address], [place] [address]- 4589 Jun, [facility] [id number] [place] [address] 34042- 8409 Jun, [facility] [address] [facility] [id number] [address]- 2546 Jan, [facility] [id number] [address]- 2546 December, [facility] [id number] [address]- 2546 Oct, [facility] [id number] [address]- 2546 Sep, [facility] [address] [facility] [id number], [place] [address]- 2546 Jun, IMMUNIZATIONS No Known Immunizations SOCIAL HISTORY Never Assessed REASON FOR VISIT PLAN OF CARE VITAL SIGNS MEDICATIONS Unknown Medications RESULTS No Results PROCEDURES No Known procedures INSTRUCTIONS MEDICATIONS ADMINISTERED No Known Medications MEDICAL (GENERAL) HISTORY Type Description Date Medical History 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 [facility]. Diagnosed with Focal Seizures with EEG Medical History ADHD Medical History Bipolar disorder Medical History Social anxiety disorder Surgical History [place] teeth removed 09/06/15 Surgical History Childbirth Surgical History Spider bite Hospitalization History psych; anger/aggression 2008 Hospitalization History ER visit Bleeding while 10/20/17
--- OUTSIDE RECORDS SUMMARY | 2018-04-04 11:07 | XMS REPORT ---
Author Author ANDREW REGIS [facility] Address [address] [place] [address] Care Team Providers Care Shaper Setter Name Role Phone ANDREWMIRIAN KELLERHANY Unavailable PROBLEMS Type Condition ICD9-CM Code BMO26-VE Code Onset Dates Condition Status SNOMED Code Problem Bipolar disorder, current episode hypomanic F31.0 Active 66486267 Problem Bipolar disorder with moderate depression F31.32 Active 972130452 Problem Social phobia, generalized F40.11 Active 24506067 Problem Attention-deficit hyperactivity disorder, combined type F90.2 Active 61461256 Problem Bipolar disorder, in partial remission, most recent episode depressed F31.75 Active 14998569 Problem Third trimester Z33.1 Active 21487949 Problem Low lying placenta with hemorrhage, first trimester O44.51 Active 247235489 Problem Supervision of other high risk pregnancies, first trimester O09.891 Active 428715769 Problem Unspecified blood type, Rh negative Z67.91 Active 424436888 Problem History of delivery, currently O09.219 Active 346708326 Problem Abnormal ultrasound R93.8 Active 155250644 ALLERGIES No Information ENCOUNTERS Encounter Location Date Diagnosis [place] [id number] [place] [address] 15308- 1473 Apr, [place] [id number] [place] [address] 67258- 8308 Apr, [facility] [address] [id number] [place] [address] 12914- 2795 Apr, [place] [address] [id number] [place] [address] 43688- 7254 Mar, [place] [id number] [place] [address] 22185- 9909 Mar, bradycardia before the onset of labor P03.810 ; Third trimester Z33.1 and ANGÉLICA (amniotic fluid index) borderline low O28.8 [place] [address] [address] [id number] [place] [address] 65560- 3686 Mar, Third trimester Z33.1 ; STD exposure Z20.2 and bradycardia before the onset of labor P03.810 [place] [address] 40289- 3975 Mar, History of delivery, currently O09.219 [place] [address] 49934- 1735 Mar, [place] [address] 38569- 7425 Mar, Third trimester Z33.1 ; History of delivery, currently O09.219 ; 35 weeks gestation of Z3A.35 and Decreased movements in third trimester, single or unspecified fetus O36.8130 [place] [address] 66960- 0735 Mar, History of delivery, currently O09.219 [place] [address] 83901- 7818 Feb, History of delivery, currently O09.219 [place] [address] [id number] [place] [address] 88101- 7178 Feb, Third trimester Z34.93 ; 32 weeks gestation of Z3A.32 and Encounter for immunization Z23 [place] [address] [id number] [place] [address] 65961- 0000 Feb, History of delivery, currently O09.219 [place] [address] 08136- 7406 Feb, [place] [address] [id number] [place] [address] 58053- 1680 Feb, [place] [address] 09279- 8678 Feb, [facility] [address] [address] 2866 Feb, Third trimester Z34.93 and Unspecified blood type , Rh negative Z67.91 [facility] [address] [address] 0114 Feb, [facility] [id number] [place] [address] 57532- 0259 Feb, History of delivery, currently O09.219 [facility] [id number] [place] [address] 90876- 7638 Jan, Unspecified blood type, Rh negative Z67.91 and History of delivery, currently O09.219 [place] [address] [id number] [address]- 9688 Jan, History of delivery, currently O09.219 [place] [id number] [address]- 1732 Jan, [place] [id number] [place] [address] 42290- 3486 Jan, [facility] [address] [address]- 4963 Jan, Diabetes mellitus screening Z13.1 ; care, subsequent in second trimester Z34.82 ; Local reaction to immunization , initial encounter T88.1XXA and 26 weeks gestation of Z3A.26 [place] [address] [address]- 9354 Jan, [place] [id number] [address]- 1389 Jan, [facility] [address] [address]- 7627 Jan, [facility] [address] [address]- 8883 Jan, History of delivery, currently O09.219 [facility] [address] [address]- 3643 December, History of delivery, currently O09.219 [facility] [address] [address]- 0298 December, History of delivery, currently O09.219 [facility] [id number] [address]- 3669 December, [facility] [id number] [place] [address] 53032- 1663 December, [facility] [id number] [place] [address] 86909- 8334 December, 22 weeks gestation of Z3A.22 and Second trimester Z34.92 [facility] [id number] [place] [address] 11868- 6319 December, [facility] [address] [address]- 3240 December, History of delivery, currently O09.219 [facility] [address] [address]- 4644 December, History of delivery, currently O09.219 [facility] [address] [address]- 4575 December, [facility] [address] [address]- 3761 December, History of delivery, currently O09.219 [facility] [id number] [address]- 4321 Nov, [facility] [address] [address]- 3547 Nov, History of delivery, currently O09.219 [facility] [address] [address]- 0790 Nov, care, subsequent in second trimester Z34.82 and 18 weeks gestation of Z3A.18 [place] [address] [id number] [place] [address] 55461- 9675 Nov, [place] [address] [address] [id number] [place] [address] 13553- 0523 Oct, [place] [address] [address] [id number] [place] [address] 95361- 0247 Oct, Threatened miscarriage O20.0 [place] [address] [id number] [place] [address] 75791- 2967 Oct, 14 weeks gestation of Z3A.14 ; Threatened miscarriage O20.0 ; Other specified noninflammatory disorders of vagina N89.8 ; Other specified related conditions, second trimester O26.892 ; Vaginal candidiasis B37.3 ; Low lying placenta with hemorrhage, first trimester O44.51 ; Abnormal ultrasound R93.8 ; Second trimester Z34.92 and History of delivery, currently O09.219 [place] [id number] [place] [address] 81423- 2292 Oct, [place] [address] [address] [id number] [place] [address] 00442- 0960 16 Oct, 2017 care, subsequent in second trimester Z34.82 and 13 weeks gestation of Z3A.13 [place] [id number] [address]- 8713 22 Sep, 2017 [place] [address] [id number] [place] [address] 20207- 7032 14 Sep, 2017 care, subsequent in first trimester Z34.81 and 9 weeks gestation of Z3A.09 [place] [address] [address] [id number] [place] [address] 98786- 1043 Sep, [place] [address] [place] [id number] [place] [address] 92927- 4987 Aug, [facility] [address] [address]- 8767 Aug, [facility] [id number] [place] [address] 41221- 0006 Aug, [facility] [id number] [place] [address] 06394- 4205 Aug, Encounter for test Z32.00 [facility] [address] [place] [id number] [place] [address] 93740- 0315 Jul, [facility] [address] [place] [id number] [place] [address] 00645- 0673 Jul, [facility] [id number] [place] [address] 83058 -6115 Jun, [facility] [address] [place] [id number] [place] [address] 02280- 9974 Apr, [facility] [address] [place] [id number] [place] [address] 22854- 0613 Apr, Bipolar disorder with moderate depression F31.32 and Attention-deficit hyperactivity disorder, combined type F90.2 [facility] [address] [place] [id number] [place] [address] 98652- 5575 Feb, [facility] [address] [place] [id number] [place] [address] 42035- 7732 Feb, [facility] [address] [place] [id number] [place] [address] 92886- 0612 Jan, [facility] [id number] [place] [address] 51424 -1212 Jan, Vaginal discharge N89.8 and Acute vaginitis N76.0 [facility] [address] [place] [id number] [place] [address] 27979- 1053 Nov, [facility] [address] [place] [id number] [place] [address] 35144- 8951 Nov, Encounter for visit Z39.2 ; Tobacco abuse counseling Z71.6 and Drug or alcohol risk assessment or counseling Z71.89 [place] [address] [address]- 7463 Nov, [facility] [address] [address]- 1676 Oct, [facility] [id number] [place] [address] 76626- 1893 Oct, [facility] [address] [place] [id number] [place] [address] 69891- 8556 Oct, [facility] [id number] [place] [address] 61040- 7914 Oct, STD exposure Z20.2 [place] [id number] [place] [address] 53758- 1402 Oct, Bipolar disorder, in partial remission, most recent episode depressed F31.75 ; Attention-deficit hyperactivity disorder, combined type F90.2 and Social phobia, generalized F40.11 [place] [address] [address]- 5580 Oct, Bipolar disorder, in partial remission, most recent episode depressed F31.75 ; Attention-deficit hyperactivity disorder, combined type F90.2 and Social phobia, generalized F40.11 [place] [address] [address]- 8096 Oct, [facility] [id number] [place] [address] 15751- 4732 Sep, [facility] [address], [place] [address]- 6013 Sep, [place] [id number] [place] [address] 91182- 3495 Sep, screening for streptococcus B Z36 ; care , first in third trimester Z34.03 and 35 weeks gestation of Z3A.35 [place] [address] [id number] [address]- 2653 07 Sep, 2016 care, first in third trimester Z34.03 and 34 weeks gestation of Z3A.34 [place] [address] [place] [id number] [place] [address] 98981- 0089 07 Sep, 2016 [place] [address] [place] [id number] [place] [address] 72486- 2982 Sep, [place] [address] [place] [id number] [place] [address] 58708- 0249 Sep, Bipolar disorder, in partial remission, most recent episode depressed F31.75 ; Attention-deficit hyperactivity disorder, combined type F90.2 and Social phobia, generalized F40.11 [place] [id number] [place] [address] 27746- 1572 25 Aug, 2016 Normal , first Z34.00 ; Encounter for immunization Z23 and 32 weeks gestation of Z3A.32 [place] [address] [place] [id number] [place] [address] 74364- 7862 10 Aug, 2016 [place] [id number] [place] [address] 20668- 4412 10 Aug, 2016 Other specified related conditions, third trimester O26.893 and 30 weeks gestation of Z3A.30 [place] [id number] [place] [address] 10316- 5629 Aug, [place] [address] [place] [id number] [place] [address] 39445- 4112 27 Jul, 2016 Diabetes mellitus screening Z13.1 ; , first, first trimester Z34.01 ; Other specified noninflammatory disorders of vagina N89.8 ; Other specified related conditions, third trimester O26.893 and 28 weeks gestation of Z3A.28 [place] [address] [place] [id number] [place] [address] 13948- 1108 14 Jul, 2016 [place] [address] 92520- 5592 Jun, [facility] [address] [id number] [place] [address] Jun [place] [address] [place] [id number] [place] [address] 13819- 1623 Jun, Normal , first Z34.00 ; Evaluate anatomy not seen on prior sonogram Z36 and 23 weeks gestation of Z3A.23 [facility] [address] [place] [id number] [place] [address] 22832- 0364 Jun, [facility] [address] [id number] [place] [address] 25788- 5651 Jun, Bipolar disorder, in partial remission, most recent episode depressed F31.75 ; Attention-deficit hyperactivity disorder, combined type F90.2 and Social phobia, generalized F40.11 [place] [address] [id number] [place] [address] 83892- 2951 May, [place] [address] [place] [id number] [place] [address] 30814- 1617 May, Normal , first Z34.00 and 19 weeks gestation of Z3A.19 [facility] [id number] [place] [address] 84142 -4753 May, Dysuria R30.0 and Acute cystitis during , second trimester O23.12 [place] [id number] [place] [address] 83619- 0454 Apr, [facility] [id number] [place] [address] 37750- 2709 Apr, care, first in second trimester Z34.02 [place] [address] [id number] [place] [address] 44198- 3619 Apr, [facility] [id number] [place] [address] 31037- 1812 Apr, [facility] [id number] [place] [address] 58567- 6853 Apr, [facility] [id number] [address]- 2885 Apr, care, first in second trimester Z34.02 ; Dehydration E86.0 and 14 weeks gestation of Z3A.14 [facility] [address] [address]- 4264 Apr, Bipolar disorder, in partial remission, most recent episode depressed F31.75 ; Attention-deficit hyperactivity disorder, combined type F90.2 ; Social anxiety disorder F40.10 and 15 weeks gestation of Z3A.15 [place] [address] [address]- 1060 Mar, [place] [address] [address]- 2422 Mar, , first, first trimester Z34.01 and 10 weeks gestation of Z3A.10 [facility] [address] [address]- 7075 Mar, [facility] [address] [address]- 3179 Mar, [facility] [address], [place] [address]- 3498 Feb, Normal , first Z34.00 and 6 weeks gestation of Z3A.01 [facility] [address] [address]- 3633 Feb, [facility] [address] [place] [id number] [address]- 9483 Feb, [facility] [address] [id number] [place] [address] Feb [facility] [id number] [address]- 3919 Feb, [facility] [id number] [address]- 3748 Feb, [facility] [address], [place] [address]- 7990 12 Feb, 2016 Bipolar disorder, in partial remission, most recent episode depressed F31.75 ; Attention-deficit hyperactivity disorder, combined type F90.2 and Social anxiety disorder F40.10 [facility] [address] [address]- 7935 12 Feb, 2016 Routine adult health maintenance Z00.00 [facility] [id number] [place] [address] 00642- 0724 2016 [facility] [id number] [place] [address] 55077- 7746 2016 confirmed by positive urine test Z32.01 [place] [address] [id number] [place] [address] 01600- 4893 Feb, [place] [address] [id number] [place] [address] 95324- 3567 Jan, [facility] [address] [address]- 4980 28 Jan, 2016 Bipolar disorder, in partial remission, most recent episode depressed F31.75 ; Attention-deficit hyperactivity disorder, combined type F90.2 and Social anxiety disorder F40.10 [place] [address], [place] [address]- 9225 Jan, Seizure disorder G40.909 [facility] [address] [place] [address] 00125- 8822 Jan, [facility] [address] [address]- 3763 December, Bipolar disorder, current episode hypomanic F31.0 ; Attention-deficit hyperactivity disorder, combined type F90.2 and Social anxiety disorder F40.10 [facility] [address] [address]- 3416 December, Screening for STD sexually transmitted disease Z11.3 [facility] [address] [address]- 1222 27 Nov, 2015 [facility] [id number] [place] [address] 37528- 7771 Nov, [facility] [id number] [place] [address] 44389- 3921 Nov, Screening for STD sexually transmitted disease Z11.3 and Attention-deficit hyperactivity disorder, combined type F90.2 [facility] [id number] [place] [address] 90509- 2223 Nov, Attention-deficit hyperactivity disorder, combined type F90.2 ; Social anxiety disorder F40.10 and Bipolar disorder, current episode hypomanic F31.0 [facility] [id number] [place] [address] 62047- 6959 Oct, [place] [id number] [place] [address] 24102- 0095 Oct, [facility] [id number] [place] [address] 28110- 4331 Sep, [facility] [id number] [place] [address] 93127- 9019 Sep, Bipolar disorder, in partial remission, most recent episode depressed F31.75 ; Attention-deficit hyperactivity disorder, combined type F90.2 and Social anxiety disorder F40.10 [facility] [id number] [place] [address] 23238- 3193 Sep, [facility] [address] [address]- 5533 Aug, [facility] [id number] [place] [address] 82502- 8473 Jul, [facility] [id number] [address]- 5768 Jul, [facility] [id number] [place] [address] 26397- 7239 Jul, Bipolar disorder, in partial remission, most recent episode depressed F31.75 ; Attention-deficit hyperactivity disorder, combined type F90.2 and Social anxiety disorder F40.10 [facility] [address] [address]- 3624 Jun, [facility] [address] [address]- 5110 Jun, [facility] [id number] [place] [address] 89957- 1230 Jun, [facility] [id number] [place] [address] 30571- 5141 May, [facility] [id number] [place] [address] 76010- 7328 May, [facility] [id number] [place] [address] 44149- 9026 May, [facility] [id number] [place] [address] 78443- 9793 May, Bipolar disorder, in partial remission, most recent episode depressed F31.75 ; Attention-deficit hyperactivity disorder, combined type F90.2 and Social anxiety disorder F40.10 [facility] [address] [address]- 9660 Mar, Bipolar I disorder, moderate, current or most recent episode depressed, in partial remission, with mixed features 296.55 ; ADHD ( attention deficit hyperactivity disorder), combined type 314.01 and Social anxiety disorder 300.23 [facility] [address] [address]- 5974 Aug, [facility] [id number] [place] [address] 02612- 6992 Aug, [facility] [address], [place] [address]- 0829 Jun, [facility] [id number] [place] [address] 73894- 5719 Jun, [facility] [address] [facility] [id number] [address]- 2546 Jan, [facility] [id number] [address]- 2546 December, [facility] [address] [facility] [id number] [address]- 2546 Oct, [facility] [address] [facility] [id number] [address]- 2546 Sep, [facility] [address] [facility] [id number] [address]- 2546 Jun, IMMUNIZATIONS No Known Immunizations SOCIAL HISTORY Never Assessed REASON FOR VISIT Rx from lab results PLAN OF CARE VITAL SIGNS MEDICATIONS Medication Instructions Dosage Frequency Start Date End Date Duration Status Ferrous Sulfate 325 (65 Fe) MG Orally Once a day 1 tablet 24h Jan, 30 day(s) Active RESULTS No Results PROCEDURES No Known procedures INSTRUCTIONS MEDICATIONS ADMINISTERED No Known Medications MEDICAL (GENERAL) HISTORY Type Description Date Medical History 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 Has had consisten NEUROLOGY care. Diagnosed with Focal Seizures with EEG Medical History ADHD Medical History Bipolar disorder Medical History Social anxiety disorder Surgical History [place] teeth removed 09/06/15 Surgical History Childbirth Surgical History Spider bite Hospitalization History psych; anger/aggression 2008 Hospitalization History ER visit Bleeding while 10/20/17
--- OUTSIDE RECORDS SUMMARY | 2018-04-04 11:08 | XMS REPORT ---
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 Name Role Phone ANDREW REGIS Unavailable PROBLEMS Type Condition ICD9-CM Code LQJ11-CM Code Onset Dates Condition Status SNOMED Code Problem Bipolar disorder, current episode hypomanic F31.0 Active 13360713 Problem Bipolar disorder with moderate depression F31.32 Active 345885305 Problem Social phobia, generalized F40.11 Active 51592537 Problem Attention-deficit hyperactivity disorder, combined type F90.2 Active 68969990 Problem Bipolar disorder, in partial remission, most recent episode depressed F31.75 Active 10700790 Problem Third trimester Z33.1 Active 42807633 Problem Low lying placenta with hemorrhage, first trimester O44.51 Active 823459999 Problem Supervision of other high risk pregnancies, first trimester O09.891 Active 942290082 Problem Unspecified blood type, Rh negative Z67.91 Active 696957091 Problem History of delivery, currently O09.219 Active 083551966 Problem Abnormal ultrasound R93.8 Active 466684256 ALLERGIES No Information ENCOUNTERS Encounter Location Date Diagnosis [facility] [address] [address] Apr, [facility] [address], [place] [address] Apr, [facility] [address], [place] [address]267 Apr, [facility] [address] [place] [address] 43229- 2052 Mar, [facility] [address], [place] [address] Mar, [facility] [id number] [address] 47[address] Mar, [facility] [id number] [place] [address] 38916- 6005 Mar, History of delivery, currently O09.219 [facility] [id number] [place] [address] 40733- 4211 Mar, [facility] [id number] [place] [address] 41321- 1601 Mar, Third trimester Z33.1 ; History of delivery, currently O09.219 ; 35 weeks gestation of Z3A.35 and Decreased movements in third trimester, single or unspecified fetus O36.8130 [facility] [id number] [place] [address] 05812- 7539 Mar, History of delivery, currently O09.219 [facility] [id number] [place] [address] 96096- 0170 Feb, History of delivery, currently O09.219 [facility] [id number] [place] [address] 55305- 4662 Feb, Third trimester Z34.93 ; 32 weeks gestation of Z3A.32 and Encounter for immunization Z23 [facility] [address], [place] [address] Feb, History of delivery, currently O09.219 [facility] [id number] [place] [address] 85845- 6395 Feb, [facility] [id number] [place] [address] 30154- 5054 Feb, [facility] [id number] [place] [address] 13497- 3823 Feb, [facility] [address], [place] [address] 9540 Feb, Third trimester Z34.93 and Unspecified blood type , Rh negative Z67.91 [facility] [address], [place] [address] Feb, [facility] [id number] [address] 4746 Feb, History of delivery, currently O09.219 [facility] [address], [place] [address] 97[address] Jan, Unspecified blood type, Rh negative Z67.91 and History of delivery, currently O09.219 [facility] [address], [place] [address] 87[address] Jan, History of delivery, currently O09.219 [facility] [id number] [place] [address] 92420- 4950 Jan, [facility] [id number] [place] [address] 61284- 1389 Jan, [facility] [address], [place] [address] Jan, care, subsequent in second trimester Z34.82 ; Diabetes mellitus screening Z13.1 ; Local reaction to immunization, initial encounter T88.1XXA and 26 weeks gestation of Z3A.26 [facility] [address], [place] [address]- 7[address] Jan, [facility] [id number], [place] [address]- 0296 Jan, [facility] [address], [place] [address]- 8827 Jan, [facility] [id number] [place] [address] 81964- 6421 Jan, History of delivery, currently O09.219 [facility] [address], [place] [address]- 6[address] December, History of delivery, currently O09.219 [place] [facility] [address], [place] [address]- 7583 December, History of delivery, currently O09.219 [facility] [address], [place] [address]- 0241 December, [facility] [address], [place] [address]- 7061 December, [facility] [id number] [place] [address] 01468- 1037 December, Second trimester Z34.92 and 22 weeks gestation of Z3A.22 [facility] [id number], [place] [address]- 0703 December, [facility] [address] [place] [address] 82862- 2484 December, History of delivery, currently O09.219 [facility] [address], [place] [address]- 6789 December, History of delivery, currently O09.219 [facility] [address], [place] [address]- 2413 December, [facility] [address], [place] [address]- 3869 December, History of delivery, currently O09.219 [facility] [address], [place] [address]- 0243 Nov, [facility] [address], [place] [address]- 6773 Nov, History of delivery, currently O09.219 [facility] [address], [place] [address]- 6267 Nov, care, subsequent in second trimester Z34.82 and 18 weeks gestation of Z3A.18 [facility] [address], [place] [address]- 3065 Nov, [place] [facility] [id number] [place] [address] 78164- 6326 Oct, [facility] [id number] [place] [address] 52125- 1607 Oct, Threatened miscarriage O20.0 [facility] [id number] [place] [address] 94928- 5937 Oct, 14 weeks gestation of Z3A.14 ; Threatened miscarriage O20.0 ; Other specified noninflammatory disorders of vagina N89.8 ; Other specified related conditions, second trimester O26.892 ; Vaginal candidiasis B37.3 ; Low lying placenta with hemorrhage, first trimester O44.51 ; Abnormal ultrasound R93.8 ; Second trimester Z34.92 and History of delivery, currently O09.219 [facility] [id number] [place] [address] 58669- 1005 Oct, [facility] [id number] [place] [address] 39369- 0391 16 Oct, 2017 care, subsequent in second trimester Z34.82 and 13 weeks gestation of Z3A.13 [facility] [id number] [place] [address] 28853- 5356 22 Sep, 2017 [place] [facility] [id number] [place] [address] 63476- 2567 14 Sep, 2017 care, subsequent in first trimester Z34.81 and 9 weeks gestation of Z3A.09 [facility] [id number] [place] [address] 40457- 5858 Sep, [facility] [id number] [place] [address] 00438- 7057 Aug, [facility] [id number] [place] [address] 29465- 6547 Aug, [facility] [id number] [place] [address] 90519- 2138 Aug, [facility] [address], [place] [address]- 1257 Aug, Encounter for test Z32.00 [facility] [address] [place] [address] 67338- 2696 Jul, [facility] [id number] [place] [address] 02217- 9000 Jul, [facility] [id number] [place] [address] 41524 -6978 Jun, [facility] [id number] [place] [address] 85618- 0826 Apr, [facility] [id number] [place] [address] 50250- 7373 Apr, Bipolar disorder with moderate depression F31.32 and Attention-deficit hyperactivity disorder, combined type F90.2 [facility] [id number] [place] [address] 39261- 1230 Feb, [facility] [id number] [place] [address] 40954- 0638 Feb, [facility] [id number] [place] [address] 25161- 8832 Jan, [facility] [address], [place] [address] Jan, Vaginal discharge N89.8 and Acute vaginitis N76.0 [facility] [address], [place] [address]- 8232 Nov, [facility] [id number] [place] [address] 65852- 5550 Nov, Encounter for visit Z39.2 ; Tobacco abuse counseling Z71.6 and Drug or alcohol risk assessment or counseling Z71.89 [facility] [id number] [place] [address] 15499- 8562 Nov, [facility] [address], [place] [address]- 6536 Oct, [facility] [address], [place] [address]- 7193 Oct, [facility] [address], [place] [address]- 5570 Oct, [facility] [address] [place] [address] 64058- 9860 Oct, STD exposure Z20.2 [facility] [address] [place] [address] 89671- 3938 Oct, Bipolar disorder, in partial remission, most recent episode depressed F31.75 ; Attention-deficit hyperactivity disorder, combined type F90.2 and Social phobia, generalized F40.11 [facility] [address], [place] [address]- 4876 Oct, Bipolar disorder, in partial remission, most recent episode depressed F31.75 ; Attention-deficit hyperactivity disorder, combined type F90.2 and Social phobia, generalized F40.11 [facility] [address] [place] [address] 69761- 1021 Oct, [facility] [address], [place] [address]- 2191 Sep, [facility] [address], [place] [address]- 0005 Sep, [facility] [address], [place] [address]- 0216 Sep, screening for streptococcus B Z36 ; care , first in third trimester Z34.03 and 35 weeks gestation of Z3A.35 [facility] [address] [place] [address] 80143- 8763 07 Sep, 2016 care, first in third trimester Z34.03 and 34 weeks gestation of Z3A.34 [facility] [address], [place] [address]- 0074 07 Sep, 2016 [place] [address] [place] [address] 68530- 6199 Sep, [facility] [address] [place] [address] 95545- 4009 Sep, Bipolar disorder, in partial remission, most recent episode depressed F31.75 ; Attention-deficit hyperactivity disorder, combined type F90.2 and Social phobia, generalized F40.11 [facility] [facility] [address], [place] [address]- 3171 Aug, Normal , first Z34.00 ; Encounter for immunization Z23 and 32 weeks gestation of Z3A.32 [facility] [id number] [place] [address] 33495- 3969 Aug, [facility] [id number] [place] [address] 79219- 4618 Aug, Other specified related conditions, third trimester O26.893 and 30 weeks gestation of Z3A.30 [facility] [facility] [id number] [place] [address] 55992- 5675 Aug, [facility] [id number] [place] [address] 31426- 2144 27 Jul, 2016 Diabetes mellitus screening Z13.1 ; , first, first trimester Z34.01 ; Other specified noninflammatory disorders of vagina N89.8 ; Other specified related conditions, third trimester O26.893 and 28 weeks gestation of Z3A.28 [facility] [facility] [address], [place] [address]- 1479 Jul, [facility] [id number] [address]- 1869 Jun, [facility] [address] [id number] [place] [address] Jun [facility] [address] [place] [address] 75701- 0455 Jun, Normal , first Z34.00 ; Evaluate anatomy not seen on prior sonogram Z36 and 23 weeks gestation of Z3A.23 [facility] [id number] [place] [address] 88583- 9233 Jun, [facility] [id number] [place] [address] 57439- 6896 Jun, Bipolar disorder, in partial remission, most recent episode depressed F31.75 ; Attention-deficit hyperactivity disorder, combined type F90.2 and Social phobia, generalized F40.11 [facility] [id number] [place] [address] 63291- 9266 May, [facility] [id number] [place] [address] 81946- 9031 May, Normal , first Z34.00 and 19 weeks gestation of Z3A.19 [facility] [id number] [place] [address] 20484 -7166 May, Dysuria R30.0 and Acute cystitis during , second trimester O23.12 [facility] [id number] [place] [address] 59540- 0983 Apr, [facility] [id number] [place] [address] 69017- 7967 Apr, care, first in second trimester Z34.02 [facility] [id number] [place] [address] 13364- 7267 Apr, [facility] [id number] [place] [address] 58677- 0603 Apr, [facility] [id number] [place] [address] 82474- 1721 Apr, [facility] [id number] [place] [address] 88794- 2655 Apr, care, first in second trimester Z34.02 ; Dehydration E86.0 and 14 weeks gestation of Z3A.14 [facility] [id number], [place] [address]- 3737 Apr, Bipolar disorder, in partial remission, most recent episode depressed F31.75 ; Attention-deficit hyperactivity disorder, combined type F90.2 ; Social anxiety disorder F40.10 and 15 weeks gestation of Z3A.15 [facility] [address], [place] [address]- 7667 Mar, [facility] [address], [place] [address]- 8832 Mar, , first, first trimester Z34.01 and 10 weeks gestation of Z3A.10 [facility] [address], [place] [address]- 6087 Mar, [facility] [address], [place] [address]- 8583 Mar, [facility] [address], [place] [address]- 5267 Feb, Normal , first Z34.00 and 6 weeks gestation of Z3A.01 [facility] [address], [place] [address]- 4369 Feb, [facility] [id number], [place] [address]- 2875 Feb, [facility] [place] [address] [id number] [place] [address] Feb [facility] [address] [facility] [id number] [address]- 5029 Feb, [facility] [id number], [place] [address]- 8814 Feb, [facility] [id number], [place] [address]- 0679 Feb, Bipolar disorder, in partial remission, most recent episode depressed F31.75 ; Attention-deficit hyperactivity disorder, combined type F90.2 and Social anxiety disorder F40.10 [facility] [address], [place] [address]- 3044 12 Feb, 2016 Routine adult health maintenance Z00.00 [facility] [id number] [place] [address] 96277- 0821 Feb, [facility] [id number] [place] [address] 71013- 8586 Feb, confirmed by positive urine test Z32.01 [facility] [id number] [place] [address] 18613- 4051 Feb, [facility] [id number] [place] [address] 63397- 1309 Jan, [facility] [id number] [place] [address] 33364- 3663 Jan, Bipolar disorder, in partial remission, most recent episode depressed F31.75 ; Attention-deficit hyperactivity disorder, combined type F90.2 and Social anxiety disorder F40.10 [facility] [address] [place] [address] 36223- 2381 Jan, Seizure disorder G40.909 [facility] [id number] [place] [address] 79907- 7508 Jan, [facility] [id number] [place] [address] 58704- 6948 December, Bipolar disorder, current episode hypomanic F31.0 ; Attention-deficit hyperactivity disorder, combined type F90.2 and Social anxiety disorder F40.10 [facility] [address], [place] [address]- 7807 December, Screening for STD sexually transmitted disease Z11.3 [facility] [address] [place] [address] 52808- 9545 27 Nov, 2015 [facility] [id number] [place] [address] 82722- 8936 Nov, [facility] [address], [place] [address]- 7719 Nov, Screening for STD sexually transmitted disease Z11.3 and Attention-deficit hyperactivity disorder, combined type F90.2 [facility] [address], [place] [address]- 1719 Nov, Attention-deficit hyperactivity disorder, combined type F90.2 ; Social anxiety disorder F40.10 and Bipolar disorder, current episode hypomanic F31.0 [facility] [id number] [place] [address] 34285- 6040 30 Oct, 2015 [facility] [id number] [place] [address] 63031- 6031 Oct, [facility] [id number] [place] [address] 28870- 9609 Sep, [facility] [id number] [place] [address] 07043- 8356 Sep, Bipolar disorder, in partial remission, most recent episode depressed F31.75 ; Attention-deficit hyperactivity disorder, combined type F90.2 and Social anxiety disorder F40.10 [facility] [id number] [place] [address] 28354- 4435 Sep, [facility] [address], [place] [address]- 5271 Aug, [facility] [address], [place] [address]- 8675 Jul, [facility] [address], [place] [address]- 0533 Jul, [facility] [id number] [place] [address] 38245- 8653 Jul, Bipolar disorder, in partial remission, most recent episode depressed F31.75 ; Attention-deficit hyperactivity disorder, combined type F90.2 and Social anxiety disorder F40.10 [facility] [address] [place] [address] 61419- 3452 Jun, [facility] [address], [place] [address]- 7869 Jun, [facility] [id number] [place] [address] 22865- 3316 Jun, [facility] [id number] [place] [address] 19265- 0758 May, [facility] [id number] [place] [address] 58928- 8347 May, [facility] [address] [place] [address] 417716- 8172 May, [facility] [id number] [place] [address] 956968- 1774 May, Bipolar disorder, in partial remission, most recent episode depressed F31.75 ; Attention-deficit hyperactivity disorder, combined type F90.2 and Social anxiety disorder F40.10 [facility] [address] [place] [address] 65354- 7641 Mar, Bipolar I disorder, moderate, current or most recent episode depressed, in partial remission, with mixed features 296.55 ; ADHD ( attention deficit hyperactivity disorder), combined type 314.01 and Social anxiety disorder 300.23 [facility] [address], [place] [address]- 5402 Aug, [facility] [address], [place] [address]- 9037 Aug, [facility] [address], [place] [address]- 9917 Jun, [facility] [id number] [place] [address] 220002- 2519 Jun, [facility] [id number] 0446 Jan, [facility] [id number] [place] [address] 111168- 3292 December, [facility] [address] [facility] [id number] [place] [address]- 2546 Oct, [facility] [address] [facility] [id number] [address]- 2546 Sep, [facility] [address] [facility] [id number] [place] [address]- 2546 Jun, IMMUNIZATIONS No Known Immunizations SOCIAL HISTORY Never Assessed REASON FOR VISIT PLAN OF CARE VITAL SIGNS MEDICATIONS Unknown Medications RESULTS No Results PROCEDURES No Known procedures INSTRUCTIONS MEDICATIONS ADMINISTERED No Known Medications MEDICAL (GENERAL) HISTORY Type Description Date Medical History 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 Has had [facility] NEUROLOGY care. Diagnosed with Focal Seizures with EEG Medical History ADHD Medical History Bipolar disorder Medical History Social anxiety disorder Surgical History [place] teeth removed 09/06/15 Surgical History Childbirth Surgical History Spider bite Hospitalization History psych; anger/aggression 2008 Hospitalization History ER visit Bleeding while 10/20/17
--- OUTSIDE RECORDS SUMMARY | 2018-04-04 11:08 | XMS REPORT ---
Author Author ANDREW REGIS [facility] Address [address] [place] [address] Care Team Providers Care Superintendent Meters Name Role Phone ANDREWMIRIAN KELLERHANY Unavailable PROBLEMS Type Condition ICD9-CM Code GCB96-CM Code Onset Dates Condition Status SNOMED Code Problem Bipolar disorder, current episode hypomanic F31.0 Active 63122772 Problem Bipolar disorder with moderate depression F31.32 Active 161481243 Problem Social phobia, generalized F40.11 Active 01985300 Problem Attention-deficit hyperactivity disorder, combined type F90.2 Active 54291497 Problem Bipolar disorder, in partial remission, most recent episode depressed F31.75 Active 24926615 Problem Third trimester Z33.1 Active 81809965 Problem Low lying placenta with hemorrhage, first trimester O44.51 Active 039475502 Problem Supervision of other high risk pregnancies, first trimester O09.891 Active 547539292 Problem Unspecified blood type, Rh negative Z67.91 Active 502531925 Problem History of delivery, currently O09.219 Active 332633593 Problem Abnormal ultrasound R93.8 Active [id number] ALLERGIES No Information ENCOUNTERS Encounter Location Date Diagnosis [place] [id number] [place] [address] 45189- 4588 Apr, [place] [address] [place] [address] 98606- 7005 Apr, [facility] [address] [place] [address] [id number] [place] [address] 74268- 7901 Apr, [place] [address] [address] [id number] [place] [address] 23110- 8979 Mar, [place] [address] [place] [address] 04206- 5109 Mar, bradycardia before the onset of labor P03.810 ; Third trimester Z33.1 and ANGÉLICA (amniotic fluid index) borderline low O28.8 [place] [id number] [place] [address] 38371- 7458 Mar, Third trimester Z33.1 ; STD exposure Z20.2 and bradycardia before the onset of labor P03.810 [place] [address] 42580- 9872 Mar, History of delivery, currently O09.219 [place] [address] 56201- 4749 Mar, [place] [address] 25112- 1550 Mar, Third trimester Z33.1 ; History of delivery, currently O09.219 ; 35 weeks gestation of Z3A.35 and Decreased movements in third trimester, single or unspecified fetus O36.8130 [place] [address] 19946- 6869 Mar, History of delivery, currently O09.219 [place] [address] 84497- 9502 Feb, History of delivery, currently O09.219 [place] [address] [address] [id number] [place] [address] 48233- 6701 Feb, Third trimester Z34.93 ; 32 weeks gestation of Z3A.32 and Encounter for immunization Z23 [place] [address] [address] [id number] [place] [address] 48044- 7174 Feb, History of delivery, currently O09.219 [place] [address] 92350- 3238 Feb, [place] [address] [id number] [place] [address] 15662- 5095 Feb, [place] [address] 95342- 8667 Feb, [facility] [address], [place] [address] 5202 Feb, Third trimester Z34.93 and Unspecified blood type , Rh negative Z67.91 [facility] [address], [place] [address]- 5240 Feb, [facility] [id number] [place] [address] 45145- 3712 Feb, History of delivery, currently O09.219 [facility] [address] [place] [address] 85934- 0023 Jan, Unspecified blood type, Rh negative Z67.91 and History of delivery, currently O09.219 [place] [address] [address]- 1283 Jan, History of delivery, currently O09.219 [place] [address] [address]- 6400 Jan, [place] [address] [place] [address] 80582- 1784 Jan, [facility] [address], [place] [address]- 3470 Jan, Diabetes mellitus screening Z13.1 ; care, subsequent in second trimester Z34.82 ; Local reaction to immunization , initial encounter T88.1XXA and 26 weeks gestation of Z3A.26 [place] [address], [place] [address]- 7368 Jan, [place] [address] [address]- 4444 Jan, [facility] [address], [place] [address]- 1142 Jan, [facility] [address], [place] [address]- 4786 Jan, History of delivery, currently O09.219 [facility] [address], [place] [address]- 5869 December, History of delivery, currently O09.219 [facility] [address], [place] [address]- 2652 December, History of delivery, currently O09.219 [facility] [address] [address]- 3516 December, [facility] [address] [place] [address] 73074- 8527 December, [facility] [id number] [place] [address] 99212- 5561 December, 22 weeks gestation of Z3A.22 and Second trimester Z34.92 [facility] [id number] [place] [address] 25842- 4814 December, [facility] [address], [place] [address]- 9626 December, History of delivery, currently O09.219 [facility] [address], [place] [address]- 4821 December, History of delivery, currently O09.219 [facility] [address], [place] [address]- 2048 December, [facility] [address], [place] [address]- 7574 December, History of delivery, currently O09.219 [facility] [address] [address]- 5821 Nov, [facility] [address], [place] [address]- 8432 Nov, History of delivery, currently O09.219 [facility] [address], [place] [address]- 9642 Nov, care, subsequent in second trimester Z34.82 and 18 weeks gestation of Z3A.18 [place] [address] [place] [address] [id number] [place] [address] 70211- 0391 Nov, [place] [address] [place] [id number] [place] [address] 77011- 9060 Oct, [place] [address] [id number] [place] [address] 91961- 8422 Oct, Threatened miscarriage O20.0 [place] [address] [place] [address] [place] [address] 19165- 2593 Oct, 14 weeks gestation of Z3A.14 ; Threatened miscarriage O20.0 ; Other specified noninflammatory disorders of vagina N89.8 ; Other specified related conditions, second trimester O26.892 ; Vaginal candidiasis B37.3 ; Low lying placenta with hemorrhage, first trimester O44.51 ; Abnormal ultrasound R93.8 ; Second trimester Z34.92 and History of delivery, currently O09.219 [place] [address] [id number] [place] [address] 07588- 1942 Oct, [place] [address] [id number] [place] [address] 25915- 0785 16 Oct, 2017 care, subsequent in second trimester Z34.82 and 13 weeks gestation of Z3A.13 [place] [address], [place] [address]- 0464 22 Sep, 2017 [place] [address] [address] [place] [address] 20775- 1586 14 Sep, 2017 care, subsequent in first trimester Z34.81 and 9 weeks gestation of Z3A.09 [place] [address] [id number] [place] [address] 77724- 8366 Sep, [place] [address] [id number] [place] [address] 49784- 4357 Aug, [facility] [address], [place] [address]- 3905 Aug, [facility] [id number] [place] [address] 42807- 0488 Aug, [facility] [id number] [place] [address] 22830- 2086 Aug, Encounter for test Z32.00 [facility] [address] [place] [id number] [place] [address] 93305- 9617 Jul, [facility] [address] [place] [id number] [place] [address] 89977- 8570 Jul, [facility] [id number] [place] [address] 49440 -3393 Jun, [facility] [address] [place] [address] [id number] [place] [address] 10718- 2251 Apr, [facility] [address] [place] [id number] [place] [address] 89713- 9808 Apr, Bipolar disorder with moderate depression F31.32 and Attention-deficit hyperactivity disorder, combined type F90.2 [facility] [address] [place] [id number] [place] [address] 07606- 1829 Feb, [facility] [address] [place] [id number] [place] [address] 03443- 9840 Feb, [facility] [address] [place] [id number] [place] [address] 98908- 9225 Jan, [facility] [address] [place] [address] 10761 -3300 Jan, Vaginal discharge N89.8 and Acute vaginitis N76.0 [facility] [address] [place] [id number] [place] [address] 74938- 3961 Nov, [facility] [address] [place] [address] [id number] [place] [address] 88544- 3341 Nov, Encounter for visit Z39.2 ; Tobacco abuse counseling Z71.6 and Drug or alcohol risk assessment or counseling Z71.89 [place] [address], [place] [address]- 2564 Nov, [facility] [address], [place] [address]- 7903 Oct, [facility] [address] [place] [address] 53594- 7574 Oct, [facility] [address] [place] [id number] [place] [address] 24209- 5809 Oct, [facility] [address] [place] [address] 14920- 4703 Oct, STD exposure Z20.2 [place] [address] [place] [address] 70512- 9620 Oct, Bipolar disorder, in partial remission, most recent episode depressed F31.75 ; Attention-deficit hyperactivity disorder, combined type F90.2 and Social phobia, generalized F40.11 [place] [address], [place] [address]- 3353 Oct, Bipolar disorder, in partial remission, most recent episode depressed F31.75 ; Attention-deficit hyperactivity disorder, combined type F90.2 and Social phobia, generalized F40.11 [place] [address], [place] [address]- 1673 Oct, [facility] [address] [place] [address] 20394- 4083 Sep, [facility] [address], [place] [address]- 6503 Sep, [place] [address] [place] [address] 69220- 2019 Sep, screening for streptococcus B Z36 ; care , first in third trimester Z34.03 and 35 weeks gestation of Z3A.35 [place] [address] [address]- 1652 07 Sep, 2016 care, first in third trimester Z34.03 and 34 weeks gestation of Z3A.34 [place] [address] [id number] [place] [address] 33407- 7746 07 Sep, 2016 [place] [address] [id number] [place] [address] 37909- 1882 Sep, [place] [address] [id number] [place] [address] 82022- 7139 Sep, Bipolar disorder, in partial remission, most recent episode depressed F31.75 ; Attention-deficit hyperactivity disorder, combined type F90.2 and Social phobia, generalized F40.11 [place] [id number] [place] [address] 37956- 5721 25 Aug, 2016 Normal , first Z34.00 ; Encounter for immunization Z23 and 32 weeks gestation of Z3A.32 [place] [address] [place] [id number] [place] [address] 44986- 5855 10 Aug, 2016 [place] [id number] [place] [address] 81258- 1764 10 Aug, 2016 Other specified related conditions, third trimester O26.893 and 30 weeks gestation of Z3A.30 [place] [id number] [place] [address] 36410- 1271 Aug, [place] [address] [place] [id number] [place] [address] 43200- 4104 27 Jul, 2016 Diabetes mellitus screening Z13.1 ; , first, first trimester Z34.01 ; Other specified noninflammatory disorders of vagina N89.8 ; Other specified related conditions, third trimester O26.893 and 28 weeks gestation of Z3A.28 [place] [address] [id number] [place] [address] 34835- 7694 14 Jul, 2016 [place] [address] 67796- 4879 Jun, [facility] [address] [id number] [address] Jun [place] [address] [place] [id number] [place] [address] 17725- 1399 Jun, Normal , first Z34.00 ; Evaluate anatomy not seen on prior sonogram Z36 and 23 weeks gestation of Z3A.23 [facility] [address] [place] [id number] [place] [address] 84395- 7068 Jun, [facility] [address] [place] [address] [id number] [place] [address] 28299- 8559 Jun, Bipolar disorder, in partial remission, most recent episode depressed F31.75 ; Attention-deficit hyperactivity disorder, combined type F90.2 and Social phobia, generalized F40.11 [place] [address] [place] [id number] [place] [address] 22554- 7718 May, [place] [address] [place] [id number] [place] [address] 58755- 9809 May, Normal , first Z34.00 and 19 weeks gestation of Z3A.19 [facility] [address] [place] [address] 35136 -9174 May, Dysuria R30.0 and Acute cystitis during , second trimester O23.12 [place] [address] [place] [address] 68539- 4256 Apr, [facility] [address] [id number] [place] [address] 30499- 8617 Apr, care, first in second trimester Z34.02 [place] [address] [id number] [place] [address] 75829- 3990 Apr, [facility] [address] [place] [address] 74093- 0647 Apr, [facility] [id number] [place] [address] 84527- 3621 Apr, [facility] [address] [id number], [place] [address]- 3332 Apr, care, first in second trimester Z34.02 ; Dehydration E86.0 and 14 weeks gestation of Z3A.14 [facility] [address], [place] [address]- 0406 Apr, Bipolar disorder, in partial remission, most recent episode depressed F31.75 ; Attention-deficit hyperactivity disorder, combined type F90.2 ; Social anxiety disorder F40.10 and 15 weeks gestation of Z3A.15 [place] [address], [place] [address]- 9915 Mar, [place] [address], [place] [address]- 4748 Mar, , first, first trimester Z34.01 and 10 weeks gestation of Z3A.10 [facility] [address], [place] [address]- 3420 Mar, [facility] [address], [place] [address]- 2802 Mar, [facility] [address], [place] [address]- 2694 Feb, Normal , first Z34.00 and 6 weeks gestation of Z3A.01 [facility] [address], [place] [address]- 9132 Feb, [facility] [address] [place] [id number], [place] [address]- 1691 Feb, [facility] [address] [id number] [address] Feb [facility] [id number], [place] [address]- 0337 Feb, [facility] [address] [id number], [place] [address]- 8157 Feb, [facility] [address], [place] [address]- 2835 12 Feb, 2016 Bipolar disorder, in partial remission, most recent episode depressed F31.75 ; Attention-deficit hyperactivity disorder, combined type F90.2 and Social anxiety disorder F40.10 [facility] [address], [place] [address]- 1076 12 Feb, 2016 Routine adult health maintenance Z00.00 [facility] [address] [place] [id number] [place] [address] 65963- 9938 2016 [facility] [address] [place] [id number] [place] [address] 45527- 7421 2016 confirmed by positive urine test Z32.01 [place] [address] [id number] [place] [address] 26186- 6358 Feb, [place] [address] [id number] [place] [address] 86319- 2835 Jan, [facility] [address], [place] [address]- 6591 28 Jan, 2016 Bipolar disorder, in partial remission, most recent episode depressed F31.75 ; Attention-deficit hyperactivity disorder, combined type F90.2 and Social anxiety disorder F40.10 [place] [address], [place] [address]- 7016 Jan, Seizure disorder G40.909 [facility] [address] [place] [address] 83260- 1575 Jan, [facility] [address], [place] [address]- 2111 December, Bipolar disorder, current episode hypomanic F31.0 ; Attention-deficit hyperactivity disorder, combined type F90.2 and Social anxiety disorder F40.10 [facility] [address], [place] [address]- 8316 December, Screening for STD sexually transmitted disease Z11.3 [facility] [address], [place] [address]- 5554 27 Nov, 2015 [facility] [address] [id number] [place] [address] 25298- 4712 Nov, [facility] [id number] [place] [address] 31724- 8154 Nov, Screening for STD sexually transmitted disease Z11.3 and Attention-deficit hyperactivity disorder, combined type F90.2 [facility] [address] [place] [id number] [place] [address] 04583- 3865 Nov, Attention-deficit hyperactivity disorder, combined type F90.2 ; Social anxiety disorder F40.10 and Bipolar disorder, current episode hypomanic F31.0 [facility] [id number] [place] [address] 55094- 7354 Oct, [place] [id number] [place] [address] 92451- 8985 Oct, [facility] [id number] [place] [address] 28152- 0344 Sep, [facility] [address] [id number] [place] [address] 66066- 2042 Sep, Bipolar disorder, in partial remission, most recent episode depressed F31.75 ; Attention-deficit hyperactivity disorder, combined type F90.2 and Social anxiety disorder F40.10 [facility] [address] [place] [address] 00964- 5539 Sep, [facility] [address], [place] [address]- 9971 Aug, [facility] [id number] [place] [address] 25905- 9248 Jul, [facility] [address] [address]- 8676 Jul, [facility] [id number] [place] [address] 37332- 2161 Jul, Bipolar disorder, in partial remission, most recent episode depressed F31.75 ; Attention-deficit hyperactivity disorder, combined type F90.2 and Social anxiety disorder F40.10 [facility] [address], [place] [address]- 1808 Jun, [facility] [address], [place] [address]- 2742 Jun, [facility] [id number] [place] [address] 76693- 5367 Jun, [facility] [address] [place] [address] 55409- 3472 May, [facility] [id number] [place] [address] 02907- 4509 May, [facility] [id number] [place] [address] 34680- 5660 May, [facility] [id number] [place] [address] 54714- 4835 May, Bipolar disorder, in partial remission, most recent episode depressed F31.75 ; Attention-deficit hyperactivity disorder, combined type F90.2 and Social anxiety disorder F40.10 [facility] [address], [place] [address]- 2381 Mar, Bipolar I disorder, moderate, current or most recent episode depressed, in partial remission, with mixed features 296.55 ; ADHD ( attention deficit hyperactivity disorder), combined type 314.01 and Social anxiety disorder 300.23 [facility] [address], [place] [address]- 0089 Aug, [facility] [id number] [place] [address] 79793- 4278 Aug, [facility] [address], [place] [address]- 8942 Jun, [facility] [id number] [place] [address] 71472- 1034 Jun, [facility] [address] [facility] [id number] [address]- 2546 Jan, [facility] [id number], [place] [address]- 2546 December, [facility] [id number], [place] [address]- 2546 Oct, [facility] [id number], [place] [address]- 2546 Sep, [facility] [address] [facility] [id number] [address]- 2546 Jun, IMMUNIZATIONS No Known Immunizations SOCIAL HISTORY Never Assessed REASON FOR VISIT [place] Refill PLAN OF CARE VITAL SIGNS MEDICATIONS Unknown Medications RESULTS No Results PROCEDURES No Known procedures INSTRUCTIONS MEDICATIONS ADMINISTERED No Known Medications MEDICAL (GENERAL) HISTORY Type Description Date Medical History 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 Has had [facility] NEUROLOGY care. Diagnosed with Focal Seizures with EEG Medical History ADHD Medical History Bipolar disorder Medical History Social anxiety disorder Surgical History [place] teeth removed 09/06/15 Surgical History Childbirth Surgical History Spider bite Hospitalization History psych; anger/aggression 2008 Hospitalization History ER visit Bleeding while 10/20/17
--- OUTSIDE RECORDS SUMMARY | 2018-04-04 11:08 | XMS REPORT ---
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 Name Role Phone ANDREWMIRIAN KELLERHANY Unavailable PROBLEMS Type Condition ICD9-CM Code VMO11-RG Code Onset Dates Condition Status SNOMED Code Problem Bipolar disorder, current episode hypomanic F31.0 Active 93978202 Problem Bipolar disorder with moderate depression F31.32 Active 791489312 Problem Social phobia, generalized F40.11 Active 70924983 Problem Attention-deficit hyperactivity disorder, combined type F90.2 Active 78015964 Problem Bipolar disorder, in partial remission, most recent episode depressed F31.75 Active 15985142 Problem Third trimester Z33.1 Active 64192147 Problem Low lying placenta with hemorrhage, first trimester O44.51 Active 641652154 Problem Supervision of other high risk pregnancies, first trimester O09.891 Active 097478410 Problem Unspecified blood type, Rh negative Z67.91 Active 190346798 Problem History of delivery, currently O09.219 Active 799708305 Problem Abnormal ultrasound R93.8 Active 565524149 ALLERGIES No Information ENCOUNTERS Encounter Location Date Diagnosis [place] [address] [place] [address] 27280- 7976 Apr, [place] [address] [place] [address] 03475- 6423 Apr, [facility] [id number] [place] [address] 51450- 2080 Apr, [place] [id number] [place] [address] 39337- 8560 Mar, [place] [address] [place] [address] 25565- 9259 Mar, bradycardia before the onset of labor P03.810 ; Third trimester Z33.1 and ANGÉLICA (amniotic fluid index) borderline low O28.8 [place] [id number] [place] [address] 64621- 3026 Mar, Third trimester Z33.1 ; STD exposure Z20.2 and bradycardia before the onset of labor P03.810 [place] [address] 62071- 8677 Mar, History of delivery, currently O09.219 [place] [address] 14330- 1469 Mar, [place] [address] 97737- 0333 Mar, Third trimester Z33.1 ; History of delivery, currently O09.219 ; 35 weeks gestation of Z3A.35 and Decreased movements in third trimester, single or unspecified fetus O36.8130 [place] [address] 22945- 9260 Mar, History of delivery, currently O09.219 [place] [address] 15733- 7619 Feb, History of delivery, currently O09.219 [place] [id number] [place] [address] 37264- 0354 Feb, Third trimester Z34.93 ; 32 weeks gestation of Z3A.32 and Encounter for immunization Z23 [place] [id number] [place] [address] 49700- 9170 Feb, History of delivery, currently O09.219 [place] [address] 31971- 4406 Feb, [place] [id number] [place] [address] 45853- 9946 Feb, [place] [address] 06447- 8322 Feb, [facility] [address], [place] [address] 0779 Feb, Third trimester Z34.93 and Unspecified blood type , Rh negative Z67.91 [facility] [address], [place] [address] 2106 Feb, [facility] [id number] [place] [address] 19534- 4819 Feb, History of delivery, currently O09.219 [facility] [address] [place] [address] 74444- 0537 Jan, Unspecified blood type, Rh negative Z67.91 and History of delivery, currently O09.219 [place] [address] [address]- 2190 Jan, History of delivery, currently O09.219 [place] [address] [address]- 1056 Jan, [place] [address] [place] [address] 22170- 4698 Jan, [facility] [address], [place] [address] 0899 Jan, Diabetes mellitus screening Z13.1 ; care, subsequent in second trimester Z34.82 ; Local reaction to immunization , initial encounter T88.1XXA and 26 weeks gestation of Z3A.26 [place] [address], [place] [address]- 0931 Jan, [place] [address] [address]- 8892 Jan, [facility] [address], [place] [address]- 7591 Jan, [facility] [address] [address]- 1649 Jan, History of delivery, currently O09.219 [facility] [address], [place] [address]- 4108 December, History of delivery, currently O09.219 [facility] [address], [place] [address] 1925 December, History of delivery, currently O09.219 [facility] [address] [address]- 7031 December, [facility] [address] [place] [address] 65411- 0358 December, [facility] [address] [place] [address] 90762- 2308 December, 22 weeks gestation of Z3A.22 and Second trimester Z34.92 [facility] [address] [place] [address] 49211- 3191 December, [facility] [address], [place] [address]- 6947 December, History of delivery, currently O09.219 [facility] [address], [place] [address]- 5960 December, History of delivery, currently O09.219 [facility] [address], [place] [address]- 5042 December, [facility] [address], [place] [address]- 8196 December, History of delivery, currently O09.219 [facility] [address] [address]- 4758 Nov, [facility] [address], [place] [address]- 0432 Nov, History of delivery, currently O09.219 [facility] [address], [place] [address]- 7335 Nov, care, subsequent in second trimester Z34.82 and 18 weeks gestation of Z3A.18 [place] [address] [place] [address] 06346- 5238 Nov, [place] [address] [place] [address] 40366- 7431 Oct, [place] [address] [place] [address] 92811- 6980 Oct, Threatened miscarriage O20.0 [place] [address] [place] [address] 69409- 0501 Oct, 14 weeks gestation of Z3A.14 ; Threatened miscarriage O20.0 ; Other specified noninflammatory disorders of vagina N89.8 ; Other specified related conditions, second trimester O26.892 ; Vaginal candidiasis B37.3 ; Low lying placenta with hemorrhage, first trimester O44.51 ; Abnormal ultrasound R93.8 ; Second trimester Z34.92 and History of delivery, currently O09.219 [place] [address] [place] [address] 70114- 2327 Oct, [place] [address] [place] [address] 72138- 5346 16 Oct, 2017 care, subsequent in second trimester Z34.82 and 13 weeks gestation of Z3A.13 [place] [address] [address]- 0456 22 Sep, 2017 [place] [address] [place] [address] 24504- 6969 14 Sep, 2017 care, subsequent in first trimester Z34.81 and 9 weeks gestation of Z3A.09 [place] [address] [place] [address] 86501- 0666 Sep, [place] [address] [place] [address] 87499- 0167 Aug, [facility] [address] [address] 0143 Aug, [facility] [address] [place] [address] 82833- 6436 Aug, [facility] [address] [place] [address] 60541- 3884 Aug, Encounter for test Z32.00 [facility] [address] [place] [address] 04182- 7578 Jul, [facility] [address] [place] [address] 07762- 4099 Jul, [facility] [address] [place] [address] 63357 -3861 Jun, [facility] [address] [place] [address] 58371- 2489 Apr, [facility] [address] [place] [address] 07118- 5436 Apr, Bipolar disorder with moderate depression F31.32 and Attention-deficit hyperactivity disorder, combined type F90.2 [facility] [address] [place] [address] 28618- 8572 Feb, [facility] [address] [place] [address] 74119- 9292 Feb, [facility] [address] [place] [address] 34464- 6742 Jan, [facility] [address] [place] [address] 07678 -6633 Jan, Vaginal discharge N89.8 and Acute vaginitis N76.0 [facility] [address] [place] [address] 00801- 8634 Nov, [facility] [address] [place] [address] 31022- 4183 Nov, Encounter for visit Z39.2 ; Tobacco abuse counseling Z71.6 and Drug or alcohol risk assessment or counseling Z71.89 [place] [address], [place] [address]- 6633 Nov, [facility] [address], [place] [address]- 5020 Oct, [facility] [address] [place] [address] 29898- 0488 Oct, [facility] [address] [place] [address] 98531- 6725 Oct, [facility] [address] [place] [address] 66816- 5342 Oct, STD exposure Z20.2 [place] [address] [place] [address] 99562- 6551 Oct, Bipolar disorder, in partial remission, most recent episode depressed F31.75 ; Attention-deficit hyperactivity disorder, combined type F90.2 and Social phobia, generalized F40.11 [place] [address], [place] [address]- 8057 Oct, Bipolar disorder, in partial remission, most recent episode depressed F31.75 ; Attention-deficit hyperactivity disorder, combined type F90.2 and Social phobia, generalized F40.11 [place] [address], [place] [address]- 7421 Oct, [facility] [address] [place] [address] 86360- 3036 Sep, [facility] [address], [place] [address]- 4467 Sep, [place] [address] [place] [address] 69974- 3845 Sep, screening for streptococcus B Z36 ; care , first in third trimester Z34.03 and 35 weeks gestation of Z3A.35 [place] [address] [address]- 5619 07 Sep, 2016 care, first in third trimester Z34.03 and 34 weeks gestation of Z3A.34 [place] [address] [place] [address] 22381- 9593 07 Sep, 2016 [place] [address] [place] [address] 91850- 0725 Sep, [place] [address] [place] [address] 37137- 1259 Sep, Bipolar disorder, in partial remission, most recent episode depressed F31.75 ; Attention-deficit hyperactivity disorder, combined type F90.2 and Social phobia, generalized F40.11 [place] [id number] [place] [address] 98682- 1283 25 Aug, 2016 Normal , first Z34.00 ; Encounter for immunization Z23 and 32 weeks gestation of Z3A.32 [place] [address] [place] [address] 65469- 5206 10 Aug, 2016 [place] [id number] [place] [address] 37943- 7747 10 Aug, 2016 Other specified related conditions, third trimester O26.893 and 30 weeks gestation of Z3A.30 [place] [id number] [place] [address] 36153- 5997 Aug, [place] [address] [place] [address] 82091- 1626 27 Jul, 2016 Diabetes mellitus screening Z13.1 ; , first, first trimester Z34.01 ; Other specified noninflammatory disorders of vagina N89.8 ; Other specified related conditions, third trimester O26.893 and 28 weeks gestation of Z3A.28 [place] [address] [place] [address] 37579- 2127 14 Jul, 2016 [place] [address] 85444- 7387 Jun, [id number] [address] Jun [place] [address] [place] [address] 48525- 8043 Jun, Normal , first Z34.00 ; Evaluate anatomy not seen on prior sonogram Z36 and 23 weeks gestation of Z3A.23 [facility] [address] [place] [address] 40350- 6229 Jun, [facility] [address] [place] [address] 27563- 9302 Jun, Bipolar disorder, in partial remission, most recent episode depressed F31.75 ; Attention-deficit hyperactivity disorder, combined type F90.2 and Social phobia, generalized F40.11 [place] [address] [place] [address] 93603- 2961 May, [place] [address] [place] [address] 43996- 1737 May, Normal , first Z34.00 and 19 weeks gestation of Z3A.19 [facility] [address] [place] [address] 39725 -0276 May, Dysuria R30.0 and Acute cystitis during , second trimester O23.12 [place] [address] [place] [address] 77823- 4248 Apr, [facility] [address] [place] [address] 92155- 5084 Apr, care, first in second trimester Z34.02 [place] [address] [place] [address] 07968- 1816 Apr, [facility] [address] [place] [address] 74740- 4070 Apr, [facility] [address] [place] [address] 85540- 2528 Apr, [facility] [id number], [place] [address]- 4457 Apr, care, first in second trimester Z34.02 ; Dehydration E86.0 and 14 weeks gestation of Z3A.14 [facility] [address], [place] [address]- 9336 Apr, Bipolar disorder, in partial remission, most recent episode depressed F31.75 ; Attention-deficit hyperactivity disorder, combined type F90.2 ; Social anxiety disorder F40.10 and 15 weeks gestation of Z3A.15 [place] [address], [place] [address]- 3513 Mar, [place] [address], [place] [address]- 2119 Mar, , first, first trimester Z34.01 and 10 weeks gestation of Z3A.10 [facility] [address], [place] [address]- 3081 Mar, [facility] [address], [place] [address]- 3475 Mar, [facility] [address], [place] [address]- 0562 Feb, Normal , first Z34.00 and 6 weeks gestation [address] Z3A.01 [facility] [address], [place] [address]- 2609 Feb, [facility] [id number], [place] [address]- 0455 Feb, [facility] [id number] [place] [address] [facility] [id number], [place] [address]- 7060 Feb, [facility] [id number], [place] [address]- 2160 Feb, [facility] [address], [place] [address]- 3784 12 Feb, 2016 Bipolar disorder, in partial remission, most recent episode depressed F31.75 ; Attention-deficit hyperactivity disorder, combined type F90.2 and Social anxiety disorder F40.10 [facility] [address], [place] [address]- 7730 12 Feb, 2016 Routine adult health maintenance Z00.00 [facility] [address] [place] [address] 14451- 89[address] [facility] [address] [place] [address] 74566- 8799 2016 confirmed by positive urine test Z32.01 [place] [address] [place] [address] 13684- 2205 Feb, [place] [address] [place] [address] 10481- 5497 Jan, [facility] [address], [place] [address]- 3238 28 Jan, 2016 Bipolar disorder, in partial remission, most recent episode depressed F31.75 ; Attention-deficit hyperactivity disorder, combined type F90.2 and Social anxiety disorder F40.10 [place] [address], [place] [address]- 7938 Jan, Seizure disorder G40.909 [facility] [address] [place] [address] 50446- 1076 Jan, [facility] [address], [place] [address]- 0345 December, Bipolar disorder, current episode hypomanic F31.0 ; Attention-deficit hyperactivity disorder, combined type F90.2 and Social anxiety disorder F40.10 [facility] [address], [place] [address]- 4405 December, Screening for STD sexually transmitted disease Z11.3 [facility] [address], [place] [address]- 4501 27 Nov, 2015 [facility] [address] [place] [address] 83116- 6599 Nov, [facility] [address] [place] [address] 97669- 6226 Nov, Screening for STD sexually transmitted disease Z11.3 and Attention-deficit hyperactivity disorder, combined type F90.2 [facility] [address] [place] [address] 60916- 0997 Nov, Attention-deficit hyperactivity disorder, combined type F90.2 ; Social anxiety disorder F40.10 and Bipolar disorder, current episode hypomanic F31.0 [facility] [address] [place] [address] 88060- 1154 Oct, [place] [address] [place] [address] 40406- 9602 Oct, [facility] [address] [place] [address] 08344- 0924 Sep, [facility] [address] [place] [address] 70976- 4010 Sep, Bipolar disorder, in partial remission, most recent episode depressed F31.75 ; Attention-deficit hyperactivity disorder, combined type F90.2 and Social anxiety disorder F40.10 [facility] [address] [place] [address] 07042- 3968 Sep, [facility] [address], [place] [address]- 5544 Aug, [facility] [address] [place] [address] 82642- 1511 Jul, [facility] [address]- 2275 Jul, [facility] [address] [place] [address] 34874- 7704 Jul, Bipolar disorder, in partial remission, most recent episode depressed F31.75 ; Attention-deficit hyperactivity disorder, combined type F90.2 and Social anxiety disorder F40.10 [facility] [address], [place] [address]- 6684 Jun, [facility] [address], [place] [address]- 3601 Jun, [facility] [address] [place] [address] 64932- 0507 Jun, [facility] [address] [place] [address] 84901- 5331 May, [facility] [address] [place] [address] 01396- 5933 May, [facility] [address] [place] [address] 26296- 4317 May, [facility] [address] [place] [address] 61778- 5430 May, Bipolar disorder, in partial remission, most recent episode depressed F31.75 ; Attention-deficit hyperactivity disorder, combined type F90.2 and Social anxiety disorder F40.10 [facility] [address], [place] [address]- 6567 Mar, Bipolar I disorder, moderate, current or most recent episode depressed, in partial remission, with mixed features 296.55 ; ADHD ( attention deficit hyperactivity disorder), combined type 314.01 and Social anxiety disorder 300.23 [facility] [address], [place] [address]- 7233 Aug, [facility] [address] [place] [address] 72519- 4788 Aug, [facility] [address], [place] [address]- 1378 Jun, [facility] [address] [place] [address] 17022- 6131 Jun, [facility] [address] [facility] [id number] [address]- 2546 Jan, [facility] [id number], [place] [address]- 2546 December, [facility] [id number], [place] [address]- 25[address] Oct, [facility] [id number], [place] [address]- 2546 Sep, [facility] [address] [facility] [id number] [address]- 2546 Jun, IMMUNIZATIONS No Known Immunizations SOCIAL HISTORY Never Assessed REASON FOR VISIT PLAN OF CARE VITAL SIGNS MEDICATIONS Unknown Medications RESULTS No Results PROCEDURES No Known procedures INSTRUCTIONS MEDICATIONS ADMINISTERED No Known Medications MEDICAL (GENERAL) HISTORY Type Description Date Medical History 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 Has had [facility] NEUROLOGY care. Diagnosed with Focal Seizures with EEG Medical History ADHD Medical History Bipolar disorder Medical History Social anxiety disorder Surgical History [place] teeth removed 09/06/15 Surgical History Childbirth Surgical History Spider bite Hospitalization History psych; anger/aggression 2008 Hospitalization History ER visit Bleeding while 10/20/17
--- OUTSIDE RECORDS SUMMARY | 2018-04-04 11:09 | XMS REPORT | Continuity of Care Document ---
Demographics Preferred Language Unknown Marital Status Unknown Scientologist Affiliation Unknown Race Unknown Ethnic Group Unknown Author Author [facility] Address Unknown Phone Unavailable Allergies There is no data. Medications There is no data. Problems Date Dx Coded Attending Type Code Diagnosis Diagnosed By 12/12/2009 296.80 MO BIPOLAR NOS 12/12/2009 314.01 CD ADHD COMBINED Procedures There is no data. Results Test Result Range Urine Culture, Routine - 04/26/16 10:20 Urine Culture, Routine Note AFP Tetra - 04/30/16 14:41 Results Comment Test Results: *Screen Negative* Gest. Age on Collection Date 16.0 WEEKS Gestat. Age Based On Ultrasound Maternal Age [age] LIBERTAD 19.6 YEARS Race Weight 167 lbs Insulin Dep Diabetes No Multiple Gestation No AFP Value 32.1 ng/mL AFP MoM 1.07 hCG Value 53336 mIU/mL hCG MoM 0.28 uE3 Value 1.01 ng/mL uE3 MoM 1.23 KWADWO Value 99.79 pg/mL KWADWO MoM 0.60 OSBR Risk 1 IN 9862 DSR (Second Trimester) 1 [place] [address] DSR (By Age) 1 IN 1169 T18 Risk Not increased T18 (By Age) 1:4553 Interpretation Comment Comments: Comment Genital Culture, Routine - 07/31/16 11:59 Genital Culture, Routine Note CBC With Differential/Platelet - 07/31/16 11:59 WBC 12.3 x10E3/uL 3.4-10.8 RBC 3.55 x10E6/uL 3.77-5.28 Hemoglobin 11.2 g/dL 11.1-15.9 Hematocrit 32.7 % 34.0-46.6 MCV 92 fL 79-97 MCH 31.5 pg 26.6-33.0 MCHC 34.3 g/dL 31.5-35.7 RDW 13.6 % 12.3-15.4 Platelets 298 x10E3/uL 150-379 Neutrophils 68 % Lymphs 21 % Monocytes 10 % Eos 1 % Basos 0 % Neutrophils (Absolute) 8.2 x10E3/uL 1.4-7.0 Lymphs (Absolute) 2.6 x10E3/uL 0.7-3.1 Monocytes(Absolute) 1.3 x10E3/uL 0.1-0.9 Eos (Absolute) 0.2 x10E3/uL 0.0-0.4 Baso (Absolute) 0.0 x10E3/uL 0.0-0.2 Immature Granulocytes 0 % Immature Grans (Abs) 0.0 x10E3/uL 0.0-0.1 Gest. Diabetes 1-Hr Screen - 07/31/16 11:59 Gestational Diabetes Screen 84 mg/dL 65-139 Strep Gp B Culture - 09/20/16 13:54 Strep Gp B Culture Negative Negative Genital Culture, Routine - 10/12/16 12:37 Genital Culture, Routine Note HSV Culture and Typing - 10/12/16 12:37 HSV Culture/Type Comment Genital Culture, Routine - 01/15/17 12:17 Genital Culture, Routine Note CULTURE, GENITAL - 09/18/17 15:11 CULTURE, GENITAL SEE NOTE NRG CULTURE, GENITAL - 10/24/17 11:37 CULTURE, GENITAL SEE NOTE NRG CBC - 01/15/18 10:22 WHITE BLOOD CELL COUNT 12.0 Thousand/uL 3.8-10.8 RED BLOOD CELL COUNT 3.23 Million/uL 3.80-5.10 HEMOGLOBIN 10.2 g/dL 11.7-15.5 HEMATOCRIT 30.3 % 35.0-45.0 MCV 93.8 fL 80.0-100.0 MCH 31.6 pg 27.0-33.0 MCHC 33.7 g/dL 32.0-36.0 RDW 12.6 % 11.0-15.0 PLATELET COUNT 291 Thousand/uL 140-400 MPV 9.5 fL 7.5-12.5 ABSOLUTE NEUTROPHILS 8352 cells/uL 8084-2605 ABSOLUTE LYMPHOCYTES 2436 cells/uL 850-3900 ABSOLUTE MONOCYTES 840 cells/uL 200-950 ABSOLUTE EOSINOPHILS 324 cells/uL 15-500 ABSOLUTE BASOPHILS 48 cells/uL 0-200 NEUTROPHILS 69.6 % NRG LYMPHOCYTES 20.3 % NRG MONOCYTES 7.0 % NRG EOSINOPHILS 2.7 % NRG BASOPHILS 0.4 % NRG Encounters ACCT No. Visit Date/Time Discharge Status Pt. Type Provider Facility Loc./Unit Complaint [id number] 01/16/2012 14:40:00 01/16/2012 23:59:59 CLS Outpatient [id number] 04/28/2016 07:06:00 Document Registration [id number] 03/11/2018 14:20:00 03/11/2018 23:59:59 CLS Outpatient ANDREW KOROMA, [facility] [id number] 01/15/2018 09:20:00 Document Registration [id number] 10/24/2017 09:40:00 Document Registration [id number] 09/18/2017 14:20:00 Document Registration [id number] 03/29/2016 14:13:16 03/29/2016 23:59:59 CLS Outpatient DION SANTIZO [id number] 05/07/2016 13:05:00 Document Registration [id number] 05/04/2016 05:05:00 Document Registration [id number] 10/18/2016 08:06:00 Document Registration [id number] 08/03/2016 08:35:00 Document Registration [id number] 01/18/2017 16:07:00 Document Registration [id number] 08/01/2016 08:35:00 Document Registration [id number] 10/16/2016 00:06:00 Document Registration [id number] 09/23/2016 11:05:00 Document Registration
[2018-04-04] MEDS ORDERED: OXYTOCIN/NORMAL SALINE 500 ML IV SCH ×2 (11:12→16:49)
[2018-04-04] MEDS ORDERED: D5 LR IV SOLUTION 1,000 ML IV SCH (11:12)
[2018-04-04] MEDS ORDERED: MINERAL OIL CONCENTRATE 99.9% 15 ML UDC ONE (12:05)
[2018-04-04 12:14] LABS: BASOPHILS % (AUTO) 0 % (0-10); EOSINOPHILS # (AUTO) 0.3 10^3/uL (0.0-0.3); EOSINOPHILS % (AUTO) 2 % (0-10); HEMATOCRIT 34 % (35-52); HEMOGLOBIN 11.6 G/DL (11.5-16.0); LYMPHOCYTES % (AUTO) 20 % (12-44); MEAN CORPUSCULAR HEMOGLOBIN 32 PG (25-34); MEAN CORPUSCULAR HGB CONC 34 G/DL (32-36); MEAN CORPUSCULAR VOLUME 93 FL (80-99); MEAN PLATELET VOLUME 9.4 FL (7.4-10.4); MONOCYTES # (AUTO) 1.6 X 10^3 (0.0-1.0); MONOCYTES % (AUTO) 10 % (0-12); NEUTROPHILS # (AUTO) 10.2 X 10^3 (1.8-7.8); NEUTROPHILS % (AUTO) 68 % (42-75); PLATELET COUNT 262 10^3/uL (130-400); RED BLOOD COUNT 3.68 10^6/uL (4.35-5.85); RED CELL DISTRIBUTION WIDTH 14.7 % (10.0-14.5)
[2018-04-04 12:36] LABS: BASOPHILS % (MANUAL) 1 %; EOSINOPHILS % (MANUAL) 2 %; LYMPHOCYTES % (MANUAL) 17 %; MONOCYTES % (MANUAL) 9 %; NEUTROPHILS % (MANUAL) 71 %
[2018-04-04 12:37] LABS: SPHEROCYTES MODERATE
[2018-04-04] MEDS ORDERED: SUFENTA 0.6MCG/ML BUPIVA 0.125 100 ML ONE (12:46)
[2018-04-04] MEDS ORDERED: BUPIVACAINE 0.25% 30 ML (SENSORCAINE) VIAL ONE (13:25)
[2018-04-04] MEDS ORDERED: fentaNYL INJECTION 100 MCG/2 ML AMP ONE (13:25)
[2018-04-04] MEDS ORDERED: LACTATED RINGERS 1,000 ML IV ONE (13:33)
[2018-04-04] MEDS ORDERED: EPIDURAL (SUFENTA 0.6MCG/ML BUPIVA 0.125%) 100 ML BAG EPI SCH (13:45)
[2018-04-04] MEDS ORDERED: NALOXONE 0.4 MG/ML 1 ML (NARCAN) VIAL IV PRN (13:45)
[2018-04-04] MEDS ORDERED: CATHETER FLUSH 10 ML SYR IV PRN (13:45)
[2018-04-04] MEDS ORDERED: CATHETER FLUSH 10 ML SYR IV SCH ×2 (14:00→22:00)
[2018-04-04] MEDS ORDERED: PNV1TABL81 PO (14:20)
[2018-04-04] MEDS ORDERED: FERR325T18 PO (14:20)
--- NOTE | 2018-04-04 14:20 | History & Physical-OB ---
OB - Chief Complaint & HPI Date/Time Date of Admission: Date of Admission: Apr 04, 2018 at 10:40 Time Seen by Provider: 13:00 Chief Complaint/History OB-Reason for Admission/Chief: Obstetrical Complication (decreased movement, advanced cervical dilation) Hx : 2 Hx Para: 1 Expected Date of Delivery: Apr 21, 2018 Gestational Age in Weeks: 37 Gestational Age in Days: 2 Indication for induction: other (persistent decreased movement, advanced cervical dilation, low heartrate) History of Labs O NEG, antibody neg, RI. GC/chlamydia neg. HIV/HepB/RPR NR. Glucola nml. GBS neg. Other Treated for labor at 31 weeks, received steroid injections. On progesterone injections throughout for labor prevention. Allergies and Home Medications Allergies Coded Allergies: No Known Drug Allergies (Verified , 04/15/08) Home Medications Ferrous Sulfate 325 Mg Tablet, 325 MG PO DAILY, (Reported) Patient Home Medication List Home Medication List Reviewed: Yes OB - History Hx of Present Care: Yes Ultrasounds: Normal mid trimester US Obstetrical Complications: Other ( labor at 31 weeks, persistent decreased movement after 32 weeks) Information Induced Hypertension: No Maternal Gestational Diabetes: No Hemorrhage: No Obstetrical History Hx : 2 Hx Para: 1 Hx # Term Pregnancies: 0 Hx # Pregnancies: 1 Number of Living Children: 1 Hx Termination: No Hx Multiple Gestation: No Hx Ectopic : No Hx Stillbirth: No Hx Complication: No Hx Induced Hypertens: No Hx Maternal Gestational Diabet: No Hx Hemorrhage: No Delivery History Hx Dystocia: No Hx Forceps Assisted Delivery: No Hx Vacuum Extraction Assisted: No Hx Placenta Abnormality: No Hx Distress: No Hx Large For Gestational Age I: No Hx Small for Gestational Age I: No Hx Section: No Hx Vaginal Delivery Post C-Sec: No Hx Blood Disorders: No Adverse Rxn to Tranfusion: No Patient Past Medical History PMHx: Mood disorder ADHD ODD, BPD PSurgHx: [place] teeth extraction Social History/Family History HIV/AIDS: No Recent Infectious Disease Expo: No Sexually Transmitted Disease: No Alcohol Use: Denies Use Recreational Drug Use: Yes (history of THC) Smoking Cessation: Former smoker Immunizations Hepatitis A: Yes Hepatitis B: Yes Tetanus Booster (TDap): Less than 5yrs Date of Influenza Vaccine: May 03, 2016 Rubella: immune RPR/VDRL: Negative GBS Status: Negative HBsAG: Negative OB - Admission Exam Physical Exam HEENT: NCAT Abdomen: Non tender Extremities: Normal Cervical Dilatation: 6cm Effacement: 75% Station: -3 Membranes: Intact Decelerations: No Decelerations Short Term Variability: Present Nursing Home Variability: Minimal (3-5) Contractions on Admission: >10 Minutes Apart Hartley Scoring Tool (Modified) Dilation (cm): >5cm (3) Effacement (%): 51-79% (2) Descent/Station: -3 (0) Cervix Consistency: Soft (2) Cervix Position: Anterior (2) Add 1 point for: Each previous vaginal delivery (1) Hartley Score: 10 Labs Laboratory Tests Test 04/04/18 11:45 Range/Units White Blood Count 15.0 H 4.3-11.0 10^3/uL Red Blood Count 3.68 L 4.35-5.85 10^6/uL Hemoglobin 11.6 11.5-16.0 G/DL Hematocrit 34 L 35-52 % Mean Corpuscular Volume 93 80-99 FL Mean Corpuscular Hemoglobin 32 25-34 PG Mean Corpuscular Hemoglobin Concent 34 32-36 G/DL Red Cell Distribution Width 14.7 H 10.0-14.5 % Platelet Count 262 130-400 10^3/uL Mean Platelet Volume 9.4 7.4-10.4 FL Neutrophils (%) (Auto) 68 42-75 % Lymphocytes (%) (Auto) 20 12-44 % Monocytes (%) (Auto) 10 0-12 % Eosinophils (%) (Auto) 2 0-10 % Basophils (%) (Auto) 0 0-10 % Neutrophils # (Auto) 10.2 H 1.8-7.8 X 10^3 Lymphocytes # (Auto) 3.0 1.0-4.0 X 10^3 Monocytes # (Auto) 1.6 H 0.0-1.0 X 10^3 Eosinophils # (Auto) 0.3 0.0-0.3 10^3/uL Basophils # (Auto) 0.0 0.0-0.1 10^3/uL Neutrophils % (Manual) 71 % Lymphocytes % (Manual) 17 % Monocytes % (Manual) 9 % Eosinophils % (Manual) 2 % Basophils % (Manual) 1 % Spherocytes MODERATE OB - Assessment/Plan/Diagnosis Assessment Assessment: induction of labor Admission Dx 37 weeks gestation Persistent decreased movement Advanced cervical dilation GBS neg RI O Neg blood type Admission Status: Inpatient Order (span 2 midnights) Reason for Inpatient Admission: Labor and delivery, course Plan Plan: Induction Induction Method: per Pitocin Protocol REGIS MORALES MD Apr 04, 2018 2:20 pm
[2018-04-04] MEDS ORDERED: LIDOCAINE/EPI 2% 1:200,00 (XYLOCAINE) 10 ML VIAL ONE (15:17)
--- NOTE | 2018-04-04 16:01 | OB Labor & Delivery Record ---
Vag Delivery Note Vag Delivery Note Date of Delivery: 04/04/18 Preoperative Diagnosis: Dora Cordova is a 23 /Para 2 / 1,Gestational Age (wks)37with 2days Postoperative Diagnosis: Same Surgeon: REGIS MORALES Anesthesia: Epidural Delivery Type: Spontaneous vaginal delivery Findings: Viable male infant, apgars 8/9, weight 6#3 Lacerations: bilateral periurethral abrasions Intact placenta with 3 vessel cord. No nuchal cord, body cord or shoulder dystocia Estimated Blood Loss: 200 ml Complications: None Condition: Stable Description of Procedure: The patient is a G2 now P2 who presented for IOL due to persistent decreased movement, relative bradycardia and advanced cervical dilation. She was admitted and informed consent was obtained. Her labor course was remarkable for low heart rate baseline around 110. She progressed to complete dilatation and began to push. She was then set up for delivery. The infant's head was delivered atraumatically in the GABY position. The shoulders and remainder of the infant's body were then delivered without difficulty. Upon delivery, the was vigorous and placed on maternal abdomen. After a delay, the cord was doubly clamped and cut and the was handed off to the pediatric staff. An intact placenta with 3-vessel cord delivered via Suman and there was found to be minimal bleeding.~ Vigorous fundal massage was performed and the fundus was found to be firm. IV oxytocin was given. Examination of the vagina and perineum revealed bilateral periurethral abrasions and now lacerations. Following the delivery, sponge, instrument and needle counts were correct. Mom and baby were both in stable condition in the labor suite. Vitals - Labs Labs Laboratory Tests 04/04/18 11:45: White Blood Count 15.0H, Red Blood Count 3.68L, Hemoglobin 11.6, Hematocrit 34L , Mean Corpuscular Volume 93, Mean Corpuscular Hemoglobin 32, Mean Corpuscular Hemoglobin Concent 34, Red Cell Distribution Width 14.7H, Platelet Count 262, Mean Platelet Volume 9.4, Neutrophils (%) (Auto) 68, Lymphocytes (%) (Auto) 20, Monocytes (%) (Auto) 10, Eosinophils (%) (Auto) 2, Basophils (%) (Auto) 0, Neutrophils # (Auto) 10.2H, Lymphocytes # (Auto) 3.0, Monocytes # (Auto) 1.6H, Eosinophils # (Auto) 0.3, Basophils # (Auto) 0.0, Neutrophils % (Manual) 71, Lymphocytes % (Manual) 17, Monocytes % (Manual) 9, Eosinophils % (Manual) 2, Basophils % (Manual) 1, Spherocytes MODERATE REGIS MORALES MD Apr 04, 2018 4:01 pm
[2018-04-04] MEDS ORDERED: WITCH HAZEL(TUCKS) 40 EA JAR TOP PRN (17:00)
[2018-04-04] MEDS ORDERED: BENZOCAINE/MENTHOL (DERMOPLAST) 56 ML CAN TP PRN (17:00)
[2018-04-04] MEDS: IBUPROFEN 600 MG (MOTRIN) TAB PO PRN (17:56)
[2018-04-05 00:15] VITALS: BP 102/61
[2018-04-05] MEDS: IBUPROFEN 600 MG (MOTRIN) TAB PO PRN ×3 (00:15→14:36)
[2018-04-05 04:00] VITALS: BP 95/56
[2018-04-05 06:21] LABS: BASOPHILS % (AUTO) 0 % (0-10); EOSINOPHILS # (AUTO) 0.3 10^3/uL (0.0-0.3); EOSINOPHILS % (AUTO) 2 % (0-10); HEMATOCRIT 32 % (35-52); HEMOGLOBIN 11.2 G/DL (11.5-16.0); LYMPHOCYTES # (AUTO) 2.9 X 10^3 (1.0-4.0); LYMPHOCYTES % (AUTO) 19 % (12-44); MEAN CORPUSCULAR HEMOGLOBIN 33 PG (25-34); MEAN CORPUSCULAR HGB CONC 35 G/DL (32-36); MEAN CORPUSCULAR VOLUME 94 FL (80-99); MEAN PLATELET VOLUME 9.6 FL (7.4-10.4); MONOCYTES # (AUTO) 1.4 X 10^3 (0.0-1.0); MONOCYTES % (AUTO) 9 % (0-12); NEUTROPHILS # (AUTO) 10.6 X 10^3 (1.8-7.8); NEUTROPHILS % (AUTO) 70 % (42-75); PLATELET COUNT 252 10^3/uL (130-400); RED BLOOD COUNT 3.42 10^6/uL (4.35-5.85); RED CELL DISTRIBUTION WIDTH 14.5 % (10.0-14.5); WHITE BLOOD COUNT 15.2 10^3/uL (4.3-11.0)
[2018-04-05] MEDS ORDERED: PRENATAL VITAMIN 1 EA TAB PO SCH (07:00)
[2018-04-05] MEDS ORDERED: FERROUS SULF 325 MG (IRON) TAB PO SCH (08:00)
[2018-04-05 10:00] VITALS: BP 97/61
--- NOTE | 2018-04-05 10:01 | Anesthesia-Regional Post-Op ---
Regional Patient Condition Mental Status: Alert, Oriented x3 Circulation: Same as Pre-Op Headache: Absent Sensation: Full Recovery Motor Block: Absent Post Op Complications Complications None Follow Up Care/Instructions Patient Instructions None needed. Anesthesia/Patient Condition Patient is doing well, no complaints, stable vital signs, no apparent adverse anesthesia problems. No complications reported per nursing. MILVIA LIN CRNA Apr 05, 2018 10:01
[2018-04-05] MEDS ORDERED: IBUP-844 PO (11:31)
--- NOTE | 2018-04-05 11:33 | Discharge Instructions ---
Discharge Inst-Women's Serv Depart Medications New, Converted or Re-Newed RX: Transmitted to Pharmacy New Medications: Ibuprofen (Ibu) 600 Mg Tablet 600 MG PO Q6H PRN for pain for 14 Days, #54 TAB 1 Refill Continued Medications: Ferrous Sulfate (Ferrous Sulfate) 325 Mg Tablet 325 MG PO DAILY, TAB Pnv No.122/Iron/Folic Acid ( Multi Tablet) 1 Each Tablet 1 EACH PO, TAB Follow Up/Instructions Goal/Follow Up: Follow up with Dr. Bustos in 6 weeks Activity Activity: Activity as Tolerated Driving Instructions: No Driving for 1 Week NO SMOKING: NO SMOKING Nothing Inside Vagina: No Douching, No Bivalve, No Tampons Diet Discharge Diet: No Restrictions Return to The Hospital For: chest pain or pressure, shortness of breath not improved with rest, temp >101, foul smelling vaginal discharge or odor, clots larger than the size of your fist, heavy vaginal bleeding that saturates more than 1 pad per hour for 2 hours in a row, severe pain not controlled by prescribed medications, severe headache not controlled by prescribed medication, if directed by manager implementation provider or with any other emergent complaints or concerns Symptoms to Report to : Bleeding Excessive, Eyesight Changes, Fever Over 101 Degrees F, Pain/Pressure in Chest, Pain/Pressure in Jaw, Vaginal Bleeding Increase, Vaginal Discharge Foul, Memory Changes Suddenly, Questions/Concerns, Shortness of Breath For Any Problems or Questions: Contact Your Physician, Go to Emergency Room, Go to [facility] Skin/Wound Care Bathing Instructions: Tub, Shower Copies To 1: REGIS BUSTOS MD, MARGARET E DO Apr 05, 2018 11:33
[2018-04-05 15:30] VITALS: BP 107/61
--- NOTE | 2018-04-05 17:10 | Discharge Summary ---
Diagnosis/Chief Complaint Date of Admission Apr 04, 2018 at 10:40 Date of Discharge 04/05/18 Admission Diagnosis Admission Diagnosis 37 weeks gestation Persistent decreased movement Advanced cervical dilation GBS neg RI O Neg blood type Discharge Diagnosis 37 weeks gestation Persistent decreased movement Advanced cervical dilation GBS neg RI O Neg blood type s/p spontaneous vaginal delivery mother Chief Complaint/HPI Chief Complaint/HPI OB-Reason for Admission/Chief: Obstetrical Complication (decreased movement, advanced cervical dilation) Hx : 2 Hx Para: 1 Expected Date of Delivery: Apr 21, 2018 Gestational Age in Weeks: 37 Gestational Age in Days: 2 Indication for induction: other (persistent decreased movement, advanced cervical dilation, low heartrate) History of Labs O NEG, antibody neg, RI. GC/chlamydia neg. HIV/HepB/RPR NR. Glucola nml. GBS neg. Other Treated for labor at 31 weeks, received steroid injections. On progesterone injections throughout for labor prevention. Discharge Summary-Simple/Stand Discharge Physical Examination Allergies: Coded Allergies: No Known Drug Allergies (Verified , 04/15/08) Vitals & I&Os Vital Sign - Last 12Hours Date Time Temp Pulse Resp B/P (MAP) Pulse Ox O2 Delivery O2 Flow Rate FiO2 04/05/18 15:30 97.6 62 18 107/61 (76) 98 Room Air 04/04/18 15:30 15.00 Intake and Output 04/05/18 00:00 Intake Total 2400 ml Balance 2400 ml General Appearance: Alert, Oriented X3, Cooperative, No Acute Distress HEENT: Atraumatic, EOMI, Mucous Memb Moist/[place] Respiratory: Clear to Auscultation, Normal Air Movement Cardiovascular: Regular Rate, Normal S1, Normal S2, Other (II/ systolic murmur) Abdominal: Normal Bowel Sounds, Soft, No Tenderness, Other (post gravid) Extremities: No Clubbing, No Cyanosis, No Tenderness/Swelling Skin: No Rashes, No Significant Lesion Neuro: Normal Gait, Normal Speech, Normal Tone, Sensation Intact, Cranial Nerves 3-12 NL, Reflexes 2+ Psych/Mental Status: Mental Status NL, Mood NL Hospital Course See final discharge diagnosis. Labs Laboratory Tests Test 04/04/18 11:45 04/05/18 06:10 Range/Units White Blood Count 15.0 H 15.2 H 4.3-11.0 10^3/uL Red Blood Count 3.68 L 3.42 L 4.35-5.85 10^6/uL Hemoglobin 11.6 11.2 L 11.5-16.0 G/DL Hematocrit 34 L 32 L 35-52 % Mean Corpuscular Volume 93 94 80-99 FL Mean Corpuscular Hemoglobin 32 33 25-34 PG Mean Corpuscular Hemoglobin Concent 34 35 32-36 G/DL Red Cell Distribution Width 14.7 H 14.5 10.0-14.5 % Platelet Count 262 252 130-400 10^3/uL Mean Platelet Volume 9.4 9.6 7.4-10.4 FL Neutrophils (%) (Auto) 68 70 42-75 % Lymphocytes (%) (Auto) 20 19 12-44 % Monocytes (%) (Auto) 10 9 0-12 % Eosinophils (%) (Auto) 2 2 0-10 % Basophils (%) (Auto) 0 0 0-10 % Neutrophils # (Auto) 10.2 H 10.6 H 1.8-7.8 X 10^3 Lymphocytes # (Auto) 3.0 2.9 1.0-4.0 X 10^3 Monocytes # (Auto) 1.6 H 1.4 H 0.0-1.0 X 10^3 Eosinophils # (Auto) 0.3 0.3 0.0-0.3 10^3/uL Basophils # (Auto) 0.0 0.0 0.0-0.1 10^3/uL Neutrophils % (Manual) 71 % Lymphocytes % (Manual) 17 % Monocytes % (Manual) 9 % Eosinophils % (Manual) 2 % Basophils % (Manual) 1 % Spherocytes MODERATE Discharge Condition at discharge stable Instructions to patient/family Please see electronic discharge instructions given to patient. Discharge Medications Reviewed and agree with Discharge Medication list on patient's Discharge Instruction sheet Clinical Quality Measures DVT/VTE Risk/Contraindication: Risk Factor Score Per Nursin RFS Level Per Nursing on Admit: 1=Low/No VTE PPX Copy Copies To 1: REGIS MORALES MD, MARGARET E DO Apr 05, 2018 17:10
== END 2018-04-05 18:30 | disposition home or self-care (01) | DRG 775 ==
LOC: LDRP 10:40
PROVIDERS: ADMIT Family Medicine; ATTEND Family Medicine
PROC: 10E0XZZ Delivery of Products of Conception, External Approach (ICD-10-PCS; principal; 2018-04-04)
PROC: 3E033VJ Introduction of Other Hormone into Peripheral Vein, Percutaneous Approach (ICD-10-PCS; 2018-04-04)
DX: O36.8130 Decreased fetal movements, third trimester, not applicable or unspecified (principal); O76 Abnormality in fetal heart rate and rhythm complicating labor and delivery; O34.33 Maternal care for cervical incompetence, third trimester; O71.82 Other specified trauma to perineum and vulva; Z37.0 Single live birth; Z3A.37 37 weeks gestation of pregnancy
CPT/HCPCS: 36415; 85007; 85025; 85027; 86850; 86900; 86901; 88307

== ENCOUNTER 2019-02-10 06:40 | Emergency (ER) | payer OTHER, MEDICAID ==
[~2019-02-10] VITALS: Ht 160 cm; Wt 88.0 kg
[~2019-02-10 06:40] MED LIST changes: +IBUP-844 PO; +PNV1TABL81 PO
--- OUTSIDE RECORDS SUMMARY | 2019-02-10 06:48 | XMS REPORT | Continuity of Care Document ---
Demographics Preferred Language Unknown Marital Status Unknown Scientology Affiliation Unknown Race Unknown Ethnic Group Unknown Author Organization Unknown Address Unknown Allergies There is no data. Medications There [...] 32.1 ng/mL AFP MoM 1.07 hCG Value 93108 mIU/mL hCG MoM 0.28 uE3 Value 1.01 ng/mL uE3 MoM 1.23 KWADWO Value 99.79 pg/mL KWADWO MoM 0.60 OSBR Risk 1 IN 9862 DSR (Second Trimester) 1 [place] [address] DSR (By Age) 1 IN 1169 T18 [...] - 01/15/17 12:17 Genital Culture, Routine Note Encounters ACCT No. Visit Date/Time Discharge Status Pt. Type Provider Facility Loc./Unit Complaint [id number] 01/16/2012 14:40:00 01/16/2012 23:59:59 CLS Outpatient [id number] 04/28/2016 07:06:00 Document Registration [id number] 03/29/2016 14:13:16 03/29/2016 23:59:59 CLS Outpatient DION SANTIZO [id number] 05/07/2016 13:05:00 Document Registration [id number] 05/04/2016 05:05:00 Document Registration [id number] 10/18/2016 08:06:00 Document Registration [id number] 08/03/2016 08:35:00 Document Registration [id number] 01/18/2017 16:07:00 Document Registration [id number] 08/01/2016 08:35:00 Document Registration [id number] 10/16/2016 00:06:00 Document Registration [id number] 09/23/2016 11:05:00 Document Registration
[2019-02-10] MEDS ORDERED: OXYMETAZOLINE (AFRIN) 0.05% NA 15 ML BTL STA (06:53)
[2019-02-10] MEDS ORDERED: PROMETHAZINE INJ 25 MG/ML (PHENERGAN) AMP IM STA (06:53)
[2019-02-10] MEDS ORDERED: DEXAMETHASONE 10 MG/ML (DECADRON) 1 ML VIAL IM ONE (07:00)
[2019-02-10] MEDS ORDERED: diphenhydrAMINE 25 MG TAB (BENADRYL) PO ONE (07:00)
--- NOTE | 2019-02-10 07:10 | ED Headache ---
General Chief Complaint: Head/Cervical Problems Stated Complaint: HEAD PRESSURE Nursing Triage Note: PT STATES SHE HAS HAD HEAD PRESSURE SINCE 2330 LAST NIGHT. PT STATES THE PAIN FEELS LIKE HER "BRAIN IS PUSHING AGAINST HER SKULL" PT ALSO COMPLAINS OF PAIN WHEN SHE MOVES EYES AND LEFT EAR PAIN. PT DENIES N/V/D/FEVER. Nursing Sepsis Screen: No Definite Risk Source: patient Exam Limitations: no limitations History of Present Illness Date Seen by Provider: Feb 10, 2019 Time Seen by Provider: 06:48 Initial Comments Here with report of headache she describes as pressure behind her eyes and is something pushing out. Onset at about 11:30 PM last night and continues through out the night. She finally took a couple Aleve this morning at about 4:30 but still has the pain. Does have nausea with the pain denies vomiting or fever. Complains of pressure to her left ear. Timing/Duration: other (8 hours) Severity/Quality: moderate, pressure Location: frontal Prior Headaches/Recent Trauma: no recent headache/trauma Modifying Factors: worse with movement Associated Symptoms: No confusion, No fever/chills; nasal congestion; No sinus infection, No stiff neck, No vision changes, No weakness Allergies and Home Medications Allergies Coded Allergies: No Known Drug Allergies (Verified , 04/15/08) Home Medications Ferrous Sulfate 325 Mg Tablet, 325 MG PO DAILY, (Reported) Ibuprofen 600 Mg Tablet, 600 MG PO Q6H PRN for pain Prescribed by: FRANCK FONTENOT on 04/05/18 1131 Patient Home Medication List Home Medication List Reviewed: Yes Review of Systems Review of Systems Constitutional: see HPI; No chills, No fever Eyes: See HPI; Denies Photophobia Ears, Nose, Mouth, Throat: ear pain; denies throat pain Respiratory: No cough, No short of breath Cardiovascular: no symptoms reported Gastrointestinal: see HPI; No abdominal pain; nausea; No vomiting Musculoskeletal: no symptoms reported Skin: no symptoms reported Psychiatric/Neurological: Headache; Denies Numbness, Denies Weakness Past Joijrnh-Xlifxy-Bnfrzh Hx Past Med/Social Hx: Reviewed Nursing Past Med/Soc Hx Patient Social History Alcohol Use: Denies Use Recreational Drug Use: Yes Drug of Choice: MARIJUANNA Type Used: Cigarettes Former Smoker, Quit: Mar 04, 2016 Recent Foreign Travel: No Contact w/Someone Who Travel: No Recent Infectious Disease Expo: No Recent Hopitalizations: No Physical Abuse: No Sexual Abuse: No Mistreated: No Fear: No Immunizations Up To Date Tetanus Booster (TDap): Less than 5yrs PED Vaccines UTD: Yes Date of Influenza Vaccine: May 03, 2016 Seasonal Allergies Seasonal Allergies: Yes Past Medical History Surgeries: Yes (wisdom teeth) Respiratory: Yes Asthma, Pneumonia Currently Using CPAP: No Currently Using BIPAP: No Cardiac: No Neurological: No Reproductive Disorders: No Female Reproductive Disorders: Denies Sexually Transmitted Disease: No HIV/AIDS: No Genitourinary: No Gastrointestinal: No Musculoskeletal: Yes Scoliosis Endocrine: No HEENT: No Cancer: No Psychosocial: No (pt denies) Integumentary: No Blood Disorders: No Adverse Reaction/Blood Tranf: No Family Medical History Reviewed Nursing Family Hx FH: ovarian cancer PATERNAL GRANDMOTHER Hypertension 19 FATHER No Pertinent Family Hx Physical Exam Vital Signs Vital Signs - First Documented 02/10/19 06:49 Temp 97.0 Pulse 60 Resp 18 B/P (MAP) 98/70 (79) Pulse Ox 98 Capillary Refill : Less Than 3 Seconds Height, Weight, BMI Height: 5'3.00" Weight: 194lbs. 0.6oz. 88.689241jk; 34.4 BMI Method:Stated General Appearance: WD/WN, no apparent distress HEENT: PERRL/EOMI, other (TM slightly bulging but otherwise normal. Bilateral nasal membranes are erythematous and edematous.) Neck: non-tender, full range of motion, supple, normal inspection Cardiovascular: regular rate, rhythm, no murmur Respiratory: lungs clear, normal breath sounds, no respiratory distress Psychiatric: alert, oriented x 3 [place] Nerves: normal hearing, normal speech, PERRL Coordination/Gait: normal gait Motor/Sensory: no motor deficit, no sensory deficit Skin: normal color, warm/dry Progress/Results/Core Measures Results/Orders My Orders Orders - JENNIFER GOMEZ MD Promethazine Injection (Phenergan Injec (02/10/19 06:53) Dexamethasone Injection (Decadron Inject (02/10/19 07:00) Diphenhydramine Tablet (Benadryl Tablet) (02/10/19 07:00) Oxymetazoline 0.05% Nasal Mayer (Afrin 0. (02/10/19 06:53) Medications Given in ED Current Medications Medications Dose Ordered Sig/Minnie Route Start Time Stop Time Status Last Admin Dose Admin Dexamethasone Sodium Phosphate 10 mg ONCE ONCE IM 02/10/19 07:00 02/10/19 07:01 DC 02/10/19 06:59 10 MG Diphenhydramine HCl 25 mg ONCE ONCE PO 02/10/19 07:00 02/10/19 07:01 DC 02/10/19 06:59 25 MG Vital Signs/I&O 02/10/19 06:49 Temp 97.0 Pulse 60 Resp 18 B/P (MAP) 98/70 (79) Pulse Ox 98 Blood Pressure Mean: 79 Progress Progress Note : Progress Note Seen and evaluated. Benadryl 25 mg by mouth, Phenergan 25 mg IM, Decadron 10 mg IM and Afrin nasal spray 3 sprays to each nostril 1 ordered. Monitor patient. 0750: Overall improved. Discharged home with return precautions. Patient verbalize understanding instructions and agreement with plan. Departure Impression Primary Impression: Sinus headache Disposition: HOME, SELF-CARE Condition: Improved Departure-Patient Inst. Decision time for Depature: 07:53 Referrals: REGIS MORALES MD (PCP/Family) Primary Care Physician Patient Instructions: Sinus Headache (DC) Add. Discharge Instructions: All discharge instructions reviewed with patient and/or family. Voiced understanding. You may use the Afrin nasal spray 3 sprays to each nostril twice daily for 3 days only and then stop. Do not use more than 3 days. Drink plenty of fluids. You may use Aleve or the generic 2 tablets twice daily as needed for pain. You may use Tylenol/acetaminophen 1000 mg every 6 hours as needed for pain. Return for worse pain, fever, vomiting, weakness, breathing problems, vision or balance problems or other concerns as needed. JENNIFER GOMEZ MD Feb 10, 2019 07:10
[2019-02-10 08:15] VITALS: BP 110/76
== END 2019-02-10 08:15 | disposition home or self-care (01) ==
LOC: EDUNIT# 06:40 → ER 06:43
DX: G44.89 Other headache syndrome (principal); J45.909 Unspecified asthma, uncomplicated; F12.10 Cannabis abuse, uncomplicated; Z87.01 Personal history of pneumonia (recurrent); Z82.49 Family history of ischemic heart disease and other diseases of the circulatory system; Z80.8 Family history of malignant neoplasm of other organs or systems
CPT/HCPCS: 96372; 99284

== ENCOUNTER → 2020-10-19 | Outpatient (CLI) | payer OTHER, MEDICAID ==
[~2020-10-19] MED LIST changes: -ACET-77 PO; +ACET-78 PO; +GADOBUTROL 7.5 MMOL/7.5 ML (GADAVIST) VIAL IV ONE
--- NOTE | 2020-10-19 09:37 | Diagnostic Imaging Report ---
PROCEDURE: MR imaging of the brain with and without contrast. TECHNIQUE: Multiplanar, multisequence MR imaging of the brain was performed with and without contrast. INDICATION: Unintentional weight loss and acute onset severe headache. COMPARISON: 04/17/2007 Ventricles and sulci are within normal limits for size. Gonzalez-white matter signal intensities are unremarkable. There is no restricted diffusion to indicate an infarct. There is no abnormal mass effect or shift of midline structures. There is no abnormal contrast enhancement. There is small mucous retention cyst or polyp in the left maxillary sinus. Paranasal sinuses are otherwise clear. IMPRESSION: Unremarkable MRI brain. Dictated by: Dictated on workstation # [id number]
== END ==
LOC: RAD 08:45
PROVIDERS: ATTEND Family Medicine
DX: R51.9 Headache, unspecified (principal); R63.4 Abnormal weight loss
CPT/HCPCS: 70553

== ENCOUNTER → 2020-11-01 | Outpatient (CLI) | payer OTHER, MEDICAID ==
[~2020-11-01] MED LIST changes: +CATHETER FLUSH 10 ML SYR IV PRN; -GADOBUTROL 7.5 MMOL/7.5 ML (GADAVIST) VIAL IV ONE; +HOLD METFORMIN - RECEIVED CONTRAST 20 ML VIAL IV SCH; +IOHEXOL 350 MG/ML 100 ML (OMNIPAQUE 350) VIAL IV ONE; +NS 100 ML (IVPB) BAG IV ONE
--- NOTE | 2020-11-01 09:29 | Diagnostic Imaging Report ---
EXAMINATION: CT Abdomen and Pelvis with intravenous contrast. TECHNIQUE: Multiple contiguous axial images were obtained through the abdomen and pelvis after the uneventful administration of intravenous contrast. All CT scans use one or more of the following dose optimizing techniques: automated exposure control, MA and/or KvP adjustment based on a patient size and exam type, or iterative reconstruction. HISTORY: Abdominal pain. COMPARISON: None available. FINDINGS: Limited views of the lower thorax are unremarkable. The liver is normal without focal lesion. There is no biliary ductal dilation. Gallbladder is normal. Pancreas is normal. Spleen is normal. Adrenal glands are normal. The kidneys are normal. There is no hydronephrosis. Urinary bladder is normal. Uterus and ovaries are normal for age. Visualized bowel is normal in caliber without obstruction or inflammation. No free fluid or air. No abdominal or pelvic lymphadenopathy. Aorta is normal in caliber without aneurysm. There are no suspicious osseous lesions. IMPRESSION: 1. No acute abnormality in the abdomen or pelvis. Dictated by: Dictated on workstation # [id number]
== END ==
LOC: RAD 08:45
PROVIDERS: ATTEND Family Medicine
DX: R10.30 Lower abdominal pain, unspecified (principal); R63.4 Abnormal weight loss
CPT/HCPCS: 74177

== ENCOUNTER 2021-01-26 08:21 | Observation (INO) | payer OTHER, MEDICAID ==
[2021-01-26] VITALS (12 sets, daily range): BP systolic 93–119; BP diastolic 59–77
[~2021-01-26] VITALS: Ht 170 cm; Wt 59.0 kg
[~2021-01-26 08:21] MED LIST changes: -CATHETER FLUSH 10 ML SYR IV PRN; -HOLD METFORMIN - RECEIVED CONTRAST 20 ML VIAL IV SCH; -IOHEXOL 350 MG/ML 100 ML (OMNIPAQUE 350) VIAL IV ONE; -NS 100 ML (IVPB) BAG IV ONE
[2021-01-26 08:46] LABS: BILIRUBIN,URINE NEGATIVE (NEGATIVE); CLARITY,URINE CLEAR; COLOR,URINE YELLOW; GLUCOSE, URINE (UA) NEGATIVE (NEGATIVE); KETONES,URINE NEGATIVE (NEGATIVE); LEUKOCYTE ESTERASE ,URINE NEGATIVE (NEGATIVE); NITRITE,URINE NEGATIVE (NEGATIVE); PROTEIN,URINE 1+ (NEGATIVE)
[2021-01-26 08:49] LABS: ALBUMIN 4.5 GM/DL (3.2-4.5); CHLORIDE 103 MMOL/L (98-107); POTASSIUM 3.9 MMOL/L (3.6-5.0); SODIUM 138 MMOL/L (135-145)
[2021-01-26 08:50] LABS: BASOPHILS # (AUTO) 0.1 10^3/uL (0.0-0.1); BASOPHILS % (AUTO) 1 % (0-10); EOSINOPHILS # (AUTO) 0.1 10^3/uL (0.0-0.3); EOSINOPHILS % (AUTO) 2 % (0-10); HEMATOCRIT 41 % (35-52); HEMOGLOBIN 13.9 g/dL (11.5-16.0); LYMPHOCYTES # (AUTO) 1.6 10^3/uL (1.0-4.0); LYMPHOCYTES % (AUTO) 26 % (12-44); MEAN CORPUSCULAR HEMOGLOBIN 32 pg (25-34); MEAN CORPUSCULAR HGB CONC 34 g/dL (32-36); MEAN CORPUSCULAR VOLUME 94 fL (80-99); MONOCYTES # (AUTO) 0.6 10^3/uL (0.0-1.0); MONOCYTES % (AUTO) 9 % (0-12); NEUTROPHILS # (AUTO) 3.9 10^3/uL (1.8-7.8); NEUTROPHILS % (AUTO) 62 % (42-75); PLATELET COUNT 256 10^3/uL (130-400); WHITE BLOOD COUNT 6.3 10^3/uL (4.3-11.0)
[2021-01-26 08:51] LABS: CALCIUM 9.3 MG/DL (8.5-10.1)
[2021-01-26 08:52] LABS: GLUCOSE 122 MG/DL (70-105); TOTAL PROTEIN 7.6 GM/DL (6.4-8.2)
[2021-01-26 08:53] LABS: CARBON DIOXIDE 23 MMOL/L (21-32)
[2021-01-26 08:54] LABS: BILIRUBIN,TOTAL 0.6 MG/DL (0.1-1.0)
[2021-01-26 08:56] LABS: ALKALINE PHOSPHATASE 70 U/L (40-136); CREATININE SERUM 0.82 MG/DL (0.60-1.30); GFR ESTIMATED > 60
[2021-01-26 08:57] LABS: BUN/CREATININE RATIO 20
[2021-01-26 08:58] LABS: SALICYLATE < 5.0 MG/DL (5.0-20.0)
[2021-01-26 08:59] LABS: ALANINE AMINOTRANSFERASE 6 U/L (0-55)
[2021-01-26 09:01] LABS: ACETAMINOPHEN < 10 UG/ML (10-30)
[2021-01-26 09:02] LABS: AMPHETAMINE SCREEN, URINE POSITIVE (NEGATIVE); BARBITURATE SCREEN URINE NEGATIVE (NEGATIVE); BENZODIAZEPINES SCREEN URINE NEGATIVE (NEGATIVE); CANNABINOID SCREEN, URINE POSITIVE (NEGATIVE); COCAINE SCREEN URINE NEGATIVE (NEGATIVE); METHADONE STAT NEGATIVE (NEGATIVE); METHAMPHETAMINE SCREEN URINE S POSITIVE (NEGATIVE); OPIATE SCREEN URINE NEGATIVE (NEGATIVE); OXYCODONE STAT NEGATIVE (NEGATIVE); PROPOXYPHENE STAT NEGATIVE (NEGATIVE); TRICYCLIC ANTIDEPRESSANTS SCRE NEGATIVE (NEGATIVE)
--- NOTE | 2021-01-26 09:02 | ED Psychosocial ---
General Chief Complaint: Substance Abuse Stated Complaint: OD Nursing Triage Note: PT PRESENTS TO ED VIA POV FROM HOME WITH COMPLAITNS OF TAKING APROX 25 OF AMYTRIPTLINE 25 MG AROUND 0734. PT REPORTS SHE HAS TRIED TO VOMIT BUT HASNT BEEN ABLE TO GET ANYTHING UP. PT REPROTS SHE IS STRUGGLING WITH DEPRESSION AND HAS FAMILY ISSUES GOING ON BUT DOES NOT FEEL SUICIDAL AT THIS TIME. Source: patient Exam Limitations: no limitations (DEVIN PEREZ STUDENT) History of Present Illness Date Seen by Provider: Jan 26, 2021 Time Seen by Provider: 08:55 Initial Comments Mrs Cordova is a 25 yo female that presents today for overdose. She states that she has been depressed lately due to losing custody of her children. At around 0730 today she took ~25 Amitryptaline 25mg. She states that she does not have any suicidal thoughts and states she does not really know why she did it. Her PCP is Dr. Morales at [facility] and also receives mental health services from there as well. She is not complaining of any symptoms this morning other than dizziness. She does have a history of Cigarette, marijuana, and meth use, she last used meth at about 0330 this morning. She has a mental history of Depression, ADHD, ODD, ADD, and bipolar. She also has a history of seizure. (DEVIN PEREZ STUDENT) Allergies and Home Medications Allergies Coded Allergies: No Known Drug Allergies (Verified , 04/15/08) Home Medications Ferrous Sulfate 325 Mg Tablet, 325 MG PO DAILY, (Reported) Ibuprofen 600 Mg Tablet, 600 MG PO Q6H PRN for pain Prescribed by: FRANCK FONTENOT on 04/05/18 1131 Patient Home Medication List Home Medication List Reviewed: Yes (LESLIE SMITH MD) Review of Systems Constitutional: No diaphoresis; dizziness; No fever EENTM: No hearing loss, No vision loss Respiratory: No cough, No short of breath Cardiovascular: No chest pain, No palpitations Gastrointestinal: No abdominal pain, No constipation, No diarrhea, No nausea, No vomiting Genitourinary: no symptoms reported Musculoskeletal: No joint pain, No joint swelling Skin: No rash Psychiatric/Neurological: Depressed (DEVIN PEREZ STUDENT) Past Ywdvcru-Wqumrq-Uyljbd Hx Patient Social History Alcohol Use: Denies Use Drug of Choice: MARIJUANNA AND METH Smoking Status: Current Everyday Smoker Type Used: Cigarettes Former Smoker, Quit: Mar 04, 2016 Recent Infectious Disease Expo: No Recent Hopitalizations: No (ANADEVIN Handmark STUDENT) Immunizations Up To Date Tetanus Booster (TDap): Less than 5yrs PED Vaccines UTD: Yes Date of Influenza Vaccine: May 03, 2016 (ANADEVIN Handmark STUDENT) Seasonal Allergies Seasonal Allergies: Yes (DEVIN PEREZ Handmark STUDENT) Past Medical History Surgeries: Yes (wisdom teeth) Respiratory: Yes Asthma, Pneumonia Currently Using CPAP: No Currently Using BIPAP: No Cardiac: No Neurological: No Reproductive Disorders: No Female Reproductive Disorders: Denies Sexually Transmitted Disease: No HIV/AIDS: No Genitourinary: No Gastrointestinal: No Musculoskeletal: Yes Scoliosis Endocrine: No HEENT: No Cancer: No Psychosocial: No (pt denies) Integumentary: No Blood Disorders: No Adverse Reaction/Blood Tranf: No (DEVIN PEREZ Handmark VERÓNICA) Family Medical History FH: ovarian cancer PATERNAL GRANDMOTHER Hypertension 19 FATHER No Pertinent Family Hx (ANADEVIN GARCIA Handmark STUDENT) Physical Exam Vital Signs - First Documented 01/26/21 01/26/21 08:28 11:56 Temp 36.4 Pulse 101 Resp 18 B/P (MAP) 117/103 (108) Pulse Ox 100 O2 Delivery Room Air (LESLIE SMITH MD) Capillary Refill : Less Than 3 Seconds (NAADEVIN Handmark STUDENT) Height, Weight, BMI Height: 5'3.00" Weight: 194lbs. 0.6oz. 88.258438ve; 19.00 BMI Method:Stated General Appearance: WD/WN, other (Appears a bit anxious ) Respiratory: chest non-tender, lungs clear, normal breath sounds, no respiratory distress, no accessory muscle use Cardiovascular: regular rate, rhythm (Slightly tachycardic ~100), no edema, no murmur Peripheral Pulses: 2+ Radial Pulses (R), 2+ Radial Pulses (L) Gastrointestinal: normal bowel sounds, non tender, soft, no organomegaly, no pulsatile mass Extremities: no pedal edema, no calf tenderness Neurologic/Psychiatric: alert, oriented x 3 Appearance/Memory: appropriate appearance Behavior/Eye Contact: cooperative; No normal speech (slightly slurred) Thoughts/Hallucinations: normal thought pattern, no apparent hallucination, auditory hallucinations; No paranoid, No visual hallucinations Skin: normal color, warm/dry (DEVIN PEREZ MED STUDENT) Progress/Results/Core Measures Results/Orders Lab Results Laboratory Tests Test 01/26/21 08:26 01/26/21 17:32 01/26/21 17:33 01/26/21 18:16 Range/Units White Blood Count 6.3 4.3-11.0 10^3/uL Red Blood Count 4.35 3.80-5.11 10^6/uL Hemoglobin 13.9 11.5-16.0 g/dL Hematocrit 41 35-52 % Mean Corpuscular Volume 94 80-99 fL Mean Corpuscular Hemoglobin 32 25-34 pg Mean Corpuscular Hemoglobin Concent 34 32-36 g/dL Red Cell Distribution Width 12.5 10.0-14.5 % Platelet Count 256 130-400 10^3/uL Mean Platelet Volume 10.0 9.0-12.2 fL Immature Granulocyte % (Auto) 0 % Neutrophils (%) (Auto) 62 42-75 % Lymphocytes (%) (Auto) 26 12-44 % Monocytes (%) (Auto) 9 0-12 % Eosinophils (%) (Auto) 2 0-10 % Basophils (%) (Auto) 1 0-10 % Neutrophils # (Auto) 3.9 1.8-7.8 10^3/uL Lymphocytes # (Auto) 1.6 1.0-4.0 10^3/uL Monocytes # (Auto) 0.6 0.0-1.0 10^3/uL Eosinophils # (Auto) 0.1 0.0-0.3 10^3/uL Basophils # (Auto) 0.1 0.0-0.1 10^3/uL Immature Granulocyte # (Auto) 0.0 0.0-0.1 10^3/uL Urine Color YELLOW Urine Clarity CLEAR Urine pH 6.0 5-9 Urine Specific [place] >=1.030 1.016-1.022 Urine Protein 1+ H NEGATIVE Urine Glucose (UA) NEGATIVE NEGATIVE Urine Ketones NEGATIVE NEGATIVE Urine Nitrite NEGATIVE NEGATIVE Urine Bilirubin NEGATIVE NEGATIVE Urine Urobilinogen 0.2 < = 1.0 MG/DL Urine Leukocyte Esterase NEGATIVE NEGATIVE Urine RBC (Auto) NEGATIVE NEGATIVE Urine RBC NONE /HPF Urine WBC RARE /HPF Urine Squamous Epithelial Cells 2-5 /HPF Urine Crystals NONE /LPF Urine Bacteria TRACE /HPF Urine Casts PRESENT /LPF Urine Hyaline Casts 5-10 H /LPF Urine Mucus SMALL H /LPF Urine Culture Indicated NO Sodium Level 138 135-145 MMOL/L Potassium Level 3.9 3.6-5.0 MMOL/L Chloride Level 103 98-107 MMOL/L Carbon Dioxide Level 23 21-32 MMOL/L Anion Gap 12 5-14 MMOL/L Blood Urea Nitrogen 16 7-18 MG/DL Creatinine 0.82 0.60-1.30 MG/DL Estimat Glomerular Filtration Rate > 60 BUN/Creatinine Ratio 20 Glucose Level 122 H 70-105 MG/DL Calcium Level 9.3 8.5-10.1 MG/DL Corrected Calcium 8.9 8.5-10.1 MG/DL Total Bilirubin 0.6 0.1-1.0 MG/DL Aspartate Amino Transf (AST/SGOT) 25 5-34 U/L Alanine Aminotransferase (ALT/SGPT) 6 0-55 U/L Alkaline Phosphatase 70 40-136 U/L Total Protein 7.6 6.4-8.2 GM/DL Albumin 4.5 3.2-4.5 GM/DL TSH [place] Testing 4.09 0.35-4.94 UIU/ML Serum Test, Qualitative NEGATIVE NEGATIVE Salicylates Level < 5.0 L 5.0-20.0 MG/DL Urine Opiates Screen NEGATIVE NEGATIVE Urine Oxycodone Screen NEGATIVE NEGATIVE Urine Methadone Screen NEGATIVE NEGATIVE Urine Propoxyphene Screen NEGATIVE NEGATIVE Acetaminophen Level < 10 L 10-30 UG/ML Urine Barbiturates Screen NEGATIVE NEGATIVE Ur Tricyclic Antidepressants Screen NEGATIVE NEGATIVE Urine Phencyclidine Screen NEGATIVE NEGATIVE Urine Amphetamines Screen POSITIVE H NEGATIVE Urine Methamphetamines Screen POSITIVE H NEGATIVE Urine Benzodiazepines Screen NEGATIVE NEGATIVE Urine Cocaine Screen NEGATIVE NEGATIVE Urine Cannabinoids Screen POSITIVE H NEGATIVE Serum Alcohol < 10 <10 MG/DL Glucometer 66 L 68 L 147 H 70-110 MG/DL (LESLIE SMITH MD) My Orders Orders - LESLIE SMITH MD Ua Culture If Indicated (01/26/21 08:40) Cbc With Automated Diff (01/26/21 08:40) Comprehensive Metabolic Panel (01/26/21 08:40) Alcohol (01/26/21 08:40) Drug Screen Stat (Urine) (01/26/21 08:40) Acetaminophen (01/26/21 08:40) Salicylate (01/26/21 08:40) Ekg Tracing (01/26/21 08:40) Monitor-Rhythm Ecg Trace Only (01/26/21 08:40) Bh Status Checks/Observation Q15M (01/26/21 08:40) Ed Iv/Invasive Line Start (01/26/21 08:40) Thyroid Analyzer (01/26/21 08:26) Hcg,Qualitative Serum (01/26/21 08:54) Ekg Tracing (01/26/21 09:30) Ekg Tracing (01/26/21 10:30) Ekg Tracing (01/26/21 11:30) Ekg Tracing (01/26/21 12:30) Ekg Tracing (01/26/21 13:30) Ns Iv 1000 Ml (Sodium Chloride 0.9%) (01/26/21 09:30) Lorazepam Injection (Ativan Injection) (01/26/21 09:30) (LESLIE SMITH MD) Medications Given in ED Current Medications Medications Dose Ordered Sig/Minnie Route Start Time Stop Time Status Last Admin Dose Admin Lorazepam 0.5 mg ONCE ONCE IVP 01/26/21 09:30 01/26/21 09:31 DC 01/26/21 09:34 0.5 MG (LESLIE SMITH MD) Vital Signs/I&O 01/26/21 01/26/21 01/26/21 01/26/21 08:28 11:55 11:56 12:15 Temp 36.4 Pulse 101 87 115 Resp 18 16 15 B/P (MAP) 117/103 (108) 102/80 119/77 (91) Pulse Ox 100 99 99 99 O2 Delivery Room Air Room Air 01/26/21 01/26/21 01/26/21 01/26/21 12:24 13:00 14:00 15:00 Pulse 104 86 87 87 Resp 18 17 16 B/P (MAP) 96/77 (83) 105/76 (86) 100/70 (80) Pulse Ox 99 98 99 O2 Delivery Room Air Room Air Room Air 6/24/21 6/24/21 6/24/21 6/24/21 16:00 16:27 17:00 17:54 Temp 36.4 Pulse 92 73 Resp 17 B/P (MAP) 102/68 (79) 105/74 (84) Pulse Ox 98 98 100 O2 Delivery Room Air Room Air Room Air 01/26/21 18:00 Pulse 80 Resp 14 B/P (MAP) 100/69 (79) Pulse Ox 99 O2 Delivery Room Air (LESLIE SMITH MD) Blood Pressure Mean: 108 Progress Progress Note #1: Time: 09:30 Progress Note Patient has had a decline in responsiveness, she still responds to verbal stimuli. She will be given 0.5mg Ativan for dystonic movements. She also just received another EKG that shows an increase of QT interval from 445 to 487ms and tachycardia at 121. Her door is kept open for direct visualization. Contacted ICU to check bed availability, anticipating possible intubation or requiring sitter. Progress Note #2: Time: 10:30 Progress Note Spoke with Dr. Morales, who agreed to take patient. Checking on patient she is still responsive to sternal rub and is able to protect her own airway at this time. Repeat EKG shows improvement of rate to 90 and QT interval to 469. (DEVIN PEREZ MED STUDENT) Progress Note : Progress Note Patient was seen and examined by me personally and work-up was pursued for medical clearance. Unfortunately, patient's mental status declined from distracted with slightly slurred speech to his significantly decreased responsiveness. She was still responsive to sternal rub and had spontaneous movements and was protecting her airway. However, it was clear that she would not be able to be medically cleared with her decline in mental status. Nursing discussed overdose management with poison control. EKGs were checked hourly. Patient was given Ativan for agitation and dystonic movements. She had not taken her epileptic medication this morning. (LESLIE SMITH MD) Departure Communication (Admissions) Time/Spoke to Admitting Phy: 10:40 Dr. Morales (LESLIE SMITH MD) Impression Primary Impression: Medication overdose Qualified Codes: T50.904A - Poisoning by unspecified drugs, medicaments and biological substances, undetermined, initial encounter Additional Impressions: Altered mental status Qualified Codes: R40.1 - Stupor Polysubstance abuse Disposition: ADMITTED INPATIENT Condition: Stable Admissions Decision to Admit Reason: Admit from ER (General) Decision to Admit/Date: Jan 26, 2021 Time/Decision to Admit Time: 10:15 (LESLIE SMITH MD) Departure-Patient Inst. Referrals: REGIS MORALES MD (PCP/Family) Primary Care Physician Patient Instructions: ALCOHOL AND SUBSTANCE ABUSE Medical Student Attestation and Attending Note: I have personally interviewed and examined this patient along with Devin tierney, MS4. I have reviewed student documentation including history, physical, and assessments. I agree with the documentation except where otherwise noted. Exam: General: Alert, oriented, distracted in conversation, no acute distress, well developed HEENT: Normocephalic and atraumatic Heart: Regular rate and rhythm without murmur Lungs: Clear to auscultation bilaterally with normal effort Abdomen: Soft, nontender, nondistended, normal bowel sounds Neuropsych: Alert, oriented, no focal deficits, distracted in conversation, slightly slurred speech, mental status declining throughout the course of ER stay, denied suicidal ideation Skin: Warm and dry without rashes (LESLIE SMITH MD) DEVIN PEREZ MED STUDENT Jan 26, 2021 09:01 LESLIE SMITH MD Jan 26, 2021 11:23
[2021-01-26 09:03] LABS: BACTERIA,URINE TRACE /HPF; WBC,URINE RARE /HPF
[2021-01-26 09:19] LABS: TSH (THYROID ANALYZER) 4.09 UIU/ML (0.35-4.94)
[2021-01-26] MEDS ORDERED: LORazepam INJ 2 MG/ML (ATIVAN) VIAL IVP ONE (09:30)
[2021-01-26] MEDS ORDERED: NS IV 1000 ML 1,000 ML IV SCH (09:30)
[2021-01-26] MEDS ORDERED: LORazepam INJ 2 MG/ML (ATIVAN) VIAL IVP PRN (12:15)
[2021-01-26] MEDS ORDERED: ONDANSETRON 4 MG/2 ML (SDV) Z0FRAN IVP PRN (12:15)
[2021-01-26] MEDS: LACTATED RINGERS 1,000 ML IV SCH ×2 (12:27→19:47)
[2021-01-26] MEDS ORDERED: inSUlin ASPART (NovoLOG) 1 UNIT/0.01 ML (CHARGE PER UNIT) SQ SCH (15:30)
--- NOTE | 2021-01-26 17:01 | History & Physical ---
HPI History of Present Illness: Pt writhing in bed, does not open eyes or follow instructions, unable to obtain any history from her. Per ER, she took around 25 tabs of amitriptyline, tried to vomit them up but wasn't able to. Family reports depression related to loss of custody of her children. She also used methamphetamine around 3 am. Date seen by provider: Jan 26, 2021 Time Seen by Provider: 12:45 Attending Physician Regis Bustos MD PCP Regis Bustos MD Consult Date of Admission Jan 26, 2021 at 11:18 Home Medications Home Medications Reviewed patient Home Medication Reconciliation performed by pharmacy medication reconciliations mechanical service technician and/or nursing. Patients Allergies have been reviewed. Allergies Coded Allergies: No Known Drug Allergies (Verified , 04/15/08) UZN-[id number]-Qaetbf Hx Patient Social History Drug of Choice: MARIJUANNA AND METH Smoking Status: Current Everyday Smoker Recent Hopitalizations: No Immunizations Up To Date Tetanus Booster (TDap): Less than 5yrs Date of Influenza Vaccine: May 03, 2016 Past Medical History PMHx: Mood disorder ADHD ODD, BPD PSurgHx: [place] teeth extraction Family Medical History Significant Family History: No Pertinent Family Hx Family History: FH: ovarian cancer PATERNAL GRANDMOTHER Hypertension 19 FATHER Review of Systems ([facility]) Constitutional: other (unable to obtain due to patient condition) Reviewed Test Results Reviewed Test Results Lab Laboratory Tests Test 01/26/21 08:26 Range/Units White Blood Count 6.3 4.3-11.0 10^3/uL Red Blood Count 4.35 3.80-5.11 10^6/uL Hemoglobin 13.9 11.5-16.0 g/dL Hematocrit 41 35-52 % Mean Corpuscular Volume 94 80-99 fL Mean Corpuscular Hemoglobin 32 25-34 pg Mean Corpuscular Hemoglobin Concent 34 32-36 g/dL Red Cell Distribution Width 12.5 10.0-14.5 % Platelet Count 256 130-400 10^3/uL Mean Platelet Volume 10.0 9.0-12.2 fL Immature Granulocyte % (Auto) 0 % Neutrophils (%) (Auto) 62 42-75 % Lymphocytes (%) (Auto) 26 12-44 % Monocytes (%) (Auto) 9 0-12 % Eosinophils (%) (Auto) 2 0-10 % Basophils (%) (Auto) 1 0-10 % Neutrophils # (Auto) 3.9 1.8-7.8 10^3/uL Lymphocytes # (Auto) 1.6 1.0-4.0 10^3/uL Monocytes # (Auto) 0.6 0.0-1.0 10^3/uL Eosinophils # (Auto) 0.1 0.0-0.3 10^3/uL Basophils # (Auto) 0.1 0.0-0.1 10^3/uL Immature Granulocyte # (Auto) 0.0 0.0-0.1 10^3/uL Urine Color YELLOW Urine Clarity CLEAR Urine pH 6.0 5-9 Urine Specific [place] >=1.030 1.016-1.022 Urine Protein 1+ H NEGATIVE Urine Glucose (UA) NEGATIVE NEGATIVE Urine Ketones NEGATIVE NEGATIVE Urine Nitrite NEGATIVE NEGATIVE Urine Bilirubin NEGATIVE NEGATIVE Urine Urobilinogen 0.2 < = 1.0 MG/DL Urine Leukocyte Esterase NEGATIVE NEGATIVE Urine RBC (Auto) NEGATIVE NEGATIVE Urine RBC NONE /HPF Urine WBC RARE /HPF Urine Squamous Epithelial Cells 2-5 /HPF Urine Crystals NONE /LPF Urine Bacteria TRACE /HPF Urine Casts PRESENT /LPF Urine Hyaline Casts 5-10 H /LPF Urine Mucus SMALL H /LPF Urine Culture Indicated NO Sodium Level 138 135-145 MMOL/L Potassium Level 3.9 3.6-5.0 MMOL/L Chloride Level 103 98-107 MMOL/L Carbon Dioxide Level 23 21-32 MMOL/L Anion Gap 12 5-14 MMOL/L Blood Urea Nitrogen 16 7-18 MG/DL Creatinine 0.82 0.60-1.30 MG/DL Estimat Glomerular Filtration Rate > 60 BUN/Creatinine Ratio 20 Glucose Level 122 H 70-105 MG/DL Calcium Level 9.3 8.5-10.1 MG/DL Corrected Calcium 8.9 8.5-10.1 MG/DL Total Bilirubin 0.6 0.1-1.0 MG/DL Aspartate Amino Transf (AST/SGOT) 25 5-34 U/L Alanine Aminotransferase (ALT/SGPT) 6 0-55 U/L Alkaline Phosphatase 70 40-136 U/L Total Protein 7.6 6.4-8.2 GM/DL Albumin 4.5 3.2-4.5 GM/DL TSH [place] Testing 4.09 0.35-4.94 UIU/ML Serum Test, Qualitative NEGATIVE NEGATIVE Salicylates Level < 5.0 L 5.0-20.0 MG/DL Urine Opiates Screen NEGATIVE NEGATIVE Urine Oxycodone Screen NEGATIVE NEGATIVE Urine Methadone Screen NEGATIVE NEGATIVE Urine Propoxyphene Screen NEGATIVE NEGATIVE Acetaminophen Level < 10 L 10-30 UG/ML Urine Barbiturates Screen NEGATIVE NEGATIVE Ur Tricyclic Antidepressants Screen NEGATIVE NEGATIVE Urine Phencyclidine Screen NEGATIVE NEGATIVE Urine Amphetamines Screen POSITIVE H NEGATIVE Urine Methamphetamines Screen POSITIVE H NEGATIVE Urine Benzodiazepines Screen NEGATIVE NEGATIVE Urine Cocaine Screen NEGATIVE NEGATIVE Urine Cannabinoids Screen POSITIVE H NEGATIVE Serum Alcohol < 10 <10 MG/DL Physical Exam-([facility]) Physical Exam Vital Signs VS - Last 72 Hours, by Label 01/26/21 01/26/21 01/26/21 01/26/21 08:28 11:55 11:56 12:15 Temp 36.4 Pulse 101 87 115 Resp 18 16 15 B/P (MAP) 117/103 (108) 102/80 119/77 (91) Pulse Ox 100 99 99 99 O2 Delivery Room Air Room Air 01/26/21 01/26/21 01/26/21 01/26/21 13:00 14:00 15:00 16:00 Pulse 86 87 87 92 Resp 18 17 16 17 B/P (MAP) 96/77 (83) 105/76 (86) 100/70 (80) 102/68 (79) Pulse Ox 99 98 99 98 O2 Delivery Room Air Room Air Room Air Room Air 01/26/21 16:27 Pulse Ox 98 O2 Delivery Room Air Capillary Refill : Less Than 3 Seconds General Appearance: moderate distress Respiratory: lungs clear, normal breath sounds Cardiovascular: no murmur, tachycardia Gastrointestinal: normal bowel sounds, non tender, soft Extremities: no pedal edema Neurologic/Psychiatric: other (doesn't answer questions or follow instructions. Moving all extremities.) Skin: warm/dry Assessment/Plan Assessment/Plan Admission Status: Inpatient Order (span 2 midnights) Reason for Inpatient Admission: Overdose with significantly altered mental status (1) Altered mental status Status: Acute Assessment & Plan: Secondary to overdose. Poison control contacted, appreciate recommendations. Concern for possible need for intubation later if she becomes less responsive. Qualifiers: Qualified Codes: R40.1 - Stupor (2) Medication overdose Status: Acute Assessment & Plan: Amitriptyline. UDS with methamphetamine, marijuana. Acetaminophen, salicylate and EtOH levels normal/low. Qualifiers: Qualified Codes: T50.904A - Poisoning by unspecified drugs, medicaments and biological substances, undetermined, initial encounter (3) Polysubstance abuse Status: Acute (4) DVT prophylaxis Status: Acute Assessment & Plan: Enoxaparin REGIS BUSTOS MD Jan 26, 2021 17:01
[2021-01-26] MEDS ORDERED: ENOXAPARIN 40 MG/0.4 ML (LOVENOX) SYR SQ SCH (17:15)
[2021-01-26] MEDS: inSUlin ASPART (NovoLOG) 1 UNIT/0.01 ML (CHARGE PER UNIT) SQ SCH (17:34)
[2021-01-26] MEDS ORDERED: DEXTROSE 50% 50 ML (IMS) SYR IV NR (17:45)
[2021-01-26] MEDS ORDERED: DEXTROSE 50% 50 ML (IMS) SYR ONE (17:47)
[2021-01-27] VITALS (15 sets, daily range): BP systolic 88–107; BP diastolic 55–74
[2021-01-27] MEDS: inSUlin ASPART (NovoLOG) 1 UNIT/0.01 ML (CHARGE PER UNIT) SQ SCH ×3 (00:32→11:12)
[2021-01-27] MEDS: LACTATED RINGERS 1,000 ML IV SCH ×2 (04:02→11:16)
[2021-01-27 05:37] LABS: BASOPHILS % (AUTO) 1 % (0-10); EOSINOPHILS # (AUTO) 0.2 10^3/uL (0.0-0.3); EOSINOPHILS % (AUTO) 3 % (0-10); HEMATOCRIT 35 % (35-52); LYMPHOCYTES # (AUTO) 1.6 10^3/uL (1.0-4.0); LYMPHOCYTES % (AUTO) 33 % (12-44); MEAN CORPUSCULAR HEMOGLOBIN 32 pg (25-34); MEAN CORPUSCULAR HGB CONC 34 g/dL (32-36); MEAN CORPUSCULAR VOLUME 94 fL (80-99); MEAN PLATELET VOLUME 9.5 fL (9.0-12.2); MONOCYTES # (AUTO) 0.5 10^3/uL (0.0-1.0); MONOCYTES % (AUTO) 11 % (0-12); NEUTROPHILS # (AUTO) 2.6 10^3/uL (1.8-7.8); NEUTROPHILS % (AUTO) 52 % (42-75); PLATELET COUNT 179 10^3/uL (130-400); WHITE BLOOD COUNT 4.9 10^3/uL (4.3-11.0)
[2021-01-27 05:47] LABS: CHLORIDE 109 MMOL/L (98-107); POTASSIUM 3.9 MMOL/L (3.6-5.0); SODIUM 141 MMOL/L (135-145)
[2021-01-27 05:48] LABS: CALCIUM 8.2 MG/DL (8.5-10.1)
[2021-01-27 05:49] LABS: GLUCOSE 76 MG/DL (70-105)
[2021-01-27 05:50] LABS: CARBON DIOXIDE 21 MMOL/L (21-32)
[2021-01-27 05:52] LABS: PHOSPHORUS 3.8 MG/DL (2.3-4.7)
[2021-01-27 05:53] LABS: CREATININE SERUM 0.68 MG/DL (0.60-1.30); GFR ESTIMATED > 60
[2021-01-27 05:54] LABS: BUN/CREATININE RATIO 15
[2021-01-27 05:55] LABS: MAGNESIUM 1.8 MG/DL (1.6-2.4)
[2021-01-27] MEDS ORDERED: POTASSIUM CL 10MEQ/50ML IVPB 50 ML IV SCH (06:00)
[2021-01-27] MEDS ORDERED: KCL 20 MEQ TAB (K-DUR) PO SCH (06:00)
[2021-01-27] MEDS ORDERED: MAGNESIUM 1 GM/100 ML IVPB 100 ML IV SCH (06:00)
--- NOTE | 2021-01-27 11:28 | Discharge Summary ---
Discharge Summary Hospital Course Problems/Diagnosis: (1) Altered mental status Status: Resolved Resolution Date/Time: 01/27/21 @ 11:23 Assessment & Plan: Secondary to overdose. Poison control contacted, appreciate recommendations. Concern for possible need for intubation later if she becomes less responsive. 01/27- resolved, alert and oriented Qualifiers: Qualified Codes: R40.1 - Stupor (2) Medication overdose Status: Acute Assessment & Plan: Amitriptyline. UDS with methamphetamine, marijuana. Acetaminophen, salicylate and EtOH levels normal/low. 01/27 stable, EKGs unremarkable, will have BH screen prior to d/c. Qualifiers: Qualified Codes: T50.904A - Poisoning by unspecified drugs, medicaments and biological substances, undetermined, initial encounter (3) Polysubstance abuse Status: Acute Assessment & Plan: Already receiving services outpatient, has appt Saturday. Hospital Course Date of Admission: Jan 26, 2021 at 11:18 Admission Diagnosis : Family Physician/Provider: Regis Bustos MD Date of Discharge: 01/27/21 Discharge Diagnosis: SEe problem list Hospital Course: See problem list Labs and Pending Lab Test: Laboratory Tests 01/26/21 17:32: Glucometer 66L 01/26/21 17:33: Glucometer 68L 01/26/21 18:16: Glucometer 147H 01/27/21 05:28: White Blood Count 4.9, Red Blood Count 3.77L, Hemoglobin 12.0, Hematocrit 35, Mean Corpuscular Volume 94, Mean Corpuscular Hemoglobin 32, Mean Corpuscular Hemoglobin Concent 34, Red Cell Distribution Width 12.5, Platelet Count 179, Mean Platelet Volume 9.5, Immature Granulocyte % (Auto) 0, Neutrophils (%) (Auto) 52, Lymphocytes (%) (Auto) 33, Monocytes (%) (Auto) 11, Eosinophils (%) (Auto) 3, Basophils (%) (Auto) 1, Neutrophils # (Auto) 2.6, Lymphocytes # (Auto) 1.6, Monocytes # (Auto) 0.5, Eosinophils # (Auto) 0.2, Basophils # (Auto) 0.0, Immature Granulocyte # (Auto) 0.0, Sodium Level 141, Potassium Level 3.9, Chloride Level 109H, Carbon Dioxide Level 21, Anion Gap 11, Blood Urea Nitrogen 10, Creatinine 0.68, Estimat Glomerular Filtration Rate > 60, BUN/Creatinine Ratio 15, Glucose Level 76, Calcium Level 8.2L, Phosphorus Level 3.8, Magnesium Level 1.8 01/27/21 10:28: Glucometer 83 Microbiology 01/26/21 MRSA Screen - Final, Complete MRSA not isolated Home Meds Active Ibu (Ibuprofen) 600 Mg Tablet 600 Mg PO Q6H PRN 14 Days Reported Ferrous Sulfate 325 Mg Tablet 325 Mg PO DAILY Multi Tablet (Pnv No.122/Iron/Folic Acid) 1 Each Tablet 1 Each PO Assessment/Pt DC Instructions Follow up with psych on February 07, with substance treatment as scheduled. Follow up with Minor Galarza APRN at [facility] on January 31 at 1:20 pm. Discharge Diet: No Restrictions Activity as Tolerated: Yes Discharge Physical Examination Allergies: Coded Allergies: No Known Drug Allergies (Verified , 04/15/08) General Appearance: No Apparent Distress, WD/WN Respiratory: Lungs Clear, Normal Breath Sounds Cardiovascular: Regular Rate, Rhythm, No Murmur Gastrointestinal: Normal Bowel Sounds, Non Tender, Soft Extremity: No Pedal Edema Skin: Normal Color, Warm/Dry Neurologic/Psychiatric: Alert, Oriented x3, Normal Mood/Affect REGIS BUSTOS MD Jan 27, 2021 11:28
--- NOTE | 2021-01-27 14:40 | Tele-ICU Progress Note ---
Subjective Date Seen by a Provider: Jan 27, 2021 Time Seen by a Provider: 12:00 Subjective/Events-last exam Case reviewed with the RN. Video visit made. She took 25 tablets of amitriptyline and came with a sleepiness. Poison control was contacted and patient is hydrated. Her QTC is normal. No new complaints. Patient apparently denied any suicidal ideation Sepsis Event Evaluation Height, Weight, BMI Height: 5'3.00" Weight: 194lbs. 0.6oz. [id number]; 20.27 BMI Method:Stated Exam Exam Patient acknowledged, consented, and participated in this virtual visit which was conducted using real time audio/video Vital Signs Date Time Temp Pulse Resp B/P (MAP) Pulse Ox O2 Delivery O2 Flow Rate FiO2 01/27/21 14:00 92 16 93 Room Air 01/27/21 13:00 86 17 93/58 (70) 97 Room Air 01/27/21 12:32 87 01/27/21 12:00 97 18 88/58 (68) 97 Room Air 01/27/21 12:00 100 Room Air 01/27/21 11:39 37.4 01/27/21 11:00 101 18 92/55 (67) 95 Room Air 01/27/21 10:00 95 18 95/58 (70) 97 Room Air 01/27/21 09:00 102 104/67 (79) 97 Room Air 01/27/21 08:00 36.9 01/27/21 08:00 78 14 106/74 (85) 99 Room Air 01/27/21 07:45 99 Room Air 01/27/21 07:00 69 01/27/21 07:00 79 17 107/69 (82) 98 Room Air 01/27/21 06:00 74 14 99/65 (76) 97 Room Air 01/27/21 05:00 65 19 102/63 (76) 99 Room Air 01/27/21 04:00 36.0 01/27/21 04:00 74 18 99/65 (76) Room Air 01/27/21 04:00 98 Room Air 01/27/21 03:00 83 16 100/65 (77) Room Air 01/27/21 02:00 85 16 92/64 (73) Room Air 01/27/21 01:00 86 14 104/68 (80) Room Air 01/27/21 01:00 72 6/25/21 00:00 98 Room Air 01/27/21 00:00 78 21 100/66 (77) Room Air 01/26/21 23:00 75 15 95/62 (73) 100 Room Air 01/26/21 22:00 80 15 94/59 (71) 100 Room Air 01/26/21 21:00 87 16 95/65 (75) 98 Room Air 01/26/21 20:48 35.1 01/26/21 20:00 98 Room Air 01/26/21 20:00 82 16 93/65 (74) 93 Room Air 01/26/21 19:00 81 14 97/65 (76) 98 Room Air 01/26/21 19:00 80 01/26/21 18:00 80 14 100/69 (79) 99 Room Air 01/26/21 17:54 36.4 01/26/21 17:00 73 105/74 (84) 100 Room Air 01/26/21 16:27 98 Room Air 01/26/21 16:00 92 17 102/68 (79) 98 Room Air 01/26/21 15:00 87 16 100/70 (80) 99 Room Air I & O 01/27/21 07:00 Intake Total 1000 ml Output Total 2100 ml Balance -1100 ml Height & Weight Height: 5'3.00" Weight: 194lbs. 0.6oz. [id number]; 20.27 BMI Method:Stated General Appearance: No Apparent Distress, WD/WN Respiratory: Lungs Clear, Normal Breath Sounds Cardiovascular: Regular Rate, Rhythm, No Murmur Capillary Refill: Less Than 3 Seconds Peripheral Pulses: 2+ Radial Pulses (R), 2+ Radial Pulses (L) Gastrointestinal: normal bowel sounds, non tender, soft Extremity: No Pedal Edema Neurologic/Psychiatric: Alert, Oriented x3, Normal Mood/Affect Skin: Normal Color, Warm/Dry Results Lab Laboratory Tests 01/26/21 08:26 01/27/21 05:28 Meds reviewed Assessment/Plan Assessment/Plan Case reviewed with the RN. Video visit made. She took 25 tablets of amitriptyline and came with a sleepiness. Poison control was contacted and patient is hydrated. Her QTC is normal. No new complaints. Patient apparently denied any suicidal ideation Time spent with patient (mins): 25 FRANCI HELMS MD Jan 27, 2021 14:40
[2021-01-27] MEDS ORDERED: TOPI25TA10 PO (15:05)
[2021-01-27] MEDS ORDERED: LURA40TA3 PO (15:05)
[2021-01-27] MEDS ORDERED: AMIT25TA9 PO (15:05)
== END 2021-01-27 16:10 | disposition home or self-care (01) ==
LOC: EDUNIT# 08:21 → ER 08:22 → ICU 11:18 → INTOOBSV 11:18
PROVIDERS: ADMIT Family Medicine; ATTEND Family Medicine
DX: T43.014A Poisoning by tricyclic antidepressants, undetermined, initial encounter (principal); R41.82 Altered mental status, unspecified; F19.10 Other psychoactive substance abuse, uncomplicated; I82.409 Acute embolism and thrombosis of unspecified deep veins of unspecified lower extremity; F32.9 Major depressive disorder, single episode, unspecified; F90.9 Attention-deficit hyperactivity disorder, unspecified type; F91.3 Oppositional defiant disorder; F98.8 Other specified behavioral and emotional disorders with onset usually occurring in childhood and adolescence; Z79.1 Long term (current) use of non-steroidal anti-inflammatories (NSAID); F17.210 Nicotine dependence, cigarettes, uncomplicated; J45.909 Unspecified asthma, uncomplicated; J18.9 Pneumonia, unspecified organism; M41.9 Scoliosis, unspecified; R00.0 Tachycardia, unspecified
CPT/HCPCS: 80048; 80053; 80306; 81000; 82947 ×2; 83735; 84100; 84443; 84703; 85025 ×2; 87081; 93005 ×2; 93041; 99285; G0480 ×3; 36415; 80320; 80329; G0378